=== PATIENT | male | born 1960 | race Caucasian/White ===

== ENCOUNTER 2024-12-15 04:38 | Inpatient (IN) | payer MEDICAID ==
[2024-12-15] VITALS (8 sets, daily range): BP systolic 125–173; BP diastolic 71–91; PULSE 93–119; RESP 17–20; TEMP 98.3–98.9; O2SAT 96–99
[~2024-12-15] VITALS: Ht 177.8 cm; Wt 94.0 kg
--- NOTE | 2024-12-15 04:58 | ED.PDOC ---
GI ASSESSMENT HPI Comments 64-year-old male came to ER for nausea. Patient states for the past 5 days, he has been having bouts of nausea, vomiting and diarrhea. He has been feeling very weak and fatigued. At times he feels confused and disoriented. Patient coming in for further evaluation and management. He denies any abdominal pain Chief Complaint: Nausea/Vomiting Time Seen by MD: 04:57 Reviewed Notes: Nurses Notes Information Source: Patient Mode of Arrival: Ambulatory Timing: Days Duration: Intermittent Prehospital treatment: None Quality: None Vomitus: Watery Stool: Loose Severity: Moderate Recent: None Recent Hx of: None Pain Location: None Associated sign and symptoms: Nausea, Vomiting, Diarrhea, Other (Weakness) Past Medical History PAST MEDICAL HISTORY: DM Surgical History: Denies all surgeries Family History Family History: Reviewed,noncontributory to illness Social History Smoker: Non-Smoker Alcohol: Denies ETOH Use Drugs: Denies Drug Use Lives In: Home Constitutional: reports: fatigue, weakness; denies: chills, diaphoresis, fever, malaise, sweats, others EENTM: denies: blurred vision, double vision, ear bleeding, ear discharge, ear drainage, ear pain, ear ringing, eye pain, eye redness, hearing loss, mouth leslie n, mouth swelling, nasal discharge, nose bleeding, nose congestion, nose pain, photophobia, tearing, throat pain, throat swelling, voice changes, others Respiratory: denies: cough, hemoptysis, orthopnea, SOB at rest, shortness of breath, SOB with excertion, stridor, wheezing, others Cardiovascular: denies: chest pain, dizzy spells, diaphoresis, Dyspnea on exertion, edema, irregular heart beat, left arm pain, lightheadedness, palpitations, PND, syncope, others Gastrointestinal: reports: diarrhea, nausea, rectal pain; denies: abdomen distended, abdominal pain, blood streaked bowels, constipated, dysphagia, difficulty swallowing, hematemesis, melena, poor appetite, poor fluid intake, rectal bleeding, vomiting, others Genitourinary: denies: burning, dysuria, flank pain, frequency, hematuria, incontinence, penile discharge, penile sore, pain, testicle pain, testicle swelling, urgency, others Neurological: denies: dizziness, fainting, headache, left sided numbness, left sided weakness, numbness, paresthesia, pre-existing deficit, right sided numbness, right sided weakness, seizure, speech problems, tingling, tremors, weakness, others Musculoskeletal: denies: back pain, gout, joint pain, joint swelling, muscle pain, muscle stiffness, neck pain, others Integumetry: denies: bruises, change in color, change in hair/nails, dryness, laceration, lesions, lumps, rash, wounds, others Allergic/Immunocompromised: denies: Difficulty Healing, Frequent Infections, Hives, Itching, others Hematologic/Lymphatic: denies: anemia, blood clots, easy bleeding, easy bruising, swollen glands, others Endocrine: denies: excessive hunger, excessive sweating, excessive thirst, excessive urination, flushing, intolerance to cold, intolerance to heat, unexplained weight gain, unexplained weight loss, others Psychiatric: denies: anxiety, bipolar disorder, depression, hopeless, panic disorder, schizophrenia, sleepless, suicidal, others Physical Exam General Appearance: No Apparent Distress, Normal HEENT: Normal ENT Inspection, Pharynx Normal, TMs Normal Neck: Full Range of Motion, Non-Tender, Normal, Normal Inspection Respiratory: Chest Non-Tender, Lungs Clear, No Accessory Muscle Use, No Respiratory Distress, Normal Breath Sounds Cardiovascular: No Edema, No JVD, No Murmur, No Gallop, Normal Peripheral Pulses, Regular Rate/Rhythm Breast Exam: Deferred Gastrointestinal: No Organomegaly, Non Tender, No Pulsatile Mass, Normal Bowel Sounds, Soft Genitalia: Deferred Pelvic: Deferred Rectal: Deferred Extremities: No calf tenderness, Normal capillary refill, Normal inspection, Normal range of motion, Non-tender, No pedal edema Musculoskeletal : Apperance: Normal Neurologic: Alert, summer law clerk II-XII nml as Tested, No Motor Deficits, Normal Affect, Normal Mood, No Sensory Deficits Cerebellar Function: Normal Reflexes: Normal Skin: Dry, Normal Color, Warm Lymphatic: No Adenopathy Was a procedure done? Was a procedure done?: No GI differential Dx Differential Diagnosis: Diverticular disease, Gastritis/PUD, Gastroenteritis, Dehydration, Anemia X-Ray, Labs, Meds, VS Vital Signs Date Time Temp Pulse Resp B/P (MAP) Pulse Ox O2 Delivery O2 Flow Rate FiO2 12/15/24 04:58 98.2 104 18 183/95 (124) 99 Lab Test 12/15/24 05:00 12/15/24 04:58 12/15/24 04:50 Range/Units Urine Color Pending Urine Clarity Pending Urine pH Pending Urine Specific [place] Pending Urine Protein Pending Urine Ketones Pending Urine Blood Pending Urine Nitrite Pending Urine Bilirubin Pending Urine Urobilinogen Pending Urine Leukocyte Esterase Pending Urine RBC Pending Urine Microscopic WBC Pending Urine Squamous Epithelial Cells Pending Urine Bacteria Pending Urine Glucose Pending White Blood Count 12.0 H 4.4-10.8 10^3/uL Red Blood Count 4.82 4.5-5.90 10^6/uL Hemoglobin 14.7 13.5-17.5 g/dL Hematocrit 44.4 41.0-53.0 % Mean Corpuscular Volume 92.1 80.0-100.0 fL Mean Corpuscular Hemoglobin 30.5 28.0-32.0 pg Mean Corpuscular Hemoglobin Concent 33.1 32.0-36.0 g/dL Red Cell Distribution Width 13.1 11.8-14.3 % Platelet Count 161 140-450 10^3/uL Mean Platelet Volume 8.3 6.9-10.8 fL Neutrophils (%) (Auto) 91.7 H 37.0-80.0 % Lymphocytes (%) (Auto) 3.8 L 10.0-50.0 % Monocytes (%) (Auto) 4.2 0.0-12.0 % Eosinophils (%) (Auto) 0.1 0.0-7.0 % Basophils (%) (Auto) 0.2 0.0-2.0 % Neutrophils # (Auto) 11.0 H 1.6-8.6 10 ^3/uL Lymphocytes # (Auto) 0.5 0.4-5.4 10 ^3/uL Monocytes # (Auto) 0.5 0-1.3 10 ^3/uL Eosinophils # (Auto) 0 0-0.8 10 ^3/uL Basophils # (Auto) 0 0-0.2 10 ^3/uL Nucleated Red Blood Cells 0.0 % Sodium Level 136 136-145 mmol/L Potassium Level 6.7 *H 3.5-5.1 mmol/L Chloride Level 101 98-107 mmol/L Carbon Dioxide Level < 10 *L 20-31 mmol/L Anion Gap 25.91781 H 5-15 Blood Urea Nitrogen 125 *H 9-23 mg/dL Creatinine 24.87 *H 0.700-1.30 mg/dL Glomerular Filtration Rate Calc 2 >90 mL/min BUN/Creatinine Ratio 5.0 L 10.0-20.0 Serum Glucose 142 H 74-106 mg/dL Calcium Level 8.4 L 8.7-10.4 mg/dL Troponin I High Sensitivity 228 *H </=54 ng/L POC Glucose 116 H 70-106 mg/dl CHEST RADIOGRAPH Indication: vomiting Technique: Single frontal view of the chest was obtained COMPARISON: None FINDINGS: Lines and Tubes: None Lungs: Clear Pleura: No effusion. No pneumothorax. Cardiomediastinal contours: Unremarkable Bones: Unremarkable IMPRESSION: No acute disease. Time of 1ST Reevaluation: 04:53 Reevaluation 1ST: Unchanged Patient Education/Counseling: Diagnosis, Treatment Family Education/Counseling: No Family Present Departure 1 Departure Time of Disposition: 05:48 (Patient with a acute renal failure. Patient hyperkalemic. Patient with metabolic encephalopathy. Treating patient with hyp erkalemia protocol fluids and we will admit patient to step-down unit for expert consultation further management) Impression: Primary Impression: Hyperkalemia Additional Impressions: Acute metabolic encephalopathy Acute renal failure Qualified Codes: N17.9 - Acute kidney failure, unspecified Disposition: 09 ADMITTED INPATIENT Admit to: [facility] Condition: Critical Critical Care Note Critical Care Time?: Yes Critical care comment: Acute renal failure Authorized and Performed by: Saman Vega MD Total critical care time: Approximately 41 minutes Due to a high probability of clinically significant, life threatening deterioration, the patient required my highest level of preparedness to intervene emergently and I personally spent this critical care time directly and personally managing the patient. This critical care time included obtaining a history; examining the patient; pulse oximetry; ordering and review of studies; arranging urgent treatment with development of a management plan; evaluation of patient's response to treatment; frequent reassessment; and, discussions with other providers. This critical care time was performed to assess and manage the high probability of imminent, life-threatening deterioration that could result in multi-organ failure. It was exclusive of separately billable procedures and treating other patients and teaching time. Please see my other sections and the rest of the note for further information on patient assessment and treatment. Stability Stability form required: No Heart Score Heart Score: Heart Score Response (Comments) Value History N/A 0 EKG N/A 0 Age N/A 0 Risk Factors N/A 0 Troponin N/A 0 Total 0 I personally scribed for SAMAN VEGA MD ([facility]) on 12/15/24 at 04:58. Electronically submitted by Cam Rodriguez ([email or web address] I personally scribed for SAMAN VEGA MD ([facility]) on 12/15/24 at 05:30. Electronically submitted by Cam Rodriguez ([email or web address] SAMAN VEGA MD Dec 15, 2024 04:58
--- NOTE | 2024-12-15 05:17 | DVH ---
CHEST RADIOGRAPH Indication: vomiting Technique: Single frontal view of the chest was obtained COMPARISON: None FINDINGS: Lines and Tubes: None Lungs: Clear Pleura: No effusion. No pneumothorax. Cardiomediastinal contours: Unremarkable Bones: Unremarkable IMPRESSION: No acute disease.
[2024-12-15 05:26] LABS: Basophils # (auto) 0 10 ^3/uL (0-0.2); Basophils % (auto) 0.2 % (0.0-2.0); Eosinophils # (auto) 0 10 ^3/uL (0-0.8); Eosinophils % (auto) 0.1 % (0.0-7.0); Hematocrit 44.4 % (41.0-53.0); Hemoglobin 14.7 g/dL (13.5-17.5); Lymphocytes # (auto) 0.5 10 ^3/uL (0.4-5.4); Lymphocytes % (auto) 3.8 % (10.0-50.0); Mean Corpuscular Hemoglobin 30.5 pg (28.0-32.0); Mean Corpuscular Hgb Conc. 33.1 g/dL (32.0-36.0); Mean Corpuscular Volume 92.1 fL (80.0-100.0); Monocytes # (auto) 0.5 10 ^3/uL (0-1.3); Monocytes % (auto) 4.2 % (0.0-12.0); Neutrophils % (auto) 91.7 % (37.0-80.0); Platelet Count (auto) 161 10^3/uL (140-450); Red Blood Cells 4.82 10^6/uL (4.5-5.90); Red Cell Distribution Width 13.1 % (11.8-14.3)
[2024-12-15 05:28] LABS: Chloride 101 mmol/L (98-107)
[2024-12-15 05:29] LABS: Anion Gap 25.00001 (5-15)
[2024-12-15 05:34] LABS: Urine Bacteria None Seen /hpf (None Seen)
[2024-12-15 05:35] LABS: Calcium 8.4 mg/dL (8.7-10.4); Glucose 142 mg/dL (74-106); Sodium 136 mmol/L (136-145)
[2024-12-15 05:38] LABS: Blood Urea Nitrogen 125 mg/dL (9-23); Carbon Dioxide < 10 mmol/L (20-31); Potassium 6.7 mmol/L (3.5-5.1)
[2024-12-15] MEDS: CALCIUM GLUC 1,000mg/50ml-NS 100 ML IV ONE (05:55)
[2024-12-15] MEDS: SODIUM CHLORIDE 0.9% 1,000 ML IV ONE ×2 (05:55→06:55)
[2024-12-15] MEDS: CALCIUM GLUC 1,000mg/50ml-NS 50 ML IV SCH (05:55)
[2024-12-15 06:03] LABS: Urine Blood 2+ /uL (Negative); Urine Clarity Ex.Turbid (Clear); Urine Color Colorless (Yellow); Urine Protein, UAD 2+ (Negative); Urine Specific Gravity 1.009 (1.001-1.035); Urine Squamous Epithelial Cell None Seen /hpf (<5); Urine Urobilinogen Normal (Negative); Urine WBC 1035 /HPF (0-3); Urine WBC Clumps PRESENT /hpf (None Seen)
[2024-12-15] MEDS: InsuLIN REG 1unit/0.01ml Soln (100units/ml) IV ONE ×2 (06:10→15:09)
[2024-12-15] MEDS: SODIUM BICARB 8.4% 50Meq/50ml SYR Vial IV ONE (06:11)
[2024-12-15] MEDS: ONDANSETRON HCL 4 MG/2 ML VIAL IV ONE (06:18)
[2024-12-15] MEDS: DEXTROSE (50%) 50ML SYRG IV ONE ×2 (06:21→15:08)
[2024-12-15] MEDS: FAMOTIDINE (10MG/ML) 2ML VL IV ONE (06:55)
[2024-12-15] MEDS ORDERED: NITROGLYCERIN 0.4 MG SL TAB SL PRN (07:45)
[2024-12-15] MEDS ORDERED: MORPHINE SULFATE INJ 2 MG/ml SYRG IV PRN (07:45)
[2024-12-15] MEDS ORDERED: DEXTROSE (50%) 50ML SYRG IV PRN (07:45)
[2024-12-15] MEDS: cefTRIAXone 1GM/50ML D5W 50 ML IV ONE (07:59)
[2024-12-15] MEDS ORDERED: LISI20TA56 (08:00)
[2024-12-15] MEDS ORDERED: ASPI-628 PO (08:00)
[2024-12-15] MEDS ORDERED: ERGO1CAP12 PO (08:00)
[2024-12-15] MEDS ORDERED: TAMS0.4C39 PO (08:00)
[2024-12-15] MEDS ORDERED: ATOR40TA52 PO (08:00)
[2024-12-15] MEDS ORDERED: DOCU-265 (08:00)
--- NOTE | 2024-12-15 08:02 | DVHHP2 ---
History of Present Illness Reason for Visit: Nausea, vomiting, and generalized weakness History of Present Illness Dami Bailey is a 64-year-old male with past medical history of hypertension and diabetes who presents to the ED with nausea, vomiting, and general weakness x5 days. Patient reports that he has had a poor appetite for the last week and also has some urgency to void in the evenings. Patient reports that he stopped taking his Flomax because he just did not want to any longer. Also reports that he has been having chest pain on and off for the last several months. Patient also reports that he has no recent sick contacts or recent illnesses. She denies any shortness of breath, abdominal pain, diarrhea, fever, chills, dizziness, and headaches. Cardiovascular: HTN Endocrine: Diabetes Past Surgical History: None Family History: DM, Other (Dad with diabetes) Smoke: No ALCOHOL: none Drugs: None Lives: Roommate Domestic Violence: Neg Review of Systems Constitutional: Yes: Weakness; No: Fever, Chills, Sweats, Malaise, Other Eyes: No: Pain, Vision change, Conjunctivae inflammation, Eyelid inflammation, Other, Redness ENT: No: Ear pain, Ear discharge, Nose pain, Nose discharge, Nose congestion, Mouth pain, Mouth swelling, Throat pain, Throat swelling, Other Respiratory: No: Cough, Dry, Shortness of breath, SOB with excertion, Wheezing, Hemoptysis, Pleuritic Pain, Sputum, Wheezing, Other Cardiovascular: No: Chest Pain, Palpitations, Orthopnea, Paroxysmal Noc. Dyspnea, Edema, Lt Headedness, Other Gastrointestinal: Nausea, Vomiting; No: Abdominal Pain, Diarrhea, Constipation, Melena, Hematochezia, Other Genitourinary: No Dysuria, No Frequency, No Incontinence, No Hematuria, No Ret ention, No Other Musculoskeletal: No: other, neck pain, shoulder pain, arm pain, back pain, hand pain, leg pain, foot pain Neurological: No: Weakness, Numbness, Incoordination, Change in speech, Confusion, Seizures, Other Allergies: Coded Allergies: NO KNOWN ALLERGIES (Unverified , 12/15/24) Medications Current Medications Medications Dose Ordered Sig/Tanesha Route Start Time Stop Time Status Last Admin Dose Admin Ceftriaxone Sodium 50 ml @ 100 mls/hr DAILY@09 IV 12/15/24 09:00 Ondansetron HCl 4 mg Q4HP PRN IV 12/15/24 07:45 UNV Acetaminophen 650 mg Q6HP PRN PO 12/15/24 07:45 UNV Nitroglycerin 0.4 mg Q5MINP PRN SL 12/15/24 07:45 UNV Morphine Sulfate 2 mg Q30M PRN IV 12/15/24 07:45 UNV Diagnostic Test (Pha) 1 strip ACHS 12/15/24 11:30 UNV Insulin Human Regular ACHS SC 12/15/24 11:30 UNV Dextrose 50 ml UD PRN IV 12/15/24 07:45 UNV Exam Vital Signs Vital Signs Date Time Temp Pulse Resp B/P (MAP) Pulse Ox O2 Delivery O2 Flow Rate FiO2 12/15/24 06:36 102 17 98 Room Air* 0 21 12/15/24 06:31 97.7 168/65 (99) 97.7 General Appearance: Alert, Oriented X3, Cooperative, No acute distress HEENT: Atraumatic, PERRLA, EOMI, Mucous membr. moist/pink Respiratory: Normal air movement Cardiovascular: Regular rate, Normal S1, Normal S2, No murmurs Abdominal: Normal bowel sounds, Soft, No tenderness, No hepatospenomegaly, No masses Extremities: No clubbing, No cyanosis, No edema, Normal pulses, No tenderness/swelling Skin: No rashes, No breakdown, No significant lesion Neuro: Normal gait, Normal speech, Normal tone, Sensation intact Psych/Mental Status: Mental status NL, Mood NL Labs/Xrays Labs Test 12/15/24 07:42 12/15/24 05:00 12/15/24 04:58 Range/Units POC Glucose 135 H 70-106 mg/dl Urine Color Colorless Yellow Urine Clarity Ex.turbid Clear Urine pH 6.0 5.0-9.0 Urine Specific [place] 1.009 1.001-1.035 Urine Protein 2+ H Negative Urine Ketones Trace Negative Urine Blood 2+ H Negative /uL Urine Nitrite Negative Negative Urine Bilirubin Negative Negative Urine Urobilinogen Normal Negative mg/dL Urine Leukocyte Esterase 3+ Negative /uL Urine RBC 18 0 - 3 /hpf Urine WBC Clumps Present None Seen /hpf Urine Microscopic WBC 1035 H 0-3 /HPF Urine Squamous Epithelial Cells None seen <5 /hpf Urine Bacteria None seen None Seen /hpf Urine Glucose Normal Normal mg/dL White Blood Count 12.0 H 4.4-10.8 10^3/uL Red Blood Count 4.82 4.5-5.90 10^6/uL Hemoglobin 14.7 13.5-17.5 g/dL Hematocrit 44.4 41.0-53.0 % Mean Corpuscular Volume 92.1 80.0-100.0 fL Mean Corpuscular Hemoglobin 30.5 28.0-32.0 pg Mean Corpuscular Hemoglobin Concent 33.1 32.0-36.0 g/dL Red Cell Distribution Width 13.1 11.8-14.3 % Platelet Count 161 140-450 10^3/uL Mean Platelet Volume 8.3 6.9-10.8 fL Neutrophils (%) (Auto) 91.7 H 37.0-80.0 % Lymphocytes (%) (Auto) 3.8 L 10.0-50.0 % Monocytes (%) (Auto) 4.2 0.0-12.0 % Eosinophils (%) (Auto) 0.1 0.0-7.0 % Basophils (%) (Auto) 0.2 0.0-2.0 % Neutrophils # (Auto) 11.0 H 1.6-8.6 10 ^3/uL Lymphocytes # (Auto) 0.5 0.4-5.4 10 ^3/uL Monocytes # (Auto) 0.5 0-1.3 10 ^3/uL Eosinophils # (Auto) 0 0-0.8 10 ^3/uL Basophils # (Auto) 0 0-0.2 10 ^3/uL Nucleated Red Blood Cells 0.0 % Sodium Level 136 136-145 mmol/L Potassium Level 6.7 *H 3.5-5.1 mmol/L Chloride Level 101 98-107 mmol/L Carbon Dioxide Level < 10 *L 20-31 mmol/L Anion Gap 25.90818 H 5-15 Blood Urea Nitrogen 125 *H 9-23 mg/dL Creatinine 24.87 *H 0.700-1.30 mg/dL Glomerular Filtration Rate Calc 2 >90 mL/min BUN/Creatinine Ratio 5.0 L 10.0-20.0 Serum Glucose 142 H 74-106 mg/dL Calcium Level 8.4 L 8.7-10.4 mg/dL Troponin I High Sensitivity 228 *H </=54 ng/L CHEST RADIOGRAPH Indication: vomiting Technique: Single frontal view of the chest was obtained COMPARISON: None FINDINGS: Lines and Tubes: None Lungs: Clear Pleura: No effusion. No pneumothorax. Cardiomediastinal contours: Unremarkable Bones: Unremarkable IMPRESSION: No acute disease. Assessment/Plan Assessment/Plan Assessment/Plan: Intractable nausea and vomiting Leukocytosis likely due to UTI KIANNA Hyperkalemia Labs Potassium level Hyperkalemia protocol Antiemetics Chest x-ray noted Troponin noted UA Lactic ESR CRP EKG IV antibiotics-ceftriaxone A.m. labs Lipid TSH UDS Echo ordered Cardiology consult Nephrology consult Diabetes type 2 uncontrolled Hemoglobin A1c ISS and Accu-Cheks Chronic hypertension Continue home medications FEN/PPX Diet IV fluids DVT prophylaxis not indicated patient ambulating PUD prophylaxis not indicated no history of GERD or GI bleed Admit to telemetry Home medications reconciled Discussed plan of care with patient and nurse Plan discussed with: Patient My Orders Orders - ROBBIN MARIE SOLAR PANEL TECHNICIAN Procedure Category Date Status Time Lactic Acid W/ Reflex LAB 12/15/24 Logged Order 07:34 Erythrocyte LAB 12/15/24 Logged Sedimentation Rate 07:34 C-Reactive Protein LAB 12/15/24 Logged 07:34 Ceftriaxone 1gm/50ml PHA 12/15/24 In Process D5w (Rocephin) 09:00 Ceftriaxone 1gm/50ml PHA 12/15/24 In Process D5w (Rocephin) 07:45 Troponin-I Hs LAB 12/15/24 Logged 07:36 Troponin-I Hs LAB 12/15/24 Logged 08:36 Electrocardigram EKG 12/15/24 Logged 07:36 *Dr. [facility] CONS 12/15/24 Transmitted -[place] 07:37 Admit ADMIT 12/15/24 Transmitted 07:37 Allergies FATOU 12/15/24 In Process 07:37 Code Status CODE 12/15/24 Transmitted 07:37 Renal DIET 12/15/24 Transmitted Standard(2gna,3gk,Lopho) Breakfast Ondansetron Hcl PHA 12/15/24 Transmitted (Zofran) 07:45 Complete Blood Count LAB 12/16/24 Verified 04:00 Comprehensive LAB 12/16/24 Verified Metabolic Panel 04:00 Acetaminophen Tablet PHA 12/15/24 Transmitted (Tylenol Tablet) 07:45 Nitroglycerin PHA 12/15/24 Transmitted Sublingual (Ntrostat 07:45 Morphine Sulfate PHA 12/15/24 Transmitted Injection 07:45 Stat Ekg For Chest [facility] 12/15/24 In Process Pain 07:37 Notify Md Of Changes [facility] 12/15/24 In Process From Base 07:37 Television Servicer For [facility] 12/15/24 In Process 24 Hours 07:37 Emergency Dysrhythmia [facility] 12/15/24 In Process Protocol 07:37 Rhythm Strips Once [facility] 12/15/24 In Process Every Shift 07:37 Oxygen By Nasal RT 12/15/24 Transmitted Cannula 07:37 Hemoglobin A1c LAB 12/15/24 Logged 07:37 Glucose Blood [facility] 12/15/24 Transmitted (Accu-Chek Comfort 11:30 Mild Sliding Scale PHA 12/15/24 Transmitted 11:30 Dextrose 50% Syringe [facility] 12/15/24 Transmitted 07:45 Date of Service: Dec 15, 2024 Billing Provider: ROBBIN MARIE Common Visit Codes: 19332-VMEREIO INP/OBS CARE (HIGH) ROBBIN MARIE Dec 15, 2024 08:02
--- NOTE | 2024-12-15 08:43 | ECG ---
[facility] Test Date: 2024-12-15 Test Time: 08:40:07 Pat Name: ROMMEL CRAWLEY Department: ED Room: 0219T Gender: M Collection Specialist: ILDA : 1960 Requested By: ROBBIN MARIE Order Number: [id number] Reading MD: Maynor Venegas Measurements Intervals [place] Rate: 104 P: 61 AR: 174 QRS: -14 QRSD: 93 T: 16 QT: 366 QTc: 482 Interpretive Statements Sinus tachycardia Borderline prolonged QT interval Electronically Signed On 12-15-2024 13:17:56 PST by Maynor Venegas Please click the below link to view image of tracing.
[2024-12-15 09:15] LABS: Erythrocyte Sedimentation Rate 4 mm/hr (0-20)
[2024-12-15 09:44] LABS: Triglycerides 79 mg/dL (< 150)
[2024-12-15 09:46] LABS: Cholesterol 183 mg/dL (< 200)
[2024-12-15 09:56] LABS: HDL Cholesterol 38 mg/dL (40-59); LDL Cholesterol 146 mg/dL (< 100)
[2024-12-15 10:29] LABS: Amphetamine Screen, Urine Neg (NEGATIVE); Barbiturate Scree,Urine Neg (NEGATIVE); Benzodiazephine Screen, Urine Neg (NEGATIVE); Cannabinoid Screen, Urine Neg (NEGATIVE); Cocaine Screen, Urine Neg (NEGATIVE); Opiate Scree,Urine Neg (NEGATIVE); Phencyclidine Screen, Urine Neg (NEGATIVE)
[2024-12-15] MEDS: hydrALAZINE HCL 20 MG/ML VL IV ONE (10:38)
[2024-12-15] MEDS: InsuLIN REG 1unit/0.01ml Soln (100units/ml) SC SCH (10:38)
[2024-12-15] MEDS: ACCU-CHEK COMFORT CURVE STRIP VI SCH (10:38)
[2024-12-15] MEDS: cefTRIAXone 1GM/50ML D5W 50 ML IV SCH (10:38)
--- NOTE | 2024-12-15 11:30 | DVHINCON2 ---
Date Seen: Dec 15, 2024 Referring Physician ADELAIDE Chavez Reason for Consultation Elevated troponin History of Present Illness This is a 64-year-old male patient who presents to the emergency room with chief complaint of generalized weakness, nausea, vomiting, diarrhea, and poor appetite for approximately four weeks. The patient decided to come to the emergency room for further evaluation. Cardiology has been consulted at this time for elevated troponin level. The patient denies any cardiac symptoms at time of assessment. Initial twelve lead electrocardiogram reveals sinus tachycardia without any significant ST segment changes. Initial troponin level of 228ng/L with flat trend thereafter. Significant past medical history includes hypertension, hyperlipidemia, type 2 diabetes mellitus, benign prostatic hyperplasia, and obesity. Past Medical History Past medical history reviewed. No other significant than mentioned above. Past Surgical History Denies Family History: Patient reports no known family medical history. Family History Family history reviewed. Social History Denies the use of tobacco, alcohol or illicit drugs. Allergies: Coded Allergies: NO KNOWN ALLERGIES (Unverified , 12/15/24) Home Meds Reported Medications Ergocalciferol (Vitamin D) 50,000 Unit Cap, 1 CAP PO QWEEKLY 12/15/24 Tamsulosin Hcl (Tamsulosin Hcl) 0.4 Mg Cap, 1 CAP PO DAILY 12/15/24 Aspirin (Aspirin Adult Low Dose) 81 Mg Tab, 1 TAB PO DAILY 12/15/24 Docusate Sodium (Docusate Sodium) 100 Mg Cap, 1 12/15/24 Atorvastatin Calcium (ATORVASTATIN CALCIUM) 40 Mg Tab, 40 MG PO DAILY 12/15/24 Lisinopril (Lisinopril) 20 Mg Tab, 1 DAILY 12/15/24 Home Meds Home medications reviewed. Current Medications Current Medications Medications (Trade) Dose Ordered Sig/Tanesha Route PRN Reason Start Time Stop Time Status Last Admin Calcium Gluconate/ Sodium Chloride 50 ml @ 100 mls/hr Q30M IV 12/15/24 06:00 12/15/24 06:59 DC 12/15/24 06:21 Ceftriaxone Sodium 50 ml @ 100 mls/hr DAILY@09 IV 12/15/24 09:00 12/15/24 10:38 Ondansetron HCl (Zofran) 4 mg Q4HP PRN IV NAUSEA / VOMITING 12/15/24 07:45 Acetaminophen (Tylenol Tablet) 650 mg Q6HP PRN PO PAIN SCALE 1-3 OR TEMP>100.4 12/15/24 07:45 Nitroglycerin (Ntrostat Sublingual) 0.4 mg Q5MINP PRN SL FOR CHEST PAIN 12/15/24 07:45 Morphine Sulfate 2 mg Q30M PRN IV FOR CHEST PAIN 12/15/24 07:45 Diagnostic Test (Pha) (Accu-Chek Comfort Curve T) 1 strip ACHS 12/15/24 11:30 12/15/24 10:38 Insulin Human Regular (InsuLIN R) ACHS SC 12/15/24 11:30 Dextrose 50 ml UD PRN IV Blood Sugar LESS THAN 60 12/15/24 07:45 Review of Systems Constitutional: Generalized weakness Ears, Nose, & Throat: No symptom reported Eyes: No symptom reported Neurological: No symptoms reported Pulmonary/Respiratory: No symptoms reported Cardiovascular: No symptom reported Gastrointestinal: Nausea, vomiting, diarrhea Genitourinary: No symptom reported Musculoskeletal: No symptom reported Skin: No symptom reported Psychiatric: No symptom reported Endocrine: No symptom reported Hematologic/Lymphatic: No symptom reported Vital Signs Vital Signs Date Time Temp Pulse Resp B/P (MAP) Pulse Ox O2 Delivery O2 Flow Rate FiO2 12/15/24 10:38 161/91 12/15/24 09:45 98.4 97 20 98 98.4 12/15/24 08:07 Room Air* 0 21 Physical Exam General Appearance: Cooperative. Well-developed. Well-nourished. No acute distress. Pulmonary/Respiratory: Clear, bilateral breaths sounds. Cardiovascular/Chest: Regular rate and rhythm. Peripheral Pulses: 2+ Radial (R). 2+ Radial (L). 2+ Pedal (R). 2+ Pedal (L) Abdominal Exam: Normal bowel sounds. Ankle Exam: Negative ankle edema Lower extremities: Negative lower extremity edema Neuro/Mental Status: A/OX4, coherent. Thoughts/Psych: Normal thought pattern. Appropriate mood and affect. Good judgment and insight. Appearance: No acute distress. Skin Exam: Normal inspection. Normal color. Warm and dry. Labs/Diagnostic Data Labs Test 12/15/24 10:23 12/15/24 08:55 12/15/24 07:56 12/15/24 05:00 Range/Units POC Glucose 122 H 70-106 mg/dl Troponin I High Sensitivity 244 *H </=54 ng/L Erythrocyte Sedimentation Rate 4 0-20 mm/hr Potassium Level 6.2 *H 3.5-5.1 mmol/L Lactic Acid Level 1.4 0.4-2.0 mmol/L C-Reactive Protein High Sensitivity 1.54 H <1.0 mg/dL Triglycerides Level 79 < 150 mg/dL Cholesterol Level 183 < 200 mg/dL LDL Cholesterol 146 H < 100 mg/dL HDL Cholesterol 38 L 40-59 mg/dL Thyroid Stimulating Hormone (TSH) 0.90 0.55-4.78 uIU/mL Urine Color Colorless Yellow Urine Clarity Ex.turbid Clear Urine pH 6.0 5.0-9.0 Urine Specific Joice 1.009 1.001-1.035 Urine Protein 2+ H Negative Urine Ketones Trace Negative Urine Blood 2+ H Negative /uL Urine Nitrite Negative Negative Urine Bilirubin Negative Negative Urine Urobilinogen Normal Negative mg/dL Urine Leukocyte Esterase 3+ Negative /uL Urine RBC 18 0 - 3 /hpf Urine WBC Clumps Present None Seen /hpf Urine Microscopic WBC 1035 H 0-3 /HPF Urine Squamous Epithelial Cells None seen <5 /hpf Urine Bacteria None seen None Seen /hpf Urine Glucose Normal Normal mg/dL Urine Opiates Screen Neg NEGATIVE Urine Fentanyl Screen Neg NEGATIVE Urine Barbiturates Screen Neg NEGATIVE Urine Phencyclidine Screen Neg NEGATIVE Urine Amphetamines Screen Neg NEGATIVE Urine Benzodiazepines Screen Neg NEGATIVE Urine Cocaine Screen Neg NEGATIVE Urine Cannabinoids Screen Neg NEGATIVE Test 12/15/24 04:58 Range/Units White Blood Count 12.0 H 4.4-10.8 10^3/uL Red Blood Count 4.82 4.5-5.90 10^6/uL Hemoglobin 14.7 13.5-17.5 g/dL Hematocrit 44.4 41.0-53.0 % Mean Corpuscular Volume 92.1 80.0-100.0 fL Mean Corpuscular Hemoglobin 30.5 28.0-32.0 pg Mean Corpuscular Hemoglobin Concent 33.1 32.0-36.0 g/dL Red Cell Distribution Width 13.1 11.8-14.3 % Platelet Count 161 140-450 10^3/uL Mean Platelet Volume 8.3 6.9-10.8 fL Neutrophils (%) (Auto) 91.7 H 37.0-80.0 % Lymphocytes (%) (Auto) 3.8 L 10.0-50.0 % Monocytes (%) (Auto) 4.2 0.0-12.0 % Eosinophils (%) (Auto) 0.1 0.0-7.0 % Basophils (%) (Auto) 0.2 0.0-2.0 % Neutrophils # (Auto) 11.0 H 1.6-8.6 10 ^3/uL Lymphocytes # (Auto) 0.5 0.4-5.4 10 ^3/uL Monocytes # (Auto) 0.5 0-1.3 10 ^3/uL Eosinophils # (Auto) 0 0-0.8 10 ^3/uL Basophils # (Auto) 0 0-0.2 10 ^3/uL Nucleated Red Blood Cells 0.0 % Sodium Level 136 136-145 mmol/L Chloride Level 101 98-107 mmol/L Carbon Dioxide Level < 10 *L 20-31 mmol/L Anion Gap 25.26506 H 5-15 Blood Urea Nitrogen 125 *H 9-23 mg/dL Creatinine 24.87 *H 0.700-1.30 mg/dL Glomerular Filtration Rate Calc 2 >90 mL/min BUN/Creatinine Ratio 5.0 L 10.0-20.0 Serum Glucose 142 H 74-106 mg/dL Hemoglobin A1c 8.3 H <5.7 % A1C Calcium Level 8.4 L 8.7-10.4 mg/dL Assessment Hyperkalemia Acute kidney injury NSTEMI, likely type II secondary to above Hypertension Hyperlipidemia Type 2 diabetes mellitus, uncontrolled (Hgb A1c 8.3%) Benign prostatic hyperplasia Obesity Plan/Recommendation We will continue following plan/recommendations (Dr. Doyle): Transthoracic echocardiogram reveals an EF of 65% with normal diastolic function and normal wall motion. The patient was noted to have a mildly dilated ascending aorta. Elevated troponin level likely multifactorial including hyperkalemia, acute kidney injury, and underlying infectious process. Continue with Nephrology consult and recommendations. There is no further inpatient cardiac workup indicated at this time. We will recommend for the patient to follow up in the outpatient setting with cardiology regarding mildly dilated ascending aorta. Thank you for allowing us to care for this patient. Please call with any questions or concerns. Critical care time spent: 44 minutes This medical document was created using an electronic medical record system with voice recognition software and computerized dictation system. Although this document has been carefully reviewed, there might still be some phonetic and typographical errors. Occasional wrong-word or ``sound-alike substitutions may have occurred due to the inherent limitations of voice recognition software. These areas are purely typographical due to imperfections of the software programs and do not reflect any compromise in the patient's medical care. Please read the chart carefully and recognize, using context, where these substitutions have occurred. Plan discussed with: Patient NYHA Physical activity limitations: NA Date of Service: Dec 15, 2024 Billing Provider: CRISTO KRISHNAN Cardiology Common Codes: 82746-SQHRRCT INP/OBS CARE (High) Cardiology Consultation Codes: 94414-[id number] CONSULT <45MIN CRISTO KRISHNAN Dec 15, 2024 11:30
--- NOTE | 2024-12-15 13:18 | DVHSR ---
APPROVED REPORT EXAM: Two-dimensional and M-mode echocardiogram with Doppler and color Doppler. Blood Pressure: 170/91 mmHg INDICATION Chest Pain RISK FACTORS Obesity: Height: 5'0, Weight: 167 DIMENSIONS LVDd4.4 (3.8-5.7cm)LA (2D)4.2 (1.9-4.0cm)Aortic Root4.2 (2.0-3.7cm) LVDs2.9 (2.5-4.0cm)LA (MM) (1.9-4.0cm)Aortic Cusp Exc1.7 (1.5-2.0cm) EF (%) 60.0 (55-70%)Rt. Atrium3.0 (1.9-4.0cm)Asc. Aorta4.1 cm IVSd1.3 (0.7-1.1cm)RV (D) (1.8-2.4cm) PWd1.2 (0.7-1.1cm) Mitral Valve MitralMitral Stenosis E wave0.75m/sMV Mean GR.mmHg A wave0.97m/sMV Peak GR.mmHg E/A ratio0.82D MVAcm2 DECEL [id number] 1/2 Timems Aortic Valve Aortic ValveAortic Stenosis V11.14m/Joy Mean GR.4mmHg V21.26m/Joy Peak GR.6mmHg LVOT Diameter2.4 (1.8-2.4cm)Doppler AVA4.09cm2 Pulmonic Valve V21.23m/s Tricuspid Valve TR Velocity2.81m/s [id number] LEFT VENTRICLE The left ventricle is normal size. There is mild concentric left ventricular hypertrophy. The left ventricle is normal in structure and function, LVEF is 65%. Normal diastolic function. Normal wall motion. RIGHT VENTRICLE The right ventricle is normal size. The right ventricular systolic function is normal. ATRIA The left atrial size is normal. The right atrium size is normal. MITRAL VALVE The mitral valve is normal in structure and function. Mitral regurgitation is trace. PULMONIC VALVE The pulmonic valve is normal in structure and function. There is no pulmonic valvular regurgitation. TRICUSPID VALVE The tricuspid valve is grossly normal. No tricuspid regurgitation. AORTIC VALVE The aortic valve is not well visualized. No aortic regurgitation is present. GREAT VESSELS There is mild aortic root dilatation. Mildly dilated ascending aorta. PERICARDIAL EFFUSION There is no pericardial effusion. Conclusion The left ventricle is normal size. There is mild concentric left ventricular hypertrophy. The left ve ntricle is normal in structure and function, LVEF is 65%. Normal diastolic function. Normal wall lilo on. The right ventricular systolic function is normal. The left and right atrial size is normal. No significant valvular abnormalities. There is mild aortic root dilatation. Mildly dilated ascending aorta. There is no pericardial effusion.
[2024-12-15] MEDS: ALBUTEROL SULF 2.5 MG/0.5ML(0.5%) NEB SOLN NEB ONE (14:22)
[2024-12-15] MEDS: SODIUM BICARB 8.4% 50Meq/50ml SYR INJ IV ONE (15:08)
[2024-12-15] MEDS: SODIUM ZIRCONIUM CYCL 10 GM PAK PO ONE (15:10)
[2024-12-15] MEDS: SODIUM CHLORIDE 0.9% 1,000 ML IV SCH (15:11)
--- NOTE | 2024-12-15 15:24 | DVHINCON2 ---
Date of service: Dec 15, 2024 Reason for Consultation Acute kidney injury History of Present Illness 64-year-old male with past medical history of diabetes, hypertension, BPH on Flomax. Per nurse at bedside patient has stopped taking his medications over the last few weeks. He has been complaining of diarrhea nausea and vomiting for the last several days. He presents to the hospital complaining of weakness. Patient was admitted due to acute kidney injury. He is noted to have severe hyperkalemia, azotemia and a creatinine greater than 20. I ordered and reviewed ultrasound at bedside with fish and wildlife technician shows severely distended bladder with bilateral hydronephrosis. Past Medical History Diabetes Hypertension Hyperlipidemia BPH Allergies: Coded Allergies: NO KNOWN ALLERGIES (Unverified , 12/15/24) Home Meds Reported Medications Ergocalciferol (Vitamin D) 50,000 Unit Cap, 1 CAP PO QWEEKLY 12/15/24 Tamsulosin Hcl (Tamsulosin Hcl) 0.4 Mg Cap, 1 CAP PO DAILY 12/15/24 Aspirin (Aspirin Adult Low Dose) 81 Mg Tab, 1 TAB PO DAILY 12/15/24 Docusate Sodium (Docusate Sodium) 100 Mg Cap, 1 12/15/24 Atorvastatin Calcium (ATORVASTATIN CALCIUM) 40 Mg Tab, 40 MG PO DAILY 12/15/24 Lisinopril (Lisinopril) 20 Mg Tab, 1 DAILY 12/15/24 Current Medications Current Medications Medications (Trade) Dose Ordered Sig/Tanesha Route PRN Reason Start Time Stop Time Status Last Admin Calcium Gluconate/ Sodium Chloride 50 ml @ 100 mls/hr Q30M IV 12/15/24 06:00 12/15/24 06:59 DC 12/15/24 06:21 Ceftriaxone Sodium 50 ml @ 100 mls/hr DAILY@09 IV 12/15/24 09:00 12/15/24 10:38 Ondansetron HCl (Zofran) 4 mg Q4HP PRN IV NAUSEA / VOMITING 12/15/24 07:45 Acetaminophen (Tylenol Tablet) 650 mg Q6HP PRN PO PAIN SCALE 1-3 OR TEMP>100.4 12/15/24 07:45 Nitroglycerin (Ntrostat Sublingual) 0.4 mg Q5MINP PRN SL FOR CHEST PAIN 12/15/24 07:45 Morphine Sulfate 2 mg Q30M PRN IV FOR CHEST PAIN 12/15/24 07:45 Diagnostic Test (Pha) (Accu-Chek Comfort Curve T) 1 strip ACHS 12/15/24 11:30 12/15/24 10:38 Insulin Human Regular (InsuLIN R) ACHS SC 12/15/24 11:30 Dextrose 50 ml UD PRN IV Blood Sugar LESS THAN 60 12/15/24 07:45 Sodium Chloride 1,000 ml @ 100 mls/hr Q10H IV 12/15/24 14:15 12/15/24 15:11 Aspirin (Ecotrin Enteric Coated Tablet) 81 mg DAILY PO 12/16/24 10:00 Docusate Sodium (Colace Capsule) 100 mg DAILY PO 12/16/24 10:00 Ergocalciferol (Vitamin D 50,000 Unit) 50,000 unit QWEEKLY PO 12/15/24 15:00 Tamsulosin HCl (Flomax) 0.4 mg QPM PO 12/15/24 18:00 Patient Own Medication 40 mg HS PO 12/15/24 22:00 Family History: Patient reports no known family medical history. Review of Systems Weakness and confusion Nausea vomiting H&P Exam Vital Signs/I&O Vital Sign Date Time Temp Pulse Resp B/P (MAP) Pulse Ox O2 Delivery O2 Flow Rate FiO2 12/15/24 14:22 98 Room Air 12/15/24 14:22 0 21 12/15/24 14:22 93 18 12/15/24 10:38 161/91 12/15/24 09:45 98.4 98.4 Intake and Output 12/14/24 12/15/24 19:00 07:00 Intake Total 1100 ml Balance 1100 ml Intake IV Total 1100 ml Physical Exam Elderly male Mildly anxious Able to answer simple questions but easily confused Large abdomen with suprapubic fullness 1+ pitting edema Regular rate and rhythm Labs/Diagnostic Data Labs/Diagnostic Data Laboratory Tests Test 12/15/24 14:35 12/15/24 10:23 12/15/24 08:55 12/15/24 07:56 Range/Units POC Glucose 122 H 70-106 mg/dl Troponin I High Sensitivity 244 *H 254 *H </=54 ng/L Erythrocyte Sedimentation Rate 4 0-20 mm/hr Potassium Level 6.2 *H 3.5-5.1 mmol/L Lactic Acid Level 1.4 0.4-2.0 mmol/L C-Reactive Protein High Sensitivity 1.54 H <1.0 mg/dL Triglycerides Level 79 < 150 mg/dL Cholesterol Level 183 < 200 mg/dL LDL Cholesterol 146 H < 100 mg/dL HDL Cholesterol 38 L 40-59 mg/dL Thyroid Stimulating Hormone (TSH) 0.90 0.55-4.78 uIU/mL Test 12/15/24 07:42 12/15/24 05:58 12/15/24 05:00 12/15/24 04:58 Range/Units POC Glucose 135 H 129 H 70-106 mg/dl Urine Color Colorless Yellow Urine Clarity Ex.turbid Clear Urine pH 6.0 5.0-9.0 Urine Specific [place] 1.009 1.001-1.035 Urine Protein 2+ H Negative Urine Ketones Trace Negative Urine Blood 2+ H Negative /uL Urine Nitrite Negative Negative Urine Bilirubin Negative Negative Urine Urobilinogen Normal Negative mg/dL Urine Leukocyte Esterase 3+ Negative /uL Urine RBC 18 0 - 3 /hpf Urine WBC Clumps Present None Seen /hpf Urine Microscopic WBC 1035 H 0-3 /HPF Urine Squamous Epithelial Cells None seen <5 /hpf Urine Bacteria None seen None Seen /hpf Urine Glucose Normal Normal mg/dL Urine Opiates Screen Neg NEGATIVE Urine Fentanyl Screen Neg NEGATIVE Urine Barbiturates Screen Neg NEGATIVE Urine Phencyclidine Screen Neg NEGATIVE Urine Amphetamines Screen Neg NEGATIVE Urine Benzodiazepines Screen Neg NEGATIVE Urine Cocaine Screen Neg NEGATIVE Urine Cannabinoids Screen Neg NEGATIVE White Blood Count 12.0 H 4.4-10.8 10^3/uL Red Blood Count 4.82 4.5-5.90 10^6/uL Hemoglobin 14.7 13.5-17.5 g/dL Hematocrit 44.4 41.0-53.0 % Mean Corpuscular Volume 92.1 80.0-100.0 fL Mean Corpuscular Hemoglobin 30.5 28.0-32.0 pg Mean Corpuscular Hemoglobin Concent 33.1 32.0-36.0 g/dL Red Cell Distribution Width 13.1 11.8-14.3 % Platelet Count 161 140-450 10^3/uL Mean Platelet Volume 8.3 6.9-10.8 fL Neutrophils (%) (Auto) 91.7 H 37.0-80.0 % Lymphocytes (%) (Auto) 3.8 L 10.0-50.0 % Monocytes (%) (Auto) 4.2 0.0-12.0 % Eosinophils (%) (Auto) 0.1 0.0-7.0 % Basophils (%) (Auto) 0.2 0.0-2.0 % Neutrophils # (Auto) 11.0 H 1.6-8.6 10 ^3/uL Lymphocytes # (Auto) 0.5 0.4-5.4 10 ^3/uL Monocytes # (Auto) 0.5 0-1.3 10 ^3/uL Eosinophils # (Auto) 0 0-0.8 10 ^3/uL Basophils # (Auto) 0 0-0.2 10 ^3/uL Nucleated Red Blood Cells 0.0 % Sodium Level 136 136-145 mmol/L Potassium Level 6.7 *H 3.5-5.1 mmol/L Chloride Level 101 98-107 mmol/L Carbon Dioxide Level < 10 *L 20-31 mmol/L Anion Gap 25.83104 H 5-15 Blood Urea Nitrogen 125 *H 9-23 mg/dL Creatinine 24.87 *H 0.700-1.30 mg/dL Glomerular Filtration Rate Calc 2 >90 mL/min BUN/Creatinine Ratio 5.0 L 10.0-20.0 Serum Glucose 142 H 74-106 mg/dL Hemoglobin A1c 8.3 H <5.7 % A1C Calcium Level 8.4 L 8.7-10.4 mg/dL Troponin I High Sensitivity 228 *H </=54 ng/L Test 12/15/24 04:50 Range/Units POC Glucose 116 H 70-106 mg/dl Assessment Acute kidney injury multifactorial; obstruction + Pavel-i use + volume depletion Severe obstructive uropathy in the setting of BPH Baseline renal function reviewed from outpatient records is normal Diabetes poorly controlled Hypertension on PAVEL inhibitor BPH noncompliant with Flomax Hyperlipidemia Metabolic acidosis Immediate placement of Alfaro catheter Strict Is&Os Start sodium bicarbonate drip Renal diet Obtain phosphorus level Insulin for glycemic control Hyperkalemia protocol Monitor urinary output I explained to patient at bedside we will evaluate renal function in this [place] medically however there is a high probability of requiring hemodialysis if injury is persistent Hold lisinopril during this acute kidney injury. To allow for better glomerular perfusion Plan discussed with: Patient AZALIA ALCARAZ MD Dec 15, 2024 15:24
--- NOTE | 2024-12-15 15:43 | DVH ---
EXAM: US KIDNEY INDICATION: yolette TECHNIQUE: Multiple real-time sonographic images of the kidneys and bladder were obtained. COMPARISON: None Findings: Right kidney measures 13.2 cm with normal contours, echotexture, and cortical thickness. Mild hydrone phrosis. 0.6 cm calculus. 1.8 x 1.4 x 0.9 cm anechoic lesion in the upper pole. No evidence of solid lesions. Left kidney measures 12.4 cm with normal contours, echotexture, and cortical thickness. Mild hydronep hrosis. No evidence of calculi, cystic or solid lesions. Urinary bladder is unremarkable without evidence of abnormal wall thickening, mass, or calculi. Prevo id volume 1486 mL. Postvoid volume was not obtained. Impression: 1. Mild bilateral hydronephrosis. 2. Right nephrolithiasis. 3. Right renal cyst. 4. Distended urinary bladder. Prevoid volume 1486 mL.
[2024-12-15] MEDS: ERGOCALCIFEROL 50,000 UNIT(1.25MG) CAP PO SCH (15:44)
[2024-12-15] MEDS: CALCIUM GLUC 1,000mg/50ml-NS 50 ML IV ONE (15:53)
[2024-12-15 16:00] LABS: Anion Gap 22 (5-15); Chloride 103 mmol/L (98-107); Sodium 137 mmol/L (136-145)
[2024-12-15 16:06] LABS: BUN/Creatinine Ratio 5.7 (10.0-20.0)
[2024-12-15 16:14] LABS: Calcium 8.2 mg/dL (8.7-10.4); Carbon Dioxide 12 mmol/L (20-31); Glucose 198 mg/dL (74-106)
[2024-12-15 16:16] LABS: Blood Urea Nitrogen 135 mg/dL (9-23); Potassium 6.1 mmol/L (3.5-5.1)
[2024-12-15] MEDS: SODIUM BICARB 50mEq/50ml Vial 150 ML in D5W 5% 1,000 ML IV SCH (18:04)
[2024-12-15] MEDS: CALCIUM ACETATE 667 MG CAP PO SCH (19:03)
[2024-12-15] MEDS: TAMSULOSIN HYDROCHLORIDE 0.4 MG CAP PO SCH (19:04)
[2024-12-15 20:25] LABS: Potassium 4.5 mmol/L (3.5-5.1); Sodium 143 mmol/L (136-145)
[2024-12-15 20:26] LABS: Anion Gap 18 (5-15)
[2024-12-15 20:31] LABS: BUN/Creatinine Ratio 8.4 (10.0-20.0)
[2024-12-15 20:42] LABS: Carbon Dioxide 17 mmol/L (20-31); Chloride 108 mmol/L (98-107); Glucose 275 mg/dL (74-106)
[2024-12-15 20:44] LABS: Blood Urea Nitrogen 118 mg/dL (9-23)
[2024-12-15] MEDS: PATIENTS OWN MEDICATION (Atorvastatin Calcium 40 MG) PO SCH (22:00)
[2024-12-15] MEDS: ATORVASTATIN 20 MG TAB PO SCH (22:30)
[2024-12-15] MEDS: LACTATED RINGER'S 1,000 ML IV SCH (23:47)
[2024-12-16] VITALS (9 sets, daily range): BP systolic 116–179; BP diastolic 74–94; PULSE 73–100; RESP 16–18; TEMP 97.5–98.1; O2SAT 89–97
[2024-12-16 06:26] LABS: Basophils # (auto) 0 10 ^3/uL (0-0.2); Basophils % (auto) 0.3 % (0.0-2.0); Eosinophils # (auto) 0 10 ^3/uL (0-0.8); Eosinophils % (auto) 0.3 % (0.0-7.0); Hematocrit 40.2 % (41.0-53.0); Hemoglobin 13.7 g/dL (13.5-17.5); Lymphocytes # (auto) 0.3 10 ^3/uL (0.4-5.4); Lymphocytes % (auto) 4.2 % (10.0-50.0); Mean Corpuscular Hgb Conc. 34.1 g/dL (32.0-36.0); Monocytes # (auto) 0.7 10 ^3/uL (0-1.3); Monocytes % (auto) 8.6 % (0.0-12.0); Neutrophils # (auto) 6.7 10 ^3/uL (1.6-8.6); Neutrophils % (auto) 86.6 % (37.0-80.0); Platelet Count (auto) 136 10^3/uL (140-450); Red Blood Cells 4.42 10^6/uL (4.5-5.90); Red Cell Distribution Width 13.2 % (11.8-14.3); White Blood Cell 7.7 10^3/uL (4.4-10.8)
[2024-12-16 06:53] LABS: Alanine Aminotransferase 13 U/L (7-40); Alkaline Phosphatase 66 U/L (46-116); Anion Gap 13 (5-15); Calcium 9.8 mg/dL (8.7-10.4); Carbon Dioxide 21 mmol/L (20-31); Potassium 3.8 mmol/L (3.5-5.1)
[2024-12-16 06:54] LABS: Albumin 4.1 g/dL (3.2-4.8); Bilirubin, Total 0.8 mg/dL (0.2-1.0); Phosphorus 4.5 mg/dL (2.4-5.1); Total Protein 6.5 g/dL (5.7-8.2)
[2024-12-16 06:55] LABS: Aspartate Aminotransferase 13 U/L (13-40); Blood Urea Nitrogen 49 mg/dL (9-23); Chloride 113 mmol/L (98-107); Glucose 203 mg/dL (74-106); Sodium 147 mmol/L (136-145)
[2024-12-16] MEDS: DOCUSATE SOD 100 MG CAP PO SCH (09:14)
[2024-12-16] MEDS: ASPirin-EC 81 mg tab PO SCH (09:15)
--- NOTE | 2024-12-16 10:17 | DVHPN2 ---
Progress Note Date Seen: Dec 16, 2024 Medical Necessity Reason Pt with a Central, PICC or Fol: Yes The following are medically ne: Muir Catheter Reason for muir catheter: Bladder Retention/Obstruc Subjective Patient reports: Feels better Objective vital signs Vital Sign Date Time Temp Pulse Resp B/P (MAP) Pulse Ox O2 Delivery O2 Flow Rate FiO2 12/16/24 09:00 97.5 89 17 127/81 (96) 89 97.5 12/15/24 20:00 Room Air* 0 21 Total Intake and Output 12/15/24 12/15/24 12/16/24 15:00 23:00 07:00 Intake Total 1440 ml 1180 ml 1361 ml Output Total 2950 ml 4000 ml Balance 1440 ml -1770 ml -2639 ml medications Current Medications Medications Dose Ordered Sig/Tanesha Route Start Time Stop Time Status Last Admin Dose Admin Ceftriaxone Sodium 50 ml @ 100 mls/hr DAILY@09 IV 12/15/24 09:00 12/16/24 09:15 100 MLS/HR Ondansetron HCl 4 mg Q4HP PRN IV 12/15/24 07:45 Acetaminophen 650 mg Q6HP PRN PO 12/15/24 07:45 Nitroglycerin 0.4 mg Q5MINP PRN SL 12/15/24 07:45 Morphine Sulfate 2 mg Q30M PRN IV 12/15/24 07:45 Diagnostic Test (Pha) 1 strip ACHS 12/15/24 11:30 12/16/24 06:43 1 STRIP Insulin Human Regular ACHS SC 12/15/24 11:30 12/16/24 06:43 4 UNITS Dextrose 50 ml UD PRN IV 12/15/24 07:45 Sodium Chloride 1,000 ml @ 100 mls/hr Q10H IV 12/15/24 14:15 12/15/24 15:11 100 MLS/HR Aspirin 81 mg DAILY PO 12/16/24 10:00 12/16/24 09:15 81 MG Docusate Sodium 100 mg DAILY PO 12/16/24 10:00 12/16/24 09:14 100 MG Ergocalciferol 50,000 unit QWEEKLY PO 12/15/24 15:00 12/15/24 15:44 50,000 UNIT Tamsulosin HCl 0.4 mg QPM PO 12/15/24 18:00 12/15/24 19:04 0.4 MG Patient Own Medication 40 mg HS PO 12/15/24 22:00 Calcium Acetate 1,334 mg TIDWMEALS PO 12/15/24 18:00 12/16/24 09:14 1,334 MG Atorvastatin Calcium 20 mg HS PO 12/15/24 22:00 12/15/24 22:30 20 MG Lactated Ringer's 1,000 ml @ 100 mls/hr Q10H IV 12/15/24 23:00 12/16/24 09:16 100 MLS/HR Examination: GENERAL:Normal, HEENT:Normal, LUNGS:Normal, CVS:Normal, ABDOMEN:Normal, :Abnormal laboratory and microbiology Laboratory Tests 12/16/24 05:45 Test 12/16/24 05:45 Range/Units Serum Glucose 203 H 74-106 mg/dL Problem List/Assessment/Plan Problem List/Assessment/Plan Acute kidney injury multifactorial; obstruction + Mi-i use + volume depletion Severe obstructive uropathy in the setting of BPH s/p large UOP post catheter placement Baseline renal function reviewed from outpatient records is normal Diabetes poorly controlled Hypertension on MI inhibitor BPH noncompliant with Flomax Hyperlipidemia Metabolic acidosis Continue with Muir catheter, patient will require Muir leg bag upon discharge, Flomax continue IV fluid change to lactated Ringer's we will continue to monitor urinary output Discontinue phosphorus binders now that phosphorus has improved P.o. as tolerated Monitor urinary output No emergent indication for hemodialysis at this time given improved urine output and improved renal function Continue to hold lisinopril during acute kidney injury. Plan discussed with: Patient My Orders My Orders Orders - AZALIA ALCARAZ MD Procedure Category Date Status Time Kidney US 12/15/24 Resulted 14:33 Strict I & O FATOU 12/15/24 In Process 15:18 Urine Bacterial GALDINO 12/15/24 Logged Culture 16:59 Renal DIET 12/15/24 Transmitted Standard(2gna,3gk,Lopho) Dinner Lactated Ringer's PHA 12/15/24 In Process 23:00 Basic Metabolic Panel LAB 12/17/24 Verified 04:00 Basic Metabolic Panel LAB 12/16/24 Logged 12:00 AZALIA ALCARAZ MD Dec 16, 2024 10:17
--- NOTE | 2024-12-16 12:48 | DVHPN2 ---
Reviewed: Care Plan, H&P, Labs, Medications, Previous Orders, Radiology Changes from previous H/P or p: No Changes Eyes: No Pain, No Vision change, No Conjunctivae inflammation, No Eyelid inflammation, No Other, No Redness ENT: No Ear pain, No Ear discharge, No Nose pain, No Nose discharge, No Nose congestion, No Mouth pain, No Mouth swelling, No Throat pain, No Throat swelling, No Other Cardiovascular: No Chest Pain, No Palpitations, No Orthopnea, No Paroxysmal Noc. Dyspnea, No Edema, No Lt Headedness, No Other Respiratory: No Cough, No Dry, No Shortness of breath, No SOB with excertion, No Wheezing, No Hemoptysis, No Pleuritic Pain, No Sputum, No Other Gastrointestinal: Nausea, Vomiting; No Abdominal Pain, No Diarrhea, No Constipation, No Melena, No Hematochezia, No Other Genitourinary: No Dysuria, No Frequency, No Incontinence, No Hematuria, No Retention, No Other Musculoskeletal: No other, No neck pain, No shoulder pain, No arm pain, No back pain, No hand pain, No leg pain, No foot pain Objective Vitals Vital Signs Date Time Temp Pulse Resp B/P (MAP) Pulse Ox O2 Delivery O2 Flow Rate FiO2 12/16/24 09:00 97.5 89 17 127/81 (96) 89 97.5 12/15/24 20:00 Room Air* 0 21 Intake/Output Intake and Output 12/16/24 07:00 Intake Total 3981 ml Output Total 6950 ml Balance -2969 ml Intake Oral 1320 ml IV Total 2661 ml Output Urine Total 6950 ml # Bowel Movements 1 Medications Current Medications Medications Dose Ordered Sig/Tanesha Route Start Time Stop Time Status Last Admin Dose Admin Ceftriaxone Sodium 50 ml @ 100 mls/hr DAILY@09 IV 12/15/24 09:00 12/16/24 09:15 100 MLS/HR Ondansetron HCl 4 mg Q4HP PRN IV 12/15/24 07:45 Acetaminophen 650 mg Q6HP PRN PO 12/15/24 07:45 Nitroglycerin 0.4 mg Q5MINP PRN SL 12/15/24 07:45 Morphine Sulfate 2 mg Q30M PRN IV 12/15/24 07:45 Diagnostic Test (Pha) 1 strip ACHS 12/15/24 11:30 12/16/24 11:38 1 STRIP Insulin Human Regular ACHS SC 12/15/24 11:30 12/16/24 11:42 4 UNITS Dextrose 50 ml UD PRN IV 12/15/24 07:45 Sodium Chloride 1,000 ml @ 100 mls/hr Q10H IV 12/15/24 14:15 12/15/24 15:11 100 MLS/HR Aspirin 81 mg DAILY PO 12/16/24 10:00 12/16/24 09:15 81 MG Docusate Sodium 100 mg DAILY PO 12/16/24 10:00 12/16/24 09:14 100 MG Ergocalciferol 50,000 unit QWEEKLY PO 12/15/24 15:00 12/15/24 15:44 50,000 UNIT Tamsulosin HCl 0.4 mg QPM PO 12/15/24 18:00 12/15/24 19:04 0.4 MG Patient Own Medication 40 mg HS PO 12/15/24 22:00 Atorvastatin Calcium 20 mg HS PO 12/15/24 22:00 12/15/24 22:30 20 MG Lactated Ringer's 1,000 ml @ 100 mls/hr Q10H IV 12/15/24 23:00 12/16/24 09:16 100 MLS/HR Laboratory Results Laboratory Tests 12/16/24 05:45 Chemistry Test 12/15/24 14:35 12/15/24 19:50 12/16/24 05:45 Calcium Level 8.2 mg/dL (8.7-10.4) L 9.0 mg/dL (8.7-10.4) 9.8 mg/dL (8.7-10.4) Phosphorus Level 13.2 mg/dL (2.4-5.1) H 4.5 mg/dL (2.4-5.1) Albumin 4.1 g/dL (3.2-4.8) Total Protein 6.5 g/dL (5.7-8.2) LFT Test 12/16/24 05:45 Alanine Aminotransferase (ALT) 13 U/L (7-40) Alkaline Phosphatase 66 U/L (46-116) Aspartate Amino Transferase (AST) 13 U/L (13-40) Total Bilirubin 0.8 mg/dL (0.2-1.0) Urinalysis Test 12/15/24 05:00 Urine Color Colorless (Yellow) Urine Clarity Ex.turbid (Clear) Urine pH 6.0 (5.0-9.0) Urine Specific [place] 1.009 (1.001-1.035) Urine Protein 2+ (Negative) H Urine Ketones Trace (Negative) Urine Blood 2+ /uL (Negative) H Urine Nitrite Negative (Negative) Urine Bilirubin Negative (Negative) Urine Urobilinogen Normal mg/dL (Negative) Urine Leukocyte Esterase 3+ /uL (Negative) Urine RBC 18 /hpf (0 - 3) Urine WBC Clumps Present /hpf (None Seen) Urine Microscopic WBC 1035 /HPF (0-3) H Urine Squamous Epithelial Cells None seen /hpf (<5) Urine Bacteria None seen /hpf (None Seen) Urine Glucose Normal mg/dL (Normal) Labs and/or images reviewed: Labs reviewed by me, Image(s) reviewed by me Assessment/Plan Assessment/Plan Sepsis secondary to urinary tract infection Urinary tract infection: Blood cultures urine cultures Rocephin Acute Hyperkalemia Acute kidney injury multifactorial: Consult by paper novelty maker appreciated Severe obstructive uropathy with the BPH and right kidney calculus: Consult for Dr. Nash BPH noncompliant with the Flomax Acute metabolic acidosis NSTEMI, likely type II secondary to above Hypertension Hyperlipidemia Type 2 diabetes mellitus, uncontrolled (Hgb A1c 8.3%) Benign prostatic hyperplasia Obesity Time spent 65 minutes Patient is full code Advanced care planning time 20 minutes Plan discussed with: Patient Date of Service: Dec 16, 2024 Billing Provider: RUDDY GÓMEZ MD Common Visit Codes: [id number] CARE 30-74 MIN RUDDY GÓMEZ MD Dec 16, 2024 12:48
[2024-12-16 13:22] LABS: Potassium 3.8 mmol/L (3.5-5.1)
[2024-12-16 13:23] LABS: Anion Gap 12 (5-15); Carbon Dioxide 23 mmol/L (20-31); Chloride 112 mmol/L (98-107); Sodium 147 mmol/L (136-145)
[2024-12-16 13:24] LABS: Calcium 9.8 mg/dL (8.7-10.4)
[2024-12-16 13:29] LABS: BUN/Creatinine Ratio 10.6 (10.0-20.0)
[2024-12-16 13:37] LABS: Blood Urea Nitrogen 30 mg/dL (9-23); Glucose 226 mg/dL (74-106)
[2024-12-16] MEDS: hydrALAZINE HCL 20 MG/ML VL IV ONE (16:42)
--- NOTE | 2024-12-16 16:48 | DVHINCON2 ---
Date of service: Dec 16, 2024 Referring Physician Kathy Reason for Consultation septicemia, renal failure secondary to bladder outlet obstruction History of Present Illness previously on flomax with apparent good response but stopped med reason unknown. admitted yesterday in renal failure and with infection urine;pt still lightly confused Past Medical History reviewed Past Surgical History reviewed Family History: Patient reports no known family medical history. Allergies: Coded Allergies: NO KNOWN ALLERGIES (Unverified , 12/15/24) Home Meds Reported Medications Ergocalciferol (Vitamin D) 50,000 Unit Cap, 1 CAP PO QWEEKLY 12/15/24 Tamsulosin Hcl (Tamsulosin Hcl) 0.4 Mg Cap, 1 CAP PO DAILY 12/15/24 Aspirin (Aspirin Adult Low Dose) 81 Mg Tab, 1 TAB PO DAILY 12/15/24 Docusate Sodium (Docusate Sodium) 100 Mg Cap, 1 12/15/24 Atorvastatin Calcium (ATORVASTATIN CALCIUM) 40 Mg Tab, 40 MG PO DAILY 12/15/24 Lisinopril (Lisinopril) 20 Mg Tab, 1 DAILY 12/15/24 Current Medications Current Medications Medications (Trade) Dose Ordered Sig/Tanesha Route PRN Reason Start Time Stop Time Status Last Admin Aspirin (Ecotrin Enteric Coated Tablet) 81 mg DAILY PO 12/16/24 10:00 12/16/24 09:15 Docusate Sodium (Colace Capsule) 100 mg DAILY PO 12/16/24 10:00 12/16/24 09:14 Tamsulosin HCl (Flomax) 0.4 mg QPM PO 12/15/24 18:00 12/15/24 19:04 Patient Own Medication 40 mg HS PO 12/15/24 22:00 12/16/24 16:28 DC Calcium Acetate (Phoslo Capsule) 1,334 mg TIDWMEALS PO 12/15/24 18:00 12/16/24 10:12 DC 12/16/24 09:14 Atorvastatin Calcium (Lipitor) 20 mg HS PO 12/15/24 22:00 12/15/24 22:30 Lactated Ringer's 1,000 ml @ 100 mls/hr Q10H IV 12/15/24 23:00 12/16/24 09:16 Atorvastatin Calcium (Lipitor) 40 mg HS PO 12/16/24 22:00 12/16/24 16:30 DC Review of Systems noted Vital Signs Vital Signs Date Time Temp Pulse Resp B/P (MAP) Pulse Ox O2 Delivery O2 Flow Rate FiO2 12/16/24 13:00 97.9 88 16 148/86 (106) 95 97.9 12/16/24 10:00 Room Air 12/16/24 10:00 0 21 Physical Exam muir in place with few clots per primary nurse Labs/Diagnostic Data Labs Test 12/16/24 11:58 12/16/24 11:39 12/16/24 05:45 12/15/24 08:55 Range/Units Sodium Level 147 H 136-145 mmol/L Potassium Level 3.8 3.5-5.1 mmol/L Chloride Level 112 H 98-107 mmol/L Carbon Dioxide Level 23 20-31 mmol/L Anion Gap 12 5-15 Blood Urea Nitrogen 30 #H 9-23 mg/dL Creatinine 2.83 #H 0.700-1.30 mg/dL Glomerular Filtration Rate Calc 24 >90 mL/min BUN/Creatinine Ratio 10.6 10.0-20.0 Serum Glucose 226 H 74-106 mg/dL Calcium Level 9.8 8.7-10.4 mg/dL POC Glucose 233 H 70-106 mg/dl White Blood Count 7.7 # 4.4-10.8 10^3/uL Red Blood Count 4.42 L 4.5-5.90 10^6/uL Hemoglobin 13.7 13.5-17.5 g/dL Hematocrit 40.2 L 41.0-53.0 % Mean Corpuscular Volume 91.0 80.0-100.0 fL Mean Corpuscular Hemoglobin 31.0 28.0-32.0 pg Mean Corpuscular Hemoglobin Concent 34.1 32.0-36.0 g/dL Red Cell Distribution Width 13.2 11.8-14.3 % Platelet Count 136 L 140-450 10^3/uL Mean Platelet Volume 8.3 6.9-10.8 fL Neutrophils (%) (Auto) 86.6 H 37.0-80.0 % Lymphocytes (%) (Auto) 4.2 L 10.0-50.0 % Monocytes (%) (Auto) 8.6 0.0-12.0 % Eosinophils (%) (Auto) 0.3 0.0-7.0 % Basophils (%) (Auto) 0.3 0.0-2.0 % Neutrophils # (Auto) 6.7 1.6-8.6 10 ^3/uL Lymphocytes # (Auto) 0.3 L 0.4-5.4 10 ^3/uL Monocytes # (Auto) 0.7 0-1.3 10 ^3/uL Eosinophils # (Auto) 0 0-0.8 10 ^3/uL Basophils # (Auto) 0 0-0.2 10 ^3/uL Nucleated Red Blood Cells 0.0 % Phosphorus Level 4.5 2.4-5.1 mg/dL Total Bilirubin 0.8 0.2-1.0 mg/dL Aspartate Amino Transferase (AST) 13 13-40 U/L Alanine Aminotransferase (ALT) 13 7-40 U/L Alkaline Phosphatase 66 46-116 U/L Total Protein 6.5 5.7-8.2 g/dL Albumin 4.1 3.2-4.8 g/dL Troponin I High Sensitivity 244 *H </=54 ng/L Test 12/15/24 07:56 12/15/24 05:00 12/15/24 04:58 Range/Units Erythrocyte Sedimentation Rate 4 0-20 mm/hr Lactic Acid Level 1.4 0.4-2.0 mmol/L C-Reactive Protein High Sensitivity 1.54 H <1.0 mg/dL Triglycerides Level 79 < 150 mg/dL Cholesterol Level 183 < 200 mg/dL LDL Cholesterol 146 H < 100 mg/dL HDL Cholesterol 38 L 40-59 mg/dL Thyroid Stimulating Hormone (TSH) 0.90 0.55-4.78 uIU/mL Urine Color Colorless Yellow Urine Clarity Ex.turbid Clear Urine pH 6.0 5.0-9.0 Urine Specific [place] 1.009 1.001-1.035 Urine Protein 2+ H Negative Urine Ketones Trace Negative Urine Blood 2+ H Negative /uL Urine Nitrite Negative Negative Urine Bilirubin Negative Negative Urine Urobilinogen Normal Negative mg/dL Urine Leukocyte Esterase 3+ Negative /uL Urine RBC 18 0 - 3 /hpf Urine WBC Clumps Present None Seen /hpf Urine Microscopic WBC 1035 H 0-3 /HPF Urine Squamous Epithelial Cells None seen <5 /hpf Urine Bacteria None seen None Seen /hpf Urine Glucose Normal Normal mg/dL Urine Opiates Screen Neg NEGATIVE Urine Fentanyl Screen Neg NEGATIVE Urine Barbiturates Screen Neg NEGATIVE Urine Phencyclidine Screen Neg NEGATIVE Urine Amphetamines Screen Neg NEGATIVE Urine Benzodiazepines Screen Neg NEGATIVE Urine Cocaine Screen Neg NEGATIVE Urine Cannabinoids Screen Neg NEGATIVE Hemoglobin A1c 8.3 H <5.7 % A1C Assessment as above ,continue catheter ,antibiotics and hydration Plan discussed with: Patient BERNY OLSON MD Dec 16, 2024 16:48
[2024-12-16] MEDS: ONDANSETRON HCL 4 MG/2 ML VIAL IV PRN (20:15)
[2024-12-16] MEDS ORDERED: ATORVASTATIN 20 MG TAB PO SCH (22:00)
[2024-12-17] VITALS (7 sets, daily range): BP systolic 141–149; BP diastolic 77–83; PULSE 71–82; RESP 17–20; TEMP 98–98.2; O2SAT 96–98
[2024-12-17 07:12] LABS: Anion Gap 11 (5-15); Carbon Dioxide 23 mmol/L (20-31); Potassium 3.6 mmol/L (3.5-5.1); Sodium 142 mmol/L (136-145)
[2024-12-17 07:13] LABS: Calcium 9.4 mg/dL (8.7-10.4)
[2024-12-17 07:18] LABS: BUN/Creatinine Ratio 11.6 (10.0-20.0); Blood Urea Nitrogen 15 mg/dL (9-23)
[2024-12-17 07:24] LABS: Chloride 108 mmol/L (98-107); Glucose 146 mg/dL (74-106)
--- NOTE | 2024-12-17 09:17 | DVHPN2 ---
Reviewed: Care Plan, H&P, Labs, Medications, Previous Orders, Radiology Changes from previous H/P or p: No Changes Eyes: No Pain, No Vision change, No Conjunctivae inflammation, No Eyelid inflammation, No Other, No Redness ENT: No Ear pain, No Ear discharge, No Nose pain, No Nose discharge, No Nose congestion, No Mouth pain, No Mouth swelling, No Throat pain, No Throat swelling, No Other Cardiovascular: No Chest Pain, No Palpitations, No Orthopnea, No Paroxysmal Noc. Dyspnea, No Edema, No Lt Headedness, No Other Respiratory: No Cough, No Dry, No Shortness of breath, No SOB with excertion, No Wheezing, No Hemoptysis, No Pleuritic Pain, No Sputum, No Other Gastrointestinal: Nausea, Vomiting; No Abdominal Pain, No Diarrhea, No Constipation, No Melena, No Hematochezia, No Other Genitourinary: No Dysuria, No Frequency, No Incontinence, No Hematuria, No Retention, No Other Musculoskeletal: No other, No neck pain, No shoulder pain, No arm pain, No back pain, No hand pain, No leg pain, No foot pain Objective Vitals Vital Signs Date Time Temp Pulse Resp B/P (MAP) Pulse Ox O2 Delivery O2 Flow Rate FiO2 12/17/24 05:00 98.2 75 17 143/82 (102) 98 98.2 12/16/24 20:00 Room Air* 0 21 Intake/Output Intake and Output 12/17/24 07:00 Intake Total 1900 ml Output Total 3801 ml Balance -1901 ml Intake Oral 650 ml IV Total 1250 ml Output Urine Total 3800 ml Stool Total 1 ml Medications Current Medications Medications Dose Ordered Sig/Tanesha Route Start Time Stop Time Status Last Admin Dose Admin Ceftriaxone Sodium 50 ml @ 100 mls/hr DAILY@09 IV 12/15/24 09:00 12/17/24 09:05 100 MLS/HR Ondansetron HCl 4 mg Q4HP PRN IV 12/15/24 07:45 12/16/24 20:15 4 MG Acetaminophen 650 mg Q6HP PRN PO 12/15/24 07:45 Nitroglycerin 0.4 mg Q5MINP PRN SL 12/15/24 07:45 Morphine Sulfate 2 mg Q30M PRN IV 12/15/24 07:45 Diagnostic Test (Pha) 1 strip ACHS 12/15/24 11:30 12/17/24 06:14 1 STRIP Insulin Human Regular ACHS SC 12/15/24 11:30 12/17/24 05:55 3 UNITS Dextrose 50 ml UD PRN IV 12/15/24 07:45 Sodium Chloride 1,000 ml @ 100 mls/hr Q10H IV 12/15/24 14:15 12/15/24 15:11 100 MLS/HR Aspirin 81 mg DAILY PO 12/16/24 10:00 12/17/24 09:05 81 MG Docusate Sodium 100 mg DAILY PO 12/16/24 10:00 12/17/24 09:04 100 MG Ergocalciferol 50,000 unit QWEEKLY PO 12/15/24 15:00 12/15/24 15:44 50,000 UNIT Tamsulosin HCl 0.4 mg QPM PO 12/15/24 18:00 12/16/24 17:48 0.4 MG Atorvastatin Calcium 20 mg HS PO 12/15/24 22:00 12/16/24 21:43 20 MG Lactated Ringer's 1,000 ml @ 100 mls/hr Q10H IV 12/15/24 23:00 12/17/24 05:53 100 MLS/HR Laboratory Results Laboratory Tests 12/16/24 05:45 12/17/24 05:49 Chemistry Test 12/16/24 11:58 12/17/24 05:49 Calcium Level 9.8 mg/dL (8.7-10.4) 9.4 mg/dL (8.7-10.4) Urinalysis Test 12/15/24 05:00 Urine Color Colorless (Yellow) Urine Clarity Ex.turbid (Clear) Urine pH 6.0 (5.0-9.0) Urine Specific [place] 1.009 (1.001-1.035) Urine Protein 2+ (Negative) H Urine Ketones Trace (Negative) Urine Blood 2+ /uL (Negative) H Urine Nitrite Negative (Negative) Urine Bilirubin Negative (Negative) Urine Urobilinogen Normal mg/dL (Negative) Urine Leukocyte Esterase 3+ /uL (Negative) Urine RBC 18 /hpf (0 - 3) Urine WBC Clumps Present /hpf (None Seen) Urine Microscopic WBC 1035 /HPF (0-3) H Urine Squamous Epithelial Cells None seen /hpf (<5) Urine Bacteria None seen /hpf (None Seen) Urine Glucose Normal mg/dL (Normal) Labs and/or images reviewed: Labs reviewed by me, Image(s) reviewed by me Assessment/Plan Assessment/Plan Sepsis secondary to urinary tract infection Urinary tract infection: Blood cultures urine cultures Rocephin Acute Hyperkalemia Acute kidney injury multifactorial: Consult by store team leader appreciated Severe obstructive uropathy with the BPH and right kidney calculus: Consult for Dr. Nash BPH noncompliant: Flomax Acute metabolic acidosis NSTEMI, likely type II secondary to above Hypertension Hyperlipidemia Type 2 diabetes mellitus, uncontrolled (Hgb A1c 8.3%) Benign prostatic hyperplasia Obesity Time spent 55 minutes Patient is full code Advanced care planning time 20 minutes Plan discussed with: Patient My Orders Orders - RUDDY GÓMEZ MD Procedure Category Date Status Time Blood Culture GALDINO 12/16/24 In Process 12:42 * Urology Consult CONS 12/16/24 Transmitted 12:43 Date of Service: Dec 17, 2024 Billing Provider: RUDDY GÓMEZ MD Common Visit Codes: [id number] INP/OBS CARE(HIGH) RUDDY GÓMEZ MD Dec 17, 2024 09:17
--- NOTE | 2024-12-17 17:21 | DVHPN2 ---
Progress Note Date Seen: Dec 17, 2024 Medical Necessity Reason Pt with a Central, PICC or Fol: Yes The following are medically ne: Muir Catheter Reason for muir catheter: Bladder Retention/Obstruc Subjective Patient reports: Feels worse (Hallucinating today) Objective vital signs Vital Sign Date Time Temp Pulse Resp B/P (MAP) Pulse Ox O2 Delivery O2 Flow Rate FiO2 12/17/24 13:00 98.0 74 18 141/77 (98) 98 98.0 12/17/24 10:00 Room Air 12/17/24 10:00 0 21 Total Intake and Output 12/16/24 12/16/24 12/17/24 15:00 23:00 07:00 Intake Total 250 ml 450 ml 1200 ml Output Total 3150 ml 651 ml Balance 250 ml -2700 ml 549 ml medications Current Medications Medications Dose Ordered Sig/Tanesha Route Start Time Stop Time Status Last Admin Dose Admin Ceftriaxone Sodium 50 ml @ 100 mls/hr DAILY@09 IV 12/15/24 09:00 12/17/24 09:05 100 MLS/HR Ondansetron HCl 4 mg Q4HP PRN IV 12/15/24 07:45 12/16/24 20:15 4 MG Acetaminophen 650 mg Q6HP PRN PO 12/15/24 07:45 Nitroglycerin 0.4 mg Q5MINP PRN SL 12/15/24 07:45 Morphine Sulfate 2 mg Q30M PRN IV 12/15/24 07:45 Diagnostic Test (Pha) 1 strip ACHS 12/15/24 11:30 12/17/24 11:42 1 STRIP Insulin Human Regular ACHS SC 12/15/24 11:30 12/17/24 11:50 3 UNITS Dextrose 50 ml UD PRN IV 12/15/24 07:45 Sodium Chloride 1,000 ml @ 100 mls/hr Q10H IV 12/15/24 14:15 12/15/24 15:11 100 MLS/HR Aspirin 81 mg DAILY PO 12/16/24 10:00 12/17/24 09:05 81 MG Docusate Sodium 100 mg DAILY PO 12/16/24 10:00 12/17/24 09:04 100 MG Ergocalciferol 50,000 unit QWEEKLY PO 12/15/24 15:00 12/15/24 15:44 50,000 UNIT Tamsulosin HCl 0.4 mg QPM PO 12/15/24 18:00 12/16/24 17:48 0.4 MG Atorvastatin Calcium 20 mg HS PO 12/15/24 22:00 12/16/24 21:43 20 MG Lactated Ringer's 1,000 ml @ 100 mls/hr Q10H IV 12/15/24 23:00 12/17/24 05:53 100 MLS/HR Examination: GENERAL:Abnormal laboratory and microbiology Laboratory Tests 12/17/24 05:49 12/16/24 05:45 Test 12/17/24 05:49 Range/Units Serum Glucose 146 H 74-106 mg/dL Microbiology Date/Time Source Procedure Growth Status 12/16/24 13:55 Blood Blood Culture - Preliminary NO GROWTH AFTER 24 HOURS OF INCUBATION. Resulted 12/16/24 12:42 Urine - [place] Urine Culture - Preliminary Resulted Problem List/Assessment/Plan Problem List/Assessment/Plan Acute kidney injury multifactorial; obstruction + Pavel-i use + volume depletion Severe obstructive uropathy in the setting of BPH s/p large UOP post catheter placement Baseline renal function reviewed from outpatient records is normal Diabetes poorly controlled Hypertension on PAVEL inhibitor BPH noncompliant with Flomax Hyperlipidemia Metabolic acidosis KIANNA has resolving with Muir catheter IV fluid monitor urinary output and correct electrolytes Continue with Muir catheter, Flomax started recommend Flomax continue. Neurology saw the patient today P.o. as tolerated Monitor urinary output Continue to hold lisinopril during acute kidney injury. Recommend outpatient renal follow-up with me after discharge Plan discussed with: Patient AZALIA ALCARAZ MD Dec 17, 2024 17:21
[2024-12-17] MEDS: LISINOPRIL 5 MG TAB PO SCH (17:59)
[2024-12-18] VITALS (9 sets, daily range): BP systolic 90–138; BP diastolic 49–73; PULSE 18–96; RESP 18–20; TEMP 97.6–98.8; O2SAT 94–99
[2024-12-18 06:50] LABS: Anion Gap 9 (5-15); Carbon Dioxide 25 mmol/L (20-31); Chloride 106 mmol/L (98-107); Potassium 3.7 mmol/L (3.5-5.1); Sodium 140 mmol/L (136-145)
[2024-12-18 06:51] LABS: Calcium 9.6 mg/dL (8.7-10.4)
[2024-12-18 06:57] LABS: BUN/Creatinine Ratio 12.2 (10.0-20.0); Blood Urea Nitrogen 14 mg/dL (9-23)
[2024-12-18 07:01] LABS: Glucose 149 mg/dL (74-106)
--- NOTE | 2024-12-18 09:04 | DVH ---
CT HEAD WITHOUT CONTRAST INDICATION: [facility] EXAM DATE: 12/18/2024 08:38 AM COMPARISON: None RADIATION DOSE: CTDIvol: 58.11 mGy, DLP: 1145.1 mGy*cm PROCEDURE: CT scans of the head were obtained from the vertex to the skull base. Sagittal and coronal reconstructions were provided. All CT scans at this medical facility are performed using dose modulation techniques as appropriate t o a performed exam including the following: Automated exposure control was utilized; adjustment of th e MA and/or KV according to patient size; and use of iterative reconstruction technique. FINDINGS: Right occipital lobe hypodensity could be a subacute infarct. There is sulcal and ventricul ar prominence. The brain otherwise shows normal morphology and rendon-white matter differentiation, wit hout intracranial hemorrhage, extra-axial fluid collection, mass effect or acute large vessel infarct . The ventricles are normal in size. The basal cisterns are patent. The skull and visible facial bone s are intact. The paranasal sinuses, mastoid air cells and middle ear cavities are well-aerated. The soft tissues of the scalp are unremarkable. IMPRESSION: Right occipital lobe hypodensity could be a subacute infarct. Critical Result: Infarct Findings discussed with Jules haddad RN at 12/18/2024 09:01 AM and acknowledged receipt and understandi ng of the findings.
--- NOTE | 2024-12-18 10:29 | DVHPN2 ---
Reviewed: Care Plan, H&P, Labs, Medications, Previous Orders, Radiology Changes from previous H/P or p: No Changes Eyes: No Pain, No Vision change, No Conjunctivae inflammation, No Eyelid inflammation, No Other, No Redness ENT: No Ear pain, No Ear discharge, No Nose pain, No Nose discharge, No Nose congestion, No Mouth pain, No Mouth swelling, No Throat pain, No Throat swelling, No Other Cardiovascular: No Chest Pain, No Palpitations, No Orthopnea, No Paroxysmal Noc. Dyspnea, No Edema, No Lt Headedness, No Other Respiratory: No Cough, No Dry, No Shortness of breath, No SOB with excertion, No Wheezing, No Hemoptysis, No Pleuritic Pain, No Sputum, No Other Gastrointestinal: Nausea, Vomiting; No Abdominal Pain, No Diarrhea, No Constipation, No Melena, No Hematochezia, No Other Genitourinary: No Dysuria, No Frequency, No Incontinence, No Hematuria, No Retention, No Other Musculoskeletal: No other, No neck pain, No shoulder pain, No arm pain, No back pain, No hand pain, No leg pain, No foot pain Objective Vitals Vital Signs Date Time Temp Pulse Resp B/P (MAP) Pulse Ox O2 Delivery O2 Flow Rate FiO2 12/18/24 09:00 98.1 72 18 90/49 (63) 99 98.1 12/17/24 20:00 Room Air* 0 21 Intake/Output Intake and Output 12/18/24 07:00 Intake Total 2800 ml Output Total 3851 ml Balance -1051 ml Intake Oral 1700 ml IV Total 1100 ml Output Urine Total 3850 ml Stool Total 1 ml # Bowel Movements 1 Medications Current Medications Medications Dose Ordered Sig/Tanesha Route Start Time Stop Time Status Last Admin Dose Admin Ceftriaxone Sodium 50 ml @ 100 mls/hr DAILY@09 IV 12/15/24 09:00 12/17/24 09:05 100 MLS/HR Ondansetron HCl 4 mg Q4HP PRN IV 12/15/24 07:45 12/16/24 20:15 4 MG Acetaminophen 650 mg Q6HP PRN PO 12/15/24 07:45 Nitroglycerin 0.4 mg Q5MINP PRN SL 12/15/24 07:45 Morphine Sulfate 2 mg Q30M PRN IV 12/15/24 07:45 Diagnostic Test (Pha) 1 strip ACHS 12/15/24 11:30 12/18/24 06:22 1 STRIP Insulin Human Regular ACHS SC 12/15/24 11:30 12/18/24 06:21 2 UNITS Dextrose 50 ml UD PRN IV 12/15/24 07:45 Aspirin 81 mg DAILY PO 12/16/24 10:00 12/17/24 09:05 81 MG Docusate Sodium 100 mg DAILY PO 12/16/24 10:00 12/17/24 09:04 100 MG Ergocalciferol 50,000 unit QWEEKLY PO 12/15/24 15:00 12/15/24 15:44 50,000 UNIT Tamsulosin HCl 0.4 mg QPM PO 12/15/24 18:00 12/17/24 17:59 0.4 MG Atorvastatin Calcium 20 mg HS PO 12/15/24 22:00 12/17/24 21:53 20 MG Lactated Ringer's 1,000 ml @ 100 mls/hr Q10H IV 12/15/24 23:00 12/18/24 05:07 100 MLS/HR Lisinopril 5 mg DAILY PO 12/17/24 17:30 12/17/24 17:59 5 MG Laboratory Results Laboratory Tests 12/16/24 05:45 12/18/24 06:01 Chemistry Test 12/18/24 06:01 Calcium Level 9.6 mg/dL (8.7-10.4) Urinalysis Test 12/15/24 05:00 Urine Color Colorless (Yellow) Urine Clarity Ex.turbid (Clear) Urine pH 6.0 (5.0-9.0) Urine Specific [place] 1.009 (1.001-1.035) Urine Protein 2+ (Negative) H Urine Ketones Trace (Negative) Urine Blood 2+ /uL (Negative) H Urine Nitrite Negative (Negative) Urine Bilirubin Negative (Negative) Urine Urobilinogen Normal mg/dL (Negative) Urine Leukocyte Esterase 3+ /uL (Negative) Urine RBC 18 /hpf (0 - 3) Urine WBC Clumps Present /hpf (None Seen) Urine Microscopic WBC 1035 /HPF (0-3) H Urine Squamous Epithelial Cells None seen /hpf (<5) Urine Bacteria None seen /hpf (None Seen) Urine Glucose Normal mg/dL (Normal) Microbiology Microbiology Date/Time Source Procedure Growth Status 12/16/24 13:55 Blood Blood Culture - Preliminary NO GROWTH AFTER 24 HOURS OF INCUBATION. Resulted 12/16/24 12:42 Urine - [place] Urine Culture - Preliminary Resulted Labs and/or images reviewed: Labs reviewed by me, Image(s) reviewed by me Assessment/Plan Assessment/Plan Sepsis secondary to urinary tract infection Acute Urinary tract infection: Blood cultures negative, urine cultures pending, continue rocephin Acute Hyperkalemia Acute kidney injury multifactorial: Consult by art specialist appreciated Severe obstructive uropathy with BPH and right kidney calculus: Consult for Dr. Nash, advised IV fluids antibiotics BPH noncompliant: Flomax Acute metabolic acidosis NSTEMI, likely type II secondary to above Hypertension Hyperlipidemia Type 2 diabetes mellitus, uncontrolled (Hgb A1c 8.3%) Benign prostatic hyperplasia Obesity Subacute Right occipital ischemic infarct by CT head Patient lives with a friend Social service consult for living situation Time spent 55 minutes Patient is full code Advanced care planning time 20 minutes Plan discussed with: Patient Date of Service: Dec 18, 2024 Billing Provider: RUDDY GÓMEZ MD Common Visit Codes: [id number] INP/OBS CARE(HIGH) RUDDY GÓMEZ MD Dec 18, 2024 10:29
[2024-12-19] VITALS (8 sets, daily range): BP systolic 91–135; BP diastolic 62–93; PULSE 20–80; RESP 17–20; TEMP 97.9–98.2; O2SAT 93–99
--- NOTE | 2024-12-19 10:55 | DVHPN2 ---
Reviewed: Care Plan, H&P, Labs, Medications, Previous Orders, Radiology Changes from previous H/P or p: No Changes Eyes: No Pain, No Vision change, No Conjunctivae inflammation, No Eyelid inflammation, No Other, No Redness ENT: No Ear pain, No Ear discharge, No Nose pain, No Nose discharge, No Nose congestion, No Mouth pain, No Mouth swelling, No Throat pain, No Throat swelling, No Other Cardiovascular: No Chest Pain, No Palpitations, No Orthopnea, No Paroxysmal Noc. Dyspnea, No Edema, No Lt Headedness, No Other Respiratory: No Cough, No Dry, No Shortness of breath, No SOB with excertion, No Wheezing, No Hemoptysis, No Pleuritic Pain, No Sputum, No Other Gastrointestinal: Nausea, Vomiting; No Abdominal Pain, No Diarrhea, No Constipation, No Melena, No Hematochezia, No Other Genitourinary: No Dysuria, No Frequency, No Incontinence, No Hematuria, No Retention, No Other Musculoskeletal: No other, No neck pain, No shoulder pain, No arm pain, No back pain, No hand pain, No leg pain, No foot pain Objective Vitals Vital Signs Date Time Temp Pulse Resp B/P (MAP) Pulse Ox O2 Delivery O2 Flow Rate FiO2 12/19/24 09:27 97.9 76 17 101/62 (75) 96 97.9 12/19/24 08:00 Room Air* 0 21 Intake/Output Intake and Output 12/19/24 07:00 Intake Total 1770 ml Output Total 902 ml Balance 868 ml Intake Oral 1320 ml IV Total 450 ml Output Urine Total 900 ml Stool Total 2 ml # Voids 2 Medications Current Medications Medications Dose Ordered Sig/Tanesha Route Start Time Stop Time Status Last Admin Dose Admin Ceftriaxone Sodium 50 ml @ 100 mls/hr DAILY@09 IV 12/15/24 09:00 12/19/24 09:09 100 MLS/HR Ondansetron HCl 4 mg Q4HP PRN IV 12/15/24 07:45 12/16/24 20:15 4 MG Acetaminophen 650 mg Q6HP PRN PO 12/15/24 07:45 Nitroglycerin 0.4 mg Q5MINP PRN SL 12/15/24 07:45 Morphine Sulfate 2 mg Q30M PRN IV 12/15/24 07:45 Diagnostic Test (Pha) 1 strip ACHS 1/31/25 11:30 12/19/24 06:04 1 STRIP Insulin Human Regular ACHS SC 12/15/24 11:30 12/19/24 06:06 2 UNITS Dextrose 50 ml UD PRN IV 12/15/24 07:45 Aspirin 81 mg DAILY PO 12/16/24 10:00 12/19/24 09:10 81 MG Docusate Sodium 100 mg DAILY PO 12/16/24 10:00 12/19/24 09:09 100 MG Ergocalciferol 50,000 unit QWEEKLY PO 12/15/24 15:00 12/15/24 15:44 50,000 UNIT Tamsulosin HCl 0.4 mg QPM PO 12/15/24 18:00 12/18/24 17:55 0.4 MG Atorvastatin Calcium 20 mg HS PO 12/15/24 22:00 12/18/24 21:35 20 MG Lisinopril 5 mg DAILY PO 12/17/24 17:30 12/19/24 09:09 5 MG Laboratory Results Laboratory Tests 12/16/24 05:45 12/18/24 06:01 Urinalysis Test 12/15/24 05:00 Urine Color Colorless (Yellow) Urine Clarity Ex.turbid (Clear) Urine pH 6.0 (5.0-9.0) Urine Specific [place] 1.009 (1.001-1.035) Urine Protein 2+ (Negative) H Urine Ketones Trace (Negative) Urine Blood 2+ /uL (Negative) H Urine Nitrite Negative (Negative) Urine Bilirubin Negative (Negative) Urine Urobilinogen Normal mg/dL (Negative) Urine Leukocyte Esterase 3+ /uL (Negative) Urine RBC 18 /hpf (0 - 3) Urine WBC Clumps Present /hpf (None Seen) Urine Microscopic WBC 1035 /HPF (0-3) H Urine Squamous Epithelial Cells None seen /hpf (<5) Urine Bacteria None seen /hpf (None Seen) Urine Glucose Normal mg/dL (Normal) Microbiology Microbiology Date/Time Source Procedure Growth Status 12/16/24 13:55 Blood Blood Culture - Preliminary NO GROWTH AFTER 48 HOURS OF INCUBATION. Resulted 12/16/24 12:42 Urine - [place] Urine Culture - Final Complete Labs and/or images reviewed: Labs reviewed by me, Image(s) reviewed by me Assessment/Plan Assessment/Plan Sepsis secondary to urinary tract infection Acute Urinary tract infection: Blood cultures negative, urine cultures mixed , continue rocephin Acute Hyperkalemia Acute kidney injury multifactorial: Consult by habilitative interventionist appreciated, KIANNA completely resolved Severe obstructive uropathy with BPH and right kidney calculus: Consult for Dr. Nash, advised IV fluids antibiotics BPH noncompliant: Flomax Acute metabolic acidosis NSTEMI, likely type II secondary to above Hypertension Hyperlipidemia Type 2 diabetes mellitus, uncontrolled (Hgb A1c 8.3%) Benign prostatic hyperplasia Obesity Subacute Right occipital ischemic infarct by CT head Patient lives with a friend Social service consult for living situation Time spent 55 minutes Patient is full code Advanced care planning time 20 minutes Plan discussed with: Patient My Orders Orders - RUDDY GÓMEZ MD Procedure Category Date Status Time * Maintenance Job Titles CONS 12/18/24 Transmitted Consult Date of Service: Dec 19, 2024 Billing Provider: RUDDY GÓMEZ MD Common Visit Codes: [id number] INP/OBS CARE(HIGH) RUDDY GÓMEZ MD Dec 19, 2024 10:54
[2024-12-20] MEDS: ACETAMINOPHEN 325 MG TAB PO PRN (00:43)
[2024-12-20 01:00] VITALS: BP 98/65; PULSE 80; RESP 19; TEMP 98.4; O2SAT 95
[2024-12-20 05:00] VITALS: BP 105/62; PULSE 71; RESP 18; TEMP 98; O2SAT 98
[2024-12-20 08:00] VITALS: PULSE 69; RESP 20; O2SAT 90
[2024-12-20 08:53] VITALS: BP 106/66; PULSE 69; RESP 20; TEMP 97.9; O2SAT 90
[2024-12-20] MEDS ORDERED: CIPR-173 PO (09:19)
--- NOTE | 2024-12-20 09:20 | DVHPN2 ---
Reviewed: Care Plan, H&P, Labs, Medications, Previous Orders, Radiology Changes from previous H/P or p: No Changes Eyes: No Pain, No Vision change, No Conjunctivae inflammation, No Eyelid inflammation, No Other, No Redness ENT: No Ear pain, No Ear discharge, No Nose pain, No Nose discharge, No Nose congestion, No Mouth pain, No Mouth swelling, No Throat pain, No Throat swelling, No Other Cardiovascular: No Chest Pain, No Palpitations, No Orthopnea, No Paroxysmal Noc. Dyspnea, No Edema, No Lt Headedness, No Other Respiratory: No Cough, No Dry, No Shortness of breath, No SOB with excertion, No Wheezing, No Hemoptysis, No Pleuritic Pain, No Sputum, No Other Gastrointestinal: Nausea, Vomiting; No Abdominal Pain, No Diarrhea, No Constipation, No Melena, No Hematochezia, No Other Genitourinary: No Dysuria, No Frequency, No Incontinence, No Hematuria, No Retention, No Other Musculoskeletal: No other, No neck pain, No shoulder pain, No arm pain, No back pain, No hand pain, No leg pain, No foot pain Objective Vitals Vital Signs Date Time Temp Pulse Resp B/P (MAP) Pulse Ox O2 Delivery O2 Flow Rate FiO2 12/20/24 08:53 97.9 69 20 106/66 (79) 90 97.9 12/19/24 20:00 Room Air* 0 21 Intake/Output Intake and Output 12/20/24 07:00 Intake Total 1575 ml Output Total 2550 ml Balance -975 ml Intake Oral 1525 ml IV Total 50 ml Output Urine Total 2550 ml # Bowel Movements 1 Medications Current Medications Medications Dose Ordered Sig/Tanesha Route Start Time Stop Time Status Last Admin Dose Admin Ceftriaxone Sodium 50 ml @ 100 mls/hr DAILY@09 IV 12/15/24 09:00 12/19/24 09:09 100 MLS/HR Ondansetron HCl 4 mg Q4HP PRN IV 12/15/24 07:45 12/16/24 20:15 4 MG Acetaminophen 650 mg Q6HP PRN PO 12/15/24 07:45 12/20/24 00:43 650 MG Nitroglycerin 0.4 mg Q5MINP PRN SL 12/15/24 07:45 Morphine Sulfate 2 mg Q30M PRN IV 12/15/24 07:45 Diagnostic Test (Pha) 1 strip ACHS 12/15/24 11:30 12/20/24 06:01 1 STRIP Insulin Human Regular ACHS SC 12/15/24 11:30 12/20/24 06:09 2 UNITS Dextrose 50 ml UD PRN IV 12/15/24 07:45 Aspirin 81 mg DAILY PO 12/16/24 10:00 12/19/24 09:10 81 MG Docusate Sodium 100 mg DAILY PO 12/16/24 10:00 12/19/24 09:09 100 MG Ergocalciferol 50,000 unit QWEEKLY PO 12/15/24 15:00 12/15/24 15:44 50,000 UNIT Tamsulosin HCl 0.4 mg QPM PO 12/15/24 18:00 12/19/24 17:09 0.4 MG Atorvastatin Calcium 20 mg HS PO 12/15/24 22:00 12/19/24 21:46 20 MG Lisinopril 5 mg DAILY PO 12/17/24 17:30 12/19/24 09:09 5 MG Laboratory Results Laboratory Tests 12/16/24 05:45 12/18/24 06:01 Urinalysis Test 12/15/24 05:00 Urine Color Colorless (Yellow) Urine Clarity Ex.turbid (Clear) Urine pH 6.0 (5.0-9.0) Urine Specific [place] 1.009 (1.001-1.035) Urine Protein 2+ (Negative) H Urine Ketones Trace (Negative) Urine Blood 2+ /uL (Negative) H Urine Nitrite Negative (Negative) Urine Bilirubin Negative (Negative) Urine Urobilinogen Normal mg/dL (Negative) Urine Leukocyte Esterase 3+ /uL (Negative) Urine RBC 18 /hpf (0 - 3) Urine WBC Clumps Present /hpf (None Seen) Urine Microscopic WBC 1035 /HPF (0-3) H Urine Squamous Epithelial Cells None seen /hpf (<5) Urine Bacteria None seen /hpf (None Seen) Urine Glucose Normal mg/dL (Normal) Microbiology Microbiology Date/Time Source Procedure Growth Status 12/16/24 13:55 Blood Blood Culture - Preliminary NO GROWTH AFTER 72 HOURS OF INCUBATION. Resulted 12/16/24 12:42 Urine - [place] Urine Culture - Final Complete Labs and/or images reviewed: Labs reviewed by me, Image(s) reviewed by me Assessment/Plan Assessment/Plan Sepsis secondary to urinary tract infection Acute Urinary tract infection: Blood cultures negative, urine cultures mixed , continue rocephin Acute Hyperkalemia Acute kidney injury multifactorial: Consult by measurement coordinator appreciated, KIANNA completely resolved Severe obstructive uropathy with BPH and right kidney calculus: Consult for Dr. Nash, advised IV fluids antibiotics BPH noncompliant: Flomax Acute metabolic acidosis NSTEMI, likely type II secondary to above Hypertension Hyperlipidemia Type 2 diabetes mellitus, uncontrolled (Hgb A1c 8.3%) Benign prostatic hyperplasia Obesity Subacute Right occipital ischemic infarct by CT head Patient lives with a friend Social service consult for living situation Time spent 55 minutes Patient is full code Advanced care planning time 20 minutes Plan discussed with: Patient My Orders Orders - RUDDY GÓMEZ MD Procedure Category Date Status Time * Neurology Consult CONS 12/19/24 Transmitted 10:53 Date of Service: Dec 20, 2024 Billing Provider: RUDDY GÓMEZ MD Common Visit Codes: [id number] INP/OBS CARE(HIGH) RUDDY GÓMEZ MD Dec 20, 2024 09:20
--- NOTE | 2024-12-20 09:25 | DVHDS2 ---
Discharge Summary Date of Admission Dec 15, 2024 at 07:37 Date of Discharge: Dec 20, 2024 Admitting Diagnosis Acute urinary retention and urinary symptoms Wounds: None Labs/Diagnostic Data: Laboratory Results Test 12/20/24 06:05 12/18/24 06:01 12/16/24 05:45 12/15/24 08:55 POC Glucose 150 mg/dl (70-106) Sodium Level 140 mmol/L (136-145) Potassium Level 3.7 mmol/L (3.5-5.1) Chloride Level 106 mmol/L (98-107) Carbon Dioxide Level 25 mmol/L (20-31) Anion Gap 9 (5-15) Blood Urea Nitrogen 14 mg/dL (9-23) Creatinine 1.15 mg/dL (0.700-1.30) Glomerular Filtration Rate Calc 72 mL/min (>90) BUN/Creatinine Ratio 12.2 (10.0-20.0) Serum Glucose 149 mg/dL (74-106) Calcium Level 9.6 mg/dL (8.7-10.4) White Blood Count 7.7 10^3/uL (4.4-10.8) Red Blood Count 4.42 10^6/uL (4.5-5.90) Hemoglobin 13.7 g/dL (13.5-17.5) Hematocrit 40.2 % (41.0-53.0) Mean Corpuscular Volume 91.0 fL (80.0-100.0) Mean Corpuscular Hemoglobin 31.0 pg (28.0-32.0) Mean Corpuscular Hemoglobin Concent 34.1 g/dL (32.0-36.0) Red Cell Distribution Width 13.2 % (11.8-14.3) Platelet Count 136 10^3/uL (140-450) Mean Platelet Volume 8.3 fL (6.9-10.8) Neutrophils (%) (Auto) 86.6 % (37.0-80.0) Lymphocytes (%) (Auto) 4.2 % (10.0-50.0) Monocytes (%) (Auto) 8.6 % (0.0-12.0) Eosinophils (%) (Auto) 0.3 % (0.0-7.0) Basophils (%) (Auto) 0.3 % (0.0-2.0) Neutrophils # (Auto) 6.7 10 ^3/uL (1.6-8.6) Lymphocytes # (Auto) 0.3 10 ^3/uL (0.4-5.4) Monocytes # (Auto) 0.7 10 ^3/uL (0-1.3) Eosinophils # (Auto) 0 10 ^3/uL (0-0.8) Basophils # (Auto) 0 10 ^3/uL (0-0.2) Nucleated Red Blood Cells 0.0 % Phosphorus Level 4.5 mg/dL (2.4-5.1) Total Bilirubin 0.8 mg/dL (0.2-1.0) Aspartate Amino Transferase (AST) 13 U/L (13-40) Alanine Aminotransferase (ALT) 13 U/L (7-40) Alkaline Phosphatase 66 U/L (46-116) Total Protein 6.5 g/dL (5.7-8.2) Albumin 4.1 g/dL (3.2-4.8) Troponin I High Sensitivity 244 ng/L (</=54) Test 12/15/24 07:56 12/15/24 05:00 12/15/24 04:58 Erythrocyte Sedimentation Rate 4 mm/hr (0-20) Lactic Acid Level 1.4 mmol/L (0.4-2.0) C-Reactive Protein High Sensitivity 1.54 mg/dL (<1.0) Triglycerides Level 79 mg/dL (< 150) Cholesterol Level 183 mg/dL (< 200) LDL Cholesterol 146 mg/dL (< 100) HDL Cholesterol 38 mg/dL (40-59) Thyroid Stimulating Hormone (TSH) 0.90 uIU/mL (0.55-4.78) Urine Color Colorless (Yellow) Urine Clarity Ex.turbid (Clear) Urine pH 6.0 (5.0-9.0) Urine Specific [place] 1.009 (1.001-1.035) Urine Protein 2+ (Negative) Urine Ketones Trace (Negative) Urine Blood 2+ /uL (Negative) Urine Nitrite Negative (Negative) Urine Bilirubin Negative (Negative) Urine Urobilinogen Normal mg/dL (Negative) Urine Leukocyte Esterase 3+ /uL (Negative) Urine RBC 18 /hpf (0 - 3) Urine WBC Clumps Present /hpf (None Seen) Urine Microscopic WBC 1035 /HPF (0-3) Urine Squamous Epithelial Cells None seen /hpf (<5) Urine Bacteria None seen /hpf (None Seen) Urine Glucose Normal mg/dL (Normal) Urine Opiates Screen Neg (NEGATIVE) Urine Fentanyl Screen Neg (NEGATIVE) Urine Barbiturates Screen Neg (NEGATIVE) Urine Phencyclidine Screen Neg (NEGATIVE) Urine Amphetamines Screen Neg (NEGATIVE) Urine Benzodiazepines Screen Neg (NEGATIVE) Urine Cocaine Screen Neg (NEGATIVE) Urine Cannabinoids Screen Neg (NEGATIVE) Hemoglobin A1c 8.3 % A1C (<5.7) Other Laboratory Tests 12/18/24 06:01 12/16/24 05:45 Brief Hx & Hospital Course: 64-year-old male with a history of hypertension hyperlipidemia diabetes BPH noncompliant and not taking Flomax came in complaining of generalized weakness and confusion found to have sepsis secondary to urinary tract infection treated with Rocephin blood cultures negative urine cultures mixed patient had acute kidney injury of multifactorial etiology seen by event specialist product demonstrator and kidney function came back to almost normal at the time of discharge seen by Urology Dr. Nash [place] was inserted. Patient had significant relief advised outpatient follow up discharged home on Cipro for UTI. He will follow up with Urology for prostate surgery. Consults/Reason for consult Urology Dr. Nash Nephrology Operations or Procedures CT abdomen pelvis without contrast Condition at Discharge: Fair Final Diagnosis/Problems List Sepsis secondary to urinary tract infection Acute Urinary tract infection: Blood cultures negative, urine cultures mixed , continue rocephin Acute Hyperkalemia Acute kidney injury multifactorial: Consult by event specialist product demonstrator appreciated, KIANNA completely resolved Severe obstructive uropathy with BPH and right kidney calculus: Consult for Dr. Nash, advised IV fluids antibiotics BPH noncompliant: Flomax Acute metabolic acidosis NSTEMI, likely type II secondary to above Hypertension Hyperlipidemia Type 2 diabetes mellitus, uncontrolled (Hgb A1c 8.3%) Benign prostatic hyperplasia Obesity Subacute Right occipital ischemic infarct by CT head Discharge Disposition: Home Discharge Instruct/Medications Diet: Cardiac 2g Na,low cholest Activity: No Restrictions, As Tolerated Follow Up/Referral: Follow up with the primary Dr in one week Follow up with the Urology Dr. Solitario in two weeks regarding enlarged prostate Resume all previous home medication Medications: Cipro 500 mg p.o. b.i.d. #20 35 (Time taken for discharge summary 35 minutes) Discharge Statement: "Patient was advised to return to the ER or call 911 if any headaches, dizziness, shortness of breath, chest pain, abdominal pain, bleeding, fevers, or worsening of medical condition. Patient was counseled about treatment plan, medications, possible side effects, patientverbalized understanding. All questions were answered to the best of my ability. This discharge took greater then 30 minutes in planning, reviewing documentation, counseling the patient, and discussing with other team members." ASSESSMENT ASSESSMENT Hospital Course Improved Assessment Sepsis secondary to urinary tract infection Acute Urinary tract infection: Blood cultures negative, urine cultures mixed , continue rocephin Acute Hyperkalemia Acute kidney injury multifactorial: Consult by event specialist product demonstrator appreciated, KIANNA completely resolved Severe obstructive uropathy with BPH and right kidney calculus: Consult for Dr. Nash, advised IV fluids antibiotics BPH noncompliant: Flomax Acute metabolic acidosis NSTEMI, likely type II secondary to above Hypertension Hyperlipidemia Type 2 diabetes mellitus, uncontrolled (Hgb A1c 8.3%) Benign prostatic hyperplasia Obesity Subacute Right occipital ischemic infarct by CT head Date of Service: Dec 20, 2024 Billing Provider: RUDDY GÓMEZ MD Common Visit Codes: [id number] DISCH DAY >30min RUDDY GÓMEZ MD Dec 20, 2024 09:25
[2024-12-20 10:00] VITALS: O2SAT 90
[2024-12-20 12:57] VITALS: BP 120/70; PULSE 67; RESP 20; TEMP 98.1; O2SAT 96
== END 2024-12-20 13:57 | disposition home or self-care (01) | DRG 720 ==
LOC: ER 04:38 → TELE 07:37 → TELE-CENTR 08:00
PROVIDERS: ATTEND Family Medicine
DX: A41.9 Sepsis, unspecified organism (principal); N17.0 Acute kidney failure with tubular necrosis; I21.A1 Myocardial infarction type 2; G93.41 Metabolic encephalopathy; E87.21 Acute metabolic acidosis; N13.8 Other obstructive and reflux uropathy; N30.00 Acute cystitis without hematuria; E86.9 Volume depletion, unspecified; E11.65 Type 2 diabetes mellitus with hyperglycemia; N39.0 Urinary tract infection, site not specified; E87.5 Hyperkalemia; I10 Essential (primary) hypertension; E78.5 Hyperlipidemia, unspecified; N40.1 Benign prostatic hyperplasia with lower urinary tract symptoms; N20.0 Calculus of kidney; E66.9 Obesity, unspecified; I77.819 Aortic ectasia, unspecified site; Z79.899 Other long term (current) drug therapy; Z91.148 Patient's other noncompliance with medication regimen for other reason; Z83.3 Family history of diabetes mellitus; Z68.29 Body mass index [BMI] 29.0-29.9, adult; Z91.128 Patient's intentional underdosing of medication regimen for other reason; Z79.82 Long term (current) use of aspirin
CPT/HCPCS: 36415; 70450; 71045; 76775; 80048; 80053; 80061; 80307; 81001; 82962; 83036; 83605; 84100; 84132; 84443; 84484; 85025; 85652; 86141; 87040; 87086; 93005; 93306; 94640; 96365; 96375; 99291; G0378; J1815; J2405; J3490

== ENCOUNTER 2025-01-02 11:01 | Inpatient (IN) | payer MEDICAID ==
[~2025-01-02] VITALS: Ht 180.3 cm; Wt 79.6 kg
[~2025-01-02 11:01] MED LIST: ASPI-628 PO; ATOR40TA52 PO; CIPR-173 PO; DOCU-265; ERGO1CAP12 PO; LISI20TA56; TAMS0.4C39 PO
--- NOTE | 2025-01-02 11:28 | ED.PDOC ---
GI ASSESSMENT HPI Comments HPI: Extremely poor historian 64 y/o M, presents to the ED for CC of right sided abdominal pain. Patient states, that he has been experiencing right sided abdominal pain x1week with associated symptoms of nausea and vomiting. Patient comments on, abdominal pain to be intermittent with symptoms worsening as of today (01/12/25). Patient describes vomit to be non-bilious/none bloody and diarrhea to be watery in appearance. Patient denies fever, chills, or body-aches. No other symptoms or modifying factors at this time. Patient was evaluated for the same thing approximately two weeks ago. Initial Vital Signs: Temp : 98.0 BP: 191/96 HR: 106 RR: 20 SpO2: 92 Past Medical History: HTN, HLD, DM, NM, PROSTATE Patient was recently discharged with the following diagnoses: Sepsis secondary to urinary tract infection Acute Urinary tract infection: Blood cultures negative, urine cultures mixed , continue rocephin Acute Hyperkalemia Acute kidney injury multifactorial: Consult by manager corporate marketing appreciated, KIANNA completely resolved Severe obstructive uropathy with BPH and right kidney calculus: Consult for Dr. Nash, advised IV fluids antibiotics BPH noncompliant: Flomax Acute metabolic acidosis NSTEMI, likely type II secondary to above Hypertension Hyperlipidemia Type 2 diabetes mellitus, uncontrolled (Hgb A1c 8.3%) Benign prostatic hyperplasia Obesity Subacute Right occipital ischemic infarct by CT head Past Surgical History: DENIES ANY Social History: Denies smoking, ETOH, or drug use. Medications: ATORVASTATIN COLACE ASA81 VT D2 FLOMAX LISINOPRIL Allergies: NKDA HPI: Poor Historian. Past Medical History: Past Surgical History: REVIEW OF SYSTEMS: CONSTITUTIONAL: Denies acute: fever, diaphoresis, chills, HEAD: Denies acute: headache, photophobia Eyes: Denies acute: Double vision, vision loss, eye pain, eye discharge. EARS: Denies acute: tinnitus, hearing loss, ear discharge, ear pain, THROAT: Denies acute: sore throat, swelling, difficulty swallowing , pain with swallowing, change in voice. NECK: Denies acute: neck pain, neck swelling, stiff neck. HEART: Denies acute : chest pain, palpitations, LUNGS: Denies acute: SOB, wheezing, cough, hemoptysis ABDOMEN: Denies acute: melena , hematemesis, hematochezia SKIN: Denies acute: rash, redness, lesions, itchiness. EXTREMITIES: Denies acute: calf pain, numbness, tingling, weakness, denies pain in extremity. Denies acute: Low back pain. Neuro: Denies acute: focal neurological deficit, motor or sensory focal neurological deficit, tremors, seizure like activity, confusion, dizziness, change in mental status, loss of bowel or bladder function, cauda equina like symptoms. : Denies acute: dysuria, hematuria, flank pain, increase in urinary frequency. PSYCH: Denies acute: hallucination, suicidal ideation, homicidal ideation. PHYSICAL EXAM: General: no acute distress, awake and alert. Head: normocephalic, atraumatic. Neck: supple, trachea is midline, no swelling. Throat: Normal phonation. Eyes:, no erythema, no purulent discharge, no proptosis, no icterus. Heart: Irregular rate and rhythm tachycardic, no significant murmur appreciated. Atrial fibrillation on EKG. Lungs: no apparent respiratory distress, Able to speak in full sentences. No wheezing, no rhonchi, no crackles. No stridors Clear to auscultation bilaterally. Abdomen: right sided tender to palpation, non distended, soft, no guarding, no rebound, + bowel sounds. Neuro: Awake, Alert, oriented to name, self, situation, follows commands GCS=15. Speech is normal. Skin: no petechia, no purpura, no cyanosis, non-pale, not jaundice. Lower extremities: --1/4 b/l - Pitting edema no deformity, no focal swelling, no calf TTP. Makes eye contact. moves all four extremities. Face: no apparent facial droop. Ambulating in the ED independently. ED COURSE: Time Seen by MD: 11:18 Reviewed Notes: Nurses Notes, Allergies Allergies: Coded Allergies: NO KNOWN ALLERGIES (Unverified , 12/15/24) Home Meds Active Scripts Ciprofloxacin Hcl (Cipro) 500 Mg Tab, 1 TAB PO BID, #20 TAB Prov:RUDDY GÓMEZ MD 12/20/24 Reported Medications Ergocalciferol (Vitamin D) 50,000 Unit Cap, 1 CAP PO QWEEKLY 12/15/24 Tamsulosin Hcl (Tamsulosin Hcl) 0.4 Mg Cap, 1 CAP PO DAILY 12/15/24 Aspirin (Aspirin Adult Low Dose) 81 Mg Tab, 1 TAB PO DAILY 12/15/24 Docusate Sodium (Docusate Sodium) 100 Mg Cap, 1 12/15/24 Atorvastatin Calcium (ATORVASTATIN CALCIUM) 40 Mg Tab, 40 MG PO DAILY 12/15/24 Lisinopril (Lisinopril) 20 Mg Tab, 1 DAILY 12/15/24 Information Source: Patient Was a procedure done? Was a procedure done?: No GI differential Dx Differential Diagnosis: Other (DDX include but not limited to diverticulitis, colitis, gastroenteritis, acute abdomen, SBO, enteritis, constipation, volvulus, appendicitis, Gallbladder disease, choledocolithiasis, ascending cholangitis, pancreatitis, intraAbdominal mass/neoplasm, hepatitis, UTI, pylonephritis, kidney stone, aneurysm, dissection, Inflammatory bowel disease, gastroparesis, ischemic bowel.) X-Ray, Labs, Meds, VS Vital Signs Date Time Temp Pulse Resp B/P (MAP) Pulse Ox O2 Delivery O2 Flow Rate FiO2 01/02/25 13:38 18 99 Room Air* 0 21 01/02/25 11:12 98.0 106 20 191/96 (127) 98 Lab Test 01/02/25 16:20 01/02/25 14:02 01/02/25 11:32 01/02/25 11:31 Range/Units Potassium Level 6.0 *H 5.7 *H 3.5-5.1 mmol/L Troponin I High Sensitivity 58 *H 50 45 </=54 ng/L Lactic Acid Level 2.1 *H 2.4 *H 0.4-2.0 mmol/L White Blood Count 7.6 4.4-10.8 10^3/uL Red Blood Count 4.15 L 4.5-5.90 10^6/uL Hemoglobin 12.4 L 13.5-17.5 g/dL Hematocrit 37.3 L 41.0-53.0 % Mean Corpuscular Volume 90.0 80.0-100.0 fL Mean Corpuscular Hemoglobin 29.8 28.0-32.0 pg Mean Corpuscular Hemoglobin Concent 33.1 32.0-36.0 g/dL Red Cell Distribution Width 13.4 11.8-14.3 % Platelet Count 160 140-450 10^3/uL Mean Platelet Volume 8.3 6.9-10.8 fL Neutrophils (%) (Auto) 86.7 H 37.0-80.0 % Lymphocytes (%) (Auto) 5.4 L 10.0-50.0 % Monocytes (%) (Auto) 6.4 0.0-12.0 % Eosinophils (%) (Auto) 1.0 0.0-7.0 % Basophils (%) (Auto) 0.5 0.0-2.0 % Neutrophils # (Auto) 6.6 1.6-8.6 10 ^3/uL Lymphocytes # (Auto) 0.4 0.4-5.4 10 ^3/uL Monocytes # (Auto) 0.5 0-1.3 10 ^3/uL Eosinophils # (Auto) 0.1 0-0.8 10 ^3/uL Basophils # (Auto) 0 0-0.2 10 ^3/uL Nucleated Red Blood Cells 0.1 % Sodium Level 137 136-145 mmol/L Chloride Level 101 98-107 mmol/L Carbon Dioxide Level 13 L 20-31 mmol/L Anion Gap 23 H 5-15 Blood Urea Nitrogen 150 *H 9-23 mg/dL Creatinine 23.98 *H 0.700-1.30 mg/dL Glomerular Filtration Rate Calc 2 >90 mL/min BUN/Creatinine Ratio 6.3 L 10.0-20.0 Serum Glucose 135 H 74-106 mg/dL Calcium Level 8.6 L 8.7-10.4 mg/dL Magnesium Level 2.2 1.6-2.6 mg/dL Total Bilirubin 0.5 0.2-1.0 mg/dL Aspartate Amino Transferase (AST) 13 13-40 U/L Alanine Aminotransferase (ALT) 13 7-40 U/L Alkaline Phosphatase 65 46-116 U/L Total Protein 6.1 5.7-8.2 g/dL Albumin 4.2 3.2-4.8 g/dL Lipase 59 H 12-53 U/L Urine Color Light-yellow Yellow Urine Clarity Clear Clear Urine pH 6.0 5.0-9.0 Urine Specific [place] 1.010 1.001-1.035 Urine Protein 1+ H Negative Urine Ketones Negative Negative Urine Blood Trace H Negative /uL Urine Nitrite Negative Negative Urine Bilirubin Negative Negative Urine Urobilinogen Normal Negative mg/dL Urine Leukocyte Esterase Negative Negative /uL Urine RBC 4 0 - 3 /hpf Urine Microscopic WBC 4 H 0-3 /HPF Urine Squamous Epithelial Cells None seen <5 /hpf Urine Bacteria Few H None Seen /hpf Urine Glucose 1+ H Normal mg/dL Test 01/02/25 11:25 Range/Units POC Glucose 128 H 70-106 mg/dl Current Medications Medications (Trade) Dose Ordered Sig/Tanesha Route Start Time Stop Time Status Last Admin Albuterol (Ventolin Medneb) 20 mg ONCE ONCE NEB 01/02/25 12:30 01/02/25 13:26 DC 01/02/25 13:38 [place] [id number] Ph: [phone] DIAGNOSTIC IMAGING Diagnostic Imaging Report : [id number] Signed PATIENT: ROMMEL CRAWLEY ACCT: [id number] UNIT: [id number] : 1960 LOC: ER ROOM / BED: / AGE / SEX: 64 / M ADM STATUS: REG ER SERVICE 1135 ORDERING PHYSICIAN: RAMÓN FAJARDO DO PROCEDURE(s): CXRP - CHEST PORTABLE REASON: abd pain ORDER NUMBER(s): [id number], ACCESSION NUMBER(s): [id number] CHEST RADIOGRAPH Indication: abd pain Technique: Single frontal view of the chest was obtained Comparison: XY CHEST PORTABLE on DOS: 12/15/24 FINDINGS: Lines and Tubes: None Lungs: No focal consolidation. Pleura: No effusion. No pneumothorax. Cardiomediastinal contours: Unremarkable Bones: No acute osseous abnormality. IMPRESSION: 1. No acute cardiopulmonary disease. ATED BY: BRANDI BARBOUR MD DICTATED DATE/TIME: 01/02/25 115 SIGNED BY: BRANDI BARBOUR MD SIGNED DATE/TIME: 01/02/25 1151 CC: [address] [address] Ph: [phone] DIAGNOSTIC IMAGING Diagnostic Imaging Report : [id number] Signed PATIENT: ROMMEL CRAWLEY ACCT: [id number] UNIT: [id number] : 1960 LOC: ER ROOM / BED: / AGE / SEX: 64 / M ADM STATUS: REG ER SERVICE 1139 ORDERING PHYSICIAN: RAMÓN FAJARDO DO PROCEDURE(s): ABPL - CT AB PEL WO CON-NO ORAL OR IV REASON: abd pain ORDER NUMBER(s): [id number], ACCESSION NUMBER(s): [id number] Procedure: CT CT AB PEL WO CON-NO ORAL OR IV 01/02/2025 11:36 AM Indication: abd pain Comparison Study: None Technique: Axial images were obtained and reformatted in coronal and sagittal planes. All CT scans at this medical facility are performed using dose modulation techniques as appropriate to a performed exam including the following: Automated exposure control was utilized; adjustment of the MA and/or KV according to patient size; and use of iterative reconstruction technique. CT Dose: CTDI volume is 14.86 mGy. Dose-length product is 969.54 mGy*cm FINDINGS: Lower Chest: Unremarkable. Hepatobiliary: Unremarkable. Spleen: Unremarkable. Pancreas: Unremarkable. Adrenal Glands: Unremarkable. tract: The kidneys are normal in size bilaterally . Moderate right and mild left hydronephrosis and hydroureter . Several subcentimeter renal calculi are seen measuring up to 6 mm The urinary bladder is markedly distended extending above the level of umbilicus. No significant bladder wall thickening, trabeculation or diverticula noted. GI tract: The stomach is grossly normal in appearance. No evidence of small bowel obstruction. The large bowel is unremarkable. The appendix is not visualized. No inflammatory change is noted in the right lower quadrant. Lymphatics: No mesenteric, retroperitoneal or periportal lymphadenopathy. Vasculature: The abdominal aorta is normal in caliber. Diffuse calcified plaque formation is noted. Pelvic Organs: Severe prostatic hyperplasia, 7.3 cm in transverse containing several subcentimeter calcifications. Bones/soft tissues: No acute abnormality. Multilevel degenerative changes of the lumbar spine noted. Other: None. IMPRESSION: 1. Markedly distended bladder extending above the level of umbilicus likely secondary to chronic bladder outlet obstruction related to severe prostatic hyperplasia with evidence of bilateral vesicoureteral reflux. Moderate right and mild left hydronephrosis and hydroureter noted. In addition, several subcentimeter calculi are seen in the dependent part of the bladder. ATED BY: ELISABETH WORTHINGTON MD DICTATED DATE/TIME: 01/02/251218 SIGNED BY: ELISABETH WORTHINGTON MD SIGNED DATE/TIME: 01/02/251218 CC: Time of 1ST Reevaluation: 20:30 Reevaluation 1ST: Unchanged Patient Education/Counseling: Diagnosis, Treatment Family Education/Counseling: Other Comments Patient presented with the above HPI.---ABDOMINAL PAIN---workup was initiated. patient was found with the above mentioned diagnosis. the following medications were ordered: ALBUTEROL MEDNEB, SODIUM BICARB, FUROSEMIDE IM, CALCIUM GLUC, SODIUM ZIRCONIUM please refer to order lists of meds and tests obtained by myself Dr. Fajardo. Patient ED course and VS have been stabilized. Patient has been reassessed in the ED and remained in a stable condition. Pertinent incidental findings were discussed with the patient and/or family. Patient/family voices understanding and is agreeable with plan. Patient has been observed in the ED adequate length of time to insure improvement/stability. Escalation of care considered: Consideration of escalation to observation or admission Nephrology was consulted but they never called back. Alfaro catheter was placed. Fluid hydration given. Hyperkalemia protocol initiated. Patient was ADMITTED to the medicine team for further evaluation and treatment of their presentation. All the reports of any imaging studies that were ordered by myself were reviewed by myself. Departure 1 Departure Time of Disposition: 12:26 Impression: Primary Impression: Acute renal failure Additional Impressions: Hyperkalemia Acute urinary retention Disposition: ADMITTED INPATIENT Admit to: Tele Condition: Guarded Additional Instructions: [place] [address] Ph: [phone] DIAGNOSTIC IMAGING Diagnostic Imaging Report : [id number] Signed PATIENT: ROMMEL CRAWLEY ACCT: [id number] UNIT: [id number] : 1960 LOC: ER ROOM / BED: / AGE / SEX: 64 / M ADM STATUS: REG ER SERVICE [id number] ORDERING PHYSICIAN: RAMÓN FAJARDO DO PROCEDURE(s): CXRP - CHEST PORTABLE REASON: abd pain ORDER NUMBER(s): [id number], ACCESSION NUMBER(s): [id number] CHEST RADIOGRAPH Indication: abd pain Technique: Single frontal view of the chest was obtained Comparison: XY CHEST PORTABLE on DOS: 12/15/24 FINDINGS: Lines and Tubes: None Lungs: No focal consolidation. Pleura: No effusion. No pneumothorax. Cardiomediastinal contours: Unremarkable Bones: No acute osseous abnormality. IMPRESSION: 1. No acute cardiopulmonary disease. ATED BY: BRANDI BARBOUR MD DICTATED DATE/TIME: 01/02/25 115 SIGNED BY: BRANDI BARBOUR MD SIGNED DATE/TIME: 01/02/25 115 CC: [place] [address] Ph: [phone] DIAGNOSTIC IMAGING Diagnostic Imaging Report : [id number] Signed PATIENT: ROMMEL CRAWLEY ACCT: [id number] UNIT: [id number] : 1960 LOC: ER ROOM / BED: / AGE / SEX: 64 / M ADM STATUS: REG ER SERVICE 1139 ORDERING PHYSICIAN: RAMÓN FAJARDO DO PROCEDURE(s): ABPL - CT AB PEL WO CON-NO ORAL OR IV REASON: abd pain ORDER NUMBER(s): [id number], ACCESSION NUMBER(s): [id number] Procedure: CT CT AB PEL WO CON-NO ORAL OR IV 01/02/2025 11:36 AM Indication: abd pain Comparison Study: None Technique: Axial images were obtained and reformatted in coronal and sagittal planes. All CT scans at this medical facility are performed using dose modulation techniques as appropriate to a performed exam including the following: Automated exposure control was utilized; adjustment of the MA and/or KV according to patient size; and use of iterative reconstruction technique. CT Dose: CTDI volume is 14.86 mGy. Dose-length product is 969.54 mGy*cm FINDINGS: Lower Chest: Unremarkable. Hepatobiliary: Unremarkable. Spleen: Unremarkable. Pancreas: Unremarkable. Adrenal Glands: Unremarkable. tract: The kidneys are normal in size bilaterally . Moderate right and mild left hydronephrosis and hydroureter . Several subcentimeter renal calculi are seen measuring up to 6 mm The urinary bladder is markedly distended extending above the level of umbilicus. No significant bladder wall thickening, trabeculation or diverticula noted. GI tract: The stomach is grossly normal in appearance. No evidence of small bowel obstruction. The large bowel is unremarkable. The appendix is not visualized. No inflammatory change is noted in the right lower quadrant. Lymphatics: No mesenteric, retroperitoneal or periportal lymphadenopathy. Vasculature: The abdominal aorta is normal in caliber. Diffuse calcified plaque formation is noted. Pelvic Organs: Severe prostatic hyperplasia, 7.3 cm in transverse containing several subcentimeter calcifications. Bones/soft tissues: No acute abnormality. Multilevel degenerative changes of the lumbar spine noted. Other: None. IMPRESSION: 1. Markedly distended bladder extending above the level of umbilicus likely secondary to chronic bladder outlet obstruction related to severe prostatic hyperplasia with evidence of bilateral vesicoureteral reflux. Moderate right and mild left hydronephrosis and hydroureter noted. In addition, several subcentimeter calculi are seen in the dependent part of the bladder. ATED BY: ELISABETH WORTHINGTON MD DICTATED DATE/TIME: 01/02/25 1219 SIGNED BY: ELISABETH WORTHINGTON MD SIGNED DATE/TIME: 01/02/25 1219 CC: Discharged With: Self Critical Care Note Critical Care Time?: Yes (1 hr-critical care time only) I personally scribed for RAMÓN FAJARDO DO ([email or web address]) on 01/02/25 at 11:28. Electronically submitted by Alla Sharma ([email or web address]). I personally scribed for RAMÓN FAJARDO J DO ([email or web address]) on 01/02/25 at 12:39. Electronically submitted by Alla Sharma ([email or web address]). I personally scribed for RAMÓN FAJARDO J DO ([email or web address]) on 01/02/25 at 12:46. Electronically submitted by Alla Sharma ([email or web address]). I personally scribed for RAMÓN FAJARDO J DO ([email or web address]) on 01/02/25 at 12:47. Electronically submitted by Alla Sharma ([email or web address]). I personally scribed for RAMÓN FAJARDO DO ([email or web address]) on 01/02/25 at 12:47. Electronically submitted by Alla Sharma ([email or web address]). I personally scribed for RAMÓN FAJARDO DO ([email or web address]) on 01/02/25 at 14:44. Electronically submitted by Alla Sharma ([email or web address]). I personally scribed for RAMÓN FAJARDO DO ([email or web address]) on 01/02/25 at 20:34. Electronically submitted by Alla Sharma ([email or web address]). I personally scribed for RAMÓN FAJARDO DO ([email or web address]) on 01/02/25 at 20:38. Electronically submitted by Alla Sharma ([email or web address]). RAMÓN FAJARDO DO Jan 02, 2025 11:28
[2025-01-02] MEDS: SODIUM CHLORIDE 0.9% 1,000 ML IV ONE ×2 (11:30→17:00)
[2025-01-02] MEDS: ONDANSETRON HCL 4 MG/2 ML VIAL IV ONE (11:30)
[2025-01-02 11:43] LABS: Basophils # (auto) 0 10 ^3/uL (0-0.2); Basophils % (auto) 0.5 % (0.0-2.0); Eosinophils # (auto) 0.1 10 ^3/uL (0-0.8); Hematocrit 37.3 % (41.0-53.0); Hemoglobin 12.4 g/dL (13.5-17.5); Lymphocytes # (auto) 0.4 10 ^3/uL (0.4-5.4); Lymphocytes % (auto) 5.4 % (10.0-50.0); Mean Corpuscular Hemoglobin 29.8 pg (28.0-32.0); Mean Corpuscular Hgb Conc. 33.1 g/dL (32.0-36.0); Monocytes # (auto) 0.5 10 ^3/uL (0-1.3); Monocytes % (auto) 6.4 % (0.0-12.0); Neutrophils # (auto) 6.6 10 ^3/uL (1.6-8.6); Neutrophils % (auto) 86.7 % (37.0-80.0); Nucleated Red Blood Cells % 0.1 %; Platelet Count (auto) 160 10^3/uL (140-450); Red Blood Cells 4.15 10^6/uL (4.5-5.90); Red Cell Distribution Width 13.4 % (11.8-14.3); White Blood Cell 7.6 10^3/uL (4.4-10.8)
--- NOTE | 2025-01-02 11:53 | DVH ---
CHEST RADIOGRAPH Indication: abd pain Technique: Single frontal view of the chest was obtained Comparison: XY CHEST PORTABLE on DOS: 12/15/24 FINDINGS: Lines and Tubes: None Lungs: No focal consolidation. Pleura: No effusion. No pneumothorax. Cardiomediastinal contours: Unremarkable Bones: No acute osseous abnormality. IMPRESSION: 1. No acute cardiopulmonary disease.
[2025-01-02 12:12] LABS: Alanine Aminotransferase 13 U/L (7-40); Albumin 4.2 g/dL (3.2-4.8); Alkaline Phosphatase 65 U/L (46-116); Anion Gap 23 (5-15); Aspartate Aminotransferase 13 U/L (13-40); BUN/Creatinine Ratio 6.3 (10.0-20.0); Bilirubin, Total 0.5 mg/dL (0.2-1.0); Chloride 101 mmol/L (98-107); Magnesium 2.2 mg/dL (1.6-2.6); Sodium 137 mmol/L (136-145); Total Protein 6.1 g/dL (5.7-8.2)
--- NOTE | 2025-01-02 12:22 | DVH ---
Procedure: CT CT AB PEL WO CON-NO ORAL OR IV 01/02/2025 11:36 AM Indication: abd pain Comparison Study: None Technique: Axial images were obtained and reformatted in coronal and sagittal planes. All CT scans at this medical facility are performed using dose modulation techniques as appropriate t o a performed exam including the following: Automated exposure control was utilized; adjustment of th e MA and/or KV according to patient size; and use of iterative reconstruction technique. CT Dose: CTDI volume is 14.86 mGy. Dose-length product is 969.54 mGy*cm FINDINGS: Lower Chest: Unremarkable. Hepatobiliary: Unremarkable. Spleen: Unremarkable. Pancreas: Unremarkable. Adrenal Glands: Unremarkable. tract: The kidneys are normal in size bilaterally . Moderate right and mild left hydronephrosis an d hydroureter . Several subcentimeter renal calculi are seen measuring up to 6 mm The urinary bladder is markedly distended extending above the level of umbilicus. No significant bladder wall thickening , trabeculation or diverticula noted. GI tract: The stomach is grossly normal in appearance. No evidence of small bowel obstruction. The la rge bowel is unremarkable. The appendix is not visualized. No inflammatory change is noted in the ri ght lower quadrant. Lymphatics: No mesenteric, retroperitoneal or periportal lymphadenopathy. Vasculature: The abdominal aorta is normal in caliber. Diffuse calcified plaque formation is noted. Pelvic Organs: Severe prostatic hyperplasia, 7.3 cm in transverse containing several subcentimeter ca lcifications. Bones/soft tissues: No acute abnormality. Multilevel degenerative changes of the lumbar spine noted. Other: None. IMPRESSION: 1. Markedly distended bladder extending above the level of umbilicus likely secondary to chronic blad kirstin outlet obstruction related to severe prostatic hyperplasia with evidence of bilateral vesicourete ral reflux. Moderate right and mild left hydronephrosis and hydroureter noted. In addition, several subcentimeter calculi are seen in the dependent part of the bladder.
[2025-01-02 12:23] LABS: Calcium 8.6 mg/dL (8.7-10.4); Carbon Dioxide 13 mmol/L (20-31); Glucose 135 mg/dL (74-106); Lipase 59 U/L (12-53)
[2025-01-02 12:24] LABS: Blood Urea Nitrogen 150 mg/dL (9-23); Potassium 5.7 mmol/L (3.5-5.1)
[2025-01-02 12:26] LABS: Lactic Acid w/Reflex 2.4 mmol/L (0.4-2.0)
[2025-01-02] MEDS: FUROSEMIDE 40 MG/4 ML VIAL IV ONE (12:30)
[2025-01-02] MEDS: ALBUTEROL SULF 2.5 MG/0.5ML(0.5%) NEB SOLN NEB ONE (13:38)
[2025-01-02 14:22] LABS: Urine Bacteria FEW /hpf (None Seen); Urine Blood TRACE /uL (Negative); Urine Clarity Clear (Clear); Urine Color Light-Yellow (Yellow); Urine Protein, UAD 1+ (Negative); Urine Squamous Epithelial Cell None Seen /hpf (<5); Urine Urobilinogen Normal (Negative); Urine WBC 4 /HPF (0-3)
[2025-01-02] MEDS ORDERED: DEXTROSE (50%) 50ML SYRG IV PRN (18:45)
[2025-01-02] MEDS ORDERED: HYDROcodone-ACET 5/325MG TAB PO PRN (18:45)
[2025-01-02] MEDS ORDERED: NITROGLYCERIN 0.4 MG SL TAB SL PRN (18:45)
[2025-01-02] MEDS ORDERED: MORPHINE SULFATE INJ 2 MG/ml SYRG IV PRN (18:45)
[2025-01-02] MEDS: InsuLIN REG 1unit/0.01ml Soln (100units/ml) SC SCH (22:00)
[2025-01-02] MEDS: ACCU-CHEK COMFORT CURVE STRIP VI SCH (22:10)
[2025-01-02 23:13] VITALS: PULSE 97; RESP 20; O2SAT 97
[2025-01-02] MEDS: SODIUM ZIRCONIUM CYCL 10 GM PAK PO ONE (23:15)
[2025-01-02] MEDS: ATORVASTATIN 20 MG TAB PO SCH (23:15)
--- NOTE | 2025-01-02 23:57 | DVHHP2 ---
History of Present Illness Reason for Visit: Generalized weakness History of Present Illness 64-year-old male presents for evaluation of generalized weakness. He reports a one-week history of right-sided abdominal pain with associated nausea and vomiting. He also reports difficulty urinating over the past three days. Denies fever or chills. No chest pain or palpitations. Denies shortness or breath. Other acute complaints reported. Past Medical History Hypertension, diabetes mellitus, BPH Past Surgical History Denies Family History Noncontributory Smoke: No ALCOHOL: none Drugs: None Lives: with Family Review of Systems Review of Systems Review of systems are currently negative otherwise addressed in HPI. Allergies: Coded Allergies: NO KNOWN ALLERGIES (Unverified , 12/15/24) Medications Current Medications Medications Dose Ordered Sig/Tanesha Route Start Time Stop Time Status Last Admin Dose Admin Hydralazine HCl 10 mg Q6HP PRN IV 01/02/25 18:45 Tamsulosin HCl 0.4 mg QPM PO 01/03/25 18:00 Atorvastatin Calcium 40 mg HS PO 01/02/25 22:00 01/02/25 23:15 40 MG Diagnostic Test (Pha) 1 strip ACHS 01/02/25 22:00 01/02/25 22:10 1 STRIP Insulin Human Regular ACHS SC 01/02/25 22:00 Dextrose 50 ml UD PRN IV 01/02/25 18:45 Acetaminophen/ Hydrocodone Bitart 1 tab Q4HP PRN PO 01/02/25 18:45 Ondansetron HCl 4 mg Q4HP PRN IV 01/02/25 18:45 Acetaminophen 650 mg Q6HP PRN PO 01/02/25 18:45 Nitroglycerin 0.4 mg Q5MINP PRN SL 01/02/25 18:45 Morphine Sulfate 2 mg Q30M PRN IV 01/02/25 18:45 Ceftriaxone Sodium 50 ml @ 100 mls/hr DAILY@09 IV 01/03/25 09:00 Exam Vital Signs Vital Signs Date Time Temp Pulse Resp B/P (MAP) Pulse Ox O2 Delivery O2 Flow Rate FiO2 01/02/25 23:13 97 20 97 Room Air* 0 21 01/02/25 20:45 98.3 157/83 (107) 98.3 Exam Gen: 64-year-old male in moderate distress Skin: Warm, dry, normal color and texture, no rash. HEENT: Normocephalic atraumatic, mucous membranes moist and pink. Neck: Cervical and supraclavicular nodes normal without enlargement, trachea is midline, thyroid gland is normal without masses. Pulmonary: Clear to auscultation and percussion bilaterally. Cardiac: Regular rate and rhythm. No murmur Abdomen: Soft, nontender, nondistended, bowel sounds present all 4 quadrants, no guarding, no rigidity, no organomegaly. Extremities: No cyanosis, clubbing, no edema Neuro: Cranial nerves II through XII grossly intact, normal affect and speech, no focal motor deficits. Labs/Xrays ORDERING PHYSICIAN: RAMÓN FAJARDO DO PROCEDURE(s): CXRP - CHEST PORTABLE REASON: abd pain ORDER NUMBER(s): [id number], ACCESSION NUMBER(s): [id number] CHEST RADIOGRAPH Indication: abd pain Technique: Single frontal view of the chest was obtained Comparison: XY CHEST PORTABLE on DOS: 12/15/24 FINDINGS: Lines and Tubes: None Lungs: No focal consolidation. Pleura: No effusion. No pneumothorax. Cardiomediastinal contours: Unremarkable Bones: No acute osseous abnormality. IMPRESSION: 1. No acute cardiopulmonary disease. RING PHYSICIAN: RAMÓN FAJARDO DO PROCEDURE(s): ABPL - CT AB PEL WO CON-NO ORAL OR IV REASON: abd pain ORDER NUMBER(s): [id number], ACCESSION NUMBER(s): [id number] Procedure: CT CT AB PEL WO CON-NO ORAL OR IV 01/02/2025 11:36 AM Indication: abd pain Comparison Study: None Technique: Axial images were obtained and reformatted in coronal and sagittal planes. All CT scans at this medical facility are performed using dose modulation techniques as appropriate to a performed exam including the following: Automated exposure control was utilized; adjustment of the MA and/or KV according to patient size; and use of iterative reconstruction technique. CT Dose: CTDI volume is 14.86 mGy. Dose-length product is 969.54 mGy*cm FINDINGS: Lower Chest: Unremarkable. Hepatobiliary: Unremarkable. Spleen: Unremarkable. Pancreas: Unremarkable. Adrenal Glands: Unremarkable. tract: The kidneys are normal in size bilaterally . Moderate right and mild left hydronephrosis and hydroureter . Several subcentimeter renal calculi are seen measuring up to 6 mm The urinary bladder is markedly distended extending above the level of umbilicus. No significant bladder wall thickening, trabeculation or diverticula noted. GI tract: The stomach is grossly normal in appearance. No evidence of small bowel obstruction. The large bowel is unremarkable. The appendix is not visualized. No inflammatory change is noted in the right lower quadrant. Lymphatics: No mesenteric, retroperitoneal or periportal lymphadenopathy. Vasculature: The abdominal aorta is normal in caliber. Diffuse calcified plaque formation is noted. Pelvic Organs: Severe prostatic hyperplasia, 7.3 cm in transverse containing several subcentimeter calcifications. Bones/soft tissues: No acute abnormality. Multilevel degenerative changes of the lumbar spine noted. Other: None. IMPRESSION: 1. Markedly distended bladder extending above the level of umbilicus likely secondary to chronic bladder outlet obstruction related to severe prostatic hyperplasia with evidence of bilateral vesicoureteral reflux. Moderate right and mild left hydronephrosis and hydroureter noted. In addition, several subcentimeter calculi are seen in the dependent part of the bladder. ATED BY: ELISABETH WORTHINGTON MD DICTATED DATE/TIME: 01/02/25 1219 Labs Test 01/02/25 22:27 01/02/25 16:20 01/02/25 14:02 01/02/25 11:32 Range/Units Potassium Level 6.6 *H 3.5-5.1 mmol/L Troponin I High Sensitivity 58 *H </=54 ng/L Lactic Acid Level 2.1 *H 0.4-2.0 mmol/L White Blood Count 7.6 4.4-10.8 10^3/uL Red Blood Count 4.15 L 4.5-5.90 10^6/uL Hemoglobin 12.4 L 13.5-17.5 g/dL Hematocrit 37.3 L 41.0-53.0 % Mean Corpuscular Volume 90.0 80.0-100.0 fL Mean Corpuscular Hemoglobin 29.8 28.0-32.0 pg Mean Corpuscular Hemoglobin Concent 33.1 32.0-36.0 g/dL Red Cell Distribution Width 13.4 11.8-14.3 % Platelet Count 160 140-450 10^3/uL Mean Platelet Volume 8.3 6.9-10.8 fL Neutrophils (%) (Auto) 86.7 H 37.0-80.0 % Lymphocytes (%) (Auto) 5.4 L 10.0-50.0 % Monocytes (%) (Auto) 6.4 0.0-12.0 % Eosinophils (%) (Auto) 1.0 0.0-7.0 % Basophils (%) (Auto) 0.5 0.0-2.0 % Neutrophils # (Auto) 6.6 1.6-8.6 10 ^3/uL Lymphocytes # (Auto) 0.4 0.4-5.4 10 ^3/uL Monocytes # (Auto) 0.5 0-1.3 10 ^3/uL Eosinophils # (Auto) 0.1 0-0.8 10 ^3/uL Basophils # (Auto) 0 0-0.2 10 ^3/uL Nucleated Red Blood Cells 0.1 % Sodium Level 137 136-145 mmol/L Chloride Level 101 98-107 mmol/L Carbon Dioxide Level 13 L 20-31 mmol/L Anion Gap 23 H 5-15 Blood Urea Nitrogen 150 *H 9-23 mg/dL Creatinine 23.98 *H 0.700-1.30 mg/dL Glomerular Filtration Rate Calc 2 >90 mL/min BUN/Creatinine Ratio 6.3 L 10.0-20.0 Serum Glucose 135 H 74-106 mg/dL Calcium Level 8.6 L 8.7-10.4 mg/dL Magnesium Level 2.2 1.6-2.6 mg/dL Total Bilirubin 0.5 0.2-1.0 mg/dL Aspartate Amino Transferase (AST) 13 13-40 U/L Alanine Aminotransferase (ALT) 13 7-40 U/L Alkaline Phosphatase 65 46-116 U/L Total Protein 6.1 5.7-8.2 g/dL Albumin 4.2 3.2-4.8 g/dL Lipase 59 H 12-53 U/L Test 01/02/25 11:31 01/02/25 11:25 Range/Units Urine Color Light-yellow Yellow Urine Clarity Clear Clear Urine pH 6.0 5.0-9.0 Urine Specific [place] 1.010 1.001-1.035 Urine Protein 1+ H Negative Urine Ketones Negative Negative Urine Blood Trace H Negative /uL Urine Nitrite Negative Negative Urine Bilirubin Negative Negative Urine Urobilinogen Normal Negative mg/dL Urine Leukocyte Esterase Negative Negative /uL Urine RBC 4 0 - 3 /hpf Urine Microscopic WBC 4 H 0-3 /HPF Urine Squamous Epithelial Cells None seen <5 /hpf Urine Bacteria Few H None Seen /hpf Urine Glucose 1+ H Normal mg/dL POC Glucose 128 H 70-106 mg/dl Assessment/Plan Assessment/Plan Assessment Acute renal failure Acute urinary retention Severe prostatic hyperplasia Accelerated hypertension Bilateral hydronephrosis Hyperkalemia Plan Admit the patient to telemetry to the hospitalist Nephrology consult Urology consultation NPO Continue treatment per orders. Plan discussed with: Patient My Orders Orders - CHANTELLE HANSEN Procedure Category Date Status Time Hydralazine Injection PHA 01/02/25 In Process (Apresoline Inject 18:45 Tamsulosin PHA 01/03/25 In Process Hydrochloride (Flomax) 18:00 Atorvastatin (Lipitor) PHA 01/02/25 In Process 22:00 Glucose Blood PHA 01/02/25 In Process (Accu-Chek Comfort 22:00 Insulin R (Human) PHA 01/02/25 In Process (Insulin R) 22:00 Dextrose 50% Syringe PHA 01/02/25 In Process 18:45 Admit ADMIT 01/02/25 Transmitted 18:43 Renal DIET 01/03/25 Transmitted Standard(2gna,3gk,Lopho) Breakfast Hydrocodone-Acet PHA 01/02/25 In Process 5/325mg Tab ([place] 18:45 Ondansetron Hcl PHA 01/02/25 In Process (Zofran) 18:45 Complete Blood Count LAB 01/03/25 Verified 04:00 Comprehensive LAB 01/03/25 Verified Metabolic Panel 04:00 Condition: Fair FATOU 01/02/25 In Process 18:43 Acetaminophen Tablet PHA 01/02/25 In Process (Tylenol Tablet) 18:45 Bedrest With Bathroom FATOU 01/02/25 In Process Privileg 18:43 Nitroglycerin PHA 01/02/25 In Process Sublingual (Ntrostat 18:45 Morphine Sulfate PHA 01/02/25 In Process Injection 18:45 Stat Ekg For Chest FATOU 01/02/25 In Process Pain 18:43 Notify Of Changes FATOU 01/02/25 In Process From Base 18:43 Band Master For FATOU 01/02/25 In Process 24 Hours 18:43 Emergency Dysrhythmia FATOU 01/02/25 In Process Protocol 18:43 Rhythm Strips Once FATOU 01/02/25 In Process Every Shift 18:43 Oxygen By Nasal RT 01/02/25 Transmitted Cannula 18:43 Ceftriaxone 1gm/50ml PHA 01/03/25 In Process D5w (Rocephin) 09:00 Dextrose 50% Syringe PHA 01/03/25 Logged 00:00 Insulin R (Human) PHA 01/03/25 Logged (Insulin R) 00:00 Date of Service: Jan 02, 2025 Billing Provider: CHANTELLE HANSEN Common Visit Codes: [id number] INP/OBS CARE (HIGH) CHANTELLE HANSEN Jan 02, 2025 23:57
[2025-01-03] VITALS (8 sets, daily range): BP systolic 130–150; BP diastolic 72–86; PULSE 78–98; RESP 11–20; TEMP 97.4–98.3; O2SAT 94–97
[2025-01-03] MEDS: DEXTROSE (50%) 50ML SYRG IV ONE (00:43)
[2025-01-03] MEDS: InsuLIN REG 1unit/0.01ml Soln (100units/ml) IV ONE (00:43)
[2025-01-03] MEDS: CALCIUM GLUC 1,000mg/50ml-NS 50 ML IV ONE (00:45)
[2025-01-03] MEDS: SODIUM BICARB 50mEq/50ml Vial 100 ML in D5W 5% 1,000 ML IV ONE (00:45)
[2025-01-03] MEDS: SODIUM BICARB 8.4% 50Meq/50ml SYR INJ IV ONE (00:48)
[2025-01-03] MEDS: cefTRIAXone 1GM/50ML D5W 50 ML IV ONE (01:00)
[2025-01-03] MEDS: hydrALAZINE HCL 20 MG/ML VL IV PRN (01:44)
[2025-01-03 03:39] LABS: Alanine Aminotransferase 12 U/L (7-40); Albumin 3.8 g/dL (3.2-4.8); Alkaline Phosphatase 56 U/L (46-116); Anion Gap 22 (5-15); BUN/Creatinine Ratio 5.4 (10.0-20.0); Bilirubin, Total 0.4 mg/dL (0.2-1.0); Chloride 103 mmol/L (98-107); Glucose 97 mg/dL (74-106); Sodium 139 mmol/L (136-145)
[2025-01-03 03:55] LABS: Carbon Dioxide 14 mmol/L (20-31)
[2025-01-03 03:56] LABS: Aspartate Aminotransferase 11 U/L (13-40); Calcium 8.3 mg/dL (8.7-10.4); Total Protein 5.7 g/dL (5.7-8.2)
[2025-01-03 03:57] LABS: Basophils # (auto) 0 10 ^3/uL (0-0.2); Basophils % (auto) 0.4 % (0.0-2.0); Eosinophils # (auto) 0.1 10 ^3/uL (0-0.8); Eosinophils % (auto) 1.1 % (0.0-7.0); Hematocrit 31.5 % (41.0-53.0); Hemoglobin 10.7 g/dL (13.5-17.5); Lymphocytes # (auto) 0.7 10 ^3/uL (0.4-5.4); Lymphocytes % (auto) 8.6 % (10.0-50.0); Mean Corpuscular Hemoglobin 30.2 pg (28.0-32.0); Mean Corpuscular Hgb Conc. 33.9 g/dL (32.0-36.0); Mean Corpuscular Volume 88.9 fL (80.0-100.0); Monocytes # (auto) 0.7 10 ^3/uL (0-1.3); Monocytes % (auto) 9.3 % (0.0-12.0); Neutrophils # (auto) 6.4 10 ^3/uL (1.6-8.6); Neutrophils % (auto) 80.6 % (37.0-80.0); Platelet Count (auto) 143 10^3/uL (140-450); Red Blood Cells 3.54 10^6/uL (4.5-5.90); Red Cell Distribution Width 13.2 % (11.8-14.3); White Blood Cell 7.9 10^3/uL (4.4-10.8)
[2025-01-03 04:00] LABS: Blood Urea Nitrogen 131 mg/dL (9-23); Potassium 5.6 mmol/L (3.5-5.1)
--- NOTE | 2025-01-03 07:36 | DVH ---
INDICATION: Acute renal failure TECHNIQUE: Multiple real-time sonographic images of the kidneys and bladder were obtained. COMPARISON: US KIDNEY on DOS: 12/15/24 FINDINGS: The right kidney measures 10.9 cm in length, which is normal in size. There is normal echogenicity of the right kidney. Mild hydronephrosis. There is a cyst measuring 2.0 x 1.6 x 1.3 cm in the interpola r region. The left kidney measures 11.7 cm in length, which is normal in size. There is normal echogenicity of the left kidney. Mild hydronephrosis. Intraluminal echogenic foci noted in the urinary bladder with twinkle artifact suggestive of stones. Prior to voiding the bladder volume measures volume 110.3 cc. Postvoid residual not evaluated. The prostate measures 4.5 x 4.5 x 4.4 cm for a calculated volume of 46.8 cc. IMPRESSION: 1. Mild bilateral hydronephrosis. 2. Small bilateral urinary bladder stones. 3. Enlarged prostate.
[2025-01-03] MEDS: cefTRIAXone 1GM/50ML D5W 50 ML IV SCH (08:58)
[2025-01-03 11:33] LABS: Basophils # (auto) 0.1 10 ^3/uL (0-0.2); Basophils % (auto) 0.8 % (0.0-2.0); Eosinophils # (auto) 0.1 10 ^3/uL (0-0.8); Eosinophils % (auto) 1.5 % (0.0-7.0); Hemoglobin 12.4 g/dL (13.5-17.5); Lymphocytes # (auto) 0.5 10 ^3/uL (0.4-5.4); Lymphocytes % (auto) 7.8 % (10.0-50.0); Mean Corpuscular Hemoglobin 29.8 pg (28.0-32.0); Mean Corpuscular Hgb Conc. 33.5 g/dL (32.0-36.0); Mean Corpuscular Volume 88.7 fL (80.0-100.0); Monocytes # (auto) 0.6 10 ^3/uL (0-1.3); Monocytes % (auto) 9.1 % (0.0-12.0); Neutrophils # (auto) 5.1 10 ^3/uL (1.6-8.6); Neutrophils % (auto) 80.8 % (37.0-80.0); Platelet Count (auto) 171 10^3/uL (140-450); Red Blood Cells 4.17 10^6/uL (4.5-5.90); Red Cell Distribution Width 13.4 % (11.8-14.3); White Blood Cell 6.3 10^3/uL (4.4-10.8)
[2025-01-03] MEDS: SODIUM BICARB 50mEq/50ml Vial 150 ML in D5W 5% 1,000 ML IV SCH (12:00)
[2025-01-03 12:35] LABS: Potassium 3.9 mmol/L (3.5-5.1); Sodium 143 mmol/L (136-145)
[2025-01-03 12:36] LABS: Anion Gap 14 (5-15); Carbon Dioxide 21 mmol/L (20-31)
[2025-01-03 12:37] LABS: Calcium 9.2 mg/dL (8.7-10.4)
[2025-01-03 12:41] LABS: BUN/Creatinine Ratio 8.2 (10.0-20.0)
[2025-01-03] MEDS ORDERED: cefTRIAXone 1GM/50ML D5W 50 ML IV ONE (13:45)
--- NOTE | 2025-01-03 13:45 | DVHPN2 ---
Reviewed: Care Plan, H&P, Labs, Medications, Previous Orders, Radiology Changes from previous H/P or p: No Changes Objective Vitals Vital Signs Date Time Temp Pulse Resp B/P (MAP) Pulse Ox O2 Delivery O2 Flow Rate FiO2 01/03/25 11:00 92 18 144/71 (95) 94 01/03/25 07:50 98.0 98.0 01/03/25 07:50 Room Air* 0 21 Intake/Output Intake and Output 01/03/25 07:00 Intake Total 2100 ml Balance 2100 ml IV Total 2100 ml Medications Current Medications Medications Dose Ordered Sig/Tanesha Route Start Time Stop Time Status Last Admin Dose Admin Hydralazine HCl 10 mg Q6HP PRN IV 01/02/25 18:45 01/03/25 01:44 10 MG Tamsulosin HCl 0.4 mg QPM PO 01/03/25 18:00 Atorvastatin Calcium 40 mg HS PO 01/02/25 22:00 01/02/25 23:15 40 MG Diagnostic Test (Pha) 1 strip ACHS 01/02/25 22:00 01/03/25 11:57 1 STRIP Insulin Human Regular ACHS SC 01/02/25 22:00 01/03/25 12:04 6 UNITS Dextrose 50 ml UD PRN IV 01/02/25 18:45 Acetaminophen/ Hydrocodone Bitart 1 tab Q4HP PRN PO 01/02/25 18:45 Ondansetron HCl 4 mg Q4HP PRN IV 01/02/25 18:45 Acetaminophen 650 mg Q6HP PRN PO 01/02/25 18:45 Nitroglycerin 0.4 mg Q5MINP PRN SL 01/02/25 18:45 Morphine Sulfate 2 mg Q30M PRN IV 01/02/25 18:45 Ceftriaxone Sodium 50 ml @ 100 mls/hr DAILY@09 IV 01/03/25 09:00 01/03/25 08:58 100 MLS/HR Sodium Bicarbonate 150 ml/Dextrose 1,150 ml @ 100 mls/hr [id number] IV 01/03/25 12:00 Laboratory Results Laboratory Tests 01/03/25 11:21 Chemistry Test 01/03/25 03:02 01/03/25 12:12 Albumin 3.8 g/dL (3.2-4.8) Calcium Level 8.3 mg/dL (8.7-10.4) L Pending Total Protein 5.7 g/dL (5.7-8.2) LFT Test 01/03/25 03:02 Alanine Aminotransferase (ALT) 12 U/L (7-40) Alkaline Phosphatase 56 U/L (46-116) Aspartate Amino Transferase (AST) 11 U/L (13-40) L Total Bilirubin 0.4 mg/dL (0.2-1.0) Urinalysis Test 01/02/25 11:31 Urine Color Light-yellow (Yellow) Urine Clarity Clear (Clear) Urine pH 6.0 (5.0-9.0) Urine Specific [place] 1.010 (1.001-1.035) Urine Protein 1+ (Negative) H Urine Ketones Negative (Negative) Urine Blood Trace /uL (Negative) H Urine Nitrite Negative (Negative) Urine Bilirubin Negative (Negative) Urine Urobilinogen Normal mg/dL (Negative) Urine Leukocyte Esterase Negative /uL (Negative) Urine RBC 4 /hpf (0 - 3) Urine Microscopic WBC 4 /HPF (0-3) H Urine Squamous Epithelial Cells None seen /hpf (<5) Urine Bacteria Few /hpf (None Seen) H Urine Glucose 1+ mg/dL (Normal) H Labs and/or images reviewed: Labs reviewed by me, Image(s) reviewed by me Assessment/Plan Assessment/Plan Sepsis secondary to possible urinary tract infection : Blood cultures urine cultures Rocephin Acute urinary retention secondary to enlarged prostate with a right hydronephrosis: Alfaro: Consult for Urology Dr. Solitario Hyperkalemia secondary to acute kidney injury Acute kidney injury versus IPMN: Consult by Nephrology appreciated Noncompliance Acute metabolic acidosis Obesity Chronic right suboccipital ischemic infarct Time Spent 65 minutes Condition guarded Patient is full code Advanced care planning time 20 minutes Plan discussed with: Patient Date of Service: Jan 03, 2025 Billing Provider: RUDDY GÓMEZ MD Common Visit Codes: [id number] CARE 30-74 MIN RUDDY GÓMEZ MD Jan 03, 2025 13:45
[2025-01-03 14:06] LABS: Chloride 108 mmol/L (98-107); Glucose 264 mg/dL (74-106)
[2025-01-03 14:07] LABS: Blood Urea Nitrogen 87 mg/dL (9-23)
--- NOTE | 2025-01-03 15:54 | DVHINCON2 ---
Date of service: Jan 03, 2025 Referring Physician Hospitalist Reason for Consultation Urinary retention and renal failure History of Present Illness 64-year-old male presents for evaluation of generalized weakness. He reports a one-week history of right-sided abdominal pain with associated nausea and vomiting. He also reports difficulty urinating over the past three days. Denies fever or chills. No chest pain or palpitations. Denies shortness or breath. Other acute complaints reported. CT scan showed severely distended bladder with hydronephrosis, bilateral. His admission creatinine was greater than 15. Alfaro catheter was placed and is currently draining well Past Medical History Hypertension, diabetes mellitus, BPH, non STEMI Family History: Patient reports no known family medical history. Allergies: Coded Allergies: NO KNOWN ALLERGIES (Unverified , 12/15/24) Home Meds Active Scripts Ciprofloxacin Hcl (Cipro) 500 Mg Tab, 1 TAB PO BID, #20 TAB Prov:RUDDY GÓMEZ MD 12/20/24 Reported Medications Ergocalciferol (Vitamin D) 50,000 Unit Cap, 1 CAP PO QWEEKLY 12/15/24 Tamsulosin Hcl (Tamsulosin Hcl) 0.4 Mg Cap, 1 CAP PO DAILY 12/15/24 Aspirin (Aspirin Adult Low Dose) 81 Mg Tab, 1 TAB PO DAILY 12/15/24 Docusate Sodium (Docusate Sodium) 100 Mg Cap, 1 12/15/24 Atorvastatin Calcium (ATORVASTATIN CALCIUM) 40 Mg Tab, 40 MG PO DAILY 12/15/24 Lisinopril (Lisinopril) 20 Mg Tab, 1 DAILY 12/15/24 Current Medications Current Medications Medications (Trade) Dose Ordered Sig/Tanesha Route PRN Reason Start Time Stop Time Status Last Admin Hydralazine HCl (Apresoline Injection) 10 mg Q6HP PRN IV SBP>150 01/02/25 18:45 01/03/25 01:44 Tamsulosin HCl (Flomax) 0.4 mg QPM PO 01/03/25 18:00 Atorvastatin Calcium (Lipitor) 40 mg HS PO 01/02/25 22:00 01/02/25 23:15 Diagnostic Test (Pha) (Accu-Chek Comfort Curve T) 1 strip ACHS 01/02/25 22:00 01/03/25 11:57 Insulin Human Regular (InsuLIN R) ACHS SC 01/02/25 22:00 01/03/25 12:04 Dextrose 50 ml UD PRN IV Blood Sugar LESS THAN 60 01/02/25 18:45 Acetaminophen/ Hydrocodone Bitart ([place] 5/325MG Tab) 1 tab Q4HP PRN PO MODERATE PAIN (4-6 PAIN SCALE) 01/02/25 18:45 Ondansetron HCl (Zofran) 4 mg Q4HP PRN IV NAUSEA / VOMITING 01/02/25 18:45 Acetaminophen (Tylenol Tablet) 650 mg Q6HP PRN PO PAIN SCALE 1-3 OR TEMP>100.4 01/02/25 18:45 Nitroglycerin (Ntrostat Sublingual) 0.4 mg Q5MINP PRN SL FOR CHEST PAIN 01/02/25 18:45 Morphine Sulfate 2 mg Q30M PRN IV FOR CHEST PAIN 01/02/25 18:45 Ceftriaxone Sodium 50 ml @ 100 mls/hr DAILY@09 IV 01/03/25 09:00 01/03/25 14:53 DC 01/03/25 08:58 Sodium Bicarbonate 150 ml/Dextrose 1,150 ml @ 100 mls/hr [id number] IV 01/03/25 12:00 01/03/25 12:00 Ceftriaxone Sodium 50 ml @ 100 mls/hr DAILY@09 IV 01/04/25 09:00 Review of Systems Review of systems are currently negative otherwise addressed in HPI. Allergies: Coded Allergies: NO KNOWN ALLERGIES (Unverified , 12/15/24) Medications Current Medications Medications Dose Ordered Sig/Tanesha Route Start Time Stop Time Status Last Admin Dose Admin Hydralazine HCl 10 mg Q6HP PRN IV 01/02/25 18:45 Tamsulosin HCl 0.4 mg QPM PO 01/03/25 18:00 Atorvastatin Calcium 40 mg HS PO 01/02/25 22:00 01/02/25 23:15 40 MG Diagnostic Test (Pha) 1 strip ACHS 01/02/25 22:00 01/02/25 22:10 1 STRIP Insulin Human Regular ACHS SC 01/02/25 22:00 Dextrose 50 ml UD PRN IV 01/02/25 18:45 Acetaminophen/ Hydrocodone Bitart 1 tab Q4HP PRN PO 01/02/25 18:45 Ondansetron HCl 4 mg Q4HP PRN IV 01/02/25 18:45 Acetaminophen 650 mg Q6HP PRN PO 01/02/25 18:45 Nitroglycerin 0.4 mg Q5MINP PRN SL 01/02/25 18:45 Morphine Sulfate 2 mg Q30M PRN IV 01/02/25 18:45 Ceftriaxone Sodium 50 ml @ 100 mls/hr DAILY@09 IV 01/03/25 09:00 Vital Signs Vital Signs Date Time Temp Pulse Resp B/P (MAP) Pulse Ox O2 Delivery O2 Flow Rate FiO2 01/03/25 13:20 98.3 91 20 149/84 (105) 97 98.3 01/03/25 07:50 Room Air* 0 21 Physical Exam Vital Signs Date Time Temp Pulse Resp B/P (MAP) Pulse Ox O2 Delivery O2 Flow Rate FiO2 01/02/25 23:13 97 20 97 Room Air* 0 21 01/02/25 20:45 98.3 157/83 (107) 98.3 Exam Gen: 64-year-old male in moderate distress Skin: Warm, dry, normal color and texture, no rash. HEENT: Normocephalic atraumatic, mucous membranes moist and pink. Neck: Cervical and supraclavicular nodes normal without enlargement, trachea is midline, thyroid gland is normal without masses. Pulmonary: Clear to auscultation and percussion bilaterally. Cardiac: Regular rate and rhythm. No murmur Abdomen: Soft, nontender, nondistended, bowel sounds present all 4 quadrants, no guarding, no rigidity, no organomegaly. Extremities: No cyanosis, clubbing, no edema Neuro: Cranial nerves II through XII grossly intact, normal affect and speech, no focal motor deficits. Labs/Diagnostic Data Labs Test 01/03/25 12:12 01/03/25 11:39 01/03/25 11:21 01/03/25 03:02 Range/Units Sodium Level 143 136-145 mmol/L Potassium Level 3.9 3.5-5.1 mmol/L Chloride Level 108 H 98-107 mmol/L Carbon Dioxide Level 21 20-31 mmol/L Anion Gap 14 5-15 Blood Urea Nitrogen 87 #*H 9-23 mg/dL Creatinine 10.64 #*H 0.700-1.30 mg/dL Glomerular Filtration Rate Calc 5 >90 mL/min BUN/Creatinine Ratio 8.2 L 10.0-20.0 Serum Glucose 264 #H 74-106 mg/dL Calcium Level 9.2 8.7-10.4 mg/dL POC Glucose 266 H 70-106 mg/dl White Blood Count 6.3 4.4-10.8 10^3/uL Red Blood Count 4.17 L 4.5-5.90 10^6/uL Hemoglobin 12.4 #L 13.5-17.5 g/dL Hematocrit 37.0 #L 41.0-53.0 % Mean Corpuscular Volume 88.7 80.0-100.0 fL Mean Corpuscular Hemoglobin 29.8 28.0-32.0 pg Mean Corpuscular Hemoglobin Concent 33.5 32.0-36.0 g/dL Red Cell Distribution Width 13.4 11.8-14.3 % Platelet Count 171 140-450 10^3/uL Mean Platelet Volume 8.1 6.9-10.8 fL Neutrophils (%) (Auto) 80.8 H 37.0-80.0 % Lymphocytes (%) (Auto) 7.8 L 10.0-50.0 % Monocytes (%) (Auto) 9.1 0.0-12.0 % Eosinophils (%) (Auto) 1.5 0.0-7.0 % Basophils (%) (Auto) 0.8 0.0-2.0 % Neutrophils # (Auto) 5.1 1.6-8.6 10 ^3/uL Lymphocytes # (Auto) 0.5 0.4-5.4 10 ^3/uL Monocytes # (Auto) 0.6 0-1.3 10 ^3/uL Eosinophils # (Auto) 0.1 0-0.8 10 ^3/uL Basophils # (Auto) 0.1 0-0.2 10 ^3/uL Nucleated Red Blood Cells 0.0 % Total Bilirubin 0.4 0.2-1.0 mg/dL Aspartate Amino Transferase (AST) 11 L 13-40 U/L Alanine Aminotransferase (ALT) 12 7-40 U/L Alkaline Phosphatase 56 46-116 U/L Total Protein 5.7 5.7-8.2 g/dL Albumin 3.8 3.2-4.8 g/dL Test 01/02/25 16:20 01/02/25 14:02 01/02/25 11:32 01/02/25 11:31 Range/Units Troponin I High Sensitivity 58 *H </=54 ng/L Lactic Acid Level 2.1 *H 0.4-2.0 mmol/L Magnesium Level 2.2 1.6-2.6 mg/dL Lipase 59 H 12-53 U/L Urine Color Light-yellow Yellow Urine Clarity Clear Clear Urine pH 6.0 5.0-9.0 Urine Specific [place] 1.010 1.001-1.035 Urine Protein 1+ H Negative Urine Ketones Negative Negative Urine Blood Trace H Negative /uL Urine Nitrite Negative Negative Urine Bilirubin Negative Negative Urine Urobilinogen Normal Negative mg/dL Urine Leukocyte Esterase Negative Negative /uL Urine RBC 4 0 - 3 /hpf Urine Microscopic WBC 4 H 0-3 /HPF Urine Squamous Epithelial Cells None seen <5 /hpf Urine Bacteria Few H None Seen /hpf Urine Glucose 1+ H Normal mg/dL Assessment Urinary retention Azotemia Enlarged prostate gland Bilateral hydronephrosis Plan/Recommendation Keep Alfaro to gravity drainage until creatinine has gone down to baseline. Outpatient cystoscopy to be arranged PSA level Plan discussed with: Patient DEMETRIUS MARIO MD Jan 03, 2025 15:54
[2025-01-03] MEDS: TAMSULOSIN HYDROCHLORIDE 0.4 MG CAP PO SCH (17:05)
--- NOTE | 2025-01-03 17:07 | DVHINCON2 ---
Date of service: Jan 03, 2025 Reason for Consultation KIANNA History of Present Illness 64-year-old man with past history of diabetes, history bladder with bilateral hydronephrosis, prostatomegaly, hypertension, Coronary artery disease, presented with chief complaints of abdominal pain, reduced po intake Patient recently had hospitalization with similar presentation Previous admission patient was advised to go on Quesada catheter at discharge ho wever his Quesada catheter was removed prior to discharge Past Medical History per hpi Past Surgical History per hpi Allergies: Coded Allergies: NO KNOWN ALLERGIES (Unverified , 12/15/24) Home Meds Active Scripts Ciprofloxacin Hcl (Cipro) 500 Mg Tab, 1 TAB PO BID, #20 TAB Prov:RUDDY GÓMEZ MD 12/20/24 Reported Medications Ergocalciferol (Vitamin D) 50,000 Unit Cap, 1 CAP PO QWEEKLY 12/15/24 Tamsulosin Hcl (Tamsulosin Hcl) 0.4 Mg Cap, 1 CAP PO DAILY 12/15/24 Aspirin (Aspirin Adult Low Dose) 81 Mg Tab, 1 TAB PO DAILY 12/15/24 Docusate Sodium (Docusate Sodium) 100 Mg Cap, 1 12/15/24 Atorvastatin Calcium (ATORVASTATIN CALCIUM) 40 Mg Tab, 40 MG PO DAILY 12/15/24 Lisinopril (Lisinopril) 20 Mg Tab, 1 DAILY 12/15/24 Current Medications Current Medications Medications (Trade) Dose Ordered Sig/Tanesha Route PRN Reason Start Time Stop Time Status Last Admin Hydralazine HCl (Apresoline Injection) 10 mg Q6HP PRN IV SBP>150 01/02/25 18:45 01/03/25 01:44 Tamsulosin HCl (Flomax) 0.4 mg QPM PO 01/03/25 18:00 01/03/25 17:05 Atorvastatin Calcium (Lipitor) 40 mg HS PO 01/02/25 22:00 01/02/25 23:15 Diagnostic Test (Pha) (Accu-Chek Comfort Curve T) 1 strip ACHS 01/02/25 22:00 01/03/25 16:32 Insulin Human Regular (InsuLIN R) ACHS SC 01/02/25 22:00 01/03/25 16:33 Dextrose 50 ml UD PRN IV Blood Sugar LESS THAN 60 01/02/25 18:45 Acetaminophen/ Hydrocodone Bitart ([place] 5/325MG Tab) 1 tab Q4HP PRN PO MODERATE PAIN (4-6 PAIN SCALE) 01/02/25 18:45 Ondansetron HCl (Zofran) 4 mg Q4HP PRN IV NAUSEA / VOMITING 01/02/25 18:45 Acetaminophen (Tylenol Tablet) 650 mg Q6HP PRN PO PAIN SCALE 1-3 OR TEMP>100.4 01/02/25 18:45 Nitroglycerin (Ntrostat Sublingual) 0.4 mg Q5MINP PRN SL FOR CHEST PAIN 01/02/25 18:45 Morphine Sulfate 2 mg Q30M PRN IV FOR CHEST PAIN 01/02/25 18:45 Ceftriaxone Sodium 50 ml @ 100 mls/hr DAILY@09 IV 01/03/25 09:00 01/03/25 14:53 DC 01/03/25 08:58 Sodium Bicarbonate 150 ml/Dextrose 1,150 ml @ 100 mls/hr [id number] IV 01/03/25 12:00 01/03/25 12:00 Ceftriaxone Sodium 50 ml @ 100 mls/hr DAILY@09 IV 01/04/25 09:00 Family History: Patient reports no known family medical history. Review of Systems As per documented in hpi H&P Exam Vital Signs/I&O Vital Sign Date Time Temp Pulse Resp B/P (MAP) Pulse Ox O2 Delivery O2 Flow Rate FiO2 01/03/25 13:20 98.3 91 20 149/84 (105) 97 98.3 01/03/25 07:50 Room Air* 0 21 Intake and Output 01/02/25 01/03/25 19:00 07:00 Intake Total 2100 ml Balance 2100 ml IV Total 2100 ml Physical Exam General-not in any distress HEENT-normocephalic, no icterus, no pallor, neck supple Respiratory-fair air entry bilateral, no rhonchi, no wheeze [id number] heard, no murmurs appreciated Abdominal-soft, nontender, nondistended Musculoskeletal-no pedal edema, no calf tenderness Genitourinary-deferred Neuro-awake alert oriented x3, Psychiatric-not agitated, cooperative, Labs/Diagnostic Data Labs/Diagnostic Data Laboratory Tests Test 01/03/25 16:07 01/03/25 12:12 01/03/25 11:39 01/03/25 11:21 Range/Units POC Glucose 224 H 266 H 70-106 mg/dl Sodium Level 143 136-145 mmol/L Potassium Level 3.9 3.5-5.1 mmol/L Chloride Level 108 H 98-107 mmol/L Carbon Dioxide Level 21 20-31 mmol/L Anion Gap 14 5-15 Blood Urea Nitrogen 87 #*H 9-23 mg/dL Creatinine 10.64 #*H 0.700-1.30 mg/dL Glomerular Filtration Rate Calc 5 >90 mL/min BUN/Creatinine Ratio 8.2 L 10.0-20.0 Serum Glucose 264 #H 74-106 mg/dL Calcium Level 9.2 8.7-10.4 mg/dL White Blood Count 6.3 4.4-10.8 10^3/uL Red Blood Count 4.17 L 4.5-5.90 10^6/uL Hemoglobin 12.4 #L 13.5-17.5 g/dL Hematocrit 37.0 #L 41.0-53.0 % Mean Corpuscular Volume 88.7 80.0-100.0 fL Mean Corpuscular Hemoglobin 29.8 28.0-32.0 pg Mean Corpuscular Hemoglobin Concent 33.5 32.0-36.0 g/dL Red Cell Distribution Width 13.4 11.8-14.3 % Platelet Count 171 140-450 10^3/uL Mean Platelet Volume 8.1 6.9-10.8 fL Neutrophils (%) (Auto) 80.8 H 37.0-80.0 % Lymphocytes (%) (Auto) 7.8 L 10.0-50.0 % Monocytes (%) (Auto) 9.1 0.0-12.0 % Eosinophils (%) (Auto) 1.5 0.0-7.0 % Basophils (%) (Auto) 0.8 0.0-2.0 % Neutrophils # (Auto) 5.1 1.6-8.6 10 ^3/uL Lymphocytes # (Auto) 0.5 0.4-5.4 10 ^3/uL Monocytes # (Auto) 0.6 0-1.3 10 ^3/uL Eosinophils # (Auto) 0.1 0-0.8 10 ^3/uL Basophils # (Auto) 0.1 0-0.2 10 ^3/uL Nucleated Red Blood Cells 0.0 % Test 2/19/25 08:21 01/03/25 03:02 01/02/25 22:27 01/02/25 16:20 Range/Units POC Glucose 127 H 70-106 mg/dl White Blood Count 7.9 4.4-10.8 10^3/uL Red Blood Count 3.54 L 4.5-5.90 10^6/uL Hemoglobin 10.7 L 13.5-17.5 g/dL Hematocrit 31.5 #L 41.0-53.0 % Mean Corpuscular Volume 88.9 80.0-100.0 fL Mean Corpuscular Hemoglobin 30.2 28.0-32.0 pg Mean Corpuscular Hemoglobin Concent 33.9 32.0-36.0 g/dL Red Cell Distribution Width 13.2 11.8-14.3 % Platelet Count 143 140-450 10^3/uL Mean Platelet Volume 8.5 6.9-10.8 fL Neutrophils (%) (Auto) 80.6 H 37.0-80.0 % Lymphocytes (%) (Auto) 8.6 L 10.0-50.0 % Monocytes (%) (Auto) 9.3 0.0-12.0 % Eosinophils (%) (Auto) 1.1 0.0-7.0 % Basophils (%) (Auto) 0.4 0.0-2.0 % Neutrophils # (Auto) 6.4 1.6-8.6 10 ^3/uL Lymphocytes # (Auto) 0.7 0.4-5.4 10 ^3/uL Monocytes # (Auto) 0.7 0-1.3 10 ^3/uL Eosinophils # (Auto) 0.1 0-0.8 10 ^3/uL Basophils # (Auto) 0 0-0.2 10 ^3/uL Nucleated Red Blood Cells 0.0 % Sodium Level 139 136-145 mmol/L Potassium Level 5.6 *H 6.6 *H 6.0 *H 3.5-5.1 mmol/L Chloride Level 103 98-107 mmol/L Carbon Dioxide Level 14 L 20-31 mmol/L Anion Gap 22 H 5-15 Blood Urea Nitrogen 131 #*H 9-23 mg/dL Creatinine 24.16 *H 0.700-1.30 mg/dL Glomerular Filtration Rate Calc 2 >90 mL/min BUN/Creatinine Ratio 5.4 L 10.0-20.0 Serum Glucose 97 74-106 mg/dL Calcium Level 8.3 L 8.7-10.4 mg/dL Total Bilirubin 0.4 0.2-1.0 mg/dL Aspartate Amino Transferase (AST) 11 L 13-40 U/L Alanine Aminotransferase (ALT) 12 7-40 U/L Alkaline Phosphatase 56 46-116 U/L Total Protein 5.7 5.7-8.2 g/dL Albumin 3.8 3.2-4.8 g/dL Troponin I High Sensitivity 58 *H </=54 ng/L Test 01/02/25 14:02 01/02/25 11:32 01/02/25 11:31 01/02/25 11:25 Range/Units Lactic Acid Level 2.1 *H 2.4 *H 0.4-2.0 mmol/L Troponin I High Sensitivity 50 45 </=54 ng/L White Blood Count 7.6 4.4-10.8 10^3/uL Red Blood Count 4.15 L 4.5-5.90 10^6/uL Hemoglobin 12.4 L 13.5-17.5 g/dL Hematocrit 37.3 L 41.0-53.0 % Mean Corpuscular Volume 90.0 80.0-100.0 fL Mean Corpuscular Hemoglobin 29.8 28.0-32.0 pg Mean Corpuscular Hemoglobin Concent 33.1 32.0-36.0 g/dL Red Cell Distribution Width 13.4 11.8-14.3 % Platelet Count 160 140-450 10^3/uL Mean Platelet Volume 8.3 6.9-10.8 fL Neutrophils (%) (Auto) 86.7 H 37.0-80.0 % Lymphocytes (%) (Auto) 5.4 L 10.0-50.0 % Monocytes (%) (Auto) 6.4 0.0-12.0 % Eosinophils (%) (Auto) 1.0 0.0-7.0 % Basophils (%) (Auto) 0.5 0.0-2.0 % Neutrophils # (Auto) 6.6 1.6-8.6 10 ^3/uL Lymphocytes # (Auto) 0.4 0.4-5.4 10 ^3/uL Monocytes # (Auto) 0.5 0-1.3 10 ^3/uL Eosinophils # (Auto) 0.1 0-0.8 10 ^3/uL Basophils # (Auto) 0 0-0.2 10 ^3/uL Nucleated Red Blood Cells 0.1 % Sodium Level 137 136-145 mmol/L Potassium Level 5.7 *H 3.5-5.1 mmol/L Chloride Level 101 98-107 mmol/L Carbon Dioxide Level 13 L 20-31 mmol/L Anion Gap 23 H 5-15 Blood Urea Nitrogen 150 *H 9-23 mg/dL Creatinine 23.98 *H 0.700-1.30 mg/dL Glomerular Filtration Rate Calc 2 >90 mL/min BUN/Creatinine Ratio 6.3 L 10.0-20.0 Serum Glucose 135 H 74-106 mg/dL Calcium Level 8.6 L 8.7-10.4 mg/dL Magnesium Level 2.2 1.6-2.6 mg/dL Total Bilirubin 0.5 0.2-1.0 mg/dL Aspartate Amino Transferase (AST) 13 13-40 U/L Alanine Aminotransferase (ALT) 13 7-40 U/L Alkaline Phosphatase 65 46-116 U/L Total Protein 6.1 5.7-8.2 g/dL Albumin 4.2 3.2-4.8 g/dL Lipase 59 H 12-53 U/L Urine Color Light-yellow Yellow Urine Clarity Clear Clear Urine pH 6.0 5.0-9.0 Urine Specific [place] 1.010 1.001-1.035 Urine Protein 1+ H Negative Urine Ketones Negative Negative Urine Blood Trace H Negative /uL Urine Nitrite Negative Negative Urine Bilirubin Negative Negative Urine Urobilinogen Normal Negative mg/dL Urine Leukocyte Esterase Negative Negative /uL Urine RBC 4 0 - 3 /hpf Urine Microscopic WBC 4 H 0-3 /HPF Urine Squamous Epithelial Cells None seen <5 /hpf Urine Bacteria Few H None Seen /hpf Urine Glucose 1+ H Normal mg/dL POC Glucose 128 H 70-106 mg/dl Assessment Acute kidney injury secondary to obstructive uropathy Bilateral hydronephrosis Hyperkalemia Prostatomegaly Bladder outlet obstruction Recommendations Continue Quesada even after discharge---DO NOT REMOVE QUESADA Previous admission recently for similar presentation nephrology and urology saw the patient and recommended to continue Quesada after discharge however his Quesada catheter has been removed prior to discharge as per primary medical team Renal function slightly better potassium is better Good urine output No indication for dialysis yet We will monitor closely Reviewed vital signs, lab work, imaging studies, medications, microbiology, ot her physician recommendations Total time spent 80 minutes More than 50% of the time spent providing direct [id number] care . Thank you for allowing me to participate in the care of your patient. Plan discussed with: Patient KIRILL CLARK MD Jan 03, 2025 17:07
[2025-01-03] MEDS: SODIUM CHLORIDE 0.9% 1,000 ML IV SCH (21:54)
[2025-01-04] VITALS (8 sets, daily range): BP systolic 105–159; BP diastolic 62–84; PULSE 75–86; RESP 18–20; TEMP 97.7–98.4; O2SAT 95–98
[2025-01-04] MEDS: ONDANSETRON HCL 4 MG/2 ML VIAL IV PRN (06:33)
[2025-01-04 06:56] LABS: Alanine Aminotransferase 10 U/L (7-40); Albumin 4.5 g/dL (3.2-4.8); Alkaline Phosphatase 60 U/L (46-116); Anion Gap 13 (5-15); Aspartate Aminotransferase 13 U/L (13-40); BUN/Creatinine Ratio 13.7 (10.0-20.0); Bilirubin, Total 0.8 mg/dL (0.2-1.0); Calcium 9.7 mg/dL (8.7-10.4); Carbon Dioxide 25 mmol/L (20-31); Potassium 3.7 mmol/L (3.5-5.1); Total Protein 6.6 g/dL (5.7-8.2)
[2025-01-04 06:59] LABS: Basophils # (auto) 0 10 ^3/uL (0-0.2); Basophils % (auto) 0.5 % (0.0-2.0); Blood Urea Nitrogen 32 mg/dL (9-23); Chloride 109 mmol/L (98-107); Eosinophils # (auto) 0.1 10 ^3/uL (0-0.8); Eosinophils % (auto) 1.5 % (0.0-7.0); Glucose 147 mg/dL (74-106); Hematocrit 40.8 % (41.0-53.0); Hemoglobin 13.5 g/dL (13.5-17.5); Lymphocytes # (auto) 0.8 10 ^3/uL (0.4-5.4); Lymphocytes % (auto) 9.9 % (10.0-50.0); Mean Corpuscular Hemoglobin 29.8 pg (28.0-32.0); Mean Corpuscular Hgb Conc. 33.1 g/dL (32.0-36.0); Monocytes # (auto) 0.8 10 ^3/uL (0-1.3); Monocytes % (auto) 10.6 % (0.0-12.0); Neutrophils # (auto) 6.1 10 ^3/uL (1.6-8.6); Neutrophils % (auto) 77.5 % (37.0-80.0); Nucleated Red Blood Cells % 0.1 %; Platelet Count (auto) 205 10^3/uL (140-450); Red Blood Cells 4.53 10^6/uL (4.5-5.90); Red Cell Distribution Width 13.4 % (11.8-14.3); Sodium 147 mmol/L (136-145); White Blood Cell 7.9 10^3/uL (4.4-10.8)
[2025-01-04] MEDS: ALBUTEROL SULF 2.5 MG/0.5ML(0.5%) NEB SOLN ONE (07:48)
[2025-01-04] MEDS: cefTRIAXone 1GM/50ML D5W 50 ML IV SCH (08:30)
[2025-01-04 09:13] LABS: Hepatitis B Surface Antigen Negative (Negative)
--- NOTE | 2025-01-04 09:26 | DVHPN2 ---
Reviewed: Care Plan, H&P, Labs, Medications, Previous Orders, Radiology Changes from previous H/P or p: No Changes Objective Vitals Vital Signs Date Time Temp Pulse Resp B/P (MAP) Pulse Ox O2 Delivery O2 Flow Rate FiO2 01/04/25 05:00 97.8 77 20 105/64 (78) 96 97.8 01/03/25 20:00 Room Air* 0 21 Intake/Output Intake and Output 01/04/25 07:00 Intake Total 610 ml Output Total 05488 ml Balance -07380 ml Intake Oral 610 ml Tube Feeding 0 ml Blood Product 0 ml Other 0 ml Output Urine Total 99639 ml Stool Total 0 ml Urine/Stool Mix 0 ml Gastric Drainage Total 0 ml Emesis 0 ml Chest Tube Drainage Total 0 ml Drainage Total 0 ml Blood Draw 0 ml Other 0 ml Medications Current Medications Medications Dose Ordered Sig/Tanesha Route Start Time Stop Time Status Last Admin Dose Admin Hydralazine HCl 10 mg Q6HP PRN IV 01/02/25 18:45 01/03/25 01:44 10 MG Tamsulosin HCl 0.4 mg QPM PO 01/03/25 18:00 01/03/25 17:05 0.4 MG Atorvastatin Calcium 40 mg HS PO 01/02/25 22:00 01/03/25 21:38 40 MG Diagnostic Test (Pha) 1 strip ACHS 01/02/25 22:00 01/04/25 06:37 1 STRIP Insulin Human Regular ACHS SC 01/02/25 22:00 01/04/25 06:43 3 UNITS Dextrose 50 ml UD PRN IV 01/02/25 18:45 Acetaminophen/ Hydrocodone Bitart 1 tab Q4HP PRN PO 01/02/25 18:45 Ondansetron HCl 4 mg Q4HP PRN IV 01/02/25 18:45 01/04/25 06:33 4 MG Acetaminophen 650 mg Q6HP PRN PO 01/02/25 18:45 Nitroglycerin 0.4 mg Q5MINP PRN SL 01/02/25 18:45 Morphine Sulfate 2 mg Q30M PRN IV 01/02/25 18:45 Ceftriaxone Sodium 50 ml @ 100 mls/hr DAILY@09 IV 01/04/25 09:00 01/04/25 08:30 100 MLS/HR Sodium Chloride 1,000 ml @ 100 mls/hr Q10H IV 01/03/25 19:30 01/03/25 21:54 100 MLS/HR Laboratory Results Laboratory Tests 01/04/25 05:58 Chemistry Test 01/03/25 12:12 01/04/25 05:58 Calcium Level 9.2 mg/dL (8.7-10.4) 9.7 mg/dL (8.7-10.4) Albumin 4.5 g/dL (3.2-4.8) Total Protein 6.6 g/dL (5.7-8.2) LFT Test 01/04/25 05:58 Alanine Aminotransferase (ALT) 10 U/L (7-40) Alkaline Phosphatase 60 U/L (46-116) Aspartate Amino Transferase (AST) 13 U/L (13-40) Total Bilirubin 0.8 mg/dL (0.2-1.0) Urinalysis Test 01/02/25 11:31 Urine Color Light-yellow (Yellow) Urine Clarity Clear (Clear) Urine pH 6.0 (5.0-9.0) Urine Specific [place] 1.010 (1.001-1.035) Urine Protein 1+ (Negative) H Urine Ketones Negative (Negative) Urine Blood Trace /uL (Negative) H Urine Nitrite Negative (Negative) Urine Bilirubin Negative (Negative) Urine Urobilinogen Normal mg/dL (Negative) Urine Leukocyte Esterase Negative /uL (Negative) Urine RBC 4 /hpf (0 - 3) Urine Microscopic WBC 4 /HPF (0-3) H Urine Squamous Epithelial Cells None seen /hpf (<5) Urine Bacteria Few /hpf (None Seen) H Urine Glucose 1+ mg/dL (Normal) H Labs and/or images reviewed: Labs reviewed by me, Image(s) reviewed by me Assessment/Plan Assessment/Plan Sepsis secondary to possible urinary tract infection : Blood cultures urine cultures Rocephin Acute urinary retention secondary to enlarged prostate with right hydronephrosis: Alfaro: Consult for Urology Dr. Solitario appreciated, advised to keep Alfaro at the time of discharge and outpatient cystoscopy Hyperkalemia secondary to acute kidney injury Acute kidney injury versus VMN Consult by Nephrology appreciated BUN creatinine improved from 150/23 to 32/2.33 Noncompliance Acute metabolic acidosis Obesity Chronic right suboccipital ischemic infarct Time Spent 55 minutes Condition guarded Patient is full code Advanced care planning time 20 minutes Nephrology advised to keep the Alfaro even after discharge Plan discussed with: Patient My Orders Orders - RUDDY GÓMEZ MD Procedure Category Date Status Time Ceftriaxone 1gm/50ml PHA 01/04/25 In Process D5w (Rocephin) 09:00 Mrsa Screen GALDINO 01/03/25 In Process 21:59 Hepatitis B Surface LAB 01/03/25 In Process Antigen 14:50 Hepatitis C Antibody LAB 01/03/25 In Process 14:50 * Administrative Technician CONS 01/03/25 Transmitted Consult Mrsa Screen GALDINO 01/04/25 Logged 09:02 Date of Service: Jan 04, 2025 Billing Provider: RUDDY GÓMEZ MD Common Visit Codes: [id number] INP/OBS CARE(HIGH) RUDDY GÓMEZ MD Jan 04, 2025 09:26
[2025-01-04 09:34] LABS: Hepatitis C Antibody Negative (Negative)
--- NOTE | 2025-01-04 10:02 | ECG ---
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
--- NOTE | 2025-01-04 15:19 | DVHPN2 ---
Progress Note - Dictate Date Seen: Jan 04, 2025 Medical Necessity Reason Pt with a Central, PICC or Fol: No The following are medically ne: Alfaro Catheter Medical Necessity Reason Urinary retention and azotemia vital signs Vital Sign Date Time Temp Pulse Resp B/P (MAP) Pulse Ox O2 Delivery O2 Flow Rate FiO2 01/04/25 13:16 98.4 77 19 143/77 (99) 98 98.4 01/03/25 20:00 Room Air* 0 21 Total Intake and Output 01/03/25 01/03/25 01/04/25 14:59 22:59 06:59 Intake Total 0 ml 210 ml 400 ml Output Total 4400 ml 3100 ml 4920 ml Balance -4400 ml -2890 ml -4520 ml medications Current Medications Medications Dose Ordered Sig/Tanesha Route Start Time Stop Time Status Last Admin Dose Admin Hydralazine HCl 10 mg Q6HP PRN IV 01/02/25 18:45 01/03/25 01:44 10 MG Tamsulosin HCl 0.4 mg QPM PO 01/03/25 18:00 01/03/25 17:05 0.4 MG Atorvastatin Calcium 40 mg HS PO 01/02/25 22:00 01/03/25 21:38 40 MG Diagnostic Test (Pha) 1 strip ACHS 01/02/25 22:00 01/04/25 11:59 1 STRIP Insulin Human Regular ACHS SC 01/02/25 22:00 01/04/25 11:59 3 UNITS Dextrose 50 ml UD PRN IV 01/02/25 18:45 Acetaminophen/ Hydrocodone Bitart 1 tab Q4HP PRN PO 01/02/25 18:45 Ondansetron HCl 4 mg Q4HP PRN IV 01/02/25 18:45 01/04/25 06:33 4 MG Acetaminophen 650 mg Q6HP PRN PO 01/02/25 18:45 Nitroglycerin 0.4 mg Q5MINP PRN SL 01/02/25 18:45 Morphine Sulfate 2 mg Q30M PRN IV 01/02/25 18:45 Ceftriaxone Sodium 50 ml @ 100 mls/hr DAILY@09 IV 01/04/25 09:00 01/04/25 08:30 100 MLS/HR Sodium Chloride 1,000 ml @ 100 mls/hr Q10H IV 01/03/25 19:30 01/04/25 13:01 100 MLS/HR objective Creatinine is down to 2.33 from >10.0 laboratory and microbiology Laboratory Tests 01/04/25 05:58 Test 01/04/25 05:58 Range/Units Serum Glucose 147 #H 74-106 mg/dL Assessment/Plan Urinary retention Azotemia Enlarged prostate gland Bilateral hydronephrosis Maintain Alfaro catheter May discharge when creatinine normal Follow up in Urology Clinic for a diagnostic cystoscopy and urodynamics evaluation Plan discussed with: Other DEMETRIUS MARIO MD Jan 04, 2025 15:19
--- NOTE | 2025-01-04 16:31 | DVHPN2 ---
Progress Note Date Seen: Jan 04, 2025 Medical Necessity Reason Pt with a Central, PICC or Fol: No The following are medically ne: Alfaro Catheter Subjective Patient reports: No new complaints, Feels better Review of Systems: HEENT:Normal, CVS:Normal, RESPIRATORY:Normal, GI:Normal, :Normal, MSK:Normal, NEURO:Normal Objective vital signs Vital Sign Date Time Temp Pulse Resp B/P (MAP) Pulse Ox O2 Delivery O2 Flow Rate FiO2 01/04/25 13:16 98.4 77 19 143/77 (99) 98 98.4 01/04/25 08:15 Room Air* 0 21 Total Intake and Output 01/03/25 01/03/25 01/04/25 15:00 23:00 07:00 Intake Total 0 ml 210 ml 400 ml Output Total 4400 ml 3100 ml 4920 ml Balance -4400 ml -2890 ml -4520 ml medications Current Medications Medications Dose Ordered Sig/Tanesha Route Start Time Stop Time Status Last Admin Dose Admin Hydralazine HCl 10 mg Q6HP PRN IV 01/02/25 18:45 01/03/25 01:44 10 MG Tamsulosin HCl 0.4 mg QPM PO 01/03/25 18:00 01/03/25 17:05 0.4 MG Atorvastatin Calcium 40 mg HS PO 01/02/25 22:00 01/03/25 21:38 40 MG Diagnostic Test (Pha) 1 strip ACHS 01/02/25 22:00 01/04/25 11:59 1 STRIP Insulin Human Regular ACHS SC 01/02/25 22:00 01/04/25 11:59 3 UNITS Dextrose 50 ml UD PRN IV 01/02/25 18:45 Acetaminophen/ Hydrocodone Bitart 1 tab Q4HP PRN PO 01/02/25 18:45 Ondansetron HCl 4 mg Q4HP PRN IV 01/02/25 18:45 01/04/25 06:33 4 MG Acetaminophen 650 mg Q6HP PRN PO 01/02/25 18:45 Nitroglycerin 0.4 mg Q5MINP PRN SL 01/02/25 18:45 Morphine Sulfate 2 mg Q30M PRN IV 01/02/25 18:45 Ceftriaxone Sodium 50 ml @ 100 mls/hr DAILY@09 IV 01/04/25 09:00 01/04/25 08:30 100 MLS/HR Sodium Chloride 1,000 ml @ 100 mls/hr Q10H IV 01/03/25 19:30 01/04/25 13:01 100 MLS/HR Examination: GENERAL:Normal, HEENT:Normal, NECK:Normal, LUNGS:Normal, CVS:Normal, ABDOMEN:Normal, MSK:Normal, SKIN:Normal, NEURO:Normal, :Normal laboratory and microbiology Laboratory Tests 01/04/25 05:58 Test 01/04/25 05:58 Range/Units Serum Glucose 147 #H 74-106 mg/dL Microbiology Date/Time Source Procedure Growth Status 01/03/25 21:30 Nose MRSA Screen - Final Complete Problem List/Assessment/Plan Problem List/Assessment/Plan Acute kidney injury secondary to obstructive uropathy Bilateral hydronephrosis Hyperkalemia Prostatomegaly Bladder outlet obstruction hypernatremia Recommendations Continue Alfaro even after discharge until urology procedure Good urine output improving renal function stable for DC from renal stand point urology follow up switch to half NS Plan discussed with: Patient My Orders My Orders Orders - KIRILL CLARK MD Procedure Category Date Status Time Sodium Chloride 0.9% PHA 01/03/25 In Process 19:30 KIRILL CLARK MD Jan 04, 2025 16:31
[2025-01-04] MEDS: SOD CHL 0.45% 1,000 ML IV SCH (17:59)
[2025-01-05] VITALS (8 sets, daily range): BP systolic 103–146; BP diastolic 54–76; PULSE 68–83; RESP 16–18; TEMP 97.2–98; O2SAT 96–98
[2025-01-05 07:23] LABS: Alanine Aminotransferase 12 U/L (7-40); Alkaline Phosphatase 54 U/L (46-116); Anion Gap 13 (5-15); BUN/Creatinine Ratio 14.4 (10.0-20.0); Blood Urea Nitrogen 18 mg/dL (9-23); Calcium 9.1 mg/dL (8.7-10.4); Carbon Dioxide 23 mmol/L (20-31); Chloride 106 mmol/L (98-107); Potassium 3.7 mmol/L (3.5-5.1); Sodium 142 mmol/L (136-145)
[2025-01-05 07:24] LABS: Albumin 4.2 g/dL (3.2-4.8); Aspartate Aminotransferase 17 U/L (13-40)
[2025-01-05 07:25] LABS: Bilirubin, Total 0.8 mg/dL (0.2-1.0); Glucose 112 mg/dL (74-106); Total Protein 6.2 g/dL (5.7-8.2)
[2025-01-05 08:07] LABS: PSA Free 0.91 ng/mL; Prostate Specific Antigen 16.6 ng/mL (0.0-4.0)
--- NOTE | 2025-01-05 10:20 | DVHPN2 ---
Reviewed: Care Plan, H&P, Labs, Medications, Previous Orders, Radiology Changes from previous H/P or p: No Changes Objective Vitals Vital Signs Date Time Temp Pulse Resp B/P (MAP) Pulse Ox O2 Delivery O2 Flow Rate FiO2 01/05/25 05:00 98.0 80 18 138/54 (82) 97 98.0 01/04/25 20:00 Room Air* 0 21 Intake/Output Intake and Output 01/05/25 07:00 Intake Total 4025 ml Output Total 4930 ml Balance -905 ml Intake Oral 1975 ml IV Total 2050 ml Output Urine Total 4930 ml # Bowel Movements 2 Medications Current Medications Medications Dose Ordered Sig/Tanesha Route Start Time Stop Time Status Last Admin Dose Admin Hydralazine HCl 10 mg Q6HP PRN IV 01/02/25 18:45 01/04/25 21:53 10 MG Tamsulosin HCl 0.4 mg QPM PO 01/03/25 18:00 01/04/25 17:55 0.4 MG Atorvastatin Calcium 40 mg HS PO 01/02/25 22:00 01/04/25 21:18 40 MG Diagnostic Test (Pha) 1 strip ACHS 01/02/25 22:00 01/05/25 06:03 1 STRIP Insulin Human Regular ACHS SC 01/02/25 22:00 01/04/25 21:42 4 UNITS Dextrose 50 ml UD PRN IV 01/02/25 18:45 Acetaminophen/ Hydrocodone Bitart 1 tab Q4HP PRN PO 01/02/25 18:45 Ondansetron HCl 4 mg Q4HP PRN IV 01/02/25 18:45 01/04/25 06:33 4 MG Acetaminophen 650 mg Q6HP PRN PO 01/02/25 18:45 Nitroglycerin 0.4 mg Q5MINP PRN SL 01/02/25 18:45 Morphine Sulfate 2 mg Q30M PRN IV 01/02/25 18:45 Ceftriaxone Sodium 50 ml @ 100 mls/hr DAILY@09 IV 01/04/25 09:00 01/05/25 09:24 100 MLS/HR Sodium Chloride 1,000 ml @ 100 mls/hr Q10H IV 01/04/25 16:45 01/05/25 03:35 100 MLS/HR Laboratory Results Laboratory Tests 01/04/25 05:58 01/05/25 06:19 Chemistry Test 01/05/25 06:19 Albumin 4.2 g/dL (3.2-4.8) Calcium Level 9.1 mg/dL (8.7-10.4) Total Protein 6.2 g/dL (5.7-8.2) LFT Test 01/05/25 06:19 Alanine Aminotransferase (ALT) 12 U/L (7-40) Alkaline Phosphatase 54 U/L (46-116) Aspartate Amino Transferase (AST) 17 U/L (13-40) Total Bilirubin 0.8 mg/dL (0.2-1.0) Urinalysis Test 01/02/25 11:31 Urine Color Light-yellow (Yellow) Urine Clarity Clear (Clear) Urine pH 6.0 (5.0-9.0) Urine Specific [place] 1.010 (1.001-1.035) Urine Protein 1+ (Negative) H Urine Ketones Negative (Negative) Urine Blood Trace /uL (Negative) H Urine Nitrite Negative (Negative) Urine Bilirubin Negative (Negative) Urine Urobilinogen Normal mg/dL (Negative) Urine Leukocyte Esterase Negative /uL (Negative) Urine RBC 4 /hpf (0 - 3) Urine Microscopic WBC 4 /HPF (0-3) H Urine Squamous Epithelial Cells None seen /hpf (<5) Urine Bacteria Few /hpf (None Seen) H Urine Glucose 1+ mg/dL (Normal) H Microbiology Microbiology Date/Time Source Procedure Growth Status 01/03/25 21:30 Nose MRSA Screen - Final Complete Labs and/or images reviewed: Labs reviewed by me Assessment/Plan Assessment/Plan Sepsis secondary to possible urinary tract infection : Blood cultures pending urine cultures pending, continue Rocephin Acute urinary retention secondary to enlarged prostate with right hydronephrosis: Alfaro: Consult for Urology Dr. Solitario appreciated, advised to keep Alfaro at the time of discharge and outpatient cystoscopy Acute Hyperkalemia secondary to acute kidney injury Acute kidney injury versus VMN Consult by Nephrology appreciated BUN creatinine improved from 150/23 to 18/1.25 Noncompliance Acute metabolic acidosis Obesity Chronic right suboccipital ischemic infarct Time Spent 55 minutes Condition guarded Patient is full code Advanced care planning time 20 minutes Nephrology advised to keep the Alfaro even after discharge Plan discussed with: Patient My Orders Orders - RUDDY GÓMEZ MD Procedure Category Date Status Time * [employer]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
--- NOTE | 2025-01-05 10:26 | DVHDS2 ---
Discharge Summary Date of Admission Jan 02, 2025 at 18:43 Date of Discharge: Jan 05, 2025 Admitting Diagnosis Generalized weakness and urinary retention Wounds: None Labs/Diagnostic Data: Laboratory Results Test 01/05/25 06:19 01/05/25 06:05 01/04/25 05:58 01/03/25 18:37 Sodium Level 142 mmol/L (136-145) Potassium Level 3.7 mmol/L (3.5-5.1) Chloride Level 106 mmol/L (98-107) Carbon Dioxide Level 23 mmol/L (20-31) Anion Gap 13 (5-15) Blood Urea Nitrogen 18 mg/dL (9-23) Creatinine 1.25 mg/dL (0.700-1.30) Glomerular Filtration Rate Calc 65 mL/min (>90) BUN/Creatinine Ratio 14.4 (10.0-20.0) Serum Glucose 112 mg/dL (74-106) Calcium Level 9.1 mg/dL (8.7-10.4) Total Bilirubin 0.8 mg/dL (0.2-1.0) Aspartate Amino Transferase (AST) 17 U/L (13-40) Alanine Aminotransferase (ALT) 12 U/L (7-40) Alkaline Phosphatase 54 U/L (46-116) Total Protein 6.2 g/dL (5.7-8.2) Albumin 4.2 g/dL (3.2-4.8) POC Glucose 106 mg/dl (70-106) White Blood Count 7.9 10^3/uL (4.4-10.8) Red Blood Count 4.53 10^6/uL (4.5-5.90) Hemoglobin 13.5 g/dL (13.5-17.5) Hematocrit 40.8 % (41.0-53.0) Mean Corpuscular Volume 90.0 fL (80.0-100.0) Mean Corpuscular Hemoglobin 29.8 pg (28.0-32.0) Mean Corpuscular Hemoglobin Concent 33.1 g/dL (32.0-36.0) Red Cell Distribution Width 13.4 % (11.8-14.3) Platelet Count 205 10^3/uL (140-450) Mean Platelet Volume 8.6 fL (6.9-10.8) Neutrophils (%) (Auto) 77.5 % (37.0-80.0) Lymphocytes (%) (Auto) 9.9 % (10.0-50.0) Monocytes (%) (Auto) 10.6 % (0.0-12.0) Eosinophils (%) (Auto) 1.5 % (0.0-7.0) Basophils (%) (Auto) 0.5 % (0.0-2.0) Neutrophils # (Auto) 6.1 10 ^3/uL (1.6-8.6) Lymphocytes # (Auto) 0.8 10 ^3/uL (0.4-5.4) Monocytes # (Auto) 0.8 10 ^3/uL (0-1.3) Eosinophils # (Auto) 0.1 10 ^3/uL (0-0.8) Basophils # (Auto) 0 10 ^3/uL (0-0.2) Nucleated Red Blood Cells 0.1 % Free Prostate Specific Antigen 0.91 ng/mL (N/A) Percent Free Prostate Specific Ag 5.5 % (.) Prostate Specific Antigen Total 16.6 ng/mL (0.0-4.0) Test 01/03/25 03:02 01/02/25 16:20 01/02/25 14:02 01/02/25 11:32 Hepatitis B Surface Antigen Negative (Negative) Hepatitis C Antibody Negative (Negative) Troponin I High Sensitivity 58 ng/L (</=54) Lactic Acid Level 2.1 mmol/L (0.4-2.0) Magnesium Level 2.2 mg/dL (1.6-2.6) Lipase 59 U/L (12-53) Test 01/02/25 11:31 Urine Color Light-yellow (Yellow) Urine Clarity Clear (Clear) Urine pH 6.0 (5.0-9.0) Urine Specific [place] 1.010 (1.001-1.035) Urine Protein 1+ (Negative) Urine Ketones Negative (Negative) Urine Blood Trace /uL (Negative) Urine Nitrite Negative (Negative) Urine Bilirubin Negative (Negative) Urine Urobilinogen Normal mg/dL (Negative) Urine Leukocyte Esterase Negative /uL (Negative) Urine RBC 4 /hpf (0 - 3) Urine Microscopic WBC 4 /HPF (0-3) Urine Squamous Epithelial Cells None seen /hpf (<5) Urine Bacteria Few /hpf (None Seen) Urine Glucose 1+ mg/dL (Normal) Other Laboratory Tests 01/05/25 06:19 01/04/25 05:58 Brief Hx & Hospital Course: 64-year-old male with a history of enlarged prostate noncompliance came in complaining of acute urinary retention and generalized weakness. Found to be in sepsis secondary to urinary tract infection started on Rocephin blood cultures pending urine cultures pending acute hyperkalemia secondary to acute kidney injury resolved with IV fluids. patient has elevated BUN and creatinine of 150 and 23 secondary to acute urinary retention. Alfaro catheter was placed and urine was drained seen by new reading coach. BUN creatinine came down to normal level 18 and 1.25 advised to keep the Alfaro in after discharge seen by Urology Dr. Nina who advised follow up as an outpatient for prostate surgery patient has a history of chronic right suboccipital ischemic infarct. He has very poor social support and lives in a small room with a friend and is high risk for fall at home. Being discharged to assisted facility placement for rehab and for IV antibiotics for two weeks Consults/Reason for consult Urology Dr. Solitario Nephrology Dr Delgado Operations or Procedures CT abdomen pelvis without contrast Condition at Discharge: Fair Final Diagnosis/Problems List Sepsis secondary to possible urinary tract infection : Blood cultures pending urine cultures pending, continue Rocephin Acute urinary retention secondary to enlarged prostate with right hydronephrosis: Alfaro: Consult for Urology Dr. Solitario appreciated, advised to keep Alfaro at the time of discharge and outpatient cystoscopy Acute Hyperkalemia secondary to acute kidney injury Acute kidney injury versus VMN Consult by Nephrology appreciated BUN creatinine improved from 150/23 to 18/1.25 Noncompliance Acute metabolic acidosis Obesity Chronic right suboccipital ischemic infarct [facility]charge [facility] Discharge Instruct/Medications Diet: Cardiac 2g Na,low cholest Activity: Light activity Follow Up/Referral: Follow up with the shelter Follow up with Urology Dr. Solitario in 2-3 weeks for prostate surgery Medications: Rocephin 1 g IV daily for two weeks for UTI See list for other meds 35 (Time taken for discharge summary 35 minutes) Discharge Statement: "Patient was advised to return to the ER or call 911 if any headaches, dizziness, shortness of breath, chest pain, abdominal pain, bleeding, fevers, or worsening of medical condition. Patient was counseled about treatment plan, medications, possible side effects, patientverbalized understanding. All questions were answered to the best of my ability. This discharge took greater then 30 minutes in planning, reviewing documentation, counseling the patient, and discussing with other team members." ASSESSMENT ASSESSMENT Hospital Course Improved Assessment Sepsis secondary to possible urinary tract infection : Blood cultures pending urine cultures pending, continue Rocephin Acute urinary retention secondary to enlarged prostate with right hydronephrosis: Alfaro: Consult for Urology Dr. Solitario appreciated, advised to keep Alfaro at the time of discharge and outpatient cystoscopy Acute Hyperkalemia secondary to acute kidney injury Acute kidney injury versus VMN Consult by Nephrology appreciated BUN creatinine improved from 150/23 to 18/1.25 Noncompliance Acute metabolic acidosis Obesity Chronic right suboccipital ischemic infarct Date of Service: Jan 05, 2025 Billing Provider: RUDDY GÓMEZ MD Common Visit Codes: [id number] DISCH DAY >30min RUDDY GÓMEZ MD Jan 05, 2025 10:26
--- NOTE | 2025-01-05 10:39 | DVHPN2 ---
Progress Note Date Seen: Jan 05, 2025 Medical Necessity Reason Pt with a Central, PICC or Fol: No The following are medically ne: Alfaro Catheter Subjective Patient reports: No new complaints Other Systems: Patient seen and examined by myself today in follow-up Objective vital signs Vital Sign Date Time Temp Pulse Resp B/P (MAP) Pulse Ox O2 Delivery O2 Flow Rate FiO2 01/05/25 05:00 98.0 80 18 138/54 (82) 97 98.0 01/04/25 20:00 Room Air* 0 21 Total Intake and Output 01/04/25 01/04/25 01/05/25 15:00 23:00 07:00 Intake Total 1050 ml 1275 ml 1700 ml Output Total 3250 ml 1680 ml Balance 1050 ml -1975 ml 20 ml medications Current Medications Medications Dose Ordered Sig/Tanesha Route Start Time Stop Time Status Last Admin Dose Admin Hydralazine HCl 10 mg Q6HP PRN IV 01/02/25 18:45 01/04/25 21:53 10 MG Tamsulosin HCl 0.4 mg QPM PO 01/03/25 18:00 01/04/25 17:55 0.4 MG Atorvastatin Calcium 40 mg HS PO 01/02/25 22:00 01/04/25 21:18 40 MG Diagnostic Test (Pha) 1 strip ACHS 01/02/25 22:00 01/05/25 06:03 1 STRIP Insulin Human Regular ACHS SC 01/02/25 22:00 01/04/25 21:42 4 UNITS Dextrose 50 ml UD PRN IV 01/02/25 18:45 Acetaminophen/ Hydrocodone Bitart 1 tab Q4HP PRN PO 01/02/25 18:45 Ondansetron HCl 4 mg Q4HP PRN IV 01/02/25 18:45 01/04/25 06:33 4 MG Acetaminophen 650 mg Q6HP PRN PO 01/02/25 18:45 Nitroglycerin 0.4 mg Q5MINP PRN SL 01/02/25 18:45 Morphine Sulfate 2 mg Q30M PRN IV 01/02/25 18:45 Ceftriaxone Sodium 50 ml @ 100 mls/hr DAILY@09 IV 01/04/25 09:00 01/05/25 09:24 100 MLS/HR Sodium Chloride 1,000 ml @ 100 mls/hr Q10H IV 01/04/25 16:45 01/05/25 03:35 100 MLS/HR Examination: LUNGS:Normal, CVS:Normal, MSK:Normal laboratory and microbiology Laboratory Tests 01/05/25 06:19 01/04/25 05:58 Test 01/05/25 06:19 Range/Units Serum Glucose 112 H 74-106 mg/dL Microbiology Date/Time Source Procedure Growth Status 01/04/25 11:45 Voided Urine Urine Culture - Preliminary Resulted 01/03/25 21:30 Nose MRSA Screen - Final Complete Problem List/Assessment/Plan Problem List/Assessment/Plan Acute kidney injury secondary to obstructive uropathy Bilateral hydronephrosis Hyperkalemia, resolved Prostatomegaly Bladder outlet obstruction Bladder stone hypernatremia, resolved Recommendations Kidney function is improving Increased urine output Alfaro catheter Urology on board We will continue to follow up Plan discussed with: Patient LISBET APONTE MD Jan 05, 2025 10:39
[2025-01-06] VITALS (8 sets, daily range): BP systolic 104–141; BP diastolic 62–78; PULSE 66–115; RESP 16–18; TEMP 97.5–98.2; O2SAT 93–97
[2025-01-06 07:09] LABS: Chloride 105 mmol/L (98-107); Sodium 140 mmol/L (136-145)
[2025-01-06 07:10] LABS: Anion Gap 11 (5-15); Carbon Dioxide 24 mmol/L (20-31)
[2025-01-06 07:15] LABS: Glucose 95 mg/dL (74-106)
[2025-01-06 07:16] LABS: BUN/Creatinine Ratio 14.7 (10.0-20.0); Blood Urea Nitrogen 14 mg/dL (9-23)
[2025-01-06 07:18] LABS: Alanine Aminotransferase 17 U/L (7-40); Albumin 3.9 g/dL (3.2-4.8); Alkaline Phosphatase 52 U/L (46-116); Anion Gap 12 (5-15); BUN/Creatinine Ratio 13.3 (10.0-20.0); Bilirubin, Total 0.7 mg/dL (0.2-1.0); Blood Urea Nitrogen 13 mg/dL (9-23); Carbon Dioxide 23 mmol/L (20-31); Chloride 105 mmol/L (98-107); Glucose 96 mg/dL (74-106); Sodium 140 mmol/L (136-145); Total Protein 5.8 g/dL (5.7-8.2)
[2025-01-06 07:23] LABS: Potassium 3.4 mmol/L (3.5-5.1)
[2025-01-06 07:24] LABS: Aspartate Aminotransferase 10 U/L (13-40); Potassium 3.2 mmol/L (3.5-5.1)
--- NOTE | 2025-01-06 10:25 | DVHPN2 ---
Progress Note Date Seen: Jan 06, 2025 Medical Necessity Reason Pt with a Central, PICC or Fol: No The following are medically ne: Alfaro Catheter Subjective Patient reports: No new complaints Other Systems: Patient seen and examined by myself today in follow-up Objective vital signs Vital Sign Date Time Temp Pulse Resp B/P (MAP) Pulse Ox O2 Delivery O2 Flow Rate FiO2 01/06/25 09:00 97.7 67 18 104/62 (76) 97 97.7 01/05/25 20:00 Room Air* 0 21 Total Intake and Output 01/05/25 01/05/25 01/06/25 15:00 23:00 07:00 Intake Total 50 ml 1520 ml 700 ml Output Total 3000 ml 2860 ml Balance 50 ml -1480 ml -2160 ml medications Current Medications Medications Dose Ordered Sig/Tanesha Route Start Time Stop Time Status Last Admin Dose Admin Hydralazine HCl 10 mg Q6HP PRN IV 01/02/25 18:45 01/04/25 21:53 10 MG Tamsulosin HCl 0.4 mg QPM PO 01/03/25 18:00 01/05/25 17:40 0.4 MG Atorvastatin Calcium 40 mg HS PO 01/02/25 22:00 01/05/25 22:07 40 MG Diagnostic Test (Pha) 1 strip ACHS 01/02/25 22:00 01/06/25 06:34 1 STRIP Insulin Human Regular ACHS SC 01/02/25 22:00 01/05/25 22:14 3 UNITS Dextrose 50 ml UD PRN IV 01/02/25 18:45 Acetaminophen/ Hydrocodone Bitart 1 tab Q4HP PRN PO 01/02/25 18:45 Ondansetron HCl 4 mg Q4HP PRN IV 01/02/25 18:45 01/04/25 06:33 4 MG Acetaminophen 650 mg Q6HP PRN PO 01/02/25 18:45 Nitroglycerin 0.4 mg Q5MINP PRN SL 01/02/25 18:45 Morphine Sulfate 2 mg Q30M PRN IV 01/02/25 18:45 Ceftriaxone Sodium 50 ml @ 100 mls/hr DAILY@09 IV 01/04/25 09:00 01/06/25 09:20 100 MLS/HR Sodium Chloride 1,000 ml @ 100 mls/hr Q10H IV 01/04/25 16:45 01/06/25 09:20 100 MLS/HR Examination: LUNGS:Normal, CVS:Normal, MSK:Normal laboratory and microbiology Laboratory Tests 01/06/25 06:20 01/04/25 05:58 Test 01/06/25 06:20 Range/Units Serum Glucose 96 74-106 mg/dL Microbiology Date/Time Source Procedure Growth Status 01/04/25 11:45 Nose MRSA Screen - Final Complete 01/04/25 11:45 Voided Urine Urine Culture - Preliminary Resulted 01/04/25 10:35 Blood Blood Culture - Preliminary NO GROWTH AFTER 24 HOURS OF INCUBATION. Resulted Problem List/Assessment/Plan Problem List/Assessment/Plan Acute kidney injury secondary to obstructive uropathy Bilateral hydronephrosis Hyperkalemia, resolved Prostatomegaly Bladder outlet obstruction Bladder stone hypernatremia, resolved hypokalemia Recommendations Kidney function resolved back to normal Increased urine output Alfaro catheter KCL replacement Urology in forward I will sign off this case, please reconsult as needed Thank you for the consult Plan discussed with: Patient LISBET APONTE MD Jan 06, 2025 10:25
[2025-01-06] MEDS ORDERED: POTASSIUM CHL 20MEQ/100ML 100 ML IV SCH (10:30)
--- NOTE | 2025-01-06 10:36 | DVHPN2 ---
Reviewed: Care Plan, H&P, Labs, Medications, Previous Orders, Radiology Changes from previous H/P or p: No Changes Objective Vitals Vital Signs Date Time Temp Pulse Resp B/P (MAP) Pulse Ox O2 Delivery O2 Flow Rate FiO2 01/06/25 09:00 97.7 67 18 104/62 (76) 97 97.7 01/05/25 20:00 Room Air* 0 21 Intake/Output Intake and Output 01/06/25 07:00 Intake Total 2270 ml Output Total 5860 ml Balance -3590 ml Intake Oral 1220 ml IV Total 1050 ml Output Urine Total 5860 ml # Bowel Movements 1 Medications Current Medications Medications Dose Ordered Sig/Tanesha Route Start Time Stop Time Status Last Admin Dose Admin Hydralazine HCl 10 mg Q6HP PRN IV 01/02/25 18:45 01/04/25 21:53 10 MG Tamsulosin HCl 0.4 mg QPM PO 01/03/25 18:00 01/05/25 17:40 0.4 MG Atorvastatin Calcium 40 mg HS PO 01/02/25 22:00 01/05/25 22:07 40 MG Diagnostic Test (Pha) 1 strip ACHS 01/02/25 22:00 01/06/25 06:34 1 STRIP Insulin Human Regular ACHS SC 01/02/25 22:00 01/05/25 22:14 3 UNITS Dextrose 50 ml UD PRN IV 01/02/25 18:45 Acetaminophen/ Hydrocodone Bitart 1 tab Q4HP PRN PO 01/02/25 18:45 Ondansetron HCl 4 mg Q4HP PRN IV 01/02/25 18:45 01/04/25 06:33 4 MG Acetaminophen 650 mg Q6HP PRN PO 01/02/25 18:45 Nitroglycerin 0.4 mg Q5MINP PRN SL 01/02/25 18:45 Morphine Sulfate 2 mg Q30M PRN IV 01/02/25 18:45 Ceftriaxone Sodium 50 ml @ 100 mls/hr DAILY@09 IV 01/04/25 09:00 01/06/25 09:20 100 MLS/HR Sodium Chloride 1,000 ml @ 100 mls/hr Q10H IV 01/04/25 16:45 01/06/25 09:20 100 MLS/HR Potassium Chloride 100 ml @ 50 mls/hr Q2H IV 01/06/25 10:30 01/06/25 16:29 UNV Laboratory Results Laboratory Tests 01/04/25 05:58 01/06/25 06:20 Chemistry Test 01/06/25 06:20 Albumin 3.9 g/dL (3.2-4.8) Calcium Level 9.0 mg/dL (8.7-10.4) Total Protein 5.8 g/dL (5.7-8.2) LFT Test 01/06/25 06:20 Alanine Aminotransferase (ALT) 17 U/L (7-40) Alkaline Phosphatase 52 U/L (46-116) Aspartate Amino Transferase (AST) 10 U/L (13-40) L Total Bilirubin 0.7 mg/dL (0.2-1.0) Urinalysis Test 01/02/25 11:31 Urine Color Light-yellow (Yellow) Urine Clarity Clear (Clear) Urine pH 6.0 (5.0-9.0) Urine Specific [place] 1.010 (1.001-1.035) Urine Protein 1+ (Negative) H Urine Ketones Negative (Negative) Urine Blood Trace /uL (Negative) H Urine Nitrite Negative (Negative) Urine Bilirubin Negative (Negative) Urine Urobilinogen Normal mg/dL (Negative) Urine Leukocyte Esterase Negative /uL (Negative) Urine RBC 4 /hpf (0 - 3) Urine Microscopic WBC 4 /HPF (0-3) H Urine Squamous Epithelial Cells None seen /hpf (<5) Urine Bacteria Few /hpf (None Seen) H Urine Glucose 1+ mg/dL (Normal) H Microbiology Microbiology Date/Time Source Procedure Growth Status 01/04/25 11:45 Nose MRSA Screen - Final Complete 01/04/25 11:45 Voided Urine Urine Culture - Preliminary Resulted 01/04/25 10:35 Blood Blood Culture - Preliminary NO GROWTH AFTER 24 HOURS OF INCUBATION. Resulted Labs and/or images reviewed: Labs reviewed by me, Image(s) reviewed by me Assessment/Plan Assessment/Plan Sepsis secondary to possible urinary tract infection : Blood cultures negative, urine cultures negative, continue Rocephin Acute urinary retention secondary to enlarged prostate with right hydronephrosis: Alfaro: Consult for Urology Dr. Solitario appreciated, advised to keep Alfaro at the time of discharge and outpatient cystoscopy Acute Hyperkalemia secondary to acute kidney injury Acute kidney injury versus VMN Consult by Nephrology appreciated BUN creatinine improved from 150/23 to 18/1.25 Noncompliance Acute metabolic acidosis Obesity Chronic right suboccipital ischemic infarct Time Spent 55 minutes Condition guarded Patient is full code Advanced care planning time 20 minutes Nephrology advised to keep the Alfaro even after discharge Awaiting skilled nursing placement Plan discussed with: Patient My Orders Orders - RUDDY GÓMEZ MD Procedure Category Date Status Time * Communications Electrician Supervisor CONS 01/05/25 Transmitted Consult 10:53 Date of Service: Jan 06, 2025 Billing Provider: RUDDY GÓMEZ MD Common Visit Codes: [id number] INP/OBS CARE(HIGH) RUDDY GÓMEZ MD Jan 06, 2025 10:36
[2025-01-06] MEDS: POTASSIUM EFFERVESENT TAB 25 MEQ PO ONE (12:35)
[2025-01-07] VITALS (8 sets, daily range): BP systolic 113–143; BP diastolic 59–77; PULSE 68–110; RESP 16–20; TEMP 97.4–98.6; O2SAT 94–98
[2025-01-07 07:23] LABS: Alanine Aminotransferase 21 U/L (7-40); Alkaline Phosphatase 55 U/L (46-116); Anion Gap 11 (5-15); Aspartate Aminotransferase 19 U/L (13-40); Calcium 9.1 mg/dL (8.7-10.4); Carbon Dioxide 24 mmol/L (20-31); Chloride 104 mmol/L (98-107); Glucose 98 mg/dL (74-106); Sodium 139 mmol/L (136-145)
[2025-01-07 07:24] LABS: Bilirubin, Total 0.7 mg/dL (0.2-1.0); Total Protein 5.9 g/dL (5.7-8.2)
[2025-01-07 07:29] LABS: BUN/Creatinine Ratio 15.2 (10.0-20.0); Blood Urea Nitrogen 15 mg/dL (9-23)
[2025-01-07 07:55] LABS: Potassium 3.3 mmol/L (3.5-5.1)
[2025-01-07 08:07] LABS: Chloride 105 mmol/L (98-107); Sodium 139 mmol/L (136-145)
[2025-01-07 08:08] LABS: Anion Gap 11 (5-15); Calcium 8.9 mg/dL (8.7-10.4); Carbon Dioxide 23 mmol/L (20-31)
[2025-01-07 08:10] LABS: Potassium 3.4 mmol/L (3.5-5.1)
[2025-01-07 08:13] LABS: Blood Urea Nitrogen 15 mg/dL (9-23); Glucose 98 mg/dL (74-106)
--- NOTE | 2025-01-07 09:48 | DVHPN2 ---
Reviewed: Care Plan, H&P, Labs, Medications, Previous Orders, Radiology Changes from previous H/P or p: No Changes Objective Vitals Vital Signs Date Time Temp Pulse Resp B/P (MAP) Pulse Ox O2 Delivery O2 Flow Rate FiO2 01/07/25 05:00 98.4 75 20 143/77 (99) 96 98.4 01/06/25 20:00 Room Air* 0 21 Intake/Output Intake and Output 01/07/25 07:00 Intake Total 2600 ml Output Total 3550 ml Balance -950 ml Intake Oral 1500 ml IV Total 1100 ml Output Urine Total 3550 ml Medications Current Medications Medications Dose Ordered Sig/Tanesha Route Start Time Stop Time Status Last Admin Dose Admin Hydralazine HCl 10 mg Q6HP PRN IV 01/02/25 18:45 01/04/25 21:53 10 MG Tamsulosin HCl 0.4 mg QPM PO 01/03/25 18:00 01/06/25 18:00 0.4 MG Atorvastatin Calcium 40 mg HS PO 01/02/25 22:00 01/06/25 22:52 40 MG Diagnostic Test (Pha) 1 strip ACHS 01/02/25 22:00 01/07/25 06:02 1 STRIP Insulin Human Regular ACHS SC 01/02/25 22:00 01/06/25 22:55 2 UNITS Dextrose 50 ml UD PRN IV 01/02/25 18:45 Acetaminophen/ Hydrocodone Bitart 1 tab Q4HP PRN PO 01/02/25 18:45 Ondansetron HCl 4 mg Q4HP PRN IV 01/02/25 18:45 01/04/25 06:33 4 MG Acetaminophen 650 mg Q6HP PRN PO 01/02/25 18:45 Nitroglycerin 0.4 mg Q5MINP PRN SL 01/02/25 18:45 Morphine Sulfate 2 mg Q30M PRN IV 01/02/25 18:45 Ceftriaxone Sodium 50 ml @ 100 mls/hr DAILY@09 IV 01/04/25 09:00 01/07/25 08:52 100 MLS/HR Sodium Chloride 1,000 ml @ 100 mls/hr Q10H IV 01/04/25 16:45 01/07/25 04:45 100 MLS/HR Potassium Chloride 100 ml @ 50 mls/hr Q2H IV 01/06/25 10:30 Hold Laboratory Results Laboratory Tests 01/04/25 05:58 01/07/25 06:06 Chemistry Test 01/07/25 05:00 01/07/25 06:06 Calcium Level 8.9 mg/dL (8.7-10.4) 9.1 mg/dL (8.7-10.4) Albumin 4.0 g/dL (3.2-4.8) Total Protein 5.9 g/dL (5.7-8.2) LFT Test 01/07/25 06:06 Alanine Aminotransferase (ALT) 21 U/L (7-40) Alkaline Phosphatase 55 U/L (46-116) Aspartate Amino Transferase (AST) 19 U/L (13-40) Total Bilirubin 0.7 mg/dL (0.2-1.0) Urinalysis Test 01/02/25 11:31 Urine Color Light-yellow (Yellow) Urine Clarity Clear (Clear) Urine pH 6.0 (5.0-9.0) Urine Specific [place] 1.010 (1.001-1.035) Urine Protein 1+ (Negative) H Urine Ketones Negative (Negative) Urine Blood Trace /uL (Negative) H Urine Nitrite Negative (Negative) Urine Bilirubin Negative (Negative) Urine Urobilinogen Normal mg/dL (Negative) Urine Leukocyte Esterase Negative /uL (Negative) Urine RBC 4 /hpf (0 - 3) Urine Microscopic WBC 4 /HPF (0-3) H Urine Squamous Epithelial Cells None seen /hpf (<5) Urine Bacteria Few /hpf (None Seen) H Urine Glucose 1+ mg/dL (Normal) H Microbiology Microbiology Date/Time Source Procedure Growth Status 01/04/25 11:45 Nose MRSA Screen - Final Complete 01/04/25 11:45 Voided Urine Urine Culture - Final Complete 01/04/25 10:35 Blood Blood Culture - Preliminary NO GROWTH AFTER 48 HOURS OF INCUBATION. Resulted Labs and/or images reviewed: Labs reviewed by me, Image(s) reviewed by me Assessment/Plan Assessment/Plan Sepsis secondary to possible urinary tract infection : Blood cultures negative, urine cultures negative, continue Rocephin Acute urinary retention secondary to enlarged prostate with right hydronephrosis: Alfaro: Consult for Urology Dr. Solitario appreciated, advised to keep Alfaro at the time of discharge and outpatient cystoscopy Acute Hyperkalemia secondary to acute kidney injury Acute kidney injury versus VMN Consult by Nephrology appreciated BUN creatinine improved from 150/23 to 18/1.25 Noncompliance Acute metabolic acidosis Obesity Chronic right suboccipital ischemic infarct Time Spent 55 minutes Condition guarded Patient is full code Advanced care planning time 20 minutes Nephrology advised to keep the Alfaro even after discharge Awaiting senior care placement No new complaints Plan discussed with: Patient Date of Service: Jan 07, 2025 Billing Provider: RUDDY GÓMEZ MD Common Visit Codes: [id number] INP/OBS CARE(HIGH) RUDDY GÓMEZ MD Jan 07, 2025 09:47
[2025-01-07] MEDS: POTASSIUM CHL 20 Meq TABLET PO ONE (11:53)
[2025-01-08] VITALS (8 sets, daily range): BP systolic 100–145; BP diastolic 59–84; PULSE 67–88; RESP 17–20; TEMP 97.8–98.1; O2SAT 94–99
[2025-01-08 08:11] LABS: Calcium 9.5 mg/dL (8.7-10.4); Chloride 104 mmol/L (98-107); Potassium 3.5 mmol/L (3.5-5.1)
[2025-01-08 08:12] LABS: Carbon Dioxide 27 mmol/L (20-31)
[2025-01-08 08:17] LABS: BUN/Creatinine Ratio 12.6 (10.0-20.0); Blood Urea Nitrogen 13 mg/dL (9-23)
[2025-01-08 08:19] LABS: Glucose 96 mg/dL (74-106)
[2025-01-08 08:41] LABS: Anion Gap 10 (5-15); Sodium 141 mmol/L (136-145)
--- NOTE | 2025-01-08 09:55 | DVHPN2 ---
Reviewed: Care Plan, H&P, Labs, Medications, Previous Orders, Radiology Changes from previous H/P or p: No Changes Objective Vitals Vital Signs Date Time Temp Pulse Resp B/P (MAP) Pulse Ox O2 Delivery O2 Flow Rate FiO2 01/08/25 09:00 97.9 71 20 134/75 (94) 98 97.9 01/07/25 20:00 Room Air* 0 21 Intake/Output Intake and Output 01/08/25 07:00 Intake Total 2374 ml Output Total 4900 ml Balance -2526 ml Intake Oral 1085 ml IV Total 1289 ml Output Urine Total 4900 ml # Bowel Movements 1 Medications Current Medications Medications Dose Ordered Sig/Tanesha Route Start Time Stop Time Status Last Admin Dose Admin Hydralazine HCl 10 mg Q6HP PRN IV 01/02/25 18:45 01/04/25 21:53 10 MG Tamsulosin HCl 0.4 mg QPM PO 01/03/25 18:00 01/07/25 18:03 0.4 MG Atorvastatin Calcium 40 mg HS PO 01/02/25 22:00 01/07/25 21:27 40 MG Diagnostic Test (Pha) 1 strip ACHS 01/02/25 22:00 01/08/25 06:16 1 STRIP Insulin Human Regular ACHS SC 01/02/25 22:00 01/07/25 21:39 3 UNITS Dextrose 50 ml UD PRN IV 01/02/25 18:45 Acetaminophen/ Hydrocodone Bitart 1 tab Q4HP PRN PO 01/02/25 18:45 Ondansetron HCl 4 mg Q4HP PRN IV 01/02/25 18:45 01/04/25 06:33 4 MG Acetaminophen 650 mg Q6HP PRN PO 01/02/25 18:45 Nitroglycerin 0.4 mg Q5MINP PRN SL 01/02/25 18:45 Morphine Sulfate 2 mg Q30M PRN IV 01/02/25 18:45 Ceftriaxone Sodium 50 ml @ 100 mls/hr DAILY@09 IV 01/04/25 09:00 01/08/25 09:34 100 MLS/HR Sodium Chloride 1,000 ml @ 100 mls/hr Q10H IV 01/04/25 16:45 01/08/25 05:23 100 MLS/HR Potassium Chloride 100 ml @ 50 mls/hr Q2H IV 01/06/25 10:30 Hold Laboratory Results Laboratory Tests 01/04/25 05:58 01/08/25 06:47 Chemistry Test 01/08/25 06:47 Calcium Level 9.5 mg/dL (8.7-10.4) Urinalysis Test 01/02/25 11:31 Urine Color Light-yellow (Yellow) Urine Clarity Clear (Clear) Urine pH 6.0 (5.0-9.0) Urine Specific [place] 1.010 (1.001-1.035) Urine Protein 1+ (Negative) H Urine Ketones Negative (Negative) Urine Blood Trace /uL (Negative) H Urine Nitrite Negative (Negative) Urine Bilirubin Negative (Negative) Urine Urobilinogen Normal mg/dL (Negative) Urine Leukocyte Esterase Negative /uL (Negative) Urine RBC 4 /hpf (0 - 3) Urine Microscopic WBC 4 /HPF (0-3) H Urine Squamous Epithelial Cells None seen /hpf (<5) Urine Bacteria Few /hpf (None Seen) H Urine Glucose 1+ mg/dL (Normal) H Microbiology Microbiology Date/Time Source Procedure Growth Status 01/04/25 11:45 Nose MRSA Screen - Final Complete 01/04/25 11:45 Voided Urine Urine Culture - Final Complete 01/04/25 10:35 Blood Blood Culture - Preliminary NO GROWTH AFTER 72 HOURS OF INCUBATION. Resulted Labs and/or images reviewed: Labs reviewed by me, Image(s) reviewed by me Assessment/Plan Assessment/Plan Sepsis secondary to possible urinary tract infection : Blood cultures negative, urine cultures negative, continue Rocephin Acute urinary retention secondary to enlarged prostate with right hydronephrosis: Alfaro: Consult for Urology Dr. Solitario appreciated, advised to keep Alfaro at the time of discharge and outpatient cystoscopy Acute Hyperkalemia secondary to acute kidney injury resolving Acute kidney injury versus VMN Consult by Nephrology appreciated BUN creatinine improved from 150/23 to 18/1.25 Noncompliance Acute metabolic acidosis Obesity Chronic right suboccipital ischemic infarct Time Spent 55 minutes Condition guarded Patient is full code Advanced care planning time 20 minutes Nephrology advised to keep the Alfaro even after discharge Awaiting [facility]ci placement No new complaints Midline ordered Plan discussed with: Patient Date of Service: Jan 08, 2025 Billing Provider: RUDDY GÓMEZ MD Common Visit Codes: [id number] INP/OBS CARE(HIGH) RUDDY GÓMEZ MD Jan 08, 2025 09:55
--- NOTE | 2025-01-08 15:20 | MEDREC ---
[facility] ASP Intervention Section I [facility] ASP Intervention: IV to PO conversion (PLEASE CONSIDER IV TO PO CONVERSION (PT IS TOLERATING FOOD AND ORAL MEDICATIONS ). ) MARIA DE JESUS SEWELL PHARMACIST Jan 08, 2025 15:20
[2025-01-09] VITALS (8 sets, daily range): BP systolic 104–145; BP diastolic 53–79; PULSE 63–88; RESP 17–18; TEMP 97.6–98.2; O2SAT 95–98
[2025-01-09 07:39] LABS: Chloride 105 mmol/L (98-107); Sodium 140 mmol/L (136-145)
[2025-01-09 07:40] LABS: Anion Gap 11 (5-15); Calcium 9.2 mg/dL (8.7-10.4); Carbon Dioxide 24 mmol/L (20-31)
[2025-01-09 07:45] LABS: BUN/Creatinine Ratio 13.5 (10.0-20.0); Blood Urea Nitrogen 13 mg/dL (9-23); Glucose 99 mg/dL (74-106)
[2025-01-09 07:55] LABS: Potassium 3.5 mmol/L (3.5-5.1)
--- NOTE | 2025-01-09 10:02 | DVHPN2 ---
Reviewed: Care Plan, H&P, Labs, Medications, Previous Orders, Radiology Changes from previous H/P or p: No Changes Objective Vitals Vital Signs Date Time Temp Pulse Resp B/P (MAP) Pulse Ox O2 Delivery O2 Flow Rate FiO2 01/09/25 09:00 97.9 63 18 105/61 (76) 97 97.9 01/08/25 20:00 Room Air* 0 21 Intake/Output Intake and Output 01/09/25 07:00 Intake Total 1025 ml Output Total 3500 ml Balance -2475 ml Intake Oral 975 ml IV Total 50 ml Output Urine Total 3500 ml # Bowel Movements 2 Medications Current Medications Medications Dose Ordered Sig/Tanesha Route Start Time Stop Time Status Last Admin Dose Admin Hydralazine HCl 10 mg Q6HP PRN IV 01/02/25 18:45 01/04/25 21:53 10 MG Tamsulosin HCl 0.4 mg QPM PO 01/03/25 18:00 01/08/25 17:33 0.4 MG Atorvastatin Calcium 40 mg HS PO 01/02/25 22:00 01/08/25 21:56 40 MG Diagnostic Test (Pha) 1 strip ACHS 01/02/25 22:00 01/09/25 06:41 1 STRIP Insulin Human Regular ACHS SC 01/02/25 22:00 01/08/25 17:34 3 UNITS Dextrose 50 ml UD PRN IV 01/02/25 18:45 Acetaminophen/ Hydrocodone Bitart 1 tab Q4HP PRN PO 01/02/25 18:45 Ondansetron HCl 4 mg Q4HP PRN IV 01/02/25 18:45 01/04/25 06:33 4 MG Acetaminophen 650 mg Q6HP PRN PO 01/02/25 18:45 Nitroglycerin 0.4 mg Q5MINP PRN SL 01/02/25 18:45 Morphine Sulfate 2 mg Q30M PRN IV 01/02/25 18:45 Ceftriaxone Sodium 50 ml @ 100 mls/hr DAILY@09 IV 01/04/25 09:00 01/09/25 08:35 100 MLS/HR Sodium Chloride 1,000 ml @ 100 mls/hr Q10H IV 01/04/25 16:45 01/09/25 06:36 100 MLS/HR Potassium Chloride 100 ml @ 50 mls/hr Q2H IV 01/06/25 10:30 Hold Laboratory Results Laboratory Tests 01/04/25 05:58 01/09/25 06:27 Chemistry Test 01/09/25 06:27 Calcium Level 9.2 mg/dL (8.7-10.4) Urinalysis Test 01/02/25 11:31 Urine Color Light-yellow (Yellow) Urine Clarity Clear (Clear) Urine pH 6.0 (5.0-9.0) Urine Specific [place] 1.010 (1.001-1.035) Urine Protein 1+ (Negative) H Urine Ketones Negative (Negative) Urine Blood Trace /uL (Negative) H Urine Nitrite Negative (Negative) Urine Bilirubin Negative (Negative) Urine Urobilinogen Normal mg/dL (Negative) Urine Leukocyte Esterase Negative /uL (Negative) Urine RBC 4 /hpf (0 - 3) Urine Microscopic WBC 4 /HPF (0-3) H Urine Squamous Epithelial Cells None seen /hpf (<5) Urine Bacteria Few /hpf (None Seen) H Urine Glucose 1+ mg/dL (Normal) H Microbiology Microbiology Date/Time Source Procedure Growth Status 01/04/25 11:45 Nose MRSA Screen - Final Complete 01/04/25 11:45 Voided Urine Urine Culture - Final Complete 01/04/25 10:35 Blood Blood Culture - Preliminary NO GROWTH AFTER 72 HOURS OF INCUBATION. Resulted Labs and/or images reviewed: Labs reviewed by me, Image(s) reviewed by me Assessment/Plan Assessment/Plan Sepsis secondary to possible urinary tract infection : Blood cultures negative, urine cultures negative, continue Rocephin Acute urinary retention secondary to enlarged prostate with right hydronephrosis: Alfaro: Consult for Urology Dr. Solitario appreciated, advised to keep Alfaro at the time of discharge and outpatient cystoscopy Acute Hyperkalemia secondary to acute kidney injury resolving Acute kidney injury versus VMN Consult by Nephrology appreciated BUN creatinine improved from 150/23 to 18/1.25 Noncompliance Acute metabolic acidosis Obesity Chronic right suboccipital ischemic infarct Time Spent 55 minutes Condition guarded Patient is full code Advanced care planning time 20 minutes Nephrology advised to keep the Alfaro even after discharge Awaiting longterm placement No new complaints Midline in place Plan discussed with: Patient Date of Service: Jan 09, 2025 Billing Provider: RUDDY GÓMEZ MD Common Visit Codes: [id number] INP/OBS CARE(HIGH) RUDDY GÓMEZ MD Jan 09, 2025 10:02
[2025-01-10] VITALS (8 sets, daily range): BP systolic 105–121; BP diastolic 57–71; PULSE 63–82; RESP 17–19; TEMP 97.7–98.2; O2SAT 96–98
[2025-01-10] MEDS: ACETAMINOPHEN 325 MG TAB PO PRN (09:37)
--- NOTE | 2025-01-10 11:02 | DVHPN2 ---
Reviewed: Care Plan, H&P, Labs, Medications, Previous Orders, Radiology Changes from previous H/P or p: No Changes Objective Vitals Vital Signs Date Time Temp Pulse Resp B/P (MAP) Pulse Ox O2 Delivery O2 Flow Rate FiO2 01/10/25 09:37 98.1 01/10/25 09:00 65 17 118/71 (87) 96 01/10/25 08:05 Room Air* 0 21 Intake/Output Intake and Output 01/10/25 07:00 Intake Total 1990 ml Output Total 3350 ml Balance -1360 ml Intake Oral 940 ml IV Total 1050 ml Output Urine Total 3350 ml # Bowel Movements 2 Medications Current Medications Medications Dose Ordered Sig/Tanesha Route Start Time Stop Time Status Last Admin Dose Admin Hydralazine HCl 10 mg Q6HP PRN IV 01/02/25 18:45 01/04/25 21:53 10 MG Tamsulosin HCl 0.4 mg QPM PO 01/03/25 18:00 01/09/25 17:33 0.4 MG Atorvastatin Calcium 40 mg HS PO 01/02/25 22:00 01/09/25 21:40 40 MG Diagnostic Test (Pha) 1 strip ACHS 01/02/25 22:00 01/10/25 07:00 1 STRIP Insulin Human Regular ACHS SC 01/02/25 22:00 01/09/25 21:41 6 UNITS Dextrose 50 ml UD PRN IV 01/02/25 18:45 Acetaminophen/ Hydrocodone Bitart 1 tab Q4HP PRN PO 01/02/25 18:45 Ondansetron HCl 4 mg Q4HP PRN IV 01/02/25 18:45 01/04/25 06:33 4 MG Acetaminophen 650 mg Q6HP PRN PO 01/02/25 18:45 01/10/25 09:37 650 MG Nitroglycerin 0.4 mg Q5MINP PRN SL 01/02/25 18:45 Morphine Sulfate 2 mg Q30M PRN IV 01/02/25 18:45 Ceftriaxone Sodium 50 ml @ 100 mls/hr DAILY@09 IV 01/04/25 09:00 01/10/25 08:42 100 MLS/HR Sodium Chloride 1,000 ml @ 100 mls/hr Q10H IV 01/04/25 16:45 01/10/25 02:51 100 MLS/HR Potassium Chloride 100 ml @ 50 mls/hr Q2H IV 01/06/25 10:30 Hold Laboratory Results Laboratory Tests 01/04/25 05:58 01/09/25 06:27 Urinalysis Test 01/02/25 11:31 Urine Color Light-yellow (Yellow) Urine Clarity Clear (Clear) Urine pH 6.0 (5.0-9.0) Urine Specific [place] 1.010 (1.001-1.035) Urine Protein 1+ (Negative) H Urine Ketones Negative (Negative) Urine Blood Trace /uL (Negative) H Urine Nitrite Negative (Negative) Urine Bilirubin Negative (Negative) Urine Urobilinogen Normal mg/dL (Negative) Urine Leukocyte Esterase Negative /uL (Negative) Urine RBC 4 /hpf (0 - 3) Urine Microscopic WBC 4 /HPF (0-3) H Urine Squamous Epithelial Cells None seen /hpf (<5) Urine Bacteria Few /hpf (None Seen) H Urine Glucose 1+ mg/dL (Normal) H Microbiology Microbiology Date/Time Source Procedure Growth Status 01/04/25 11:45 Nose MRSA Screen - Final Complete 01/04/25 11:45 Voided Urine Urine Culture - Final Complete 01/04/25 10:35 Blood Blood Culture - Final NO GROWTH AFTER 5 DAYS OF INCUBATION. Complete Labs and/or images reviewed: Labs reviewed by me, Image(s) reviewed by me Assessment/Plan Assessment/Plan Sepsis secondary to possible urinary tract infection : Blood cultures negative, urine cultures negative, continue Rocephin Acute urinary retention secondary to enlarged prostate with right hydronephrosis: Alfaro: Consult for Urology Dr. Solitario appreciated, advised to keep Alfaro at the time of discharge and outpatient cystoscopy Acute Hyperkalemia secondary to acute kidney injury resolving Acute kidney injury versus VMN Consult by Nephrology appreciated BUN creatinine improved from 150/23 to 18/1.25 Noncompliance Acute metabolic acidosis Obesity Chronic right suboccipital ischemic infarct Time Spent 55 minutes Condition guarded Patient is full code Advanced care planning time 20 minutes Nephrology advised to keep the Alfaro even after discharge Awaiting [facility] placement No new complaints Midline in place Social service working on placement Plan discussed with: Patient Date of Service: Jan 10, 2025 Billing Provider: RUDDY GÓMEZ MD Common Visit Codes: [id number] INP/OBS CARE(HIGH) RUDDY GÓMEZ MD Jan 10, 2025 11:02
--- NOTE | 2025-01-10 15:06 | MEDREC ---
[facility] ASP Intervention Section I [facility] ASP Intervention: Review courses of therapy (9 DAYS ON CEFTRIAXONE - NO FEVER, NO LEUKOCYTOSIS, URINE CULTURE WITH NO GROWTH, BLOOD CULTURE WITH NO GROWTH - PLEASE CONSIDER D/C ANTIBIOTIC ) MARIA DE JESUS SEWELL PHARMACIST Jan 10, 2025 15:06
[2025-01-11 01:00] VITALS: BP 144/79; PULSE 72; RESP 18; TEMP 97.8; O2SAT 100
[2025-01-11 05:00] VITALS: BP 107/69; PULSE 68; RESP 18; TEMP 97.8; O2SAT 100
[2025-01-11 08:00] VITALS: PULSE 85
[2025-01-11 09:00] VITALS: BP 129/84; PULSE 90; RESP 17; TEMP 97.3; O2SAT 99
[2025-01-11] MEDS ORDERED: METF-372 PO (10:38)
[2025-01-11] MEDS ORDERED: TAMS-35 PO (10:38)
[2025-01-11] MEDS ORDERED: CIPR-173 PO (10:38)
[2025-01-11 12:47] VITALS: BP 129/84; PULSE 90; RESP 17; TEMP 97.3; O2SAT 99
== END 2025-01-11 14:15 | disposition home or self-care (01) | DRG 501 ==
LOC: ER 11:21 → OVERFLOW 18:43 → TELE-CENTR 01-03 13:44
PROVIDERS: ADMIT Family Medicine; ATTEND Family Medicine
PROC: 05HB33Z Insertion of Infusion Device into Right Basilic Vein, Percutaneous Approach (ICD-10-PCS; principal; 2025-01-08)
PROC: B54MZZA Ultrasonography of Right Upper Extremity Veins, Guidance (ICD-10-PCS; 2025-01-08)
DX: N40.1 Benign prostatic hyperplasia with lower urinary tract symptoms (principal); N17.0 Acute kidney failure with tubular necrosis; E87.0 Hyperosmolality and hypernatremia; E87.21 Acute metabolic acidosis; N13.6 Pyonephrosis; N30.00 Acute cystitis without hematuria; E87.5 Hyperkalemia; I10 Essential (primary) hypertension; E66.9 Obesity, unspecified; E78.5 Hyperlipidemia, unspecified; R33.8 Other retention of urine; N32.0 Bladder-neck obstruction; E11.9 Type 2 diabetes mellitus without complications; I25.10 Atherosclerotic heart disease of native coronary artery without angina pectoris; N21.0 Calculus in bladder; E87.6 Hypokalemia; I25.2 Old myocardial infarction; Z91.199 Patient's noncompliance with other medical treatment and regimen due to unspecified reason; Z68.24 Body mass index [BMI] 24.0-24.9, adult; Z91.81 History of falling; Z79.899 Other long term (current) drug therapy; Z79.4 Long term (current) use of insulin
CPT/HCPCS: 36415; 71045; 74176; 76775; 80048; 80053; 81001; 82962; 83605; 83690; 83735; 84132; 84154; 84484; 85025; 86803; 87040; 87081; 87086; 87340; 93005; 94640; 96361; 96374; 97110; 97116; 97163; 97530; 99291; G0378; J1815; J2405

== ENCOUNTER 2025-02-05 08:51 | Emergency (ER) | payer MEDICAID ==
[~2025-02-05] VITALS: Ht 177.8 cm; Wt 84.9 kg
[~2025-02-05 08:51] MED LIST changes: +METF-372 PO; +TAMS-35 PO
[2025-02-05 10:17] VITALS: BP 138/83; PULSE 107; RESP 20; TEMP 97.6; O2SAT 98
[2025-02-05 12:23] LABS: Urine Bacteria FEW /hpf (None Seen); Urine Blood 3+ /uL (Negative); Urine Protein, UAD 1+ (Negative); Urine Specific Gravity 1.025 (1.001-1.035); Urine Squamous Epithelial Cell FEW /hpf (<5); Urine Urobilinogen Normal (Negative); Urine WBC 68 /HPF (0-3)
[2025-02-05 12:25] LABS: Urine Color Yellow (Yellow)
[2025-02-05 12:26] LABS: Urine Clarity Hazy (Clear)
[2025-02-05] MEDS ORDERED: CEFP200T15 PO (12:45)
--- NOTE | 2025-02-05 12:46 | ED.PDOC ---
General HPI Comments 64 year with hx of enlarged prostate presents for Alfaro replacement. Seen by Dr. Solitario and pending proctectomy in 1-2 weeks No complaints at this time Chief Complaint: Tube Replacement Time Seen by MD: 09:20 Primary Care Provider: JUAN Milner notes: Nurses Notes, Medications, Allergies Allergies: Coded Allergies: NO KNOWN ALLERGIES (Unverified , 12/15/24) Home Meds Active Scripts Cefpodoxime Proxetil (Cefpodoxime Proxetil) 200 Mg Tab, 1 TAB PO BID for 10 Days, #20 TAB 0 Refills Prov:MILKA DAIGLE PIPE FITTER WELDING 02/05/25 Metformin Hydrochloride (Metformin Hcl) 1,000 Mg Tab, 1 TAB PO BID, #180 TAB 1 Refill Prov:RUDDY GÓMEZ MD 01/11/25 Tamsulosin Hcl (Flomax) 0.4 Mg Cap, 1 CAP PO DAILY, #30 CAP 11 Refills Prov:RUDDY GÓMEZ MD 01/11/25 Ciprofloxacin Hcl (Cipro) 500 Mg Tab, 1 TAB PO BID, #20 TAB Prov:RUDDY GÓMEZ MD 01/11/25 Ciprofloxacin Hcl (Cipro) 500 Mg Tab, 1 TAB PO BID, #20 TAB Prov:RUDDY GÓMEZ MD 12/20/24 Reported Medications Ergocalciferol (Vitamin D) 50,000 Unit Cap, 1 CAP PO QWEEKLY 12/15/24 Tamsulosin Hcl (Tamsulosin Hcl) 0.4 Mg Cap, 1 CAP PO DAILY 12/15/24 Aspirin (Aspirin Adult Low Dose) 81 Mg Tab, 1 TAB PO DAILY 12/15/24 Docusate Sodium (Docusate Sodium) 100 Mg Cap, 1 12/15/24 Atorvastatin Calcium (ATORVASTATIN CALCIUM) 40 Mg Tab, 40 MG PO DAILY 12/15/24 Lisinopril (Lisinopril) 20 Mg Tab, 1 DAILY 12/15/24 Information Source: Patient Mode of Arrival: Ambulatory Past Medical History PAST MEDICAL HISTORY: DM Surgical History: Denies all surgeries Family History Family History: Reviewed,noncontributory to illness Social History Smoker: Non-Smoker Alcohol: Denies ETOH Use Drugs: Denies Drug Use Lives In: Home All Other Systems: Reviewed and Negative (per hpi) Physical Exam General Appearance: No Apparent Distress, Normal HEENT: Normal ENT Inspection, Pharynx Normal, TMs Normal Neck: Full Range of Motion, Non-Tender, Normal, Normal Inspection Respiratory: Chest Non-Tender, Lungs Clear, No Accessory Muscle Use, No Respiratory Distress, Normal Breath Sounds Cardiovascular: No Murmur, No Gallop, Regular Rate/Rhythm Breast Exam: Deferred Gastrointestinal: No Organomegaly, Non Tender, No Pulsatile Mass, Normal Bowel Sounds, Soft Genitalia: Penis (no erytehma or dc), Deferred Pelvic: Deferred Rectal: Deferred Extremities: No calf tenderness, Normal capillary refill, Normal inspection, Normal range of motion, Non-tender, No pedal edema Musculoskeletal : Apperance: Normal Neurologic: Alert, bartender II-XII nml as Tested, No Motor Deficits, Normal Affect, Normal Mood, No Sensory Deficits Cerebellar Function: Normal Reflexes: Normal Skin: Dry, Normal Color, Warm Lymphatic: No Adenopathy Was a procedure done? Was a procedure done?: No Differential Diagnosis Kidney stone (Female): Other X-Ray, Labs, Meds, VS Vital Signs Date Time Temp Pulse Resp B/P (MAP) Pulse Ox O2 Delivery O2 Flow Rate FiO2 02/05/25 10:17 97.6 107 20 138/83 (101) 98 97.6 02/05/25 10:17 107 20 98 Room Air 02/05/25 08:59 97.6 107 20 138/83 (101) 98 97.6 Lab Test 02/05/25 11:30 Range/Units Urine Color Yellow Yellow Urine Clarity Hazy H Clear Urine pH 6.0 5.0-9.0 Urine Specific [place] 1.025 1.001-1.035 Urine Protein 1+ H Negative Urine Ketones Negative Negative Urine Blood 3+ H Negative /uL Urine Nitrite 2+ H Negative Urine Bilirubin Negative Negative Urine Urobilinogen Normal Negative mg/dL Urine Leukocyte Esterase 2+ Negative /uL Urine RBC 2096 0 - 3 /hpf Urine Microscopic WBC 68 H 0-3 /HPF Urine Squamous Epithelial Cells Few <5 /hpf Urine Bacteria Few H None Seen /hpf Urine Glucose 4+ H Normal mg/dL Current Medications Medications (Trade) Dose Ordered Sig/Tanesha Route Start Time Stop Time Status Last Admin Ceftriaxone Sodium (Rocephin) 1,000 mg ONCE ONCE IM 02/05/25 12:45 02/05/25 12:46 DC 02/05/25 13:00 X-Ray, Labs, Meds, VS Comment UA + for WBC Abx Rx Pt non toxic Patient is stable for discharge at this time. External notes reviewed. Test results and diagnostic imaging interpreted. All diagnostic findings, discharge care, education and instructions provided Follow-up with PCP in 2 to 3 days Patient verbalized understanding and agreed to treatment plan Vital signs stable, afebrile, no acute distress noted Patient ambulatory with strong steady gait Advised to return precautions for any new or worsening symptoms, return to ER immediately for re-evaluation Patient is aware that the purpose of this visit was for an acute medical emergency requiring emergent stabilization. Chronic conditions, including malignancies have not been ruled out. Patient is instructed to follow up with PCP as directed and discharge instructions for continued care and workup. If unable to arrange follow-up, patient is to return to the emergency department for reassessment. Patient (parent or legal guardian if applicable) was given verbal and written discharge instructions and acknowledges understanding. Time of 1ST Reevaluation: 12:30 Reevaluation 1ST: Improved Patient Education/Counseling: Diagnosis, Treatment Family Education/Counseling: Diagnosis, Treatment Departure 1 Departure Time of Disposition: 12:45 Impression: Primary Impression: Indwelling catheter replaced Additional Impression: UTI (urinary tract infection) Qualified Codes: N30.00 - Acute cystitis without hematuria Disposition: HOME / SELF CARE / HOMELESS Condition: Stable Additional Instructions: Discharge Note: Drink plenty of fluids. Follow up with your primary Dr. Take your prescriptions as ordered. If your condition becomes worse call and follow up with your primary Dr. for instructions or return to the ER if needed. Thank you for visiting [facility]. e-Prescriptions Cefpodoxime Proxetil (Cefpodoxime Proxetil) 200 Mg Tab 1 TAB PO BID for 10 Days, #20 TAB 0 Refills Prov: MILKA DAIGLE PIPE FITTER WELDING 02/05/25 Critical Care Note Critical Care Time?: No Stability Stability form required: No Heart Score Heart Score: Heart Score Response (Comments) Value History N/A 0 EKG N/A 0 Age N/A 0 Risk Factors N/A 0 Troponin N/A 0 Total 0 MILKA DAIGLE PIPE FITTER WELDING Feb 05, 2025 12:46
[2025-02-05] MEDS: cefTRIAXone SOD 1,000 MG VL IM ONE (13:00)
== END 2025-02-05 13:04 | disposition home or self-care (01) ==
LOC: ER 08:51
DX: Z46.6 Encounter for fitting and adjustment of urinary device (principal); N39.0 Urinary tract infection, site not specified; E11.9 Type 2 diabetes mellitus without complications; Z79.82 Long term (current) use of aspirin; Z79.84 Long term (current) use of oral hypoglycemic drugs; Z79.899 Other long term (current) drug therapy
CPT/HCPCS: 51702; 81001; 96372; 99284; J0696

== ENCOUNTER → 2025-02-20 | Outpatient (CLI) | payer MEDICAID ==
[~2025-02-20] MED LIST changes: +CEFP200T15 PO
[2025-02-20 10:00] LABS: Urine Bacteria None Seen /hpf (None Seen)
[2025-02-20 10:21] LABS: Basophils # (auto) 0.1 10 ^3/uL (0-0.2); Basophils % (auto) 0.8 % (0.0-2.0); Eosinophils # (auto) 0.1 10 ^3/uL (0-0.8); Eosinophils % (auto) 1.8 % (0.0-7.0); Hematocrit 44.3 % (41.0-53.0); Hemoglobin 14.8 g/dL (13.5-17.5); Lymphocytes # (auto) 1.3 10 ^3/uL (0.4-5.4); Lymphocytes % (auto) 18.7 % (10.0-50.0); Mean Corpuscular Hemoglobin 30.9 pg (28.0-32.0); Mean Corpuscular Hgb Conc. 33.4 g/dL (32.0-36.0); Mean Corpuscular Volume 92.3 fL (80.0-100.0); Monocytes # (auto) 0.6 10 ^3/uL (0-1.3); Monocytes % (auto) 7.9 % (0.0-12.0); Neutrophils # (auto) 4.9 10 ^3/uL (1.6-8.6); Neutrophils % (auto) 70.8 % (37.0-80.0); Platelet Count (auto) 210 10^3/uL (140-450); Red Cell Distribution Width 15.4 % (11.8-14.3)
[2025-02-20 10:24] LABS: Urine Blood 1+ /uL (Negative); Urine Clarity Turbid (Clear); Urine Color Colorless (Yellow); Urine Mucus FEW (None Seen); Urine Protein, UAD 1+ (Negative); Urine Specific Gravity 1.018 (1.001-1.035); Urine Squamous Epithelial Cell None Seen /hpf (<5); Urine Urobilinogen Normal (Negative); Urine WBC 18 /HPF (0-3)
[2025-02-20 10:36] LABS: INR 1.03 (0.9-1.15); Partial Thromboplastin Time 26.5 SEC (24.5-34.5); Prothrombin Time 10.9 sec (9.3-11.8)
[2025-02-20 10:56] LABS: Alanine Aminotransferase 29 U/L (7-40); Albumin 4.7 g/dL (3.2-4.8); Alkaline Phosphatase 68 U/L (46-116); Anion Gap 7 (5-15); Aspartate Aminotransferase 19 U/L (13-40); BUN/Creatinine Ratio 15.3 (10.0-20.0); Bilirubin, Total 1.1 mg/dL (0.2-1.0); Blood Urea Nitrogen 17 mg/dL (9-23); Calcium 10.2 mg/dL (8.7-10.4); Carbon Dioxide 25 mmol/L (20-31); Chloride 105 mmol/L (98-107); Glucose 143 mg/dL (74-106); Potassium 4.5 mmol/L (3.5-5.1); Sodium 137 mmol/L (136-145); Total Protein 7.1 g/dL (5.7-8.2)
== END | disposition home or self-care (01) ==
LOC: LAB 09:41
PROVIDERS: ATTEND Urology
DX: Z01.812 Encounter for preprocedural laboratory examination (principal)
CPT/HCPCS: 36415; 80053; 81001; 84153; 85025; 85610; 85730; 87086

== ENCOUNTER 2025-03-16 04:52 | Emergency (ER) | payer MEDICAID ==
[~2025-03-16] VITALS: Ht 177.8 cm; Wt 86.8 kg
--- NOTE | 2025-03-16 06:41 | ED.PDOC ---
History of Present Illness HPI Comments 64M presents to the Er w/ prior MHx of Enlarged prostate, MS, CVA, DM, High Lipids, HTN; SHx of Prostate Sx (for the enlarged prostate recently being done on February 22 2025)x2, Kidney Sx (Kidney Stones), Tonsillectomy w/ the c/c of Urinary problems. Pt reports on getting a catheter on so that he can urinate x2 weeks ago, and as the pt went to visit his urologist, the urologist removed his catheter and the pt has not been able to urinate yet. Pt states on having an 8/10 periumbilical pain. Denies chills, fever, N/V/D, SOB, CP. No other associated symptoms, modifiers, recent injuries or sick contacts present at this time. Chief Complaint: Urinary Time Seen by MD: 06:15 Primary Care Provider: JUAN Milner Notes: Nurses Notes, Medications, Allergies Allergies: Coded Allergies: NO KNOWN ALLERGIES (Unverified , 12/15/24) Home Meds Active Scripts Ciprofloxacin Hcl (Cipro) 500 Mg Tab, 1 TAB PO BID, #20 TAB Prov:FRIDA HELTNO MD 03/16/25 Cefpodoxime Proxetil (Cefpodoxime Proxetil) 200 Mg Tab, 1 TAB PO BID for 10 Days, #20 TAB 0 Refills Prov:MILKA DAIGLE ASSISTANT SURVEYOR 02/05/25 Metformin Hydrochloride (Metformin Hcl) 1,000 Mg Tab, 1 TAB PO BID, #180 TAB 1 Refill Prov:RUDDY GÓMEZ MD 01/11/25 Tamsulosin Hcl (Flomax) 0.4 Mg Cap, 1 CAP PO DAILY, #30 CAP 11 Refills Prov:RUDDY GÓMEZ MD 01/11/25 Ciprofloxacin Hcl (Cipro) 500 Mg Tab, 1 TAB PO BID, #20 TAB Prov:RUDDY GÓMEZ MD 01/11/25 Reported Medications Ergocalciferol (Vitamin D) 50,000 Unit Cap, 1 CAP PO QWEEKLY 12/15/24 Tamsulosin Hcl (Tamsulosin Hcl) 0.4 Mg Cap, 1 CAP PO DAILY 12/15/24 Aspirin (Aspirin Adult Low Dose) 81 Mg Tab, 1 TAB PO DAILY 12/15/24 Docusate Sodium (Docusate Sodium) 100 Mg Cap, 1 12/15/24 Atorvastatin Calcium (ATORVASTATIN CALCIUM) 40 Mg Tab, 40 MG PO DAILY 12/15/24 Lisinopril (Lisinopril) 20 Mg Tab, 1 DAILY 12/15/24 Information Source: Patient Mode of Arrival: Ambulatory Severity: Moderate Timing: Hours Duration: Since onset, Hours Prehospital treatment: None Past Medical History PAST MEDICAL HISTORY: CVA, DM, High Lipids, HTN, MS Past Medical History (Other): Enlarged Prostate Surgical History: Tonsillectomy Surgical History (Other): Prostate Sx for the Enlarged Prostate, recently being on 02/22/25 x2, Kidney Sx(Kidney Stones) Family History Family History: Reviewed,noncontributory to illness, Family hx of DM Social History Smoker: Non-Smoker Alcohol: Denies ETOH Use Drugs: Denies Drug Use Lives In: Home Constitutional: denies: chills, diaphoresis, fatigue, fever, malaise, sweats, weakness, others EENTM: denies: blurred vision, double vision, ear bleeding, ear discharge, ear drainage, ear pain, ear ringing, eye pain, eye redness, hearing loss, mouth pain, mouth swelling, nasal discharge, nose bleeding, nose congestion, nose pain, photophobia, tearing, throat pain, throat swelling, voice changes, others Respiratory: denies: cough, hemoptysis, orthopnea, SOB at rest, shortness of breath, SOB with excertion, stridor, wheezing, others Cardiovascular: denies: chest pain, dizzy spells, diaphoresis, Dyspnea on exertion, edema, irregular heart beat, left arm pain, lightheadedness, palpitations, PND, syncope, others Gastrointestinal: denies: abdomen distended, abdominal pain, blood streaked bowels, constipated, diarrhea, dysphagia, difficulty swallowing, hematemesis, melena, nausea, poor appetite, poor fluid intake, rectal bleeding, rectal pain, vomiting, others Genitourinary: reports: urgency; denies: burning, dysuria, flank pain, frequency, hematuria, incontinence, penile discharge, penile sore, pain, testicle pain, testicle swelling, others Neurological: denies: dizziness, fainting, headache, left sided numbness, left sided weakness, numbness, paresthesia, pre-existing deficit, right sided numbness, right sided weakness, seizure, speech problems, tingling, tremors, weakness, others Musculoskeletal: denies: back pain, gout, joint pain, joint swelling, muscle pain, muscle stiffness, neck pain, others Integumetry: denies: bruises, change in color, change in hair/nails, dryness, laceration, lesions, lumps, rash, wounds, others Allergic/Immunocompromised: denies: Difficulty Healing, Frequent Infections, Hives, Itching, others Hematologic/Lymphatic: denies: anemia, blood clots, easy bleeding, easy bruising, swollen glands, others Endocrine: denies: excessive hunger, excessive sweating, excessive thirst, excessive urination, flushing, intolerance to cold, intolerance to heat, unexplained weight gain, unexplained weight loss, others Psychiatric: denies: anxiety, bipolar disorder, depression, hopeless, panic disorder, schizophrenia, sleepless, suicidal, others All Other Systems: Reviewed and Negative Physical Exam General Appearance: Mild Distress HEENT: Normal ENT Inspection, Pharynx Normal, TMs Normal Neck: Full Range of Motion, Non-Tender, Normal, Normal Inspection Respiratory: Chest Non-Tender, Lungs Clear, No Accessory Muscle Use, No Respiratory Distress, Normal Breath Sounds Cardiovascular: No Edema, No JVD, No Murmur, No Gallop, Normal Peripheral Pulses, Regular Rate/Rhythm Breast Exam: Deferred Gastrointestinal: No Organomegaly, No Pulsatile Mass, Normal Bowel Sounds, Soft Genitalia: Deferred Pelvic: Deferred Rectal: Deferred Extremities: No calf tenderness, Normal capillary refill, Normal inspection, Normal range of motion, Non-tender, No pedal edema Musculoskeletal : Apperance: Normal Neurologic: Alert, assistant manager II-XII nml as Tested, No Motor Deficits, Normal Affect, Normal Mood, No Sensory Deficits Cerebellar Function: Normal Reflexes: Normal Skin: Dry, Normal Color, Warm Lymphatic: No Adenopathy Was a procedure done? Was a procedure done?: No Differential Dx Considerations may include: Urinary retention, generalized weakness, UTI X-Ray, Labs, Meds, VS Vital Signs Date Time Temp Pulse Resp B/P (MAP) Pulse Ox O2 Delivery O2 Flow Rate FiO2 03/16/25 05:11 97.6 111 18 156/99 (118) 96 97.6 Lab Test 03/16/25 08:30 Range/Units Urine Color Light-brown Yellow Urine Clarity Ex.turbid Clear Urine pH 6.5 5.0-9.0 Urine Specific [place] 1.020 1.001-1.035 Urine Protein 2+ H Negative Urine Ketones Negative Negative Urine Blood 3+ H Negative /uL Urine Nitrite 2+ H Negative Urine Bilirubin Negative Negative Urine Urobilinogen Normal Negative mg/dL Urine Leukocyte Esterase 3+ Negative /uL Urine RBC 1674 0 - 3 /hpf Urine WBC Clumps Present None Seen /hpf Urine Microscopic WBC 1890 H 0-3 /HPF Urine Squamous Epithelial Cells None seen <5 /hpf Urine Bacteria Few H None Seen /hpf Urine Mucus Few None Seen Urine Glucose Normal Normal mg/dL Alfaro catheter was inserted and the patient had 900 cc of urine output The urine test is positive for a UTI At this time, the patient was being discharged and will follow up with the primary care doctor The patient will return to the emergency department's condition worsens The patient was given Cipro here in the emergency department's The patient was placed on a prescription for Cipro Time of 1ST Reevaluation: 06:45 Reevaluation 1ST: Unchanged Patient Education/Counseling: Diagnosis, Treatment, Prognosis Family Education/Counseling: No Family Present Departure 1 Departure Time of Disposition: 08:51 Impression: Primary Impression: UTI (urinary tract infection) Qualified Codes: N30.01 - Acute cystitis with hematuria Additional Impression: Acute urinary retention Disposition: 01 HOME / SELF CARE / HOMELESS Condition: Fair e-Prescriptions Ciprofloxacin Hcl (Cipro) 500 Mg Tab 1 TAB PO BID, #20 TAB Prov: FRIDA HELTON MD 03/16/25 Discharged With: Self Critical Care Note Critical Care Time?: No Stability Stability form required: No Heart Score Heart Score: Heart Score Response (Comments) Value History N/A 0 EKG N/A 0 Age N/A 0 Risk Factors N/A 0 Troponin N/A 0 Total 0 I personally scribed for FRIDA HELTON MD ([email or web address]) on 03/16/25 at 06:41. Electronically submitted by Collins Gann ([email or web address]). FRIDA HELTON MD March 16, 2025 06:41
[2025-03-16 08:44] LABS: Urine Bacteria FEW /hpf (None Seen); Urine Blood 3+ /uL (Negative); Urine Clarity Ex.Turbid (Clear); Urine Color Light-Brown (Yellow); Urine Mucus FEW (None Seen); Urine Protein, UAD 2+ (Negative); Urine Squamous Epithelial Cell None Seen /hpf (<5); Urine Urobilinogen Normal (Negative); Urine WBC 1890 /HPF (0-3); Urine WBC Clumps PRESENT /hpf (None Seen); Urine pH 6.5 (5.0-9.0)
[2025-03-16] MEDS ORDERED: CIPR-173 PO (08:50)
[2025-03-16] MEDS: CIPROFLOXACIN HCL 500 MG TAB PO ONE (09:23)
[2025-03-16 09:32] VITALS: BP 114/87; PULSE 99; RESP 16; TEMP 97.3; O2SAT 98
== END 2025-03-16 09:40 | disposition home or self-care (01) ==
LOC: ER 04:52
DX: N39.0 Urinary tract infection, site not specified (principal); R33.9 Retention of urine, unspecified; E11.9 Type 2 diabetes mellitus without complications; I10 Essential (primary) hypertension; Z79.82 Long term (current) use of aspirin; Z79.84 Long term (current) use of oral hypoglycemic drugs; Z79.899 Other long term (current) drug therapy; Z86.73 Personal history of transient ischemic attack (TIA), and cerebral infarction without residual deficits; Z90.89 Acquired absence of other organs
CPT/HCPCS: 51702; 81001; 99284; A4315

== ENCOUNTER 2025-03-28 18:37 | Inpatient (IN) | payer MEDICAID ==
[~2025-03-28] VITALS: Ht 177.8 cm; Wt 85.5 kg
[2025-03-28 19:10] LABS: Basophils # (auto) 0.1 10 ^3/uL (0-0.2); Basophils % (auto) 0.7 % (0.0-2.0); Eosinophils # (auto) 0.1 10 ^3/uL (0-0.8); Eosinophils % (auto) 0.9 % (0.0-7.0); Hematocrit 47.4 % (41.0-53.0); Hemoglobin 16.2 g/dL (13.5-17.5); Lymphocytes # (auto) 1.4 10 ^3/uL (0.4-5.4); Lymphocytes % (auto) 14.2 % (10.0-50.0); Mean Corpuscular Hemoglobin 30.7 pg (28.0-32.0); Mean Corpuscular Hgb Conc. 34.2 g/dL (32.0-36.0); Mean Corpuscular Volume 89.8 fL (80.0-100.0); Monocytes # (auto) 0.7 10 ^3/uL (0-1.3); Monocytes % (auto) 6.8 % (0.0-12.0); Neutrophils # (auto) 7.8 10 ^3/uL (1.6-8.6); Neutrophils % (auto) 77.4 % (37.0-80.0); Platelet Count (auto) 257 10^3/uL (140-450); Red Blood Cells 5.27 10^6/uL (4.5-5.90); Red Cell Distribution Width 13.9 % (11.8-14.3); White Blood Cell 10.1 10^3/uL (4.4-10.8)
--- NOTE | 2025-03-28 19:12 | ED.PDOC ---
General HPI Comments 64 year old male presents to the ED with a chief complaint of Alfaro catheter malfunction onset today (03/28/25). Patient states he was seen in this ED about 2 weeks ago was told he had UTI, had Alfaro catheter inserted. Patient noticed this morning, catheter is not draining, there is blood around the catheter and is experiencing penile pain. Patient has appointment with Urologist, Dr. Solitario, tomorrow (03/29/25). PMHx MT, DM, HTN, CVA, HLD. Denies dysuria, abdominal pain, chest pain, shortness of breath, dizziness, headache, fever, chills. No other symptoms or modifying factors present at this time. Time Seen by MD: 18:57 Primary Care Provider: JUAN Milner notes: Medications, Allergies Allergies: Coded Allergies: NO KNOWN ALLERGIES (Unverified , 12/15/24) Home Meds Active Scripts Nitrofurantoin Monohydrate Mac (Macrobid) 100 Mg Cap, 100 MG PO BID for 10 Days, #20 CAP Prov:ELSA SERRA MD 03/28/25 Ciprofloxacin Hcl (Cipro) 500 Mg Tab, 1 TAB PO BID, #20 TAB Prov:FRIDA HELTON MD 03/16/25 Cefpodoxime Proxetil (Cefpodoxime Proxetil) 200 Mg Tab, 1 TAB PO BID for 10 Days, #20 TAB 0 Refills Prov:MILKA DAIGLE TOOL INSPECTOR 02/05/25 Metformin Hydrochloride (Metformin Hcl) 1,000 Mg Tab, 1 TAB PO BID, #180 TAB 1 Refill Prov:RUDDY GÓMEZ MD 01/11/25 Tamsulosin Hcl (Flomax) 0.4 Mg Cap, 1 CAP PO DAILY, #30 CAP 11 Refills Prov:RUDDY GÓMEZ MD 01/11/25 Ciprofloxacin Hcl (Cipro) 500 Mg Tab, 1 TAB PO BID, #20 TAB Prov:RUDDY GÓMEZ MD 01/11/25 Reported Medications Ergocalciferol (Vitamin D) 50,000 Unit Cap, 1 CAP PO QWEEKLY 12/15/24 Tamsulosin Hcl (Tamsulosin Hcl) 0.4 Mg Cap, 1 CAP PO DAILY 12/15/24 Aspirin (Aspirin Adult Low Dose) 81 Mg Tab, 1 TAB PO DAILY 12/15/24 Docusate Sodium (Docusate Sodium) 100 Mg Cap, 1 12/15/24 Atorvastatin Calcium (ATORVASTATIN CALCIUM) 40 Mg Tab, 40 MG PO DAILY 12/15/24 Lisinopril (Lisinopril) 20 Mg Tab, 1 DAILY 12/15/24 Information Source: Patient Mode of Arrival: Ambulatory Severity: Moderate Timing: Hours Duration: Since onset Prehospital treatment: None Onset: Spontaneous Symptoms: Other History of: UTI, Suprapubic catheter Location: Other Modifying factors: None Past Medical History PAST MEDICAL HISTORY: CVA, DM, High Lipids, HTN, MT Surgical History: Tonsillectomy Family History Family History: Reviewed,noncontributory to illness, Family hx of DM Social History Smoker: Non-Smoker Alcohol: Denies ETOH Use Drugs: Denies Drug Use Lives In: Home Constitutional: denies: chills, diaphoresis, fatigue, fever, malaise, sweats, weakness, others EENTM: denies: blurred vision, double vision, ear bleeding, ear discharge, ear drainage, ear pain, ear ringing, eye pain, eye redness, hearing loss, mouth pain, mouth swelling, nasal discharge, nose bleeding, nose congestion, nose pain, photophobia, tearing, throat pain, throat swelling, voice changes, others Respiratory: denies: cough, hemoptysis, orthopnea, SOB at rest, shortness of breath, SOB with excertion, stridor, wheezing, others Cardiovascular: denies: chest pain, dizzy spells, diaphoresis, Dyspnea on exertion, edema, irregular heart beat, left arm pain, lightheadedness, palpitations, PND, syncope, others Gastrointestinal: denies: abdomen distended, abdominal pain, blood streaked bowels, constipated, diarrhea, dysphagia, difficulty swallowing, hematemesis, melena, nausea, poor appetite, poor fluid intake, rectal bleeding, rectal pain, vomiting, others Genitourinary: reports: pain; denies: burning, dysuria, flank pain, frequency, hematuria, incontinence, penile discharge, penile sore, testicle pain, testicle swelling, urgency, others Neurological: denies: dizziness, fainting, headache, left sided numbness, left sided weakness, numbness, paresthesia, pre-existing deficit, right sided numbness, right sided weakness, seizure, speech problems, tingling, tremors, weakness, others Musculoskeletal: denies: back pain, gout, joint pain, joint swelling, muscle pain, muscle stiffness, neck pain, others Integumetry: denies: bruises, change in color, change in hair/nails, dryness, laceration, lesions, lumps, rash, wounds, others Allergic/Immunocompromised: denies: Difficulty Healing, Frequent Infections, Hives, Itching, others Hematologic/Lymphatic: denies: anemia, blood clots, easy bleeding, easy bruising, swollen glands, others Endocrine: denies: excessive hunger, excessive sweating, excessive thirst, excessive urination, flushing, intolerance to cold, intolerance to heat, unexplained weight gain, unexplained weight loss, others Psychiatric: denies: anxiety, bipolar disorder, depression, hopeless, panic disorder, schizophrenia, sleepless, suicidal, others All Other Systems: Reviewed and Negative Physical Exam General Appearance: No Apparent Distress, Normal HEENT: Normal ENT Inspection, Pharynx Normal, TMs Normal Neck: Full Range of Motion, Non-Tender, Normal, Normal Inspection Respiratory: Chest Non-Tender, Lungs Clear, No Accessory Muscle Use, No Respiratory Distress, Normal Breath Sounds Cardiovascular: No Edema, No JVD, No Murmur, No Gallop, Normal Peripheral Pulses, Regular Rate/Rhythm Breast Exam: Deferred Gastrointestinal: No Organomegaly, Non Tender, No Pulsatile Mass, Normal Bowel Sounds, Soft Genitalia: Deferred Pelvic: Deferred Rectal: Deferred Extremities: No calf tenderness, Normal capillary refill, Normal inspection, Normal range of motion, Non-tender, No pedal edema Musculoskeletal : Apperance: Normal Neurologic: Alert, venetian blind cleaner and repairer II-XII nml as Tested, No Motor Deficits, Normal Affect, Normal Mood, No Sensory Deficits Cerebellar Function: Normal Reflexes: Normal Skin: Dry, Normal Color, Warm Lymphatic: No Adenopathy Was a procedure done? Was a procedure done?: No Differential Diagnosis Kidney stone (Female): Pyelonephritis, Renal failure, Urinary obstruction, Urolithiasis, Other Kidney stone (Male): Pyelonephritis, Renal failure, Renal infarction, Urinary tract infection, Other X-Ray, Labs, Meds, VS Vital Signs Date Time Temp Pulse Resp B/P (MAP) Pulse Ox O2 Delivery O2 Flow Rate FiO2 03/29/25 01:30 75 16 118/69 (85) 96 03/28/25 23:30 74 16 94 Room Air* 0 21 03/28/25 23:00 63 16 149/36 (73) 96 03/28/25 21:57 97.5 93 16 100/66 (77) 96 97.5 03/28/25 19:34 98.1 94 16 127/66 (86) 97 98.1 Lab Test 03/29/25 00:01 03/28/25 18:52 Range/Units Urine Color Light-brown Yellow Urine Clarity Turbid H Clear Urine pH 6.0 5.0-9.0 Urine Specific [place] 1.013 1.001-1.035 Urine Protein 2+ H Negative Urine Ketones Negative Negative Urine Blood 3+ H Negative /uL Urine Nitrite Negative Negative Urine Bilirubin Negative Negative Urine Urobilinogen Normal Negative mg/dL Urine Leukocyte Esterase 3+ Negative /uL Urine RBC 1790 0 - 3 /hpf Urine Microscopic WBC 337 H 0-3 /HPF Urine Squamous Epithelial Cells None seen <5 /hpf Urine Bacteria None seen None Seen /hpf Urine Hyaline Casts Few 0 - 2 /lpf Urine Mucus Few None Seen Urine Glucose 3+ H Normal mg/dL White Blood Count 10.1 4.4-10.8 10^3/uL Red Blood Count 5.27 4.5-5.90 10^6/uL Hemoglobin 16.2 13.5-17.5 g/dL Hematocrit 47.4 41.0-53.0 % Mean Corpuscular Volume 89.8 80.0-100.0 fL Mean Corpuscular Hemoglobin 30.7 28.0-32.0 pg Mean Corpuscular Hemoglobin Concent 34.2 32.0-36.0 g/dL Red Cell Distribution Width 13.9 11.8-14.3 % Platelet Count 257 140-450 10^3/uL Mean Platelet Volume 7.9 6.9-10.8 fL Neutrophils (%) (Auto) 77.4 37.0-80.0 % Lymphocytes (%) (Auto) 14.2 10.0-50.0 % Monocytes (%) (Auto) 6.8 0.0-12.0 % Eosinophils (%) (Auto) 0.9 0.0-7.0 % Basophils (%) (Auto) 0.7 0.0-2.0 % Neutrophils # (Auto) 7.8 1.6-8.6 10 ^3/uL Lymphocytes # (Auto) 1.4 0.4-5.4 10 ^3/uL Monocytes # (Auto) 0.7 0-1.3 10 ^3/uL Eosinophils # (Auto) 0.1 0-0.8 10 ^3/uL Basophils # (Auto) 0.1 0-0.2 10 ^3/uL Nucleated Red Blood Cells 0.0 % Sodium Level 139 136-145 mmol/L Potassium Level 4.0 3.5-5.1 mmol/L Chloride Level 105 98-107 mmol/L Carbon Dioxide Level 23 20-31 mmol/L Anion Gap 11 5-15 Blood Urea Nitrogen 18 9-23 mg/dL Creatinine 1.27 0.700-1.30 mg/dL Glomerular Filtration Rate Calc 63 >90 mL/min BUN/Creatinine Ratio 14.2 10.0-20.0 Serum Glucose 175 H 74-106 mg/dL Calcium Level 10.5 H 8.7-10.4 mg/dL Total Bilirubin 0.5 0.2-1.0 mg/dL Aspartate Amino Transferase (AST) 16 13-40 U/L Alanine Aminotransferase (ALT) 25 7-40 U/L Alkaline Phosphatase 80 46-116 U/L Total Protein 7.4 5.7-8.2 g/dL Albumin 4.8 3.2-4.8 g/dL Current Medications Medications (Trade) Dose Ordered Sig/Tanesha Route Start Time Stop Time Status Last Admin Lidocaine HCl (Glydo) 11 ml ONCE ONCE UR 03/29/25 01:45 03/29/25 01:46 DC 03/29/25 01:42 Time of 1ST Reevaluation: 19:27 Reevaluation 1ST: Unchanged Patient Education/Counseling: Diagnosis, Treatment, Prognosis Family Education/Counseling: No Family Present Additional Information The following tests were ordered, and results were reviewed by me: CBC, CMP, UA I discussed treatment and results with medical personnel and: patient Comprehensive systems review obtained and negative except for what is stated in the HPI. Departure 1 Departure Time of Disposition: 03:00 Impression: Primary Impression: Indwelling catheter replaced Additional Impressions: Obstructed Alfaro catheter UTI (urinary tract infection) Hematuria Disposition: HOME / SELF CARE / HOMELESS Admit to: Med Surg Condition: Stable e-Prescriptions Nitrofurantoin Monohydrate Mac (Macrobid) 100 Mg Cap 100 MG PO BID for 10 Days, #20 CAP Prov: ELSA SERRA MD 03/28/25 Discharged With: Self Critical Care Note Critical Care Time?: No Stability Stability form required: No I personally scribed for ELSA SERRA MD ([email or web address]) on 03/28/25 at 19:12. Electronically submitted by Jeana Morales ([email or web address]). I personally scribed for ELSA SERRA MD ([email or web address]) on 03/28/25 at 19:17. Electronically submitted by Jeana Morales ([email or web address]). ELSA SERRA MD March 28, 2025 19:12
[2025-03-28 19:33] LABS: Alanine Aminotransferase 25 U/L (7-40); Albumin 4.8 g/dL (3.2-4.8); Alkaline Phosphatase 80 U/L (46-116); Anion Gap 11 (5-15); Aspartate Aminotransferase 16 U/L (13-40); BUN/Creatinine Ratio 14.2 (10.0-20.0); Bilirubin, Total 0.5 mg/dL (0.2-1.0); Blood Urea Nitrogen 18 mg/dL (9-23); Calcium 10.5 mg/dL (8.7-10.4); Carbon Dioxide 23 mmol/L (20-31); Chloride 105 mmol/L (98-107); Glucose 175 mg/dL (74-106); Sodium 139 mmol/L (136-145); Total Protein 7.4 g/dL (5.7-8.2)
[2025-03-28] MEDS ORDERED: NITR-87 PO (23:17)
[2025-03-28 23:30] VITALS: PULSE 74; RESP 16; O2SAT 94
[2025-03-29 00:21] LABS: Urine Bacteria None Seen /hpf (None Seen)
[2025-03-29 00:46] LABS: Urine Blood 3+ /uL (Negative); Urine Clarity Turbid (Clear); Urine Color Light-Brown (Yellow); Urine Hyaline Cast FEW /lpf (0 - 2); Urine Mucus FEW (None Seen); Urine Protein, UAD 2+ (Negative); Urine Specific Gravity 1.013 (1.001-1.035); Urine Squamous Epithelial Cell None Seen /hpf (<5); Urine Urobilinogen Normal (Negative); Urine WBC 337 /HPF (0-3)
[2025-03-29] MEDS: LIDOCAINE 2% JELLY 11ml (GLYDO) UR ONE (01:42)
--- NOTE | 2025-03-29 07:53 | ED.PDOC ---
Departure 1 Departure Time of Disposition: 07:52 (Patient with worsening hematuria. We will admit patient for further) Impression: Primary Impression: Indwelling catheter replaced Additional Impressions: Obstructed Alfaro catheter Qualified Codes: T83.091A - Other mechanical complication of indwelling urethral catheter, initial encounter Hematuria Qualified Codes: R31.0 - Gross hematuria UTI (urinary tract infection) Qualified Codes: N30.01 - Acute cystitis with hematuria Disposition: ADMITTED INPATIENT Admit to: Med Surg Condition: Serious Additional Instructions: Follow up with your Primary Physician and Urologist Return to the Emergency Department for any worsening symptoms or concerns e-Prescriptions Nitrofurantoin Monohydrate Mac (Macrobid) 100 Mg Cap 100 MG PO BID for 10 Days, #20 CAP Prov: ELSA SERRA MD 03/28/25 Discharged With: SAMAN Barnhart MD March 29, 2025 07:53
[2025-03-29 08:00] VITALS: PULSE 70; RESP 18; O2SAT 94
[2025-03-29] MEDS ORDERED: HYDROcodone-ACET 5/325MG TAB PO PRN (08:30)
[2025-03-29] MEDS ORDERED: ACETAMINOPHEN 325 MG TAB PO PRN (08:30)
[2025-03-29] MEDS ORDERED: ONDANSETRON HCL 4 MG/2 ML VIAL IV PRN (08:30)
[2025-03-29] MEDS ORDERED: DEXTROSE (50%) 50ML SYRG IV PRN (08:30)
[2025-03-29] MEDS ORDERED: CYA100I IM (09:02)
[2025-03-29] MEDS ORDERED: SIMV10TA20 PO (09:02)
[2025-03-29] MEDS ORDERED: ERGOCALCIFEROL 50,000 UNIT(1.25MG) CAP PO SCH (09:15)
--- NOTE | 2025-03-29 09:15 | DVHHP2 ---
History of Present Illness Reason for Visit: Urinary retention History of Present Illness Dami Bailey is a 64-year-old male with past medical history of hypertension, diabetes, BPH, prostatectomy in February of 2025, and nephrolithotomy who presents to the ED with the urinary retention. Patient reports that he was here 2 weeks ago had of Alfaro catheter placed and sent home with. While at home he noticed that yesterday there was leakage when he was voiding and it would not drain into the bag as well as pus. Patient reports that he was not taught how to manage the Alfaro catheterization nor was there a home health RN. Patient also reports that he had blood clots that were dark. Patient also reports that he is currently living as a roommate with someone however he has been kicked out the Wednesday. Upon examination in the drainage bag dark tea color noted with no clots or hematuria. Patient also states that he has stopped taking his aspirin and blood thinners 2 weeks ago. Patient denies any leg pain, abdominal pain, nausea, vomiting, diarrhea, fever, chills, lightheadedness, weakness, dizziness, chest pain, or shortness of breath. Cardiovascular: HTN Renal/: Benign prostatic enlarg. Endocrine: Diabetes Past Surgical History: Other (Prostatectomy and nephrolithotomy) Family History: DM, Hyperlipidemia, Hypertension, Other (Dad with heart disease, diabetes, hypertension, and hyperlipidemia) Smoke: No ALCOHOL: none Drugs: None Lives: Homeless Domestic Violence: Neg Review of Systems Genitourinary: Retention Allergies: Coded Allergies: NO KNOWN ALLERGIES (Unverified , 12/15/24) Medications Current Medications Medications Dose Ordered Sig/Tanesha Route Start Time Stop Time Status Last Admin Dose Admin Acetaminophen/ Hydrocodone Bitart 1 tab Q4HP PRN PO 03/29/25 08:30 UNV Ondansetron HCl 4 mg Q4HP PRN IV 03/29/25 08:30 UNV Acetaminophen 650 mg Q6HP PRN PO 03/29/25 08:30 UNV Diagnostic Test (Pha) 1 strip ACHS 03/29/25 11:30 UNV Insulin Human Regular ACHS SC 03/29/25 11:30 UNV Dextrose 50 ml UD PRN IV 03/29/25 08:30 UNV Ceftriaxone Sodium 50 ml @ 100 mls/hr DAILY@09 IV 03/29/25 08:30 UNV Exam Vital Signs Vital Signs Date Time Temp Pulse Resp B/P (MAP) Pulse Ox O2 Delivery O2 Flow Rate FiO2 03/29/25 08:00 97.7 70 16 151/86 (107) 94 97.7 03/28/25 23:30 Room Air* 0 21 General Appearance: Alert, Oriented X3, Cooperative, No acute distress HEENT: Atraumatic, PERRLA, EOMI, Mucous membr. moist/pink Respiratory: Clear to auscultation, Normal air movement Cardiovascular: Regular rate, Normal S1, Normal S2, No murmurs Abdominal: Normal bowel sounds, Soft, No tenderness, No hepatospenomegaly, No masses Extremities: No clubbing, No cyanosis, No edema, Normal pulses, No tenderness/swelling Skin: No significant lesion Neuro: Normal speech, Strength at 5/5 X4 ext, Normal tone, Sensation intact Psych/Mental Status: Mental status NL, Mood NL Labs/Xrays Labs Test 03/29/25 00:01 03/28/25 18:52 Range/Units Urine Color Light-brown Yellow Urine Clarity Turbid H Clear Urine pH 6.0 5.0-9.0 Urine Specific [place] 1.013 1.001-1.035 Urine Protein 2+ H Negative Urine Ketones Negative Negative Urine Blood 3+ H Negative /uL Urine Nitrite Negative Negative Urine Bilirubin Negative Negative Urine Urobilinogen Normal Negative mg/dL Urine Leukocyte Esterase 3+ Negative /uL Urine RBC 1790 0 - 3 /hpf Urine Microscopic WBC 337 H 0-3 /HPF Urine Squamous Epithelial Cells None seen <5 /hpf Urine Bacteria None seen None Seen /hpf Urine Hyaline Casts Few 0 - 2 /lpf Urine Mucus Few None Seen Urine Glucose 3+ H Normal mg/dL White Blood Count 10.1 4.4-10.8 10^3/uL Red Blood Count 5.27 4.5-5.90 10^6/uL Hemoglobin 16.2 13.5-17.5 g/dL Hematocrit 47.4 41.0-53.0 % Mean Corpuscular Volume 89.8 80.0-100.0 fL Mean Corpuscular Hemoglobin 30.7 28.0-32.0 pg Mean Corpuscular Hemoglobin Concent 34.2 32.0-36.0 g/dL Red Cell Distribution Width 13.9 11.8-14.3 % Platelet Count 257 140-450 10^3/uL Mean Platelet Volume 7.9 6.9-10.8 fL Neutrophils (%) (Auto) 77.4 37.0-80.0 % Lymphocytes (%) (Auto) 14.2 10.0-50.0 % Monocytes (%) (Auto) 6.8 0.0-12.0 % Eosinophils (%) (Auto) 0.9 0.0-7.0 % Basophils (%) (Auto) 0.7 0.0-2.0 % Neutrophils # (Auto) 7.8 1.6-8.6 10 ^3/uL Lymphocytes # (Auto) 1.4 0.4-5.4 10 ^3/uL Monocytes # (Auto) 0.7 0-1.3 10 ^3/uL Eosinophils # (Auto) 0.1 0-0.8 10 ^3/uL Basophils # (Auto) 0.1 0-0.2 10 ^3/uL Nucleated Red Blood Cells 0.0 % Sodium Level 139 136-145 mmol/L Potassium Level 4.0 3.5-5.1 mmol/L Chloride Level 105 98-107 mmol/L Carbon Dioxide Level 23 20-31 mmol/L Anion Gap 11 5-15 Blood Urea Nitrogen 18 9-23 mg/dL Creatinine 1.27 0.700-1.30 mg/dL Glomerular Filtration Rate Calc 63 >90 mL/min BUN/Creatinine Ratio 14.2 10.0-20.0 Serum Glucose 175 H 74-106 mg/dL Calcium Level 10.5 H 8.7-10.4 mg/dL Total Bilirubin 0.5 0.2-1.0 mg/dL Aspartate Amino Transferase (AST) 16 13-40 U/L Alanine Aminotransferase (ALT) 25 7-40 U/L Alkaline Phosphatase 80 46-116 U/L Total Protein 7.4 5.7-8.2 g/dL Albumin 4.8 3.2-4.8 g/dL Assessment/Plan Assessment/Plan Assessment Acute cystitis with Alfaro catheter Diabetes type 2 History of hypertension History of BPH History of prostatectomy in February 2025 History of nephrolithotomy Plan Admit to [facility] Alfaro catheter UA Hemoglobin A1c ISS and Accu-Cheks Pain management Diet Flomax Renal ultrasound ordered Home medications reconciled DVT prophylaxis-SCDs PUD prophylaxis-not indicated no history of GERD or GI bleed Discussed plan of care with patient and nurse Hold anti coags for now due to 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 this Wednesday Plan discussed with: Patient My Orders Orders - ROBBIN MARIE Procedure Category Date Status Time Sequential FATOU 03/29/25 In Process Compression Device 08:18 Admit ADMIT 03/29/25 Transmitted 08:18 Allergies FATOU 03/29/25 In Process 08:18 Code Status CODE 03/29/25 Transmitted 08:18 Hydrocodone-Acet PHA 03/29/25 Logged 5/325mg Tab ([place] 08:30 Ondansetron Hcl PHA 03/29/25 Logged (Zofran) 08:30 Complete Blood Count LAB 03/30/25 Verified 04:00 Comprehensive LAB 03/30/25 Verified Metabolic Panel 04:00 Cardiac DIET 03/29/25 Transmitted Diet-2gna,Lofat,Lochol Breakfast Acetaminophen Tablet PHA 03/29/25 Logged (Tylenol Tablet) 08:30 Glucose Blood PHA 03/29/25 Logged (Accu-Chek Comfort 11:30 Insulin R (Human) PHA 03/29/25 Logged (Insulin R) 11:30 Dextrose 50% Syringe PHA 03/29/25 Logged 08:30 Hemoglobin A1c LAB 03/29/25 Transmitted 08:18 Ceftriaxone 1gm/50ml PHA 03/29/25 Logged D5w (Rocephin) 08:30 Date of Service: March 29, 2025 Billing Provider: ROBBIN MARIE Common Visit Codes: [id number] INP/OBS CARE (HIGH) ROBBIN MARIE March 29, 2025 09:15
--- NOTE | 2025-03-29 09:56 | DVH ---
US KIDNEY HISTORY: retention COMPARISON: US KIDNEY on DOS: 01/03/25, US KIDNEY on DOS: 12/15/24 TECHNIQUE: Transverse and longitudinal grayscale and color doppler images were obtained of the kidney s and bladder. FINDINGS: Right kidney: Size: 10.4 cm Cortical thickness: Normal Echogenicity: Normal Stones: None Masses: None Hydronephrosis: None Ureters: Not well visualized. Other: None Left kidney: Size: 10.5 cm Cortical thickness: Normal Echogenicity: Normal Stones: 0.7 cm left non obstructive kidney stone. Masses: None Hydronephrosis: None Ureters: Not well visualized. Other: None Bladder: Alfaro seen. Other: None. IMPRESSION: No hydronephrosis. Small nonobstructive left kidney stone. Multiple subcentimeter cysts in the kidney are seen.
[2025-03-29] MEDS ORDERED: PATIENTS OWN MEDICATION (Atorvastatin Calcium 40 MG) PO SCH (10:00)
[2025-03-29] MEDS: TAMSULOSIN HYDROCHLORIDE 0.4 MG CAP PO SCH (10:39)
[2025-03-29] MEDS: LISINOPRIL 20 MG TAB PO SCH (10:40)
[2025-03-29] MEDS: cefTRIAXone 1GM/50ML D5W 50 ML IV SCH (10:40)
[2025-03-29] MEDS: InsuLIN REG 1unit/0.01ml Soln (100units/ml) SC SCH (12:09)
[2025-03-29] MEDS: ACCU-CHEK COMFORT CURVE STRIP VI SCH (12:09)
--- NOTE | 2025-03-29 15:59 | DVHINCON2 ---
Date of service: March 29, 2025 Referring Physician Hospitalist Reason for Consultation Urinary retention History of Present Illness Patient seen by Dr. Nash in November 2024 for urinary retention/azotemia and by me in December 2024 for same issue. Patient had a creatinine value of 15 at that time. Now, it has normalized with Muir catheter in place. He underwent TURP and cystolitholapaxy on 02/22/[address] Sahni @[facility]. Postoperatively, he continues to be in urinary retention. Primary Care Provider: JUAN Reviewed notes: Medications, Allergies Allergies: Coded Allergies: NO KNOWN ALLERGIES (Unverified , 12/15/24) Home Meds Active Scripts Nitrofurantoin Monohydrate Mac (Macrobid) 100 Mg Cap, 100 MG PO BID for 10 Days, #20 CAP Prov:ELSA SERRA MD 03/28/25 Ciprofloxacin Hcl (Cipro) 500 Mg Tab, 1 TAB PO BID, #20 TAB Prov:FRIDA HELTON MD 03/16/25 Cefpodoxime Proxetil (Cefpodoxime Proxetil) 200 Mg Tab, 1 TAB PO BID for 10 Days, #20 TAB 0 Refills Prov:MILKA DAIGLE TEASELER 02/05/25 Metformin Hydrochloride (Metformin Hcl) 1,000 Mg Tab, 1 TAB PO BID, #180 TAB 1 Refill Prov:RUDDY GÓMEZ MD 01/11/25 Tamsulosin Hcl (Flomax) 0.4 Mg Cap, 1 CAP PO DAILY, #30 CAP 11 Refills Prov:RUDDY GÓMEZ MD 01/11/25 Ciprofloxacin Hcl (Cipro) 500 Mg Tab, 1 TAB PO BID, #20 TAB Prov:RUDDY GÓMEZ MD 01/11/25 Reported Medications Ergocalciferol (Vitamin D) 50,000 Unit Cap, 1 CAP PO QWEEKLY 12/15/24 Tamsulosin Hcl (Tamsulosin Hcl) 0.4 Mg Cap, 1 CAP PO DAILY 12/15/24 Aspirin (Aspirin Adult Low Dose) 81 Mg Tab, 1 TAB PO DAILY 12/15/24 Docusate Sodium (Docusate Sodium) 100 Mg Cap, 1 12/15/24 Atorvastatin Calcium (ATORVASTATIN CALCIUM) 40 Mg Tab, 40 MG PO DAILY 12/15/24 Lisinopril (Lisinopril) 20 Mg Tab, 1 DAILY 12/15/24 Information Source: Patient Mode of Arrival: Ambulatory Severity: Moderate Timing: Hours Duration: Since onset Prehospital treatment: None Onset: Spontaneous Symptoms: Other History of: UTI, Suprapubic catheter Location: Other Modifying factors: None Past Medical History CVA, DM, High Lipids, HTN, [place] Past Surgical History Tonsillectomy TURP with cystolitholapaxy 02/22/25 Family History: Patient reports no known family medical history. Allergies: Coded Allergies: NO KNOWN ALLERGIES (Unverified , 12/15/24) Home Meds Active Scripts Nitrofurantoin Monohydrate Mac (Macrobid) 100 Mg Cap, 100 MG PO BID for 10 Days, #20 CAP Prov:ELSA SERRA MD 03/28/25 Ciprofloxacin Hcl (Cipro) 500 Mg Tab, 1 TAB PO BID, #20 TAB Prov:FRIDA HELTON MD 03/16/25 Cefpodoxime Proxetil (Cefpodoxime Proxetil) 200 Mg Tab, 1 TAB PO BID for 10 Days, #20 TAB 0 Refills Prov:MILKA DAIGLE TEASELER 02/05/25 Metformin Hydrochloride (Metformin Hcl) 1,000 Mg Tab, 1 TAB PO BID, #180 TAB 1 Refill Prov:RUDDY GÓMEZ MD 01/11/25 Tamsulosin Hcl (Flomax) 0.4 Mg Cap, 1 CAP PO DAILY, #30 CAP 11 Refills Prov:RUDDY GÓMEZ MD 01/11/25 Ciprofloxacin Hcl (Cipro) 500 Mg Tab, 1 TAB PO BID, #20 TAB Prov:RUDDY GÓMEZ MD 01/11/25 Reported Medications Vitamin B12 (Vitamin B-12) 1,000 Mcg/1 Ml Ij, 1 ML IM 03/29/25 Simvastatin (Simvastatin) 10 Mg Tab, 1 TAB PO DAILY 03/29/25 Ergocalciferol (Vitamin D) 50,000 Unit Cap, 1 CAP PO QWEEKLY 12/15/24 Tamsulosin Hcl (Tamsulosin Hcl) 0.4 Mg Cap, 1 CAP PO DAILY 12/15/24 Aspirin (Aspirin Adult Low Dose) 81 Mg Tab, 1 TAB PO DAILY 12/15/24 Docusate Sodium (Docusate Sodium) 100 Mg Cap, 1 12/15/24 Atorvastatin Calcium (ATORVASTATIN CALCIUM) 40 Mg Tab, 40 MG PO DAILY 12/15/24 Lisinopril (Lisinopril) 20 Mg Tab, 1 DAILY 12/15/24 Current Medications Current Medications Medications (Trade) Dose Ordered Sig/Tanesha Route PRN Reason Start Time Stop Time Status Last Admin Acetaminophen/ Hydrocodone Bitart ([place] 5/325MG Tab) 1 tab Q4HP PRN PO MODERATE PAIN (4-6 PAIN SCALE) 03/29/25 08:30 Ondansetron HCl (Zofran) 4 mg Q4HP PRN IV NAUSEA / VOMITING 03/29/25 08:30 Acetaminophen (Tylenol Tablet) 650 mg Q6HP PRN PO PAIN SCALE 1-3 OR TEMP>100.4 03/29/25 08:30 Diagnostic Test (Pha) (Accu-Chek Comfort Curve T) 1 strip ACHS 03/29/25 11:30 03/29/25 12:09 Insulin Human Regular (InsuLIN R) ACHS SC 03/29/25 11:30 Dextrose 50 ml UD PRN IV Blood Sugar LESS THAN 60 03/29/25 08:30 Ceftriaxone Sodium 50 ml @ 100 mls/hr DAILY@09 IV 03/29/25 08:30 03/29/25 10:40 Ergocalciferol (Vitamin D 50,000 Unit) 50,000 unit QWEEKLY PO 03/29/25 09:15 Lisinopril (Zestril Tablet) 20 mg DAILY PO 03/29/25 10:00 03/29/25 10:40 Tamsulosin HCl (Flomax) 0.4 mg DAILY PO 03/29/25 10:00 03/29/25 10:39 Patient Own Medication 40 mg DAILY PO 03/29/25 10:00 UNV Atorvastatin Calcium (Lipitor) 40 mg HS PO 03/29/25 22:00 Review of Systems Constitutional: denies: chills, diaphoresis, fatigue, fever, malaise, sweats, weakness, others EENTM: denies: blurred vision, double vision, ear bleeding, ear discharge, ear drainage, ear pain, ear ringing, eye pain, eye redness, hearing loss, mouth pa in, mouth swelling, nasal discharge, nose bleeding, nose congestion, nose pain, photophobia, tearing, throat pain, throat swelling, voice changes, others Respiratory: denies: cough, hemoptysis, orthopnea, SOB at rest, shortness of breath, SOB with excertion, stridor, wheezing, others Cardiovascular: denies: chest pain, dizzy spells, diaphoresis, Dyspnea on exertion, edema, irregular heart beat, left arm pain, lightheadedness, palpitations, PND, syncope, others Gastrointestinal: denies: abdomen distended, abdominal pain, blood streaked bowels, constipated, diarrhea, dysphagia, difficulty swallowing, hematemesis, melena, nausea, poor appetite, poor fluid intake, rectal bleeding, rectal pain, vomiting, others Genitourinary: reports: pain; denies: burning, dysuria, flank pain, frequency, hematuria, incontinence, penile discharge, penile sore, testicle pain, testicle swelling, urgency, others Neurological: denies: dizziness, fainting, headache, left sided numbness, left sided weakness, numbness, paresthesia, pre-existing deficit, right sided numbness, right sided weakness, seizure, speech problems, tingling, tremors, weakness, others Musculoskeletal: denies: back pain, gout, joint pain, joint swelling, muscle pain, muscle stiffness, neck pain, others Integumetry: denies: bruises, change in color, change in hair/nails, dryness, laceration, lesions, lumps, rash, wounds, others Allergic/Immunocompromised: denies: Difficulty Healing, Frequent Infections, Hives, Itching, others Hematologic/Lymphatic: denies: anemia, blood clots, easy bleeding, easy bruising, swollen glands, others Endocrine: denies: excessive hunger, excessive sweating, excessive thirst, excessive urination, flushing, intolerance to cold, intolerance to heat, unexplained weight gain, unexplained weight loss, others Psychiatric: denies: anxiety, bipolar disorder, depression, hopeless, panic disorder, schizophrenia, sleepless, suicidal, others All Other Systems: Reviewed and Negative Vital Signs Vital Signs Date Time Temp Pulse Resp B/P (MAP) Pulse Ox O2 Delivery O2 Flow Rate FiO2 03/29/25 12:00 74 18 127/68 (87) 95 03/29/25 08:00 Room Air* 0 21 03/29/25 08:00 97.7 97.7 Physical Exam General Appearance: No Apparent Distress, Normal HEENT: Normal ENT Inspection, Pharynx Normal, TMs Normal Neck: Full Range of Motion, Non-Tender, Normal, Normal Inspection Respiratory: Chest Non-Tender, Lungs Clear, No Accessory Muscle Use, No Respiratory Distress, Normal Breath Sounds Cardiovascular: No Edema, No JVD, No Murmur, No Gallop, Normal Peripheral Pulses, Regular Rate/Rhythm Breast Exam: Deferred Gastrointestinal: No Organomegaly, Non Tender, No Pulsatile Mass, Normal Bowel Sounds, Soft Genitalia: Deferred Pelvic: Deferred Rectal: Deferred Extremities: No calf tenderness, Normal capillary refill, Normal inspection, Normal range of motion, Non-tender, No pedal edema Musculoskeletal : Apperance: Normal Neurologic: Alert, district claims manager II-XII nml as Tested, No Motor Deficits, Normal Affect, Normal Mood, No Sensory Deficits Cerebellar Function: Normal Reflexes: Normal Skin: Dry, Normal Color, Warm Lymphatic: No Adenopathy Labs/Diagnostic Data Labs Test 03/29/25 12:06 03/29/25 09:35 03/29/25 00:01 03/28/25 18:52 Range/Units POC Glucose 133 H 70-106 mg/dl Hemoglobin A1c 5.8 H <5.7 % A1C Urine Color Light-brown Yellow Urine Clarity Turbid H Clear Urine pH 6.0 5.0-9.0 Urine Specific [place] 1.013 1.001-1.035 Urine Protein 2+ H Negative Urine Ketones Negative Negative Urine Blood 3+ H Negative /uL Urine Nitrite Negative Negative Urine Bilirubin Negative Negative Urine Urobilinogen Normal Negative mg/dL Urine Leukocyte Esterase 3+ Negative /uL Urine RBC 1790 0 - 3 /hpf Urine Microscopic WBC 337 H 0-3 /HPF Urine Squamous Epithelial Cells None seen <5 /hpf Urine Bacteria None seen None Seen /hpf Urine Hyaline Casts Few 0 - 2 /lpf Urine Mucus Few None Seen Urine Glucose 3+ H Normal mg/dL White Blood Count 10.1 4.4-10.8 10^3/uL Red Blood Count 5.27 4.5-5.90 10^6/uL Hemoglobin 16.2 13.5-17.5 g/dL Hematocrit 47.4 41.0-53.0 % Mean Corpuscular Volume 89.8 80.0-100.0 fL Mean Corpuscular Hemoglobin 30.7 28.0-32.0 pg Mean Corpuscular Hemoglobin Concent 34.2 32.0-36.0 g/dL Red Cell Distribution Width 13.9 11.8-14.3 % Platelet Count 257 140-450 10^3/uL Mean Platelet Volume 7.9 6.9-10.8 fL Neutrophils (%) (Auto) 77.4 37.0-80.0 % Lymphocytes (%) (Auto) 14.2 10.0-50.0 % Monocytes (%) (Auto) 6.8 0.0-12.0 % Eosinophils (%) (Auto) 0.9 0.0-7.0 % Basophils (%) (Auto) 0.7 0.0-2.0 % Neutrophils # (Auto) 7.8 1.6-8.6 10 ^3/uL Lymphocytes # (Auto) 1.4 0.4-5.4 10 ^3/uL Monocytes # (Auto) 0.7 0-1.3 10 ^3/uL Eosinophils # (Auto) 0.1 0-0.8 10 ^3/uL Basophils # (Auto) 0.1 0-0.2 10 ^3/uL Nucleated Red Blood Cells 0.0 % Sodium Level 139 136-145 mmol/L Potassium Level 4.0 3.5-5.1 mmol/L Chloride Level 105 98-107 mmol/L Carbon Dioxide Level 23 20-31 mmol/L Anion Gap 11 5-15 Blood Urea Nitrogen 18 9-23 mg/dL Creatinine 1.27 0.700-1.30 mg/dL Glomerular Filtration Rate Calc 63 >90 mL/min BUN/Creatinine Ratio 14.2 10.0-20.0 Serum Glucose 175 H 74-106 mg/dL Calcium Level 10.5 H 8.7-10.4 mg/dL Total Bilirubin 0.5 0.2-1.0 mg/dL Aspartate Amino Transferase (AST) 16 13-40 U/L Alanine Aminotransferase (ALT) 25 7-40 U/L Alkaline Phosphatase 80 46-116 U/L Total Protein 7.4 5.7-8.2 g/dL Albumin 4.8 3.2-4.8 g/dL Assessment Urinary retention BPH Azotemia, improved with Muir catheter Catheter malfunctions- resolved with current catheter Plan/Recommendation Cystoscopy TBA in office Keep muir to gravity Plan discussed with: Patient, Other DEMETRIUS MARIO MD March 29, 2025 15:59
[2025-03-29 17:22] VITALS: BP 159/76; PULSE 80; RESP 18; TEMP 97.8; O2SAT 97
[2025-03-29 21:00] VITALS: BP 105/58; PULSE 66; RESP 18; TEMP 98.2; O2SAT 96
[2025-03-29] MEDS: ATORVASTATIN 20 MG TAB PO SCH (21:36)
[2025-03-30] VITALS (7 sets, daily range): BP systolic 99–156; BP diastolic 60–85; PULSE 64–84; RESP 18–20; TEMP 97.5–98; O2SAT 95–97
[2025-03-30 06:06] LABS: Basophils # (auto) 0.1 10 ^3/uL (0-0.2); Basophils % (auto) 0.8 % (0.0-2.0); Eosinophils # (auto) 0.2 10 ^3/uL (0-0.8); Hematocrit 45.8 % (41.0-53.0); Hemoglobin 15.5 g/dL (13.5-17.5); Lymphocytes # (auto) 1.5 10 ^3/uL (0.4-5.4); Lymphocytes % (auto) 19.6 % (10.0-50.0); Mean Corpuscular Hemoglobin 30.3 pg (28.0-32.0); Mean Corpuscular Hgb Conc. 33.7 g/dL (32.0-36.0); Monocytes # (auto) 0.8 10 ^3/uL (0-1.3); Monocytes % (auto) 10.1 % (0.0-12.0); Neutrophils % (auto) 66.5 % (37.0-80.0); Platelet Count (auto) 190 10^3/uL (140-450); Red Blood Cells 5.09 10^6/uL (4.5-5.90); Red Cell Distribution Width 13.8 % (11.8-14.3); White Blood Cell 7.5 10^3/uL (4.4-10.8)
[2025-03-30 06:34] LABS: Alanine Aminotransferase 24 U/L (7-40); Alkaline Phosphatase 63 U/L (46-116); Calcium 9.6 mg/dL (8.7-10.4)
[2025-03-30 06:35] LABS: Albumin 4.2 g/dL (3.2-4.8); Anion Gap 9 (5-15); Aspartate Aminotransferase 15 U/L (13-40); BUN/Creatinine Ratio 17.2 (10.0-20.0); Bilirubin, Total 0.7 mg/dL (0.2-1.0); Blood Urea Nitrogen 22 mg/dL (9-23); Carbon Dioxide 27 mmol/L (20-31); Chloride 103 mmol/L (98-107); Sodium 139 mmol/L (136-145); Total Protein 6.1 g/dL (5.7-8.2)
[2025-03-30 06:49] LABS: Glucose 130 mg/dL (74-106); Potassium 5.2 mmol/L (3.5-5.1)
--- NOTE | 2025-03-30 17:27 | DVHDS2 ---
Discharge Summary Date of Admission March 29, 2025 at 08:18 Date of Discharge: March 30, 2025 Labs/Diagnostic Data: Laboratory Results Test 03/30/25 11:44 03/30/25 05:39 03/29/25 09:35 03/29/25 00:01 POC Glucose 118 mg/dl (70-106) White Blood Count 7.5 10^3/uL (4.4-10.8) Red Blood Count 5.09 10^6/uL (4.5-5.90) Hemoglobin 15.5 g/dL (13.5-17.5) Hematocrit 45.8 % (41.0-53.0) Mean Corpuscular Volume 90.0 fL (80.0-100.0) Mean Corpuscular Hemoglobin 30.3 pg (28.0-32.0) Mean Corpuscular Hemoglobin Concent 33.7 g/dL (32.0-36.0) Red Cell Distribution Width 13.8 % (11.8-14.3) Platelet Count 190 10^3/uL (140-450) Mean Platelet Volume 7.9 fL (6.9-10.8) Neutrophils (%) (Auto) 66.5 % (37.0-80.0) Lymphocytes (%) (Auto) 19.6 % (10.0-50.0) Monocytes (%) (Auto) 10.1 % (0.0-12.0) Eosinophils (%) (Auto) 3.0 % (0.0-7.0) Basophils (%) (Auto) 0.8 % (0.0-2.0) Neutrophils # (Auto) 5.0 10 ^3/uL (1.6-8.6) Lymphocytes # (Auto) 1.5 10 ^3/uL (0.4-5.4) Monocytes # (Auto) 0.8 10 ^3/uL (0-1.3) Eosinophils # (Auto) 0.2 10 ^3/uL (0-0.8) Basophils # (Auto) 0.1 10 ^3/uL (0-0.2) Nucleated Red Blood Cells 0.0 % Sodium Level 139 mmol/L (136-145) Potassium Level 5.2 mmol/L (3.5-5.1) Chloride Level 103 mmol/L (98-107) Carbon Dioxide Level 27 mmol/L (20-31) Anion Gap 9 (5-15) Blood Urea Nitrogen 22 mg/dL (9-23) Creatinine 1.28 mg/dL (0.700-1.30) Glomerular Filtration Rate Calc 63 mL/min (>90) BUN/Creatinine Ratio 17.2 (10.0-20.0) Serum Glucose 130 mg/dL (74-106) Calcium Level 9.6 mg/dL (8.7-10.4) Total Bilirubin 0.7 mg/dL (0.2-1.0) Aspartate Amino Transferase (AST) 15 U/L (13-40) Alanine Aminotransferase (ALT) 24 U/L (7-40) Alkaline Phosphatase 63 U/L (46-116) Total Protein 6.1 g/dL (5.7-8.2) Albumin 4.2 g/dL (3.2-4.8) Hemoglobin A1c 5.8 % A1C (<5.7) Urine Color Light-brown (Yellow) Urine Clarity Turbid (Clear) Urine pH 6.0 (5.0-9.0) Urine Specific [place] 1.013 (1.001-1.035) Urine Protein 2+ (Negative) Urine Ketones Negative (Negative) Urine Blood 3+ /uL (Negative) Urine Nitrite Negative (Negative) Urine Bilirubin Negative (Negative) Urine Urobilinogen Normal mg/dL (Negative) Urine Leukocyte Esterase 3+ /uL (Negative) Urine RBC 1790 /hpf (0 - 3) Urine Microscopic WBC 337 /HPF (0-3) Urine Squamous Epithelial Cells None seen /hpf (<5) Urine Bacteria None seen /hpf (None Seen) Urine Hyaline Casts Few /lpf (0 - 2) Urine Mucus Few (None Seen) Urine Glucose 3+ mg/dL (Normal) Other Laboratory Tests 03/30/25 05:39 Brief Hx & Hospital Course: Dami Bailey is a 64-year-old male with past medical history of hypertension, diabetes, BPH, prostatectomy in February of 2025, and nephrolithotomy who presents to the ED with the urinary retention. Patient reports that he was here 2 weeks ago had of Alfaro catheter placed and sent home with. While at home he noticed that yesterday there was leakage when he was voiding and it would not drain into the bag as well as pus. Patient reports that he was not taught how to manage the Alfaro catheterization nor was there a home health RN. Patient also reports that he had blood clots that were dark. Patient also reports that he is currently living as a roommate with someone however he has been kicked out the Wednesday. Upon examination in the drainage bag dark tea color noted with no clots or hematuria. Patient also states that he has stopped taking his aspirin and blood thinners 2 weeks ago. Patient denies any leg pain, abdominal pain, nausea, vomiting, diarrhea, fever, chills, lightheadedness, weakness, dizziness, chest pain, or shortness of breath. Alfaro exchanged and no further hematuria Condition at Discharge: Good Final Diagnosis/Problems List hematuria Discharge Disposition: Home Discharge Instruct/Medications Diet: Regular Activity: No Restrictions, As Tolerated Follow Up/Referral: PCP in 7 days Medications: same home medications Discharge Statement: "Patient was advised to return to the ER or call 911 if any headaches, dizziness, shortness of breath, chest pain, abdominal pain, bleeding, fevers, or worsening of medical condition. Patient was counseled about treatment plan, medications, possible side effects, patientverbalized understanding. All questions were answered to the best of my ability. This discharge took greater then 30 minutes in planning, reviewing documentation, counseling the patient, and discussing with other team members." ASSESSMENT ASSESSMENT Assessment hematuria Date of Service: March 30, 2025 Billing Provider: LAKISHA DENNY MD Common Visit Codes: 32825-JBW/OBS DISCH DAY >30min LAKISHA DENNY MD March 30, 2025 17:27
== END 2025-03-30 17:15 | disposition home or self-care (01) | DRG 466 ==
LOC: ER 18:37 → OVERFLOW 03-29 08:18 → WEST WING 03-29 15:10
PROVIDERS: ADMIT Hospitalist; ATTEND Hospitalist
PROC: 0T2BX0Z Change Drainage Device in Bladder, External Approach (ICD-10-PCS; principal; 2025-03-29)
DX: T83.018A Breakdown (mechanical) of other urinary catheter, initial encounter (principal); N30.01 Acute cystitis with hematuria; E11.9 Type 2 diabetes mellitus without complications; I10 Essential (primary) hypertension; N40.1 Benign prostatic hyperplasia with lower urinary tract symptoms; Y73.8 Miscellaneous gastroenterology and urology devices associated with adverse incidents, not elsewhere classified; R79.89 Other specified abnormal findings of blood chemistry; Z90.79 Acquired absence of other genital organ(s); Z86.73 Personal history of transient ischemic attack (TIA), and cerebral infarction without residual deficits; Z83.3 Family history of diabetes mellitus; Z82.49 Family history of ischemic heart disease and other diseases of the circulatory system
CPT/HCPCS: 36415; 76775; 80053; 81001; 82962; 83036; 85025; 87081; G0378; J1815

== ENCOUNTER 2025-04-13 09:42 | Inpatient (IN) | payer MEDICAID ==
[~2025-04-13] VITALS: Ht 175.3 cm; Wt 86.6 kg
[~2025-04-13 09:42] MED LIST changes: +CYA100I IM; +NITR-87 PO; +SIMV10TA20 PO
[2025-04-13] MEDS: SODIUM CHLORIDE 0.9% 1,000 ML IV SCH (10:15)
[2025-04-13] MEDS ORDERED: ACETAMINOPHEN 325 MG TAB PO PRN (10:15)
[2025-04-13] MEDS ORDERED: DEXTROSE (50%) 50ML SYRG IV PRN (10:15)
[2025-04-13] MEDS ORDERED: HYDROcodone-ACET 5/325MG TAB PO PRN (10:15)
[2025-04-13] MEDS ORDERED: ONDANSETRON HCL 4 MG/2 ML VIAL IV PRN (10:15)
[2025-04-13] MEDS ORDERED: MORPHINE SULFATE INJ 2 MG/ml SYRG IV PRN ×2 (10:15)
[2025-04-13] MEDS ORDERED: NITROGLYCERIN 0.4 MG SL TAB SL PRN (10:15)
[2025-04-13] MEDS: CIPROFLOXACIN 400MG/200ML 200 ML IV ONE (10:26)
--- NOTE | 2025-04-13 10:31 | DVHHP2 ---
History of Present Illness Reason for Visit: gross hematuria History of Present Illness Dami Ruiz is a 64-year-old male with past medical history of diabetes, BPH and gross hematuria status post TURP with cystolitholapaxy on February 22, 2025 who presents to the clinic with being unable to void with a Alfaro placed. Patient will have a procedure with a urologist today possible TURP. Past Medical History BPH/bladder outlet obstruction Kidney stones Bladder stone Past Surgical History: Other (TURP) Review of Systems Genitourinary: Hematuria Allergies: Coded Allergies: NO KNOWN ALLERGIES (Unverified , 12/15/24) Medications Current Medications Medications Dose Ordered Sig/Tanesha Route Start Time Stop Time Status Last Admin Dose Admin Sodium Chloride 1,000 ml @ 60 mls/hr [id number] IV 04/13/25 10:15 UNV Acetaminophen/ Hydrocodone Bitart 1 tab Q4HP PRN PO 04/13/25 10:15 UNV Ondansetron HCl 4 mg Q4HP PRN IV 04/13/25 10:15 UNV Acetaminophen 650 mg Q6HP PRN PO 04/13/25 10:15 UNV Morphine Sulfate 2 mg Q4HPRN PRN IV 04/13/25 10:15 UNV Nitroglycerin 0.4 mg Q5MINP PRN SL 04/13/25 10:15 UNV Morphine Sulfate 2 mg Q30M PRN IV 04/13/25 10:15 UNV Assessment/Plan Assessment/Plan Assessment Gross hematuria with Alfaro in place S/P Cystoscopy with clot evacuation bladder stone removal and TURP BPH/bladder outlet obstruction Kidney stones Bladder stone History of BPH History of diabetes History of TURP with cystolitholapaxy Plan Admit to [facility] Labs ordered EKG baseline ordered Antiemetics Pain management IV fluids Hemoglobin A1c ISS and Accu-Cheks CT abdomen pelvis ordered by Urology Diet ordered by Urology Home medications reconciled DVT prophylaxis-not indicated patient ambulating PUD prophylaxis-not indicated no history of GERD or GI bleed Discussed plan of care with patient and nurse Plan discussed with: Other My Orders Orders - ROBBIN MARIE LASER TECHNICIAN Procedure Category Date Status Time Admit ADMIT 04/13/25 Transmitted 10:08 Allergies FATOU 04/13/25 In Process 10:08 Code Status CODE 04/13/25 Transmitted 10:08 Sodium Chloride 0.9% PHA 04/13/25 Logged 10:15 Hydrocodone-Acet PHA 04/13/25 Logged 5/325mg Tab ([place] 10:15 Ondansetron Hcl PHA 04/13/25 Logged (Zofran) 10:15 Complete Blood Count LAB 04/14/25 Verified 04:00 Comprehensive LAB 04/14/25 Verified Metabolic Panel 04:00 Acetaminophen Tablet PHA 04/13/25 Logged (Tylenol Tablet) 10:15 Morphine Sulfate PHA 04/13/25 Logged Injection 10:15 Sequential FATOU 04/13/25 In Process Compression Device Nitroglycerin PHA 04/13/25 Logged Sublingual (Ntrostat 10:15 Morphine Sulfate PHA 04/13/25 Logged Injection 10:15 Stat Ekg For Chest FATOU 04/13/25 In Process Pain 10:08 Notify Of Changes FATOU 04/13/25 In Process From Base 10:08 Chef Assistant For FATOU 04/13/25 In Process 24 Hours 10:08 Emergency Dysrhythmia FATOU 04/13/25 In Process Protocol 10:08 Rhythm Strips Once FATOU 04/13/25 In Process Every Shift 10:08 Oxygen By Nasal RT 04/13/25 Transmitted Cannula 10:08 Date of Service: April 13, 2025 Billing Provider: ROBBIN MARIE Common Visit Codes: [id number] INP/OBS CARE (HIGH) ROBBIN MARIE April 13, 2025 10:31
[2025-04-13 10:58] LABS: Basophils # (auto) 0.1 10 ^3/uL (0-0.2); Basophils % (auto) 1.1 % (0.0-2.0); Eosinophils # (auto) 0.1 10 ^3/uL (0-0.8); Eosinophils % (auto) 1.6 % (0.0-7.0); Hematocrit 45.6 % (41.0-53.0); Hemoglobin 15.4 g/dL (13.5-17.5); Lymphocytes # (auto) 1.3 10 ^3/uL (0.4-5.4); Lymphocytes % (auto) 18.7 % (10.0-50.0); Mean Corpuscular Hemoglobin 30.1 pg (28.0-32.0); Mean Corpuscular Hgb Conc. 33.7 g/dL (32.0-36.0); Mean Corpuscular Volume 89.1 fL (80.0-100.0); Monocytes # (auto) 0.5 10 ^3/uL (0-1.3); Neutrophils # (auto) 4.7 10 ^3/uL (1.6-8.6); Neutrophils % (auto) 70.6 % (37.0-80.0); Platelet Count (auto) 187 10^3/uL (140-450); Red Blood Cells 5.11 10^6/uL (4.5-5.90); Red Cell Distribution Width 13.8 % (11.8-14.3); White Blood Cell 6.7 10^3/uL (4.4-10.8)
[2025-04-13] MEDS ORDERED: fentaNYL CITRATE 100 MCG/2 ML VL ONE (11:07)
[2025-04-13] MEDS ORDERED: ONDANSETRON HCL 4 MG/2 ML VIAL ONE (11:08)
[2025-04-13] MEDS ORDERED: MIDAZOLAM HCL 2MG/2ML 2ml VIAL (1mg/ml) ONE (11:08)
[2025-04-13] MEDS ORDERED: PROPOFOL 10 MG/ML 20 ML IV ONE (11:08)
[2025-04-13] MEDS ORDERED: METOCLOPRAMIDE HCL 5MG/ml INJ 2ml VIAL ONE (11:08)
[2025-04-13] MEDS ORDERED: LIDOCAINE 2% (LOCAL ANESTH.) PF 5ml SDV ONE (11:08)
[2025-04-13 11:13] LABS: INR 1.04 (0.9-1.15); Partial Thromboplastin Time 26.8 SEC (24.5-34.5)
[2025-04-13 11:15] LABS: Alanine Aminotransferase 17 U/L (7-40); Albumin 4.4 g/dL (3.2-4.8); Alkaline Phosphatase 64 U/L (46-116); Anion Gap 6 (5-15); BUN/Creatinine Ratio 17.4 (10.0-20.0); Blood Urea Nitrogen 19 mg/dL (9-23); Carbon Dioxide 25 mmol/L (20-31); Sodium 141 mmol/L (136-145); Total Protein 6.7 g/dL (5.7-8.2)
[2025-04-13] MEDS ORDERED: HYDROmorphone HCL 2 MG/ML VL/or syr IV PRN (11:15)
[2025-04-13] MEDS: METOCLOPRAMIDE HCL 5MG/ml INJ 2ml VIAL IV ONE (11:15)
[2025-04-13] MEDS: ONDANSETRON HCL 4 MG/2 ML VIAL IV ONE (11:15)
[2025-04-13] MEDS ORDERED: MORPHINE SULFATE 4 MG/ML SYR/VIAL IV PRN ×2 (11:15)
[2025-04-13] MEDS ORDERED: hydrALAZINE HCL 20 MG/ML VL IV PRN (11:15)
[2025-04-13 11:16] LABS: Bilirubin, Total 0.7 mg/dL (0.2-1.0)
[2025-04-13 11:17] LABS: Aspartate Aminotransferase 13 U/L (13-40); Chloride 110 mmol/L (98-107); Glucose 125 mg/dL (74-106)
[2025-04-13] MEDS ORDERED: ePHEDrine SULFATE 50 MG/ML AMP ONE (11:19)
[2025-04-13] MEDS: ACCU-CHEK COMFORT CURVE STRIP VI SCH (11:30)
[2025-04-13] MEDS: InsuLIN REG 1unit/0.01ml Soln (100units/ml) SC SCH (11:30)
[2025-04-13] MEDS ORDERED: PHENYLEPHRINE HCL 10 MG/ML VL ONE (12:03)
[2025-04-13] MEDS ORDERED: HYDROmorphone HCL 2 MG/ML VL/or syr ONE (12:09)
[2025-04-13 12:43] VITALS: PULSE 78; RESP 14; O2SAT 97
--- NOTE | 2025-04-13 12:50 | DVHNC2 ---
Procedure - OPERATIVE REPORT Pre-op. Diagnosis: gross hematuria bladder calculi, status post laser litholapaxy urinary retention BPH Post-op. Diagnosis: Same as pre-op diagnosis Operation: Transurethral resection/vaporization of prostate gland (BUTTON) cystoscopy with clot evacuation and bladder stones removal Anesthesia: General Indications: Patient has symptomatic BPH with LUTs and bladder outlet obstruction. He underwent GreenLight laser prostatectomy with bladder stone removal one month earlier. He presented to the ER with urinary retention and catheter was placed. Now he has gross hematuria. The indications, risks, complications, alternatives and benefits of transurethral vaporization/resection of prostate gland are discussed with patient. All questions were encouraged and answered. He is aware of specific risk/complications including but not limited to infection, bleeding, urinary incontinence, impotence, retrograde ejaculation, recurrent scar formation (strictures) and possible need for additional therapy(-ies). He is also aware of the alternative of this procedure including conservative management, medical therapy, minimally invasive procedures such as TUNA, TUMT, Urolift, and other forms of prostatectomy such as laser enucleation and open simple prostatectomy. Patient is competent and understands the discussion. He elected to proceed. Details of Procedure: Button TURP: After administration of anesthesia in the lithotomy position, area of genitalia was prepped and draped in usual sterile fashion. The 26F resectoscope sheath is introduced into the bladder under direct vision. Multiple bladder stone fragments were seen and removed using grasping forceps. Clot evacuation was performed with the [employer] evacuator. Using the Olympus bipolar Button resecting element and NS irrigation, prostate gland was electrodesiccated in systematic fashion using the standard cautery settings from the bladder neck to verumontanum, taking care not to injure the external sphincter. The ureteric orifices are noted and avoided of any thermal injury. [address] Alfaro catheter is placed for postoperative irrigation and drainage of bladder. Patient tolerated the procedure well. He was awaken and taken to RR in stable condition. All instrument counts were correct at the end of the procedure. Specimens: The prostatic tissue specimens are sent to pathology for evaluation. Complications: None Findings: EBL: < 50ml Postop: CBI Discharge home when stable with Alfaro to leg bag DEMETRIUS MARIO MD April 13, 2025 12:50
--- NOTE | 2025-04-13 13:08 | DVHINCON2 ---
Date of service: April 13, 2025 Referring Physician Hospitalist Reason for Consultation Gross hematuria History of Present Illness Patient underwent bladder stone treatment with laser prostatectomy at [facility] on 02/22/25. Postoperatively he was in emergency room for urinary retention and Alfaro catheter was placed. He was seen in Urology Clinic yesterday and was scheduled to undergo CT scan and a cystoscopy. He presented today with gross hematuria. He is directly admitted to the hospitalist for urological procedure. He underwent cystoscopy with clot evacuation and bladder stones removal and transurethral prostatectomy today. He is now admitted for continuous bladder irrigation. I anticipate a discharge with Alfaro catheter to leg bag drainage when the urine is clear Past Medical History BPH Kidney stone Past Surgical History Status post laser prostatectomy and cysto litholapaxy on 02/22/2025 Family History: Patient reports no known family medical history. Allergies: Coded Allergies: NO KNOWN ALLERGIES (Unverified , 12/15/24) Home Meds Active Scripts Nitrofurantoin Monohydrate Mac (Macrobid) 100 Mg Cap, 100 MG PO BID for 10 Days, #20 CAP Prov:ELSA SERRA MD 03/28/25 Ciprofloxacin Hcl (Cipro) 500 Mg Tab, 1 TAB PO BID, #20 TAB Prov:FRIDA HELTON MD 03/16/25 Cefpodoxime Proxetil (Cefpodoxime Proxetil) 200 Mg Tab, 1 TAB PO BID for 10 Days, #20 TAB 0 Refills Prov:MILKA DAIGLE PATIENT SERVICE SPECIALIST 02/05/25 Metformin Hydrochloride (Metformin Hcl) 1,000 Mg Tab, 1 TAB PO BID, #180 TAB 1 Refill Prov:RUDDY GÓMEZ MD 01/11/25 Tamsulosin Hcl (Flomax) 0.4 Mg Cap, 1 CAP PO DAILY, #30 CAP 11 Refills Prov:RUDDY GÓMEZ MD 01/11/25 Ciprofloxacin Hcl (Cipro) 500 Mg Tab, 1 TAB PO BID, #20 TAB Prov:RUDDY GÓMEZ MD 01/11/25 Reported Medications Vitamin B12 (Vitamin B-12) 1,000 Mcg/1 Ml Ij, 1 ML IM 03/29/25 Simvastatin (Simvastatin) 10 Mg Tab, 1 TAB PO DAILY 03/29/25 Ergocalciferol (Vitamin D) 50,000 Unit Cap, 1 CAP PO QWEEKLY 12/15/24 Tamsulosin Hcl (Tamsulosin Hcl) 0.4 Mg Cap, 1 CAP PO DAILY 12/15/24 Aspirin (Aspirin Adult Low Dose) 81 Mg Tab, 1 TAB PO DAILY 12/15/24 Docusate Sodium (Docusate Sodium) 100 Mg Cap, 1 12/15/24 Atorvastatin Calcium (ATORVASTATIN CALCIUM) 40 Mg Tab, 40 MG PO DAILY 12/15/24 Lisinopril (Lisinopril) 20 Mg Tab, 1 DAILY 12/15/24 Current Medications Current Medications Medications (Trade) Dose Ordered Sig/Tanesha Route PRN Reason Start Time Stop Time Status Last Admin Sodium Chloride 1,000 ml @ 60 mls/hr [id number] IV 04/13/25 10:15 Acetaminophen/ Hydrocodone Bitart ([place] 5/325MG Tab) 1 tab Q4HP PRN PO MODERATE PAIN (4-6 PAIN SCALE) 04/13/25 10:15 Ondansetron HCl (Zofran) 4 mg Q4HP PRN IV NAUSEA / VOMITING 04/13/25 10:15 Acetaminophen (Tylenol Tablet) 650 mg Q6HP PRN PO PAIN SCALE 1-3 OR TEMP>100.4 04/13/25 10:15 Morphine Sulfate 2 mg Q4HPRN PRN IV SEVERE PAIN (7-10 PAIN SCALE) 04/13/25 10:15 UNV Nitroglycerin (Ntrostat Sublingual) 0.4 mg Q5MINP PRN SL FOR CHEST PAIN 04/13/25 10:15 Morphine Sulfate 2 mg Q30M PRN IV FOR CHEST PAIN 04/13/25 10:15 UNV Ergocalciferol (Vitamin D 50,000 Unit) 50,000 unit QWEEKLY PO 04/13/25 10:15 Lisinopril (Zestril Tablet) 20 mg DAILY PO 04/14/25 10:00 Tamsulosin HCl (Flomax) 0.4 mg DAILY PO 04/14/25 10:00 Cyanocobalamin (Vitamin B-12 Injection) 1,000 mcg QWEEKLY IM 04/13/25 10:15 Patient Own Medication 40 mg DAILY PO 04/14/25 10:00 UNV Diagnostic Test (Pha) (Accu-Chek Comfort Curve T) 1 strip ACHS 04/13/25 11:30 Insulin Human Regular (InsuLIN R) ACHS SC 04/13/25 11:30 Dextrose 50 ml UD PRN IV Blood Sugar LESS THAN 60 04/13/25 10:15 Hydralazine HCl (Apresoline Injection) 5 mg Q10M PRN IV SBP>160 04/13/25 11:15 04/13/25 12:06 DC Hydromorphone HCl (Dilaudid Injection) 0.5 mg Q10M PRN IV SEVERE PAIN (7-10 PAIN SCALE) 04/13/25 11:15 04/13/25 11:56 DC Morphine Sulfate 2 mg Q4HPRN PRN IV SEVERE PAIN (7-10 PAIN SCALE) 04/13/25 11:15 Morphine Sulfate 2 mg Q30M PRN IV for chest pain 04/13/25 11:15 Atorvastatin Calcium (Lipitor) 40 mg HS PO 04/13/25 22:00 Review of Systems Gross hematuria now resolved after surgery Vital Signs Vital Signs Date Time Temp Pulse Resp B/P (MAP) Pulse Ox O2 Delivery O2 Flow Rate FiO2 04/13/25 10:10 98.1 66 20 155/91 (112) 98 98.1 Physical Exam No acute distress Alfaro catheter with CBI in progress Labs/Diagnostic Data Labs Test 04/13/25 10:45 Range/Units White Blood Count 6.7 4.4-10.8 10^3/uL Red Blood Count 5.11 4.5-5.90 10^6/uL Hemoglobin 15.4 13.5-17.5 g/dL Hematocrit 45.6 41.0-53.0 % Mean Corpuscular Volume 89.1 80.0-100.0 fL Mean Corpuscular Hemoglobin 30.1 28.0-32.0 pg Mean Corpuscular Hemoglobin Concent 33.7 32.0-36.0 g/dL Red Cell Distribution Width 13.8 11.8-14.3 % Platelet Count 187 140-450 10^3/uL Mean Platelet Volume 7.8 6.9-10.8 fL Neutrophils (%) (Auto) 70.6 37.0-80.0 % Lymphocytes (%) (Auto) 18.7 10.0-50.0 % Monocytes (%) (Auto) 8.0 0.0-12.0 % Eosinophils (%) (Auto) 1.6 0.0-7.0 % Basophils (%) (Auto) 1.1 0.0-2.0 % Neutrophils # (Auto) 4.7 1.6-8.6 10 ^3/uL Lymphocytes # (Auto) 1.3 0.4-5.4 10 ^3/uL Monocytes # (Auto) 0.5 0-1.3 10 ^3/uL Eosinophils # (Auto) 0.1 0-0.8 10 ^3/uL Basophils # (Auto) 0.1 0-0.2 10 ^3/uL Nucleated Red Blood Cells 0.0 % Prothrombin Time 11.0 9.3-11.8 sec Prothrombin Time INR 1.04 0.9-1.15 Activated Partial Thromboplast Time 26.8 24.5-34.5 SEC Sodium Level 141 136-145 mmol/L Potassium Level 4.0 3.5-5.1 mmol/L Chloride Level 110 H 98-107 mmol/L Carbon Dioxide Level 25 20-31 mmol/L Anion Gap 6 5-15 Blood Urea Nitrogen 19 9-23 mg/dL Creatinine 1.09 0.700-1.30 mg/dL Glomerular Filtration Rate Calc 76 >90 mL/min BUN/Creatinine Ratio 17.4 10.0-20.0 Serum Glucose 125 H 74-106 mg/dL Calcium Level 10.0 8.7-10.4 mg/dL Total Bilirubin 0.7 0.2-1.0 mg/dL Aspartate Amino Transferase (AST) 13 13-40 U/L Alanine Aminotransferase (ALT) 17 7-40 U/L Alkaline Phosphatase 64 46-116 U/L Total Protein 6.7 5.7-8.2 g/dL Albumin 4.4 3.2-4.8 g/dL Assessment BPH/bladder outlet obstruction Kidney stones Bladder stone Plan/Recommendation Admitted for continuous bladder irrigation. This will be discontinued or titrated as indicated. CT scan abdomen and pelvis noncontrast study to re-evaluate his kidney stones Plan discussed with: Patient, Other DEMETRIUS MARIO MD April 13, 2025 13:08
[2025-04-13 17:00] VITALS: BP 163/77; PULSE 64; RESP 17; TEMP 97.3; O2SAT 98
--- NOTE | 2025-04-13 17:00 | DVH ---
Exam: CT CT AB PEL WO CON-NO ORAL OR IV History: kidney stones Comparison Study: CT CT AB PEL WO CON-NO ORAL OR IV on DOS: 01/02/25 TECHNIQUE: Multidetector CT of the abdomen and pelvis without IV contrast. Axial, coronal and sagitta l multiplanar reformats were obtained from the axial data set by the technologist. Radiation Dose Information: CT Dose: CTDI volume is 11.8 mGy. Dose-length product is 635.77 mGy*cm FINDINGS: Bibasilar atelectasis/ scarring. Partially visualized heart is unremarkable. Calcified granuloma within the liver. Otherwise, liver, spleen, gallbladder, pancreas and adrenal gl ands unremarkable. 1.6 cm exophytic right renal cyst with additional 1.4 cm right renal lower pole cyst. Otherwise, kid neys bilateral Ureters unremarkable. Urinary bladder is decompressed with Alfaro catheter in place. F oci of air within the urinary bladder which is most likely iatrogenic. There is fat stranding adjace nt to the urinary bladder. Previously noted urinary bladder calculi are not definitely appreciated on current study. Prostate is enlarged measuring 5 x 6.6 x 4.9 cm with foci of calcification. Stomach is unremarkable. Small bowel loops unremarkable. Appendix is unremarkable. Small to moderate amount of fecal material within the colon. No evidence of intraperitoneal free air or free fluid. No evidence of aortic aneurysm. [id number]-difpdypq atherosclerotic calcification of the aorta and bila teral iliacs. No significant lymphadenopathy. Small fat containing left inguinal hernia. Small fat containing umbilical hernia. No destructive osse ous lesions are noted. Moderate to severe degenerative changes of the lumbar spine. IMPRESSION: Alfaro catheter is noted within the decompressed urinary bladder. There is fat stranding adjacent to t he urinary bladder. Recommend correlation with urinalysis for possible cystitis. Enlarged prostate. Recommend correlation with PSA.
[2025-04-13 21:00] VITALS: BP 135/66; PULSE 71; RESP 20; TEMP 97.9; O2SAT 95
[2025-04-13] MEDS: ATORVASTATIN 20 MG TAB PO SCH (21:46)
[2025-04-14 01:00] VITALS: BP_SYST 124; BP_SYST 134; BP_DIAS 65; BP_DIAS 84; PULSE 62; PULSE 63; RESP 17; RESP 20; TEMP 98; TEMP 98.7; O2SAT 96; O2SAT 97
[2025-04-14 05:00] VITALS: BP 140/81; PULSE 64; RESP 20; TEMP 97.5; O2SAT 97
[2025-04-14 07:44] LABS: Basophils # (auto) 0 10 ^3/uL (0-0.2); Basophils % (auto) 0.5 % (0.0-2.0); Eosinophils # (auto) 0.1 10 ^3/uL (0-0.8); Eosinophils % (auto) 1.9 % (0.0-7.0); Hematocrit 41.9 % (41.0-53.0); Hemoglobin 14.2 g/dL (13.5-17.5); Lymphocytes # (auto) 1.1 10 ^3/uL (0.4-5.4); Lymphocytes % (auto) 14.3 % (10.0-50.0); Mean Corpuscular Hemoglobin 30.3 pg (28.0-32.0); Mean Corpuscular Volume 89.3 fL (80.0-100.0); Monocytes # (auto) 0.6 10 ^3/uL (0-1.3); Monocytes % (auto) 8.2 % (0.0-12.0); Neutrophils # (auto) 5.8 10 ^3/uL (1.6-8.6); Neutrophils % (auto) 75.1 % (37.0-80.0); Platelet Count (auto) 169 10^3/uL (140-450); Red Blood Cells 4.69 10^6/uL (4.5-5.90); Red Cell Distribution Width 13.5 % (11.8-14.3); White Blood Cell 7.7 10^3/uL (4.4-10.8)
[2025-04-14 07:51] LABS: Alanine Aminotransferase 12 U/L (7-40); Albumin 3.8 g/dL (3.2-4.8); Alkaline Phosphatase 56 U/L (46-116); Anion Gap 6 (5-15); BUN/Creatinine Ratio 18.3 (10.0-20.0); Bilirubin, Total 0.6 mg/dL (0.2-1.0); Blood Urea Nitrogen 17 mg/dL (9-23); Calcium 9.5 mg/dL (8.7-10.4); Carbon Dioxide 26 mmol/L (20-31); Glucose 93 mg/dL (74-106); Potassium 3.7 mmol/L (3.5-5.1); Sodium 140 mmol/L (136-145); Total Protein 5.8 g/dL (5.7-8.2)
[2025-04-14 07:52] LABS: Aspartate Aminotransferase 13 U/L (13-40); Chloride 108 mmol/L (98-107)
[2025-04-14 08:35] VITALS: BP 141/78; PULSE 69; RESP 18; TEMP 98.1; O2SAT 95
[2025-04-14] MEDS: TAMSULOSIN HYDROCHLORIDE 0.4 MG CAP PO SCH (09:33)
[2025-04-14] MEDS: LISINOPRIL 20 MG TAB PO SCH (09:35)
[2025-04-14] MEDS: ERGOCALCIFEROL 50,000 UNIT(1.25MG) CAP PO SCH (09:47)
[2025-04-14] MEDS: CYANOCOBALAMIN (B-12) 1000 MCG/1 ML VIAL IM SCH (09:54)
[2025-04-14] MEDS ORDERED: PATIENTS OWN MEDICATION (Atorvastatin Calcium 40 MG) PO SCH (10:00)
[2025-04-14 12:55] VITALS: BP 141/74; PULSE 78; RESP 16; TEMP 97.8; O2SAT 92
[2025-04-14 16:46] VITALS: BP 128/72; PULSE 71; RESP 17; TEMP 98.1; O2SAT 93
--- NOTE | 2025-04-14 17:42 | DVHPN2 ---
Subjective In bed resting Reviewed: H&P Changes from previous H/P or p: No Changes Genitourinary: Hematuria Objective Vitals Vital Signs Date Time Temp Pulse Resp B/P (MAP) Pulse Ox O2 Delivery O2 Flow Rate FiO2 04/14/25 16:46 98.1 71 17 128/72 (90) 93 98.1 04/14/25 07:45 Room Air* 0 21 Intake/Output Intake and Output 04/14/25 07:00 Intake Total 760 ml Output Total 7460 ml Balance -6700 ml Intake Oral 0 ml IV Total 760 ml Other 0 ml Output Urine Total 7460 ml General Appearance: Alert, Oriented X3 Lungs: Clear to auscultation Cardiovascular: Regular rate, Normal S1, Normal S2 Abdomen: Normal bowel sounds Medications Current Medications Medications Dose Ordered Sig/Tanesha Route Start Time Stop Time Status Last Admin Dose Admin Sodium Chloride 1,000 ml @ 60 mls/hr [id number] IV 04/13/25 10:15 04/14/25 07:00 60 MLS/HR Acetaminophen/ Hydrocodone Bitart 1 tab Q4HP PRN PO 04/13/25 10:15 Ondansetron HCl 4 mg Q4HP PRN IV 04/13/25 10:15 Acetaminophen 650 mg Q6HP PRN PO 04/13/25 10:15 Morphine Sulfate 2 mg Q4HPRN PRN IV 04/13/25 10:15 UNV Nitroglycerin 0.4 mg Q5MINP PRN SL 04/13/25 10:15 Morphine Sulfate 2 mg Q30M PRN IV 04/13/25 10:15 UNV Ergocalciferol 50,000 unit QWEEKLY PO 04/13/25 10:15 04/14/25 09:47 50,000 UNIT Lisinopril 20 mg DAILY PO 04/14/25 10:00 04/14/25 09:35 20 MG Tamsulosin HCl 0.4 mg DAILY PO 04/14/25 10:00 04/14/25 09:33 0.4 MG Cyanocobalamin 1,000 mcg QWEEKLY IM 04/13/25 10:15 04/14/25 09:54 1,000 MCG Patient Own Medication 40 mg DAILY PO 04/14/25 10:00 UNV Diagnostic Test (Pha) 1 strip ACHS 04/13/25 11:30 04/14/25 17:22 1 STRIP Insulin Human Regular ACHS SC 04/13/25 11:30 04/14/25 12:48 4 UNITS Dextrose 50 ml UD PRN IV 04/13/25 10:15 Morphine Sulfate 2 mg Q4HPRN PRN IV 04/13/25 11:15 Morphine Sulfate 2 mg Q30M PRN IV 04/13/25 11:15 Atorvastatin Calcium 40 mg HS PO 04/13/25 22:00 04/13/25 21:46 40 MG Laboratory Results Laboratory Tests 04/14/25 05:29 Chemistry Test 04/14/25 05:29 Albumin 3.8 g/dL (3.2-4.8) Calcium Level 9.5 mg/dL (8.7-10.4) Total Protein 5.8 g/dL (5.7-8.2) LFT Test 04/14/25 05:29 Alanine Aminotransferase (ALT) 12 U/L (7-40) Alkaline Phosphatase 56 U/L (46-116) Aspartate Amino Transferase (AST) 13 U/L (13-40) Total Bilirubin 0.6 mg/dL (0.2-1.0) Assessment/Plan Assessment/Plan Gross hematuria with Alfaro in place S/P Cystoscopy with clot evacuation bladder stone removal and TURP BPH/bladder outlet obstruction Kidney stones Bladder stone History of BPH History of diabetes History of TURP with cystolitholapaxy Monitor H and H Alfaro will be continued Plan discussed with: Patient Date of Service: April 14, 2025 Billing Provider: LAKISHA DENNY MD Common Visit Codes: [id number] INP/OBS CARE(HIGH) LAKISHA DENNY MD April 14, 2025 17:42
[2025-04-14 21:00] VITALS: BP 128/80; PULSE 75; RESP 18; TEMP 98.5; O2SAT 93
[2025-04-15 01:01] VITALS: BP 134/84; PULSE 62; RESP 17; TEMP 98.7; O2SAT 96
[2025-04-15 05:15] VITALS: BP 156/91; PULSE 60; RESP 17; TEMP 98; O2SAT 96
[2025-04-15 09:06] VITALS: BP 152/89; PULSE 66; RESP 20; TEMP 97.9; O2SAT 96
[2025-04-15 12:31] VITALS: BP 155/85; PULSE 73; RESP 18; TEMP 96.9; O2SAT 97
[2025-04-15 16:54] VITALS: BP 124/85; PULSE 90; RESP 21; TEMP 97.5; O2SAT 96
[2025-04-15 17:01] LABS: Urine Bacteria None Seen /hpf (None Seen)
[2025-04-15 17:25] LABS: Urine Blood 3+ /uL (Negative); Urine Clarity Turbid (Clear); Urine Color Colorless (Yellow); Urine Protein, UAD 1+ (Negative); Urine Squamous Epithelial Cell None Seen /hpf (<5); Urine Urobilinogen Normal (Negative); Urine WBC 25 /HPF (0-3)
--- NOTE | 2025-04-15 17:31 | DVHPN2 ---
Subjective In bed resting Reviewed: H&P Changes from previous H/P or p: No Changes Genitourinary: Hematuria Objective Vitals Vital Signs Date Time Temp Pulse Resp B/P (MAP) Pulse Ox O2 Delivery O2 Flow Rate FiO2 04/15/25 16:54 97.5 90 21 124/85 (98) 96 97.5 04/14/25 20:00 Room Air* 0 21 Intake/Output Intake and Output 04/15/25 07:00 Intake Total 2310 ml Output Total 93647 ml Balance -66893 ml Intake Oral 1650 ml IV Total 660 ml Output Urine Total 13792 ml # Bowel Movements 2 General Appearance: Alert, Oriented X3 Lungs: Clear to auscultation Cardiovascular: Regular rate, Normal S1, Normal S2 Abdomen: Normal bowel sounds Medications Current Medications Medications Dose Ordered Sig/Tanesha Route Start Time Stop Time Status Last Admin Dose Admin Sodium Chloride 1,000 ml @ 60 mls/hr [id number] IV 04/13/25 10:15 04/14/25 23:58 60 MLS/HR Acetaminophen/ Hydrocodone Bitart 1 tab Q4HP PRN PO 04/13/25 10:15 Ondansetron HCl 4 mg Q4HP PRN IV 04/13/25 10:15 Acetaminophen 650 mg Q6HP PRN PO 04/13/25 10:15 Morphine Sulfate 2 mg Q4HPRN PRN IV 04/13/25 10:15 UNV Nitroglycerin 0.4 mg Q5MINP PRN SL 04/13/25 10:15 Morphine Sulfate 2 mg Q30M PRN IV 04/13/25 10:15 UNV Ergocalciferol 50,000 unit QWEEKLY PO 04/13/25 10:15 04/14/25 09:47 50,000 UNIT Lisinopril 20 mg DAILY PO 04/14/25 10:00 04/15/25 09:45 20 MG Tamsulosin HCl 0.4 mg DAILY PO 04/14/25 10:00 04/15/25 09:44 0.4 MG Cyanocobalamin 1,000 mcg QWEEKLY IM 04/13/25 10:15 04/14/25 09:54 1,000 MCG Patient Own Medication 40 mg DAILY PO 04/14/25 10:00 UNV Diagnostic Test (Pha) 1 strip ACHS 04/13/25 11:30 04/15/25 12:48 1 STRIP Insulin Human Regular ACHS SC 04/13/25 11:30 04/15/25 12:48 4 UNITS Dextrose 50 ml UD PRN IV 04/13/25 10:15 Morphine Sulfate 2 mg Q4HPRN PRN IV 04/13/25 11:15 Morphine Sulfate 2 mg Q30M PRN IV 04/13/25 11:15 Atorvastatin Calcium 40 mg HS PO 04/13/25 22:00 04/14/25 21:52 40 MG Laboratory Results Laboratory Tests 04/14/25 05:29 Urinalysis Test 04/15/25 16:01 Urine Color Colorless (Yellow) Urine Clarity Turbid (Clear) H Urine pH 6.0 (5.0-9.0) Urine Specific [place] 1.010 (1.001-1.035) Urine Protein 1+ (Negative) H Urine Ketones Negative (Negative) Urine Blood 3+ /uL (Negative) H Urine Nitrite Negative (Negative) Urine Bilirubin Negative (Negative) Urine Urobilinogen Normal mg/dL (Negative) Urine Leukocyte Esterase 1+ /uL (Negative) Urine RBC 1591 /hpf (0 - 3) Urine Microscopic WBC 25 /HPF (0-3) H Urine Squamous Epithelial Cells None seen /hpf (<5) Urine Bacteria None seen /hpf (None Seen) Urine Glucose 1+ mg/dL (Normal) H Assessment/Plan Assessment/Plan Gross hematuria with Alfaro in place S/P Cystoscopy with clot evacuation bladder stone removal and TURP BPH/bladder outlet obstruction Kidney stones Bladder stone History of BPH History of diabetes History of TURP with cystolitholapaxy Monitor H and H Alfaro will be continued Plan discussed with: Patient My Orders Orders - LAKISHA DENNY MD Procedure Category Date Status Time Consistent DIET 04/15/25 [facility]mitted [facility] Lunch Date of Service: Apr 15, 2025 Billing Provider: LAKISHA DENNY MD Common Visit Codes: [id number] INP/OBS CARE(HIGH) LAKISHA DENNY MD Apr 15, 2025 17:31
[2025-04-15 21:00] VITALS: BP 149/50; PULSE 73; RESP 18; TEMP 97.6; O2SAT 97
[2025-04-16] VITALS (8 sets, daily range): BP systolic 121–168; BP diastolic 79–91; PULSE 61–75; RESP 16–19; TEMP 97.3–98.6; O2SAT 94–96
--- NOTE | 2025-04-16 14:22 | DVHPN2 ---
Reviewed: H&P Changes from previous H/P or p: No Changes Genitourinary: Hematuria Objective Vitals Vital Signs Date Time Temp Pulse Resp B/P (MAP) Pulse Ox O2 Delivery O2 Flow Rate FiO2 04/16/25 13:03 97.6 61 17 168/84 (112) 96 97.6 04/15/25 20:00 Room Air* 0 21 Intake/Output Intake and Output 04/16/25 07:00 Intake Total 1980 ml Output Total 7975 ml Balance -5995 ml Intake Oral 1980 ml Output Urine Total 7975 ml # Bowel Movements 4 General Appearance: Alert, Oriented X3 Lungs: Clear to auscultation Cardiovascular: Regular rate, Normal S1, Normal S2 Abdomen: Normal bowel sounds Medications Current Medications Medications Dose Ordered Sig/Tanesha Route Start Time Stop Time Status Last Admin Dose Admin Sodium Chloride 1,000 ml @ 60 mls/hr [id number] IV 04/13/25 10:15 04/14/25 23:58 60 MLS/HR Acetaminophen/ Hydrocodone Bitart 1 tab Q4HP PRN PO 04/13/25 10:15 Ondansetron HCl 4 mg Q4HP PRN IV 04/13/25 10:15 Acetaminophen 650 mg Q6HP PRN PO 04/13/25 10:15 Morphine Sulfate 2 mg Q4HPRN PRN IV 04/13/25 10:15 UNV Nitroglycerin 0.4 mg Q5MINP PRN SL 04/13/25 10:15 Morphine Sulfate 2 mg Q30M PRN IV 04/13/25 10:15 UNV Ergocalciferol 50,000 unit QWEEKLY PO 04/13/25 10:15 04/14/25 09:47 50,000 UNIT Lisinopril 20 mg DAILY PO 04/14/25 10:00 04/16/25 10:15 20 MG Tamsulosin HCl 0.4 mg DAILY PO 04/14/25 10:00 04/16/25 10:14 0.4 MG Cyanocobalamin 1,000 mcg QWEEKLY IM 04/13/25 10:15 04/14/25 09:54 1,000 MCG Patient Own Medication 40 mg DAILY PO 04/14/25 10:00 UNV Diagnostic Test (Pha) 1 strip ACHS 04/13/25 11:30 04/16/25 11:30 1 STRIP Insulin Human Regular ACHS SC 04/13/25 11:30 04/16/25 06:52 2 UNITS Dextrose 50 ml UD PRN IV 04/13/25 10:15 Morphine Sulfate 2 mg Q4HPRN PRN IV 04/13/25 11:15 Morphine Sulfate 2 mg Q30M PRN IV 04/13/25 11:15 Atorvastatin Calcium 40 mg HS PO 04/13/25 22:00 04/15/25 22:18 40 MG Laboratory Results Laboratory Tests 04/14/25 05:29 Urinalysis Test 04/15/25 16:01 Urine Color Colorless (Yellow) Urine Clarity Turbid (Clear) H Urine pH 6.0 (5.0-9.0) Urine Specific [place] 1.010 (1.001-1.035) Urine Protein 1+ (Negative) H Urine Ketones Negative (Negative) Urine Blood 3+ /uL (Negative) H Urine Nitrite Negative (Negative) Urine Bilirubin Negative (Negative) Urine Urobilinogen Normal mg/dL (Negative) Urine Leukocyte Esterase 1+ /uL (Negative) Urine RBC 1591 /hpf (0 - 3) Urine Microscopic WBC 25 /HPF (0-3) H Urine Squamous Epithelial Cells None seen /hpf (<5) Urine Bacteria None seen /hpf (None Seen) Urine Glucose 1+ mg/dL (Normal) H Labs and/or images reviewed: Labs reviewed by me, Image(s) reviewed by me Assessment/Plan Assessment/Plan Gross hematuria with Alfaro in place S/P Cystoscopy with clot evacuation bladder stone removal and TURP BPH/bladder outlet obstruction Kidney stones Bladder stone History of BPH History of diabetes History of TURP with cystolitholapaxy Plan discussed with: Patient Date of Service: Apr 16, 2025 Billing Provider: RUDDY GÓMEZ MD Common Visit Codes: [id number] INP/OBS CARE(HIGH) RUDDY GÓMEZ MD Apr 16, 2025 14:22
--- NOTE | 2025-04-16 16:59 | DVH ---
Indication: for evidence of rsolution of kidney stones Technique: CT axial images of the abdomen and pelvis are obtained without contrast. Coronal and sagit tonio reformats were obtained. Radiation Dose Information: CTDI volume is 14.38 mGy. Dose-length product is 931.2 mGy*cm Comparison: 04/13/2025 FINDINGS: There is limited interpretation of the abdomen and pelvis without administration of intravenous contr ast. Lung bases demonstrate 4 mm right middle lobe pulmonary nodule. Enlargement of the ascending aorta measuring 4.1 x 4.2 cm. Coronary artery calcification disease. Adrenal glands, spleen, pancreas unremarkable in shape. Liver unremarkable in shape. No CT evidence f or cholelithiasis. There is no CT evidence for hydronephrosis/ nephrolithiasis. Stomach is moderately distended. Small bowel loops are normal in caliber. Colonic diverticula. Normal appendix. Abdominal aortic atherosclerotic disease. Severe bladder wall thickening with surrounding stranding. Bladder decompressed by Alfaro catheter. Small subcentimeter lymph nodes surrounding the bladder. The prostate measures 7 cm transversely. Presacral edema No inguinal lymphadenopathy. Moderate bilateral sacroiliac degenerative joint disease. Moderate to advanced lumbar degenerative disc disease and facet hypertrophic changes. IMPRESSION: 1. Severe bladder wall thickening with surrounding stranding, likely representing cystitis. Other co nsiderations include bladder neoplasm, outlet obstruction, neurogenic bladder.No obstructing 2. Calculus identified. No hydronephrosis /nephrolithiasis identified. 3. Prostatomegaly. Correlate with PSA levels. Correlate clinically to exclude prostatitis 4. Atherosclerotic, coronary calcific calcification disease. 5. Enlargement of the ascending aorta measuring 4.2 cm. Recommend thoracic surgery consultation for further evaluation. 6. A 4 mm right middle lobe pulmonary nodule. Recommend follow-up per Fleischner society criteria. 7. Other findings as described.
[2025-04-17 01:00] VITALS: BP 131/78; PULSE 69; RESP 18; TEMP 97.6; O2SAT 94
[2025-04-17 05:00] VITALS: BP 131/73; PULSE 57; RESP 19; TEMP 97.7; O2SAT 96
[2025-04-17 07:07] LABS: Basophils # (auto) 0 10 ^3/uL (0-0.2); Basophils % (auto) 0.5 % (0.0-2.0); Eosinophils # (auto) 0.4 10 ^3/uL (0-0.8); Hematocrit 46.1 % (41.0-53.0); Hemoglobin 15.7 g/dL (13.5-17.5); Lymphocytes # (auto) 1.4 10 ^3/uL (0.4-5.4); Lymphocytes % (auto) 19.1 % (10.0-50.0); Mean Corpuscular Hemoglobin 30.5 pg (28.0-32.0); Mean Corpuscular Hgb Conc. 34.1 g/dL (32.0-36.0); Mean Corpuscular Volume 89.6 fL (80.0-100.0); Monocytes # (auto) 0.7 10 ^3/uL (0-1.3); Monocytes % (auto) 10.3 % (0.0-12.0); Neutrophils # (auto) 4.7 10 ^3/uL (1.6-8.6); Neutrophils % (auto) 65.1 % (37.0-80.0); Nucleated Red Blood Cells % 0.1 %; Platelet Count (auto) 147 10^3/uL (140-450); Red Blood Cells 5.14 10^6/uL (4.5-5.90); Red Cell Distribution Width 13.8 % (11.8-14.3); White Blood Cell 7.2 10^3/uL (4.4-10.8)
[2025-04-17 08:00] VITALS: PULSE 67; RESP 16; O2SAT 94
[2025-04-17 09:00] VITALS: BP 132/87; PULSE 67; RESP 16; TEMP 97.9; O2SAT 94
--- NOTE | 2025-04-17 09:25 | DVHPN2 ---
Reviewed: H&P Changes from previous H/P or p: No Changes Genitourinary: Hematuria Objective Vitals Vital Signs Date Time Temp Pulse Resp B/P (MAP) Pulse Ox O2 Delivery O2 Flow Rate FiO2 04/17/25 05:00 97.7 57 19 131/73 (92) 96 97.7 04/16/25 20:00 Room Air* 0 21 Intake/Output Intake and Output 04/17/25 07:00 Intake Total 1320 ml Output Total 1850 ml Balance -530 ml Intake Oral 1320 ml Output Urine Total 1850 ml # Bowel Movements 1 General Appearance: Alert, Oriented X3 Lungs: Clear to auscultation Cardiovascular: Regular rate, Normal S1, Normal S2 Abdomen: Normal bowel sounds Medications Current Medications Medications Dose Ordered Sig/Tanesha Route Start Time Stop Time Status Last Admin Dose Admin Sodium Chloride 1,000 ml @ 60 mls/hr [id number] IV 04/13/25 10:15 04/14/25 23:58 60 MLS/HR Acetaminophen/ Hydrocodone Bitart 1 tab Q4HP PRN PO 04/13/25 10:15 Ondansetron HCl 4 mg Q4HP PRN IV 04/13/25 10:15 Acetaminophen 650 mg Q6HP PRN PO 04/13/25 10:15 Morphine Sulfate 2 mg Q4HPRN PRN IV 04/13/25 10:15 UNV Nitroglycerin 0.4 mg Q5MINP PRN SL 04/13/25 10:15 Morphine Sulfate 2 mg Q30M PRN IV 04/13/25 10:15 UNV Ergocalciferol 50,000 unit QWEEKLY PO 04/13/25 10:15 04/14/25 09:47 50,000 UNIT Lisinopril 20 mg DAILY PO 04/14/25 10:00 04/16/25 10:15 20 MG Tamsulosin HCl 0.4 mg DAILY PO 04/14/25 10:00 04/16/25 10:14 0.4 MG Cyanocobalamin 1,000 mcg QWEEKLY IM 04/13/25 10:15 04/14/25 09:54 1,000 MCG Patient Own Medication 40 mg DAILY PO 04/14/25 10:00 UNV Diagnostic Test (Pha) 1 strip ACHS 04/13/25 11:30 04/17/25 07:04 1 STRIP Insulin Human Regular ACHS SC 04/13/25 11:30 04/16/25 21:42 4 UNITS Dextrose 50 ml UD PRN IV 04/13/25 10:15 Morphine Sulfate 2 mg Q4HPRN PRN IV 04/13/25 11:15 Morphine Sulfate 2 mg Q30M PRN IV 04/13/25 11:15 Atorvastatin Calcium 40 mg HS PO 04/13/25 22:00 04/16/25 21:30 40 MG Laboratory Results Laboratory Tests 04/14/25 05:29 04/17/25 05:06 Urinalysis Test 04/15/25 16:01 Urine Color Colorless (Yellow) Urine Clarity Turbid (Clear) H Urine pH 6.0 (5.0-9.0) Urine Specific [place] 1.010 (1.001-1.035) Urine Protein 1+ (Negative) H Urine Ketones Negative (Negative) Urine Blood 3+ /uL (Negative) H Urine Nitrite Negative (Negative) Urine Bilirubin Negative (Negative) Urine Urobilinogen Normal mg/dL (Negative) Urine Leukocyte Esterase 1+ /uL (Negative) Urine RBC 1591 /hpf (0 - 3) Urine Microscopic WBC 25 /HPF (0-3) H Urine Squamous Epithelial Cells None seen /hpf (<5) Urine Bacteria None seen /hpf (None Seen) Urine Glucose 1+ mg/dL (Normal) H Labs and/or images reviewed: Labs reviewed by me, Image(s) reviewed by me Assessment/Plan Assessment/Plan Gross hematuria with Alfaro in place S/P Cystoscopy with clot evacuation bladder stone removal and trans urethral resection/vaporization of prostate gland by Urology Dr. Solitario BPH/bladder outlet obstruction Kidney stones Bladder stone History of BPH History of diabetes History of TURP with cystolitholapaxy Plan discussed with: Patient My Orders Orders - RUDDY GÓMEZ MD Procedure Category Date Status Time Ct Ab Pel Wo Con-No CT 04/16/25 Resulted Oral Or Iv 14:16 Date of Service: Apr 17, 2025 Billing Provider: RUDDY GÓMEZ MD Common Visit Codes: [id number] INP/OBS CARE(HIGH) RUDDY GÓMEZ MD Apr 17, 2025 09:25
--- NOTE | 2025-04-17 12:29 | DVHPN2 ---
Progress Note - Dictate Date Seen: Apr 17, 2025 Medical Necessity Reason Pt with a Central, PICC or Fol: Yes The following are medically ne: Muir Catheter Reason for muir catheter: Bladder Retention/Obstruc Medical Necessity Reason CBI Subjective POD #4 Transurethral resection/vaporization of prostate gland (BUTTON), cystoscopy with clot evacuation and bladder stones removal. CBI stopped yesterday. vital signs Vital Sign Date Time Temp Pulse Resp B/P (MAP) Pulse Ox O2 Delivery O2 Flow Rate FiO2 04/17/25 09:34 132/87 04/17/25 09:00 97.9 67 16 94 97.9 04/16/25 20:00 Room Air* 0 21 Total Intake and Output 04/16/25 04/16/25 04/17/25 15:00 23:00 07:00 Intake Total 1120 ml 200 ml Output Total 250 ml 1600 ml Balance 870 ml -1400 ml medications Current Medications Medications Dose Ordered Sig/Tanesha Route Start Time Stop Time Status Last Admin Dose Admin Sodium Chloride 1,000 ml @ 60 mls/hr [id number] IV 04/13/25 10:15 04/14/25 23:58 60 MLS/HR Acetaminophen/ Hydrocodone Bitart 1 tab Q4HP PRN PO 04/13/25 10:15 Ondansetron HCl 4 mg Q4HP PRN IV 04/13/25 10:15 Acetaminophen 650 mg Q6HP PRN PO 04/13/25 10:15 Morphine Sulfate 2 mg Q4HPRN PRN IV 04/13/25 10:15 UNV Nitroglycerin 0.4 mg Q5MINP PRN SL 04/13/25 10:15 Morphine Sulfate 2 mg Q30M PRN IV 04/13/25 10:15 UNV Ergocalciferol 50,000 unit QWEEKLY PO 04/13/25 10:15 04/14/25 09:47 50,000 UNIT Lisinopril 20 mg DAILY PO 04/14/25 10:00 04/17/25 09:34 20 MG Tamsulosin HCl 0.4 mg DAILY PO 04/14/25 10:00 04/17/25 09:33 0.4 MG Cyanocobalamin 1,000 mcg QWEEKLY IM 04/13/25 10:15 04/14/25 09:54 1,000 MCG Patient Own Medication 40 mg DAILY PO 04/14/25 10:00 UNV Diagnostic Test (Pha) 1 strip ACHS 04/13/25 11:30 04/17/25 11:58 1 STRIP Insulin Human Regular ACHS SC 04/13/25 11:30 04/17/25 11:59 3 UNITS Dextrose 50 ml UD PRN IV 04/13/25 10:15 Morphine Sulfate 2 mg Q4HPRN PRN IV 04/13/25 11:15 Morphine Sulfate 2 mg Q30M PRN IV 04/13/25 11:15 Atorvastatin Calcium 40 mg HS PO 04/13/25 22:00 04/16/25 21:30 40 MG laboratory and microbiology Laboratory Tests 04/17/25 05:06 04/14/25 05:29 Test 04/14/25 05:29 Range/Units Serum Glucose 93 74-106 mg/dL Assessment/Plan d/c with muir to leg bag. f/u in clinic for voiding trial. Problems(with codes): (1) Indwelling catheter replaced (2) Hematuria Prognosis good Dietary Evaluation Review Comments: Follow CCHO-60 diet Expected Outcomes/Goals: Controlled DM, prevent comrobidities Plan discussed with: Patient, Spouse, Other Total Time (mins): 22 MCKENNA TILLMAN NP Apr 17, 2025 12:29
[2025-04-17 13:00] VITALS: BP 129/82; PULSE 68; RESP 16; TEMP 97.1; O2SAT 93
--- NOTE | 2025-04-17 13:35 | DVHDS2 ---
Discharge Summary Date of Admission April 13, 2025 at 10:19 Date of Discharge: Apr 17, 2025 Admitting Diagnosis Urinary obstruction and hematuria Wounds: Syncope TURP Labs/Diagnostic Data: Laboratory Results Test 04/17/25 11:15 04/17/25 05:06 04/15/25 16:01 04/14/25 05:29 POC Glucose 184 mg/dl (70-106) White Blood Count 7.2 10^3/uL (4.4-10.8) Red Blood Count 5.14 10^6/uL (4.5-5.90) Hemoglobin 15.7 g/dL (13.5-17.5) Hematocrit 46.1 % (41.0-53.0) Mean Corpuscular Volume 89.6 fL (80.0-100.0) Mean Corpuscular Hemoglobin 30.5 pg (28.0-32.0) Mean Corpuscular Hemoglobin Concent 34.1 g/dL (32.0-36.0) Red Cell Distribution Width 13.8 % (11.8-14.3) Platelet Count 147 10^3/uL (140-450) Mean Platelet Volume 8.3 fL (6.9-10.8) Neutrophils (%) (Auto) 65.1 % (37.0-80.0) Lymphocytes (%) (Auto) 19.1 % (10.0-50.0) Monocytes (%) (Auto) 10.3 % (0.0-12.0) Eosinophils (%) (Auto) 5.0 % (0.0-7.0) Basophils (%) (Auto) 0.5 % (0.0-2.0) Neutrophils # (Auto) 4.7 10 ^3/uL (1.6-8.6) Lymphocytes # (Auto) 1.4 10 ^3/uL (0.4-5.4) Monocytes # (Auto) 0.7 10 ^3/uL (0-1.3) Eosinophils # (Auto) 0.4 10 ^3/uL (0-0.8) Basophils # (Auto) 0 10 ^3/uL (0-0.2) Nucleated Red Blood Cells 0.1 % Urine Color Colorless (Yellow) Urine Clarity Turbid (Clear) Urine pH 6.0 (5.0-9.0) Urine Specific [place] 1.010 (1.001-1.035) Urine Protein 1+ (Negative) Urine Ketones Negative (Negative) Urine Blood 3+ /uL (Negative) Urine Nitrite Negative (Negative) Urine Bilirubin Negative (Negative) Urine Urobilinogen Normal mg/dL (Negative) Urine Leukocyte Esterase 1+ /uL (Negative) Urine RBC 1591 /hpf (0 - 3) Urine Microscopic WBC 25 /HPF (0-3) Urine Squamous Epithelial Cells None seen /hpf (<5) Urine Bacteria None seen /hpf (None Seen) Urine Glucose 1+ mg/dL (Normal) Sodium Level 140 mmol/L (136-145) Potassium Level 3.7 mmol/L (3.5-5.1) Chloride Level 108 mmol/L (98-107) Carbon Dioxide Level 26 mmol/L (20-31) Anion Gap 6 (5-15) Blood Urea Nitrogen 17 mg/dL (9-23) Creatinine 0.93 mg/dL (0.700-1.30) Glomerular Filtration Rate Calc 92 mL/min (>90) BUN/Creatinine Ratio 18.3 (10.0-20.0) Serum Glucose 93 mg/dL (74-106) Calcium Level 9.5 mg/dL (8.7-10.4) Total Bilirubin 0.6 mg/dL (0.2-1.0) Aspartate Amino Transferase (AST) 13 U/L (13-40) Alanine Aminotransferase (ALT) 12 U/L (7-40) Alkaline Phosphatase 56 U/L (46-116) Total Protein 5.8 g/dL (5.7-8.2) Albumin 3.8 g/dL (3.2-4.8) Test 04/13/25 11:50 04/13/25 10:45 Prothrombin Time 11.0 sec (9.3-11.8) Prothrombin Time INR 1.04 (0.9-1.15) Activated Partial Thromboplast Time 26.8 SEC (24.5-34.5) Other Laboratory Tests 04/17/25 05:06 04/14/25 05:29 Brief Hx & Hospital Course: With a history of BPH diabetes kidney stones bladder stones underwent cystoscopy with evacuation of clots in the bladder, stone removal and Transurethral resection/vaporization of prostate gland by Urology Dr. Solitario. Patient had continuous bladder irrigation in the hospital and cleared for discharge by Urology he will follow up with the Urology in three days. Sent home with Alfaro with leg bag. Consults/Reason for consult Urology Operations or Procedures TURP cystoscopy Condition at Discharge: Fair Final Diagnosis/Problems List Gross hematuria with Alfaro in place S/P Cystoscopy with clot evacuation bladder stone removal and trans urethral resection/vaporization of prostate gland by Urology Dr. Solitario BPH/bladder outlet obstruction Kidney stones Bladder stone History of BPH History of diabetes History of TURP with cystolitholapaxy Discharge Disposition: Home Discharge Instruct/Medications Diet: Regular Activity: Light activity Follow Up/Referral: Follow up with the Urology Dr. Solitario Continue all your previous home meds Medications: Continue all your previous home meds 35 (Time taken for discharge summary 35 minutes) Discharge Statement: "Patient was advised to return to the ER or call 911 if any headaches, dizziness, shortness of breath, chest pain, abdominal pain, bleeding, fevers, or worsening of medical condition. Patient was counseled about treatment plan, medications, possible side effects, patientverbalized understanding. All questions were answered to the best of my ability. This discharge took greater then 30 minutes in planning, reviewing documentation, counseling the patient, and discussing with other team members." ASSESSMENT ASSESSMENT Hospital Course Improved Assessment Gross hematuria with Alfaro in place S/P Cystoscopy with clot evacuation bladder stone removal and trans urethral resection/vaporization of prostate gland by Urology Dr. Solitario BPH/bladder outlet obstruction Kidney stones Bladder stone History of BPH History of diabetes History of TURP with cystolitholapaxy Date of Service: Apr 17, 2025 Billing Provider: RUDDY GÓMEZ MD Common Visit Codes: [id number] INP/OBS CARE(HIGH) RUDDY GÓMEZ MD Apr 17, 2025 13:35
[2025-04-17 15:10] VITALS: BP 132/87; PULSE 80; RESP 16; TEMP 97.8; O2SAT 99
== END 2025-04-17 15:45 | disposition home or self-care (01) | DRG 482 ==
LOC: OVERFLOW 10:19 → CENTRAL 15:27
PROVIDERS: ADMIT Family Medicine; ATTEND Family Medicine
PROC: 0TCB8ZZ Extirpation of Matter from Bladder, Via Natural or Artificial Opening Endoscopic (ICD-10-PCS; 2025-04-13)
PROC: 0V508ZZ Destruction of Prostate, Via Natural or Artificial Opening Endoscopic (ICD-10-PCS; principal; 2025-04-13 11:07)
DX: N40.1 Benign prostatic hyperplasia with lower urinary tract symptoms (principal); N13.8 Other obstructive and reflux uropathy; E11.9 Type 2 diabetes mellitus without complications; N20.0 Calculus of kidney; N21.0 Calculus in bladder; R31.0 Gross hematuria; Z90.79 Acquired absence of other genital organ(s); Z87.442 Personal history of urinary calculi
CPT/HCPCS: 36415; 74176; 80053; 81001; 82360; 82962; 85025; 85610; 85730; A4344; G0378; J1815; J2003; J2250; J2405; J2704

== ENCOUNTER 2025-07-24 07:48 | Outpatient (CLI) | payer MEDICAID | END 2025-07-24 17:00 | disposition home or self-care (01) | LOC: LAB 07:48 | PROVIDERS: ATTEND Urology | DX: N40.0 Benign prostatic hyperplasia without lower urinary tract symptoms (principal) | CPT/HCPCS: 84153 ==

== ENCOUNTER 2025-09-03 11:27 | Emergency (ER) | payer MEDICAID ==
[~2025-09-03] VITALS: Ht 177.8 cm; Wt 92.3 kg
[2025-09-03 11:28] VITALS: BP 188/106; PULSE 94; RESP 15; TEMP 98; O2SAT 98
[2025-09-03 12:18] LABS: Hematocrit 51.0 % (41.0-53.0); Hemoglobin 17.1 g/dL (13.5-17.5); Mean Corpuscular Hemoglobin 29.7 pg (28.0-32.0); Mean Corpuscular Volume 88.5 fL (80.0-100.0); Nucleated Red Blood Cells % 0.2 %
--- NOTE | 2025-09-03 12:25 | ED.PDOC ---
General HPI Comments 64-year-old male presents to the ER with a chief complaint of a hematuria. Patient reports that he was recently diagnosed with a DVT to the left lower extremity, and was prescribed eliquis 7 days ago by his PCP. Patient had right lower extremity discomfort associated with the hematuria yesterday but stopped today. The patient has no symptoms at this time. Denies any other symptoms at this time. Denies fevers chills night sweats Denies pelvic pain Denies nausea vomiting diarrhea Denies dysuria urgency frequency Denies history of UTI Denies recent instruments/toys and urethra Denies current tobacco use Denies family history of prostate issues Chief Complaint: Urinary Time Seen by MD: 12:20 Primary Care Provider: JUAN Reviewed notes: Nurses Notes, Medications, Allergies Allergies: Coded Allergies: NO KNOWN ALLERGIES (Unverified , 12/15/24) Home Meds Active Scripts Nitrofurantoin Monohydrate Mac (Macrobid) 100 Mg Cap, 100 MG PO BID for 10 Days, #20 CAP Prov:ELSA SERRA MD 03/28/25 Ciprofloxacin Hcl (Cipro) 500 Mg Tab, 1 TAB PO BID, #20 TAB Prov:FRIDA HELTON MD 03/16/25 Cefpodoxime Proxetil (Cefpodoxime Proxetil) 200 Mg Tab, 1 TAB PO BID for 10 Days, #20 TAB 0 Refills Prov:MILKA HUTCHISON NP 02/05/25 Metformin Hydrochloride (Metformin Hcl) 1,000 Mg Tab, 1 TAB PO BID, #180 TAB 1 Refill Prov:RUDDY GÓMEZ MD 01/11/25 Tamsulosin Hcl (Flomax) 0.4 Mg Cap, 1 CAP PO DAILY, #30 CAP 11 Refills Prov:RUDDY GÓMEZ MD 01/11/25 Ciprofloxacin Hcl (Cipro) 500 Mg Tab, 1 TAB PO BID, #20 TAB Prov:RUDDY GÓMEZ MD 01/11/25 Reported Medications Vitamin B12 (Vitamin B-12) 1,000 Mcg/1 Ml Ij, 1 ML IM 03/29/25 Simvastatin (Simvastatin) 10 Mg Tab, 1 TAB PO DAILY 03/29/25 Ergocalciferol (Vitamin D) 50,000 Unit Cap, 1 CAP PO QWEEKLY 12/15/24 Tamsulosin Hcl (Tamsulosin Hcl) 0.4 Mg Cap, 1 CAP PO DAILY 12/15/24 Aspirin (Aspirin Adult Low Dose) 81 Mg Tab, 1 TAB PO DAILY 12/15/24 Docusate Sodium (Docusate Sodium) 100 Mg Cap, 1 12/15/24 Atorvastatin Calcium (ATORVASTATIN CALCIUM) 40 Mg Tab, 40 MG PO DAILY 12/15/24 Lisinopril (Lisinopril) 20 Mg Tab, 1 DAILY 12/15/24 Information Source: Patient Mode of Arrival: Ambulatory Severity: Moderate Timing: Hours Duration: Since onset, Hours Prehospital treatment: None Onset: Spontaneous Symptoms: Hematuria History of: None Location: None Penile discharge: None associated signs and symptoms: Hematuria Past Medical History PAST MEDICAL HISTORY: CVA, DM, High Lipids, HTN, TN Past Medical History (Other): DVT Surgical History: Tonsillectomy Family History Family History: Reviewed,noncontributory to illness, Family hx of DM Social History Smoker: Non-Smoker Alcohol: Denies ETOH Use Drugs: Denies Drug Use Lives In: Home Constitutional: denies: chills, diaphoresis, fatigue, fever, malaise, sweats, weakness, others EENTM: denies: blurred vision, double vision, ear bleeding, ear discharge, ear drainage, ear pain, ear ringing, eye pain, eye redness, hearing loss, mouth pain, mouth swelling, nasal discharge, nose bleeding, nose congestion, nose pain, photophobia, tearing, throat pain, throat swelling, voice changes, others Respiratory: denies: cough, hemoptysis, orthopnea, SOB at rest, shortness of breath, SOB with excertion, stridor, wheezing, others Cardiovascular: denies: chest pain, dizzy spells, diaphoresis, Dyspnea on exertion, edema, irregular heart beat, left arm pain, lightheadedness, palpitations, PND, syncope, others Gastrointestinal: denies: abdomen distended, abdominal pain, blood streaked bowels, constipated, diarrhea, dysphagia, difficulty swallowing, hematemesis, melena, nausea, poor appetite, poor fluid intake, rectal bleeding, rectal pain, vomiting, others Genitourinary: reports: hematuria; denies: burning, dysuria, flank pain, frequency, incontinence, penile discharge, penile sore, pain, testicle pain, testicle swelling, urgency, others Neurological: denies: dizziness, fainting, headache, left sided numbness, left sided weakness, numbness, paresthesia, pre-existing deficit, right sided numbn ess, right sided weakness, seizure, speech problems, tingling, tremors, weakness, others Musculoskeletal: denies: back pain, gout, joint pain, joint swelling, muscle pain, muscle stiffness, neck pain, others Integumetry: denies: bruises, change in color, change in hair/nails, dryness, laceration, lesions, lumps, rash, wounds, others Allergic/Immunocompromised: denies: Difficulty Healing, Frequent Infections, Hives, Itching, others Hematologic/Lymphatic: denies: anemia, blood clots, easy bleeding, easy bruising, swollen glands, others Endocrine: denies: excessive hunger, excessive sweating, excessive thirst, excessive urination, flushing, intolerance to cold, intolerance to heat, unexplained weight gain, unexplained weight loss, others Psychiatric: denies: anxiety, bipolar disorder, depression, hopeless, panic disorder, schizophrenia, sleepless, suicidal, others All Other Systems: Reviewed and Negative Physical Exam General Appearance: No Apparent Distress, Normal HEENT: Normal ENT Inspection, Pharynx Normal, TMs Normal Neck: Full Range of Motion, Non-Tender, Normal, Normal Inspection Respiratory: Chest Non-Tender, Lungs Clear, No Accessory Muscle Use, No Respiratory Distress, Normal Breath Sounds Cardiovascular: No Edema, No JVD, No Murmur, No Gallop, Normal Peripheral Pulses, Regular Rate/Rhythm Breast Exam: Deferred Gastrointestinal: No Organomegaly, Non Tender, No Pulsatile Mass, Normal Bowel Sounds, Soft Genitalia: Deferred Pelvic: Deferred Rectal: Deferred Extremities: No calf tenderness, Normal capillary refill, Normal inspection, Normal range of motion, Non-tender, No pedal edema Musculoskeletal : Location: Bilateral Extremity Location: Leg (No erythema edema to the bilateral lower extremities below the knee.) Apperance: Normal Neurologic: Alert, phosphorus processing supervisor II-XII nml as Tested, No Motor Deficits, Normal Affect, Normal Mood, No Sensory Deficits Cerebellar Function: Normal Reflexes: Normal Skin: Dry, Normal Color, Warm Lymphatic: No Adenopathy Was a procedure done? Was a procedure done?: No Differential Diagnosis Kidney stone (Female): Other X-Ray, Labs, Meds, VS Vital Signs Date Time Temp Pulse Resp B/P (MAP) Pulse Ox O2 Delivery O2 Flow Rate FiO2 09/03/25 11:28 98.0 94 15 188/106 98 98.0 Lab Test 09/03/25 12:09 09/03/25 11:53 Range/Units White Blood Count 6.1 4.4-10.8 10^3/uL Red Blood Count 5.76 4.5-5.90 10^6/uL Hemoglobin 17.1 13.5-17.5 g/dL Hematocrit 51.0 41.0-53.0 % Mean Corpuscular Volume 88.5 80.0-100.0 fL Mean Corpuscular Hemoglobin 29.7 28.0-32.0 pg Mean Corpuscular Hemoglobin Concent 33.6 32.0-36.0 g/dL Red Cell Distribution Width 13.8 11.8-14.3 % Platelet Count 241 140-450 10^3/uL Mean Platelet Volume 8.3 6.9-10.8 fL Neutrophils (%) (Auto) 65.1 37.0-80.0 % Lymphocytes (%) (Auto) 23.3 10.0-50.0 % Monocytes (%) (Auto) 9.7 0.0-12.0 % Eosinophils (%) (Auto) 1.1 0.0-7.0 % Basophils (%) (Auto) 0.8 0.0-2.0 % Neutrophils # (Auto) 3.9 1.6-8.6 10 ^3/uL Lymphocytes # (Auto) 1.4 0.4-5.4 10 ^3/uL Monocytes # (Auto) 0.6 0-1.3 10 ^3/uL Eosinophils # (Auto) 0.1 0-0.8 10 ^3/uL Basophils # (Auto) 0 0-0.2 10 ^3/uL Nucleated Red Blood Cells 0.2 % Prothrombin Time 11.3 9.3-11.8 sec Prothrombin Time INR 1.07 0.9-1.15 Sodium Level 139 136-145 mmol/L Potassium Level 4.1 3.5-5.1 mmol/L Chloride Level 107 98-107 mmol/L Carbon Dioxide Level 21 20-31 mmol/L Anion Gap 11 5-15 Blood Urea Nitrogen 15 9-23 mg/dL Creatinine 1.01 0.700-1.30 mg/dL Glomerular Filtration Rate Calc 84 >90 mL/min BUN/Creatinine Ratio 14.9 10.0-20.0 Serum Glucose 194 H 74-106 mg/dL Calcium Level 9.9 8.7-10.4 mg/dL Total Bilirubin 0.6 0.2-1.0 mg/dL Aspartate Amino Transferase (AST) 23 13-40 U/L Alanine Aminotransferase (ALT) 29 7-40 U/L Alkaline Phosphatase 86 46-116 U/L Total Protein 7.5 5.7-8.2 g/dL Albumin 4.8 3.2-4.8 g/dL Lipase 50 12-53 U/L Urine Color Light-yellow Yellow Urine Clarity Clear Clear Urine pH 5.5 5.0-9.0 Urine Specific [place] 1.022 1.001-1.035 Urine Protein 1+ H Negative Urine Ketones Negative Negative Urine Blood 3+ H Negative /uL Urine Nitrite Negative Negative Urine Bilirubin Negative Negative Urine Urobilinogen Normal Negative mg/dL Urine Leukocyte Esterase Negative Negative /uL Urine RBC 96 0 - 3 /hpf Urine Microscopic WBC 6 H 0-3 /HPF Urine Squamous Epithelial Cells None seen <5 /hpf Urine Bacteria None seen None Seen /hpf Urine Mucus Few None Seen Urine Yeast (Budding) Occasional None Seen /hpf Urine Glucose 4+ H Normal mg/dL PATIENT: ROMMEL CRAWLEY RACCT: [id number]: [id number] : 1960 LOC: ER ROOM / BED: / AGE / SEX: 64 / M ADM STATUS: REG ER SERVICE 1205 ORDERING PHYSICIAN: MILKA HUTCHISON NP PROCEDURE(s): BLDVT - BiLat Lower DVT REASON: R/o dvt ORDER NUMBER(s): [id number], ACCESSION NUMBER(s): [id number] Bilateral lower extremity venous duplex Clinical History: edema Comparison: None Findings: Duplex Doppler evaluation of the deep venous systems of both lower extremities from the common femoral veins to the popliteal veins including color Doppler and spectral/pulsed waveform analysis was performed. RIGHT SIDE: The common femoral vein demonstrates appropriate compressibility and waveform variability. There is compressibility/patency of the great saphenous vein at the proximal thigh. The femoral vein demonstrates appropriate compressibility and waveform variability. The deep femoral vein demonstrates appropriate compressibility and waveform variability. The popliteal vein demonstrates appropriate compressibility and waveform variability. There is normal compressibility at the tibioperoneal trunk. LEFT SIDE: The common femoral vein demonstrates appropriate compressibility and waveform variability. There is compressibility/patency of the great saphenous vein at the proximal thigh. The femoral vein demonstrates appropriate compressibility and waveform variability. Thrombus in the distal left femoral vein and popliteal vein. There is normal compressibility at the tibioperoneal trunk. IMPRESSION: No right lower extremity DVT. Left lower extremity DVT. Critical Result: DVT Findings discussed with Dr. Hutchison , at 09/03/2025 12:57 PM, and acknowledged receipt and understanding of the findings. .. END IMPRESSION: If clinical concern/symptoms persist or worsen, short-interval follow-up study is suggested. ATED BY: EYAL ELKINS MD DICTATED DATE/TIME: 09/03/25 1258 SIGNED BY: EYAL ELKINS MD SIGNED DATE/TIME: 09/03/25 1258 CC: PATIENT: ROMMEL CRAWLEY ACCT: [id number] UNIT: [id number] : 1960 LOC: ER ROOM / BED: / AGE / SEX: 64 / M ADM STATUS: REG ER SERVICE 1320 ORDERING PHYSICIAN: MILKA HUTCHISON NP PROCEDURE(s): KIDUS - KIDNEY REASON: hematuria/ r/o stone ORDER NUMBER(s): [id number], ACCESSION NUMBER(s): [id number] INDICATION: hematuria/ r/o stone TECHNIQUE: Multiple real-time sonographic images of the kidneys and bladder were obtained. COMPARISON: US KIDNEY on DOS: 03/29/25, US KIDNEY on DOS: 01/03/25, US KIDNEY on DOS: 12/15/24 FINDINGS: The right kidney measures 11 cm in length, which is normal in size. There is normal echogenicity of the right kidney. No hydronephrosis. 1 cm right renal cyst. Punctate echogenic foci in the right kidney measuring up to 5 mm. The left kidney measures 11 cm in length, which is normal in size. There is normal echogenicity of the left kidney. No hydronephrosis. No large intraluminal masses are seen in the bladder. Prior to voiding the bladder volume measures volume 135 cc. IMPRESSION: Multiple nonobstructing right renal calculi measuring up to 5 mm. No hydronephr osis. Enlarged and heterogeneous prostate gland. Correlate with PSA. Thickening of the bladder wall. Correlate with UA. Cystitis not excluded. ATED BY: EYAL ELKINS MD DICTATED DATE/TIME: 09/03/251404 SIGNED BY: EYAL ELKINS MD SIGNED DATE/TIME: 09/03/251404 CC: X-Ray, Labs, Meds, VS Comment 64-year-old male presents to the ER with a chief complaint of a hematuria. Patient arrives alert and oriented, ABC's intact, afebrile, vital signs stable, saturating well in room air Peripheral IV insertion+ labs were ordered. CBC was ordered to exclude anemia, blood loss, or infection. CMP was ordered to exclude electrolyte abnormalities, renal failure, dehydration, hyperglycemia and/or liver enzyme abnormalities. Lipase Urinalysis was ordered to rule out UTI or hematuria. Prothrombin time Diagnostic imaging ordered by me and results interpreted by radiology : Bilateral lower DVT ultrasound Thrombus in the distal left femoral vein and popliteal vein. There is normal compressibility at the tibioperoneal trunk. IMPRESSION: No right lower extremity DVT. Left lower extremity DVT. Critical Result: DVT Findings discussed with Dr. Hutchison , at 09/03/2025 12:57 PM, and acknowledged receipt and understanding of the findings. .. END IMPRESSION: If clinical concern/symptoms persist or worsen, short-interval follow-up study is suggested. IMPRESSION: Multiple nonobstructing right renal calculi measuring up to 5 mm. No hydronephrosis. Enlarged and heterogeneous prostate gland. Correlate with PSA. Thickening of the bladder wall. Correlate with UA. Cystitis not excluded. Patient on day of Eliqu We will resume medication for the left DVT. The patient also had surgery performed by Dr. Baumann April 13. Currently on tamsulosin we will continue tamsulosin Patient is stable for discharge at this time. External notes reviewed. Test results and diagnostic imaging interpreted. All diagnostic findings, discharge care, education and instructions provided Follow-up with PCP in 2 to 3 days Patient verbalized understanding and agreed to treatment plan Vital signs stable, afebrile, no acute distress noted Patient ambulatory with strong steady gait Advised to return precautions for any new or worsening symptoms, return to ER immediately for re-evaluation Patient is aware that the purpose of this visit was for an acute medical emergency requiring emergent stabilization. Chronic conditions, including malignancies have not been ruled out. Patient is instructed to follow up with PCP as directed and discharge instructions for continued care and workup. If unable to arrange follow-up, patient is to return to the emergency department for reassessment. Patient (parent or legal guardian if applicable) was given verbal and written discharge instructions and acknowledges understanding. Additional MDM Review of External, Non-ED records: External records reviewed. Discussion with independent historian (EMS, family) history obtained from the patient/parents (if applicable) at bedside Chronic conditions affecting care: None Social determinants of health affecting care: None Consideration of admission (observation or admission): I considered escalation of care to admission for this patient, however given the reassuring workup, the patient is safe for outpatient management. Discussion with the Radiology: No Tests considered but not performed: Prescription medication considered but not given: 12 lead EKG interpretation: Time of 1ST Reevaluation: 12:50 Reevaluation 1ST: Unchanged Time of 2ND Reevaluation: 14:31 Reevaluation 2ND: Improved Patient Education/Counseling: Diagnosis, Treatment, Prognosis Family Education/Counseling: No Family Present SEPSIS Sepsis Screen Date sepsis recognized/suspect: Sep 03, 2025 Time Sepsis recognized/suspect: 1130 Recent Procedure: No On Antibiotic Therapy: No Respiratory Rate >20: No Heart Rate >90: No Temp<36 C (96.8 F) or >38.3 C: No SBP <90 or MAP <65 mmHG: No New Acute Mental Status Change: No Is the patient on CPAP, BIPAP,: No Physician Orders Bilat Lower Dvt (09/03/25 12:05) Kidney (09/03/25 13:20) Vital Signs Date Time Temp Pulse Resp B/P (MAP) Pulse Ox O2 Delivery O2 Flow Rate FiO2 09/03/25 11:28 98.0 94 15 188/106 98 98.0 Laboratory Tests Test 09/03/25 12:09 White Blood Count 6.1 10^3/uL (4.4-10.8) Departure 1 Departure Time of Disposition: 14:30 Impression: Primary Impression: Left leg DVT Qualified Codes: I82.4Z2 - Acute embolism and thrombosis of unspecified deep veins of left distal lower extremity Additional Impression: Bilateral kidney stones Disposition: 01 HOME / SELF CARE / HOMELESS Condition: Stable Critical Care Note Critical Care Time?: No Stability Stability form required: No Heart Score Heart Score: Heart Score Response (Comments) Value History N/A 0 EKG N/A 0 Age N/A 0 Risk Factors N/A 0 Troponin N/A 0 Total 0 I personally scribed for MILKA HUTCHISON NP ([email or web address]) on 09/03/25 at 12:25. Electronically submitted by Collins Gann ([email or web address]). MILKA HUTCHISON NP Sep 03, 2025 12:25
[2025-09-03 12:31] LABS: Alanine Aminotransferase 29 U/L (7-40); Albumin 4.8 g/dL (3.2-4.8); Alkaline Phosphatase 86 U/L (46-116); Anion Gap 11 (5-15); BUN/Creatinine Ratio 14.9 (10.0-20.0); Blood Urea Nitrogen 15 mg/dL (9-23); Calcium 9.9 mg/dL (8.7-10.4); Carbon Dioxide 21 mmol/L (20-31); Chloride 107 mmol/L (98-107); Lipase 50 U/L (12-53); Potassium 4.1 mmol/L (3.5-5.1); Sodium 139 mmol/L (136-145); Total Protein 7.5 g/dL (5.7-8.2)
[2025-09-03 12:32] LABS: Bilirubin, Total 0.6 mg/dL (0.2-1.0); INR 1.07 (0.9-1.15); Prothrombin Time 11.3 sec (9.3-11.8)
[2025-09-03 12:34] LABS: Glucose 194 mg/dL (74-106)
[2025-09-03 12:56] LABS: Urine Budding Yeast OCCASIONAL /hpf (None Seen); Urine Protein, UAD 1+ (Negative)
--- NOTE | 2025-09-03 13:00 | DVH ---
Bilateral lower extremity venous duplex Clinical History: edema Comparison: None Findings: Duplex Doppler evaluation of the deep venous systems of both lower extremities from the common femora l veins to the popliteal veins including color Doppler and spectral/pulsed waveform analysis was perf ormed. RIGHT SIDE: The common femoral vein demonstrates appropriate compressibility and waveform variability. There is compressibility/patency of the great saphenous vein at the proximal thigh. The femoral vein demonstrates appropriate compressibility and waveform variability. The deep femoral vein demonstrates appropriate compressibility and waveform variability. The popliteal vein demonstrates appropriate compressibility and waveform variability. There is normal compressibility at the tibioperoneal trunk. LEFT SIDE: The common femoral vein demonstrates appropriate compressibility and waveform variability. There is compressibility/patency of the great saphenous vein at the proximal thigh. The femoral vein demonstrates appropriate compressibility and waveform variability. Thrombus in the distal left femoral vein and popliteal vein. There is normal compressibility at the tibioperoneal trunk. IMPRESSION: No right lower extremity DVT. Left lower extremity DVT. Critical Result: DVT Findings discussed with Dr. Hutchison , at 09/03/2025 12:57 PM, and acknowledged receipt and understanding of the findings. .. END IMPRESSION: If clinical concern/symptoms persist or worsen, short-interval follow-up study is suggested.
--- NOTE | 2025-09-03 14:08 | DVH ---
INDICATION: hematuria/ r/o stone TECHNIQUE: Multiple real-time sonographic images of the kidneys and bladder were obtained. COMPARISON: US KIDNEY on DOS: 03/29/25, US KIDNEY on DOS: 01/03/25, US KIDNEY on DOS: 12/15/24 FINDINGS: The right kidney measures 11 cm in length, which is normal in size. There is normal echogen icity of the right kidney. No hydronephrosis. 1 cm right renal cyst. Punctate echogenic foci in the r ight kidney measuring up to 5 mm. The left kidney measures 11 cm in length, which is normal in size. There is normal echogenicity of th e left kidney. No hydronephrosis. No large intraluminal masses are seen in the bladder. Prior to voiding the bladder volume measures vo lume 135 cc. IMPRESSION: Multiple nonobstructing right renal calculi measuring up to 5 mm. No hydronephrosis. Enlarged and heterogeneous prostate gland. Correlate with PSA. Thickening of the bladder wall. Correlate with UA. Cystitis not excluded.
== END 2025-09-03 14:43 | disposition home or self-care (01) ==
LOC: ER 11:27
DX: I82.412 Acute embolism and thrombosis of left femoral vein (principal); I82.432 Acute embolism and thrombosis of left popliteal vein; I10 Essential (primary) hypertension; E11.9 Type 2 diabetes mellitus without complications; I25.2 Old myocardial infarction; N40.0 Benign prostatic hyperplasia without lower urinary tract symptoms; Z86.718 Personal history of other venous thrombosis and embolism; Z86.73 Personal history of transient ischemic attack (TIA), and cerebral infarction without residual deficits; Z90.89 Acquired absence of other organs
CPT/HCPCS: 36415; 76775; 80053; 81001; 83690; 85025; 85610; 93970